=== PATIENT | male | born 1960 | race African-American/Black ===

== ENCOUNTER 2016-12-20 09:37 | Inpatient (IN) | payer MEDICARE, OTHER ==
[~2016-12-20] VITALS: Ht 170.2 cm; Wt 81.2 kg
[2016-12-20] VITALS (8 sets, daily range): BP systolic 129; BP diastolic 70; PULSE 121; RESP 18; TEMP 99.9; O2SAT 97–100
--- NOTE | 2016-12-20 11:03 | PD ---
HPI Chief Complaint: GI Complaint Time Seen by Provider: 10:00 Travel History International Travel<30 days: No Contact w/Intl Traveler<30days: No Traveled to known affect area: No History of Present Illness HPI 56-year-old male presents by ambulance from a custodial with note of vomiting and concern for bowel obstruction. Patient is a ventilator patient with a tracheostomy and a PEG tube and has difficulty communicating secondary to this but does note pain all over. He is a quadriplegic and cannot point at the area that is bothering him. [facility] Past Medical History Medical History: Unable to Obtain Past Surgical History Surgical History: Unable to Obtain Social History Tobacco Use: No (uto) Allergies-Medications (Allergen,Severity, Reaction): Coded Allergies: levofloxacin (Verified Allergy, Unknown, 12/20/16) PER [facility] AT [facility] Reported Meds & Prescriptions Reported Meds & Active Scripts Active Reported Trazodone (Trazodone HCl) 150 Mg Tablet 150 Mg PO HS Sodium Chloride Flush (Sodium Chloride) 0.9 % Inj 10 Ml IV FLUSH MONTHLY For infusaport maintenance-access infusaport to rt upper chest area w/tan needle and flush w/10ml NSS on day shift every 30 days Silvadene Topical (Silver Sulfadiazine) 1 % Cream 1 Applic TOPICAL DAILY Apply to suprapubic site every day shift after nss wash then cover w/dry drsg-apply calciumm alginate as needed Senna-Tabs (Sennosides) 8.6 Mg Tab 17.2 Mg G-TUBE BID Remeron (Mirtazapine) 15 Mg Tab 15 Mg G-TUBE HS Miralax (Polyethylene Glycol 3350) 17 Gram Powd.pack 17 Gm G-TUBE DAILY Oxycodone (Oxycodone HCl) 5 Mg Tab 5 Mg PEG Q6HR PRN Zofran (Ondansetron HCl) 4 Mg Tab 4 Mg G-TUBE Q6HR PRN Multi-Vitamin/Minerals (Multiple Vitamins W/ Minerals) 1 Tab Tab 1 Tab G-TUBE DAILY Midodrine 5 Mg Tab 5 Mg G-TUBE TID Metoprolol Tartrate 25 Mg Tab 12.5 Mg G-TUBE BID Ativan (Lorazepam) 1 Mg Tab 1 Mg G-TUBE Q6HR PRN Heparin Sod 5,000 Unit/ 0.5 ml (Heparin Sodium,Porcine/Pf) 5,000 Unit/0.5 Ml Vial 5,000 Units SQ Q8HR Pepcid (Famotidine) 20 Mg Tab 20 Mg G-TUBE Q12HR Duoneb (Ipratropium-Albuterol Neb) 0.5-2.5 Mg/3 Ml Neb 3 Ml NEB QID Duoneb (Ipratropium-Albuterol Neb) 0.5-2.5 Mg/3 Ml Neb 3 Ml NEB Q3HR PRN [D5%-Nss Soln] 50 Ml IV EVERY SHIFT PRN 50ML/HR Cymbalta DR (Duloxetine HCl) 60 Mg Capdr 60 Mg G-TUBE DAILY Buspirone (Buspirone HCl) 5 Mg Tab 5 Mg G-TUBE TID Baclofen 10 Mg Tab 10 Mg G-TUBE TID Ascorbic Acid 500 Mg Tab 500 Mg G-TUBE DAILY Tylenol (Acetaminophen) 325 Mg Tab 650 Mg G-TUBE Q6H PRN Acetaminophen Supp (Acetaminophen) 650 Mg Supp 650 Mg RECTAL Q6H PRN Review of Systems ROS Limitations: Other: (vent, quad) Physical Exam Exam Limitations: Clinical Condition Narrative GENERAL: Ventilator patient SKIN: Warm and dry. HEAD: Normocephalic EYES: No injection or drainage. ENT: No nasal drainage noted. NECK: Supple, trachea midline. CARDIOVASCULAR: Tachycardic rate and regular rhythm RESPIRATORY: no increased effort. No accessory muscle use. GASTROINTESTINAL: Abdomen is distended, diffusely tender NEUROLOGICAL: Quadriplegic with contractures noted Data Data Last Documented VS Vital Signs Date Time Temp Pulse Resp B/P (MAP) Pulse Ox O2 Delivery O2 Flow Rate FiO2 12/20/16 17:00 100 40 12/20/16 10:47 Ventilator 12/20/16 09:50 99.9 121 18 129/70 (89) Orders Orders Complete Blood Count With Diff (12/20/16 10:05) Comprehensive Metabolic Panel (12/20/16 10:05) Prothrombin Time / Inr (Pt) (12/20/16 10:05) Act Partial Throm Time (Ptt) (12/20/16 10:05) Lactic Acid Sepsis Protocol (12/20/16 10:05) Magnesium (Mg) (12/20/16 10:05) Phosphorus (Po4) (12/20/16 10:05) Lipase (12/20/16 10:05) Ckmb (Isoenzyme) Profile (12/20/16 10:05) Troponin I (12/20/16 10:05) Urinalysis - C+S If Indicated (12/20/16 10:05) Influenzae A/B Antigen (12/20/16 10:05) Blood Culture (12/20/16 10:05) Chest, Single Ap (12/20/16 10:05) Ecg Monitoring (12/20/16 10:05) Iv Access Insert/Monitor (12/20/16 10:05) Oximetry (12/20/16 10:05) Oxygen Administration (12/20/16 10:05) Ct Abd/Pel W Iv Contrast(Rout) (12/20/16 10:05) Vascular Access Team Consult/P PRN (12/20/16 11:06) Vascular Poc Ultrasound (12/20/16 ) Urine Culture (12/20/16 11:50) Cefepime Inj (Maxipime Inj) (12/20/16 14:15) Azithromycin Inj (Zithromax Inj) (12/20/16 14:17) CKMB (12/20/16 14:40) CKMB% (12/20/16 14:40) Sodium Chlor 0.9% 1000 Ml Inj (Ns 1000 M (12/20/16 16:30) Iohexol 350 Inj (Omnipaque 350 Inj) (12/20/16 16:57) Admit Order (Ed Use Only) (12/20/16 17:53) Labs Laboratory Tests Test 12/20/16 11:50 12/20/16 14:40 White Blood Count 27.8 TH/MM3 Red Blood Count 4.99 MIL/MM3 Hemoglobin 11.8 GM/DL Hematocrit 36.1 % Mean Corpuscular Volume 72.2 FL Mean Corpuscular Hemoglobin 23.6 PG Mean Corpuscular Hemoglobin Concent 32.7 % Red Cell Distribution Width 19.2 % Platelet Count 528 TH/MM3 Mean Platelet Volume 7.8 FL Neutrophils (%) (Auto) 87.6 % Lymphocytes (%) (Auto) 7.1 % Monocytes (%) (Auto) 4.8 % Eosinophils (%) (Auto) 0.2 % Basophils (%) (Auto) 0.3 % Neutrophils # (Auto) 24.3 TH/MM3 Lymphocytes # (Auto) 2.0 TH/MM3 Monocytes # (Auto) 1.3 TH/MM3 Eosinophils # (Auto) 0.0 TH/MM3 Basophils # (Auto) 0.1 TH/MM3 CBC Comment AUTO DIFF Differential Total Cells Counted 100 Neutrophils % (Manual) 84 % Band Neutrophils % 2 % Lymphocytes % 8 % Monocytes % 2 % Eosinophils % 1 % Basophils % 1 % Neutrophils # (Manual) 24.5 TH/MM3 Metamyelocytes 1 % Myelocytes 1 % Differential Comment FINAL DIFF MANUAL Toxic Vacuolation PRESENT Platelet Estimate HIGH Platelet Morphology Comment NORMAL Prothrombin Time 10.7 SEC Prothromb Time International Ratio 1.0 RATIO Activated Partial Thromboplast Time 28.3 SEC Urine Color YELLOW Urine Turbidity CLOUDY Urine pH 6.0 Urine Specific [place] 1.031 Urine Protein GREATER THAN 600 mg/dL Urine Glucose (UA) NEG mg/dL Urine Ketones TRACE mg/dL Urine Occult Blood MOD Urine Nitrite NEG Urine Bilirubin NEG Urine Urobilinogen 2.0 MG/DL Urine Leukocyte Esterase LARGE Urine RBC 41 /hpf Urine WBC /hpf Urine WBC Clumps MANY Urine Bacteria MANY /hpf Urine Hyaline Casts 18 /lpf Urine Granular Casts 9 /lpf Urine Mucus MANY /lpf Microscopic Urinalysis Comment CATH-CULTURE IND Lactic Acid Level 1.1 mmol/L Blood Urea Nitrogen 22 MG/DL Creatinine 0.75 MG/DL Random Glucose 164 MG/DL Total Protein 10.6 GM/DL Albumin 3.5 GM/DL Calcium Level 10.4 MG/DL Phosphorus Level 6.0 MG/DL Magnesium Level 2.4 MG/DL Alkaline Phosphatase 219 U/L Aspartate Amino Transf (AST/SGOT) 31 U/L Alanine Aminotransferase (ALT/SGPT) 71 U/L Total Bilirubin 0.6 MG/DL Sodium Level 125 MEQ/L Potassium Level 4.3 MEQ/L Chloride Level 91 MEQ/L Carbon Dioxide Level 20.9 MEQ/L Anion Gap 13 MEQ/L Estimat Glomerular Filtration Rate 132 ML/MIN Total Creatine Kinase 298 U/L Creatine Kinase MB 1.5 NG/ML Troponin I LESS THAN 0.02 NG/ML Lipase 80 U/L [facility] Medical Decision Making Medical Screen Exam Complete: Yes Emergency Medical Condition: Yes Medical Record Reviewed: Yes (no records here) Interpretation(s) CBC & BMP Diagram 12/20/16 11:50 12/20/16 14:40 Total Protein 10.6 H, Albumin 3.5, Calcium Level 10.4 H, Phosphorus Level 6.0 H , Magnesium Level 2.4, Alkaline Phosphatase 219 H, Aspartate Amino Transf (AST/ SGOT) 31, Alanine Aminotransferase (ALT/SGPT) 71, Total Bilirubin 0.6 ua with uti Last 24 hours Impressions Chest X-Ray 12/20/16 1005 Signed Impressions: Service Date/Time: Tuesday, December 20, 2016 10:34 - CONCLUSION: Bibasilar parenchymal changes. Inflammatory process in the right base cannot be excluded. Gurpreet Iniguez MD FACR Abdomen/Pelvis CT 12/20/16 1005 Signed Impressions: Service Date/Time: Tuesday, December 20, 2016 16:56 - CONCLUSION: 1. There are bibasilar areas of atelectasis. 2. There is gaseous distention of the colon. There is oral contrast which has passed through the colon nearly down to the ostomy. 3. Incidental note is made of an IVC filter. 4. Note is made of multiple loops of moderately dilated, fluid-filled small bowel. Brett Iniguez MD Differential Diagnosis Bowel obstruction, gastroenteritis, renal failure, UTI Narrative Course Will place PEG tube to gravity given significant distention and check labs, CT and reevaluate Nursing staff states 1500 mL output from PEG tube while awaiting testing Patient given broad-spectrum antibiotic coverage and will be admitted to the ICU for further care. Sepsis Criteria SIRS Criteria (2 or more): Heart rate over 90, WBC > 31151, < 4000 or > 10% bands Sepsis Criteria (SIRS+source): Infect source susp/known Criteria Outcome: Meets sepsis criteria Physician Communication Physician Communication dr bianchi agrees to admit Diagnosis Primary Impression: Sepsis Qualified Codes: A41.9 - Sepsis, unspecified organism Additional Impressions: UTI (urinary tract infection) Qualified Codes: N39.0 - Urinary tract infection, site not specified Hyponatremia Admitting Information Admitting Physician Requests: it Daily Lazaro MD Dec 20, 2016 11:03
--- NOTE | 2016-12-20 11:45 | RADRPT ---
EXAM DATE/TIME: 12/20/2016 10:34 [facility] COMPARISON: No previous studies available for comparison. INDICATIONS : Patient has a fever and vomiting. MEDICAL HISTORY : None. SURGICAL HISTORY : None. ENCOUNTER: Initial ACUITY: 1 day PAIN SCORE: Non-responsive. LOCATION: Bilateral Chest FINDINGS: Trach tube in good position, Infusaport in good position. Minimal bibasilar parenchymal changes evid ent. Heart and pulmonary vascularity are normal. CONCLUSION: Bibasilar parenchymal changes. Inflammatory process in the right base cannot be excluded. Gurpreet Iniguez MD FACR on December 20, 2016 at 11:23 Board Certified Radiologist. This report was verified electronically.
[2016-12-20] MEDS ORDERED: CYMB60CA G-TUBE (12:14)
[2016-12-20] MEDS ORDERED: SILV1CRE20 TOPICAL (12:14)
[2016-12-20] MEDS ORDERED: SODI0.9I29 IV FLUSH (12:14)
[2016-12-20] MEDS ORDERED: TRAZ1TAB45 PO (12:14)
[2016-12-20] MEDS ORDERED: [UNRECOGNIZED DRUG - CODE] SQ (12:14)
[2016-12-20] MEDS ORDERED: REME15TA G-TUBE (12:14)
[2016-12-20] MEDS ORDERED: METO25TA3 G-TUBE (12:14)
[2016-12-20] MEDS ORDERED: ASCO500T G-TUBE (12:14)
[2016-12-20] MEDS ORDERED: POLY17PO3 G-TUBE (12:14)
[2016-12-20] MEDS ORDERED: MULTTAB62 G-TUBE (12:14)
[2016-12-20] MEDS ORDERED: TYLE325T G-TUBE (12:14)
[2016-12-20] MEDS ORDERED: FAMO1TAB37 G-TUBE (12:14)
[2016-12-20] MEDS ORDERED: DEXTROSE IV (12:14)
[2016-12-20] MEDS ORDERED: IPRASOL NEB ×2 (12:14)
[2016-12-20] MEDS ORDERED: ZOFR4TAB G-TUBE (12:14)
[2016-12-20] MEDS ORDERED: LORA-474 G-TUBE (12:14)
[2016-12-20] MEDS ORDERED: MIDO5TAB G-TUBE (12:14)
[2016-12-20] MEDS ORDERED: OXYC-392 PEG (12:14)
[2016-12-20] MEDS ORDERED: SODIUM CHLORIDE IV (12:14)
[2016-12-20] MEDS ORDERED: BACL10TA G-TUBE (12:14)
[2016-12-20] MEDS ORDERED: SENN8.6T36 G-TUBE (12:14)
[2016-12-20] MEDS ORDERED: BUSP5TAB G-TUBE (12:14)
[2016-12-20] MEDS ORDERED: ACET650S4 RECTAL (12:14)
[2016-12-20 12:33] LABS: BACTERIA, URINE MANY /hpf; BLOOD, URINE MOD (NEG); GLUCOSE,URINE NEG (NEG); GRANULAR CAST, URINE 9 /lpf; HYALINE CAST, URINE 18 /lpf (RARE); KETONE, URINE TRACE mg/dL (NEG); MUCUS URINE MANY /lpf (OCC); NITRITE,URINE NEG (NEG)
[2016-12-20 12:35] LABS: COMMENT (UR) CATH-CULTURE IND; CULTURE IF INDICATED CATH CULTURE IND; URINE COLOR YELLOW (YELLW/STRAW)
[2016-12-20 12:37] LABS: AUTOMATED NEUTROPHIL # 24.3 TH/MM3 (1.8-7.7); BASOPHIL # 0.1 TH/MM3 (0-0.2); BASOPHIL % 0.3 % (0.0-2.0); EOSINOPHIL % 0.2 % (0.0-4.0); HEMATOCRIT 36.1 % (39.0-51.0); LYMPH % 7.1 % (9.0-44.0); MEAN CELL VOLUME 72.2 FL (80.0-100.0); MEAN CORPUSCULAR HEMOGLOBIN 23.6 PG (27.0-34.0); MEAN CORPUSCULAR HGB CONC 32.7 % (32.0-36.0); MONO % 4.8 % (0.0-8.0); NEUT % 87.6 % (16.0-70.0); PLATELET COUNT 528 TH/MM3 (150-450); RED BLOOD COUNT 4.99 MIL/MM3 (4.50-5.90); RED CELL DISTRIBUTION WIDTH 19.2 % (11.6-17.2); WHITE BLOOD COUNT 27.8 TH/MM3 (4.0-11.0)
[2016-12-20 12:38] LABS: HEMO FLAGS AUTO DIFF
[2016-12-20 12:41] LABS: APTT (PATIENT) 28.3 SEC (24.3-30.1); PROTHROMBIN TIME - PATIENT 10.7 SEC (9.8-11.6)
[2016-12-20 13:15] LABS: BANDS 2 % (0-6); BASOPHILS 1 % (0-2); EOSINOPHILS 1 % (0-4); METAMYELOCYTES 1 % (0-1); MYELOCYTES 1 % (0-0); NEUTROPHIL # MANUAL DIFF 24.5 TH/MM3 (1.8-7.7); PLATELET ESTIMATE SMEAR HIGH (NORMAL); PLATELET MORPHOLOGY NORMAL (NORMAL); POLYS (SEG NEUTROPHILS) 84 % (16-70); SCAN/DIFF FINAL DIFF MANUAL; WBC DIFF SAMPLE 100
[2016-12-20 13:16] LABS: TOXIC VACUOLATION PRESENT (NONE SEEN)
[2016-12-20] MEDS ORDERED: CEFEPIME INJ 2,000 MG in SODIUM CHLORIDE 0.9% INJ 100 ML IV STA (14:15)
[2016-12-20] MEDS ORDERED: AZITHROMYCIN INJ 500 MG in SODIUM CHLOR 0.9% 250 ML INJ 250 ML IV STA (14:17)
[2016-12-20 15:22] LABS: ALT (GPT) 71 U/L (12-78); ANION GAP 13 MEQ/L (5-15); AST (GOT) 31 U/L (15-37); BICARBONATE 20.9 MEQ/L (21.0-32.0); BLOOD UREA NITROGEN 22 MG/DL (7-18); CHLORIDE 91 MEQ/L (98-107); GLOMERULAR FILTRATION RATE 132 ML/MIN (>89); MAGNESIUM 2.4 MG/DL (1.5-2.5); POTASSIUM 4.3 MEQ/L (3.5-5.1); SODIUM (NA) 125 MEQ/L (136-145)
[2016-12-20 15:25] LABS: ALKALINE PHOSPHATASE 219 U/L (45-117)
[2016-12-20 15:32] LABS: CREATINE KINASE 298 U/L (39-308); TOTAL BILIRUBIN ADULT 0.6 MG/DL (0.2-1.0)
[2016-12-20 15:46] LABS: CKMB 1.5 NG/ML (0.5-3.6)
[2016-12-20] MEDS ORDERED: SODIUM CHLOR 0.9% 1000 ML INJ 1,000 ML IV ONE ×3 (16:30→21:20)
[2016-12-20] MEDS ORDERED: IOHEXOL 350 MG/ML 10 ML VIAL (for RAD DIAG) IV PUSH ONE (16:57)
--- NOTE | 2016-12-20 17:10 | RADRPT ---
EXAM DATE/TIME: 12/20/2016 16:56 [facility] COMPARISON: No previous studies available for comparison. INDICATIONS : Abdomen pain. IV CONTRAST: 100 cc Omnipaque 350 (iohexol) IV ORAL CONTRAST: No oral contrast ingested. RADIATION DOSE: 9.96 CTDIvol (mGy) MEDICAL HISTORY : None SURGICAL HISTORY : peg tube ENCOUNTER: Initial ACUITY: 1 day PAIN SCALE: 5/10 LOCATION: Bilateral abdomen pain TECHNIQUE: Volumetric scanning of the abdomen and pelvis was performed. Using automated exposure control and ad justment of the mA and/or kV according to patient size, radiation dose was kept as low as reasonably achievable to obtain optimal diagnostic quality images. DICOM format image data is available electro nically for review and comparison. FINDINGS: There are areas of consolidation in both lung bases. There is no significant pleural effusion. The appearance of the liver, spleen, pancreas, adrenal glands and left kidney is within normal limits . The examination demonstrates a 3.4 cm simple cyst in the left kidney. The visualized loops of small and large bowel demonstrate mild gaseous distention of the colon and mu ltiple mildly dilated, fluid-filled loops of small bowel.. There is an ostomy in place in the left up per quadrant. There is oral contrast that has passed through the small bowel and is present within th e colon. There is no free intraperitoneal air. No free fluid is identified. Note is made of an IVC filter. There is no free fluid within the pelvis. No iliac or inguinal adenopathy is seen. The examination de monstrates a suprapubic catheter in satisfactory position. There degenerative changes throughout the lumbar spine. CONCLUSION: 1. There are bibasilar areas of atelectasis. 2. There is gaseous distention of the colon. There is oral contrast which has passed through the colo n nearly down to the ostomy. 3. Incidental note is made of an IVC filter. 4. Note is made of multiple loops of moderately dilated, fluid-filled small bowel. Brett Iniguez MD on December 20, 2016 at 17:03 Board Certified Radiologist. This report was verified electronically.
[2016-12-20] MEDS ORDERED: ONDANSETRON ODT 4 MG TAB PRN (21:15)
[2016-12-20] MEDS ORDERED: ACETAMINOPHEN 650 MG/20.3 ML UDC G-TUBE PRN (21:15)
[2016-12-20] MEDS ORDERED: SODIUM CHLOR 0.9% 1000 ML INJ 100 ML IV ONE (21:20)
[2016-12-20] MEDS ORDERED: SENNOSIDES 8.6 MG TAB PO PRN (21:30)
[2016-12-20] MEDS ORDERED: MAGNESIUM HYDROXIDE SUSP 30 ML CUP PO PRN (21:30)
[2016-12-20] MEDS ORDERED: Vancomycin Consult Pharmacy 1 EA OTHER SCH (21:30)
[2016-12-20] MEDS ORDERED: BISACODYL 10 MG SUPP RECTAL PRN (21:30)
[2016-12-20] MEDS ORDERED: RESP: ALBUTEROL 2.5 MG/IPRATROPIUM 0.5 MG NEB (PRN) INH (21:30)
[2016-12-20] MEDS ORDERED: LACTULOSE SYRUP 20 GM/30 ML CUP PO PRN (21:30)
[2016-12-20] MEDS ORDERED: MISCELLANEOUS NURSING INFORMATION XX SCH ×2 (21:30)
[2016-12-20] MEDS ORDERED: SODIUM CHLORIDE 0.9% FLUSH 10 ML FLUSH IV FLUSH PRN ×2 (21:30)
[2016-12-20] MEDS ORDERED: CHLORHEXIDINE GLUCONATE 2 % 1 PACK (2 CLOTHS) TOP PRN ×2 (21:30)
[2016-12-20] MEDS: RESP: ALBUTEROL 2.5 MG/IPRATROPIUM 0.5 MG NEB (SCH) INH (21:44)
--- NOTE | 2016-12-20 21:47 | HHI.HP ---
HPI Service Critical Care Medicine Primary Care Physician Ronald Bueno MD Admission Diagnosis sepsis Diagnosis: Travel History International Travel<30 Days: No Contact w/Intl Traveler <30 Da: No Traveled to Known Affected Are: No History of Present Illness 56-year-old male presents by ambulance from a snf with note of vomiting and concern for bowel obstruction. Patient is a ventilator dependent patient with a tracheostomy and a PEG tube and has difficulty communicating secondary to this but does note pain all over. He is a quadriplegic and cannot point at the area that is bothering him. Review of Systems ROS Unobtainable patient with ventilatory dependent respiratory failure Past Family Social History Allergies: Coded Allergies: levofloxacin (Verified Allergy, Unknown, 12/20/16) PER [facility] Past Medical History Ventilatory dependent respiratory failure Otherwise unobtainable Past Surgical History IVC filter Further unobtainable Reported Medications Reported Meds & Active Scripts Active Reported Trazodone (Trazodone HCl) 150 Mg Tablet 150 Mg PO HS Sodium Chloride Flush (Sodium Chloride) 0.9 % Inj 10 Ml IV FLUSH MONTHLY For infusaport maintenance-access infusaport to rt upper chest area w/tan needle and flush w/10ml NSS on day shift every 30 days Silvadene Topical (Silver Sulfadiazine) 1 % Cream 1 Applic TOPICAL DAILY Apply to suprapubic site every day shift after nss wash then cover w/dry drsg-apply calciumm alginate as needed Senna-Tabs (Sennosides) 8.6 Mg Tab 17.2 Mg G-TUBE BID Remeron (Mirtazapine) 15 Mg Tab 15 Mg G-TUBE HS Miralax (Polyethylene Glycol 3350) 17 Gram Powd.pack 17 Gm G-TUBE DAILY Oxycodone (Oxycodone HCl) 5 Mg Tab 5 Mg PEG Q6HR PRN Zofran (Ondansetron HCl) 4 Mg Tab 4 Mg G-TUBE Q6HR PRN Multi-Vitamin/Minerals (Multiple Vitamins W/ Minerals) 1 Tab Tab 1 Tab G-TUBE DAILY Midodrine 5 Mg Tab 5 Mg G-TUBE TID Metoprolol Tartrate 25 Mg Tab 12.5 Mg G-TUBE BID Ativan (Lorazepam) 1 Mg Tab 1 Mg G-TUBE Q6HR PRN Heparin Sod 5,000 Unit/ 0.5 ml (Heparin Sodium,Porcine/Pf) 5,000 Unit/0.5 Ml Vial 5,000 Units SQ Q8HR Pepcid (Famotidine) 20 Mg Tab 20 Mg G-TUBE Q12HR Duoneb (Ipratropium-Albuterol Neb) 0.5-2.5 Mg/3 Ml Neb 3 Ml NEB QID Duoneb (Ipratropium-Albuterol Neb) 0.5-2.5 Mg/3 Ml Neb 3 Ml NEB Q3HR PRN [D5%-Nss Soln] 50 Ml IV EVERY SHIFT PRN 50ML/HR Cymbalta DR (Duloxetine HCl) 60 Mg Capdr 60 Mg G-TUBE DAILY Buspirone (Buspirone HCl) 5 Mg Tab 5 Mg G-TUBE TID Baclofen 10 Mg Tab 10 Mg G-TUBE TID Ascorbic Acid 500 Mg Tab 500 Mg G-TUBE DAILY Tylenol (Acetaminophen) 325 Mg Tab 650 Mg G-TUBE Q6H PRN Acetaminophen Supp (Acetaminophen) 650 Mg Supp 650 Mg RECTAL Q6H PRN Active Ordered Medications Current Medications Medications (Trade) Dose Ordered Sig/Francisco J Route PRN Reason Start Time Stop Time Status Last Admin Dose Admin Acetaminophen (Tylenol 650 Mg/ 20 ml Liq) 650 mg Q6H PRN G-TUBE PAIN 1-10 AND/OR FEVER >101F 12/20/16 21:15 Ascorbic Acid (Vitamin C) 500 mg DAILY G-TUBE 12/21/16 09:00 Baclofen (Lioresal) 10 mg TID G-TUBE 12/21/16 09:00 Buspirone HCl (Buspar) 5 mg TID G-TUBE 12/21/16 09:00 Duloxetine HCl (Cymbalta Dr) 60 mg DAILY .XX 12/21/16 09:00 Famotidine (Pepcid) 20 mg Q12HR G-TUBE 12/21/16 09:00 Lorazepam (Ativan) 1 mg Q6HR PRN G-TUBE ANXIETY 12/20/16 21:15 Midodrine (Proamatine) 5 mg TID G-TUBE 12/21/16 09:00 Mirtazapine (Remeron) 15 mg HS G-TUBE 12/21/16 21:00 Oxycodone HCl (Roxicodone) 5 mg Q6HR PRN PEG PAIN 12/20/16 21:15 Polyethylene Glycol (Miralax) 17 gm DAILY G-TUBE 12/21/16 09:00 Sennosides (Senokot) 17.2 mg BID G-TUBE 12/21/16 09:00 Silver Sulfadiazine (Silvadene 1% Cream (50 Gm)) 1 applic DAILY TOPICAL 12/21/16 09:00 Heparin Sodium (Porcine) (Heparin Inj) 5,000 units Q8HR SQ 12/20/16 22:00 Multivitamins/ Minerals Therapeutic (Theragran M Tab) 1 tab DAILY G-TUBE 12/21/16 09:00 Ondansetron HCl (Zofran Odt) 4 mg Q6HR PRN .XX NAUSEA OR VOMITING 12/20/16 21:15 Trazodone HCl (Desyrel) 150 mg HS PO 12/21/16 21:00 Senna/Docusate Sodium (Lynsey-Colace) 1 tab BID PO 12/21/16 09:00 Magnesium Hydroxide (Milk Of Magnesia Liq) 30 ml Q12H PRN PO MILD - MODERATE CONSTIPATION 12/20/16 21:30 Sennosides (Senokot) 17.2 mg Q12H PRN PO MODERATE - SEVERE CONSTIPATION 12/20/16 21:30 Bisacodyl (Dulcolax Supp) 10 mg DAILY PRN RECTAL SEVERE CONSITIPATION 12/20/16 21:30 Lactulose (Lactulose Liq) 30 ml DAILY PRN PO SEVERE CONSITIPATION 12/20/16 21:30 Sodium Chloride (NS Flush) 2 ml UNSCH PRN IV FLUSH FLUSH AFTER USING IV ACCESS 12/20/16 21:30 Sodium Chloride (NS Flush) 2 ml BID IV FLUSH 12/21/16 09:00 Albuterol/ Ipratropium (Duoneb Neb) 1 ampule Q6HR NEB INH 12/20/16 22:00 12/20/16 21:44 Albuterol/ Ipratropium (Duoneb Neb) 1 ampule Q2HR NEB PRN INH WHEEZING 12/20/16 21:30 Pharmacy Profile Note 0 ml @ 0 mls/hr UNSCH OTHER 12/20/16 21:30 Piperacillin Sod/ Tazobactam Sod 100 ml @ 200 mls/hr Q6H IV 12/20/16 23:00 Cefepime HCl 2000 mg/Sodium Chloride 100 ml @ 200 mls/hr Q8H IV 12/20/16 22:00 Miscellaneous Information 1 [id number] XX 12/20/16 21:30 Chlorhexidine Gluconate (Chlorhexidine 2% Cloth) 3 pack Taper DAILY@04 TOP 12/21/16 04:00 12/17/17 03:59 Chlorhexidine Gluconate (Chlorhexidine 2% Cloth) 3 pack UNSCH PRN TOP HYGIENIC CARE 12/20/16 21:30 Sodium Chloride 1,000 ml @ 125 mls/hr Q8H IV 12/20/16 21:30 Vancomycin HCl 1400 mg/Sodium Chloride 514 ml @ 250 mls/hr DAILY@0000 IV 12/21/16 00:00 12/21/16 04:00 Family History Unobtainable Social History Unobtainable Physical Exam Vital Signs Vital Signs Date Time Temp Pulse Resp B/P (MAP) Pulse Ox O2 Delivery O2 Flow Rate FiO2 12/20/16 19:24 100 40 12/20/16 17:00 100 40 12/20/16 17:00 100 40 12/20/16 13:05 100 40 12/20/16 10:47 100 Ventilator 12/20/16 10:47 100 Ventilator 12/20/16 09:50 100 60 12/20/16 09:50 99.9 121 18 129/70 (89) 100 Physical Exam GENERAL: Elderly appearing gentleman on ventilator via tracheostomy with contractures in all 4 extremities. SKIN: Warm and dry. HEAD: Normocephalic. EYES: No scleral icterus. No injection or drainage. NECK: Supple, trachea midline. No JVD or lymphadenopathy. Tracheostomy in midline CARDIOVASCULAR: Regular rate and rhythm without murmurs, gallops, or rubs. RESPIRATORY: Breath sounds equal bilaterally. No accessory muscle use. GASTROINTESTINAL: Abdomen soft, tender in all 4 quadrants, mildly distended. MUSCULOSKELETAL: No cyanosis, or edema. Contractures in all 4 extremities BACK: Nontender without obvious deformity. NEURO EXAM: Quadriplegic man Mental Status: The patient is arousable nonverbal due to tracheostomy Laboratory Laboratory Tests Test 12/20/16 11:50 12/20/16 14:40 White Blood Count 27.8 Red Blood Count 4.99 Hemoglobin 11.8 Hematocrit 36.1 Mean Corpuscular Volume 72.2 Mean Corpuscular Hemoglobin 23.6 Mean Corpuscular Hemoglobin Concent 32.7 Red Cell Distribution Width 19.2 Platelet Count 528 Mean Platelet Volume 7.8 Neutrophils (%) (Auto) 87.6 Lymphocytes (%) (Auto) 7.1 Monocytes (%) (Auto) 4.8 Eosinophils (%) (Auto) 0.2 Basophils (%) (Auto) 0.3 Neutrophils # (Auto) 24.3 Lymphocytes # (Auto) 2.0 Monocytes # (Auto) 1.3 Eosinophils # (Auto) 0.0 Basophils # (Auto) 0.1 CBC Comment AUTO DIFF Differential Total Cells Counted 100 Neutrophils % (Manual) 84 Band Neutrophils % 2 Lymphocytes % 8 Monocytes % 2 Eosinophils % 1 Basophils % 1 Neutrophils # (Manual) 24.5 Metamyelocytes 1 Myelocytes 1 Differential Comment FINAL DIFF MANUAL Toxic Vacuolation PRESENT Platelet Estimate HIGH Platelet Morphology Comment NORMAL Prothrombin Time 10.7 Prothromb Time International Ratio 1.0 Activated Partial Thromboplast Time 28.3 Urine Color YELLOW Urine Turbidity CLOUDY Urine pH 6.0 Urine Specific [place] 1.031 Urine Protein GREATER THAN 600 Urine Glucose (UA) NEG Urine Ketones TRACE Urine Occult Blood MOD Urine Nitrite NEG Urine Bilirubin NEG Urine Urobilinogen 2.0 Urine Leukocyte Esterase LARGE Urine RBC 41 Urine WBC Urine WBC Clumps MANY Urine Bacteria MANY Urine Hyaline Casts 18 Urine Granular Casts 9 Urine Mucus MANY Microscopic Urinalysis Comment CATH-CULTURE IND Lactic Acid Level 1.1 Blood Urea Nitrogen 22 Creatinine 0.75 Random Glucose 164 Total Protein 10.6 Albumin 3.5 Calcium Level 10.4 Phosphorus Level 6.0 Magnesium Level 2.4 Alkaline Phosphatase 219 Aspartate Amino Transf (AST/SGOT) 31 Alanine Aminotransferase (ALT/SGPT) 71 Total Bilirubin 0.6 Sodium Level 125 Potassium Level 4.3 Chloride Level 91 Carbon Dioxide Level 20.9 Anion Gap 13 Estimat Glomerular Filtration Rate 132 Total Creatine Kinase 298 Creatine Kinase MB 1.5 Troponin I LESS THAN 0.02 Lipase 80 Date/Time Source Procedure Growth Status 12/20/16 11:55 Blood Peripheral Aerobic Blood Culture Pending Received 12/20/16 11:55 Blood Peripheral Anaerobic Blood Culture Pending Received 12/20/16 11:50 Urine Catheterized Urine Urine Culture Pending Worksheet Result Diagram: 12/20/16 1150 12/20/16 1440 Imaging Last 24 hours Impressions Chest X-Ray 12/20/16 1005 Signed Impressions: Service Date/Time: Tuesday, December 20, 2016 10:34 - CONCLUSION: Bibasilar parenchymal changes. Inflammatory process in the right base cannot be excluded. Gurpreet Iniguez MD FACR Abdomen/Pelvis CT 12/20/16 1005 Signed Impressions: Service Date/Time: Tuesday, December 20, 2016 16:56 - CONCLUSION: 1. There are bibasilar areas of atelectasis. 2. There is gaseous distention of the colon. There is oral contrast which has passed through the colon nearly down to the ostomy. 3. Incidental note is made of an IVC filter. 4. Note is made of multiple loops of moderately dilated, fluid-filled small bowel. Brett Iniguez MD Caprini VTE Risk Assessment Caprini VTE Risk Assessment: Mod/High Risk (score >= 2) Caprini Risk Assessment Model Point Value = 1 Point Value = 2 Point Value = 3 Point Value = 5 Age 41-60 Minor surgery BMI > 25 kg/m2 Swollen legs Varicose veins or History of unexplained or recurrent spontaneous Oral contraceptives or hormone replacement Sepsis (< 1 month) Serious lung disease, including pneumonia (< 1 month) Abnormal pulmonary function Acute myocardial infarction Congestive heart failure (< 1 month) History of inflammatory bowel disease Medical patient at bed rest Age 61-74 Arthroscopic surgery Major open surgery (> 45 min) Laparoscopic surgery (> 45 min) Malignancy Confined to bed (> 72 hours) Immobilizing plaster cast Central venous access Age >= 75 History of VTE Family history of VTE Factor V Leiden Prothrombin [id number] Lupus anticoagulant Anticardiolipin antibodies Elevated serum homocysteine Heparin-induced thrombocytopenia Other congenital or acquired thrombophilia Stroke (< 1 month) Elective arthroplasty Hip, pelvis, or leg fracture Acute spinal cord injury (< 1 month) Prophylaxis Regimen Total Risk Factor Score Risk Level Prophylaxis Regimen 0-1 Low Early ambulation 2 Moderate Order ONE of the following: *Sequential Compression Device (SCD) *Heparin 5000 units SQ BID 3-4 Higher Order ONE of the following medications: *Heparin 5000 units SQ TID *Enoxaparin/Lovenox 40 mg SQ daily (WT < 150 kg, CrCl > 30 mL/min) *Enoxaparin/Lovenox 30 mg SQ daily (WT < 150 kg, CrCl > 10-29 mL/min) *Enoxaparin/Lovenox 30 mg SQ BID (WT < 150 kg, CrCl > 30 mL/min) AND/OR *Sequential Compression Device (SCD) 5 or more Highest Order ONE of the following medications: *Heparin 5000 units SQ TID (Preferred with Epidurals) *Enoxaparin/Lovenox 40 mg SQ daily (WT < 150 kg, CrCl > 30 mL/min) *Enoxaparin/Lovenox 30 mg SQ daily (WT < 150 kg, CrCl > 10-29 mL/min) *Enoxaparin/Lovenox 30 mg SQ BID (WT < 150 kg, CrCl > 30 mL/min) AND *Sequential Compression Device (SCD) Assessment and Plan Assessment and Plan 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 Time to perform other separately billable procedures was not included in the critical care time. Baldomero Sheldon MD Dec 20, 2016 21:47
[2016-12-20] MEDS ORDERED: CEFEPIME INJ 2,000 MG in SODIUM CHLORIDE 0.9% INJ 100 ML IV SCH (22:00)
[2016-12-21] VITALS (20 sets, daily range): BP systolic 97–186; BP diastolic 61–86; PULSE 57–133; RESP 18–27; TEMP 97.5–100; O2SAT 92–100
[2016-12-21] MEDS ORDERED: SODIUM PHOSPHATE INJ 30 MMOL in SODIUM CHLOR 0.9% 250 ML INJ 240 ML IV PRN ×2
[2016-12-21] MEDS ORDERED: VANCOMYCIN INJ 1,400 MG in SODIUM CHLORID 0.9% 500 ML INJ 500 ML IV SCH ×2
[2016-12-21] MEDS ORDERED: POTASSIUM PHOSPHATE INJ 30 MMOL in SODIUM CHLOR 0.9% 250 ML INJ 250 ML IV PRN ×2
[2016-12-21] MEDS ORDERED: POTASSIUM PHOSPHATE MONOBASIC 500 MG TAB PO PRN
[2016-12-21] MEDS ORDERED: POTASSIUM CHLOR 40 MEQ PREMIX 100 ML IV PRN ×2
[2016-12-21] MEDS ORDERED: POTASSIUM PHOSPHATE MONOBASIC 500 MG TAB PO/TUBE PRN
[2016-12-21] MEDS ORDERED: MAGNESIUM OXIDE 400 MG TAB PO PRN
[2016-12-21] MEDS ORDERED: MAGNESIUM SULFATE INJ 2 GM in SODIUM CHLORIDE 0.9% INJ 96 ML IV PRN ×2
[2016-12-21] MEDS ORDERED: MAGNESIUM SULFATE INJ 4 GM in SODIUM CHLORIDE 0.9% INJ 92 ML IV PRN ×2
[2016-12-21] MEDS: HEPARIN SODIUM - SQ 10,000 UNITS/ML VIAL SQ SCH ×4 (00:56→20:30)
[2016-12-21] MEDS: SODIUM CHLOR 0.9% 1000 ML INJ 1,000 ML IV SCH ×3 (03:02→20:32)
[2016-12-21] MEDS: PIPERACIL-TAZO 4.5 GM PREMIX 100 ML IV SCH ×5 (03:04→23:37)
[2016-12-21] MEDS: RESP: ALBUTEROL 2.5 MG/IPRATROPIUM 0.5 MG NEB (SCH) INH ×4 (03:29→20:24)
[2016-12-21] MEDS ORDERED: CHLORHEXIDINE GLUCONATE 2 % 1 PACK (2 CLOTHS) TOP SCH (04:00)
[2016-12-21] MEDS: CHLORHEXIDINE GLUCONATE 2 % 1 PACK (2 CLOTHS) TOP SCH (04:00)
[2016-12-21 05:22] LABS: BLOOD GAS BASE EXCESS -3.7 mmol/L (-2-2); BLOOD GAS CARBOXYHEMOGLOBIN 1.1 % (0-4); BLOOD GAS HCO3 22 mmol/L (22-26); BLOOD GAS METHEMOGLOBIN 0.9 % (0-2); BLOOD GAS O2 HGB SATURATION 96 % (90-100); BLOOD GAS OXYGEN CONTENT 13.7 Vol % (12.0-20.0); BLOOD GAS PCO2 45 mmHg (38-42); BLOOD GAS PO2 116 mmHg (61-120); BLOOD GAS TOTAL HGB 10.1 G/DL (12.0-16.0); TEMP CORR TO 98.6
[2016-12-21 05:23] LABS: CRITICAL VALUE NO; DRAW SITE RT RADIAL; FIO2 40 %; NUMBER OF ARTERIAL PUNCTURES 1; OXYGEN DEVICE VENTILATOR; STAT NO; ULNAR PULSE PRESENT; VENT SETTINGS PRVC18/500/1.0/+5
--- NOTE | 2016-12-21 06:10 | RADRPT ---
EXAM DATE/TIME: 12/21/2016 05:20 [place] COMPARISON: CHEST SINGLE AP, December 20, 2016, 10:34. INDICATIONS : Respiratory failure, Sepsis MEDICAL HISTORY : None. SURGICAL HISTORY : PEG tube ENCOUNTER: Subsequent ACUITY: 2 days PAIN SCORE: Non-responsive. LOCATION: Bilateral chest FINDINGS: A single view of the chest demonstrates tracheostomy in good position. Right [id number] in superio r vena cava. Basilar airspace disease similar to December 20. Mild scoliosis. CONCLUSION: 1. Cardiomegaly with basilar airspace disease similar to December 20. Support apparatus unchanged Miguel Mendez MD on December 21, 2016 at 6:07 Board Certified Radiologist. This report was verified electronically.
[2016-12-21 06:11] LABS: BASOPHIL # 0.1 TH/MM3 (0-0.2); BASOPHIL % 0.3 % (0.0-2.0); EOSINOPHIL # 0.1 TH/MM3 (0-0.4); EOSINOPHIL % 0.7 % (0.0-4.0); HEMATOCRIT 31.5 % (39.0-51.0); LYMPH % 9.1 % (9.0-44.0); LYMPHOCYTE # 1.4 TH/MM3 (1.0-4.8); MEAN CELL VOLUME 75.3 FL (80.0-100.0); MEAN CORPUSCULAR HEMOGLOBIN 23.9 PG (27.0-34.0); MEAN CORPUSCULAR HGB CONC 31.7 % (32.0-36.0); MONO % 8.4 % (0.0-8.0); NEUT % 81.5 % (16.0-70.0); PLATELET COUNT 379 TH/MM3 (150-450); RED BLOOD COUNT 4.19 MIL/MM3 (4.50-5.90); RED CELL DISTRIBUTION WIDTH 18.9 % (11.6-17.2); WHITE BLOOD COUNT 15.9 TH/MM3 (4.0-11.0)
[2016-12-21 06:27] LABS: HEMO FLAGS AUTO DIFF
[2016-12-21 06:50] LABS: ALKALINE PHOSPHATASE 155 U/L (45-117); ALT (GPT) 57 U/L (12-78); ANION GAP 10 MEQ/L (5-15); AST (GOT) 25 U/L (15-37); BICARBONATE 22.5 MEQ/L (21.0-32.0); BLOOD UREA NITROGEN 22 MG/DL (7-18); CHLORIDE 101 MEQ/L (98-107); GLOMERULAR FILTRATION RATE 226 ML/MIN (>89); MAGNESIUM 2.2 MG/DL (1.5-2.5); POTASSIUM 3.7 MEQ/L (3.5-5.1); SODIUM (NA) 133 MEQ/L (136-145); TOTAL BILIRUBIN ADULT 0.5 MG/DL (0.2-1.0)
[2016-12-21 08:09] LABS: BANDS 5 % (0-6); METAMYELOCYTES 1 % (0-1); MYELOCYTES 2 % (0-0); NEUTROPHIL # MANUAL DIFF 12.1 TH/MM3 (1.8-7.7); POLYS (SEG NEUTROPHILS) 68 % (16-70); WBC DIFF SAMPLE 100
[2016-12-21 08:10] LABS: PLATELET ESTIMATE SMEAR NORMAL (NORMAL); PLATELET MORPHOLOGY NORMAL (NORMAL); SCAN/DIFF FINAL DIFF MANUAL
[2016-12-21] MEDS: DULoxetine HCl DR 60 MG CAP SCH (08:54)
[2016-12-21] MEDS: ASCORBIC ACID 500 MG TAB G-TUBE SCH (08:55)
[2016-12-21] MEDS: BACLOFEN 10 MG TAB G-TUBE SCH ×3 (08:55→17:45)
[2016-12-21] MEDS: DOCUSATE SODIUM 50 MG/SENNA 8.6 MG TAB PO SCH ×2 (08:55→20:31)
[2016-12-21] MEDS: FAMOTIDINE 20 MG TAB G-TUBE SCH ×2 (08:55→20:32)
[2016-12-21] MEDS: MIDODRINE 5 MG TAB G-TUBE SCH ×3 (08:55→17:46)
[2016-12-21] MEDS: MULTIVITAMINS/MINERALS THERAPEUTIC TAB G-TUBE SCH (08:55)
[2016-12-21] MEDS: SENNOSIDES 8.6 MG TAB G-TUBE SCH ×2 (08:55→20:31)
[2016-12-21] MEDS: POLYETHYLENE GLYCOL 17 GM PKG G-TUBE SCH (08:56)
[2016-12-21] MEDS: SODIUM CHLORIDE 0.9% FLUSH 10 ML FLUSH IV FLUSH SCH ×2 (09:00→20:32)
[2016-12-21] MEDS ORDERED: SODIUM CHLORIDE 0.9% FLUSH 10 ML FLUSH IV FLUSH SCH (09:00)
[2016-12-21] MEDS: SILVER SULFADIAZINE 1% CR 50 GM JAR TOPICAL SCH (09:00)
[2016-12-21] MEDS: busPIRone HCL 5 MG TAB G-TUBE SCH ×3 (09:10→17:46)
--- NOTE | 2016-12-21 09:19 | PD.CONS ---
HPI History of Present Illness This is a 56 year old male who presented to ED by ambulance from a alf with c/o vomiting and possible bowel obstruction. Patient is a quadriplegic. He is ventilator dependent with tracheostomy. He does have PEG tube. HPI difficult to obtain due to medical issues and difficulty communicating. GI was consulted for evaluation of ileus. Per RN patient just passed a large BM this morning. No abdominal pain noted. ([facility]) PFSH Past Medical History Ventilatory dependent respiratory failure Unable to further assess Past Surgical History IVC filter Unable to further assess ([facility]) Coded Allergies: levofloxacin (Verified Allergy, Unknown, 12/20/16) PER [facility] Medications Current Medications Medications (Trade) Dose Ordered Sig/Francisco J Route PRN Reason Start Time Stop Time Status Last Admin Dose Admin Acetaminophen (Tylenol 650 Mg/ 20 ml Liq) 650 mg Q6H PRN G-TUBE PAIN 1-10 AND/OR FEVER >101F 12/20/16 21:15 Ascorbic Acid (Vitamin C) 500 mg DAILY G-TUBE 12/21/16 09:00 12/21/16 08:55 Baclofen (Lioresal) 10 mg TID G-TUBE 12/21/16 09:00 12/21/16 08:55 Buspirone HCl (Buspar) 5 mg TID G-TUBE 12/21/16 09:00 Duloxetine HCl (Cymbalta Dr) 60 mg DAILY .XX 12/21/16 09:00 12/21/16 08:54 Famotidine (Pepcid) 20 mg Q12HR G-TUBE 12/21/16 09:00 12/21/16 08:55 Lorazepam (Ativan) 1 mg Q6HR PRN G-TUBE ANXIETY 12/20/16 21:15 Midodrine (Proamatine) 5 mg TID G-TUBE 12/21/16 09:00 12/21/16 08:55 Mirtazapine (Remeron) 15 mg HS G-TUBE 12/21/16 21:00 Oxycodone HCl (Roxicodone) 5 mg Q6HR PRN PEG PAIN 12/20/16 21:15 Polyethylene Glycol (Miralax) 17 gm DAILY G-TUBE 12/21/16 09:00 12/21/16 08:56 Sennosides (Senokot) 17.2 mg BID G-TUBE 12/21/16 09:00 12/21/16 08:55 Silver Sulfadiazine (Silvadene 1% Cream (50 Gm)) 1 applic DAILY TOPICAL 12/21/16 09:00 Heparin Sodium (Porcine) (Heparin Inj) 5,000 units Q8HR SQ 12/20/16 22:00 12/21/16 06:23 Multivitamins/ Minerals Therapeutic (Theragran M Tab) 1 tab DAILY G-TUBE 12/21/16 09:00 12/21/16 08:55 Ondansetron HCl (Zofran Odt) 4 mg Q6HR PRN .XX NAUSEA OR VOMITING 12/20/16 21:15 Trazodone HCl (Desyrel) 150 mg HS PO 12/21/16 21:00 Senna/Docusate Sodium (Lynsey-Colace) 1 tab BID PO 12/21/16 09:00 12/21/16 08:55 Magnesium Hydroxide (Milk Of Magnesia Liq) 30 ml Q12H PRN PO MILD - MODERATE CONSTIPATION 12/20/16 21:30 Sennosides (Senokot) 17.2 mg Q12H PRN PO MODERATE - SEVERE CONSTIPATION 12/20/16 21:30 Bisacodyl (Dulcolax Supp) 10 mg DAILY PRN RECTAL SEVERE CONSITIPATION 12/20/16 21:30 Lactulose (Lactulose Liq) 30 ml DAILY PRN PO SEVERE CONSITIPATION 12/20/16 21:30 Sodium Chloride (NS Flush) 2 ml UNSCH PRN IV FLUSH FLUSH AFTER USING IV ACCESS 12/20/16 21:30 Sodium Chloride (NS Flush) 2 ml BID IV FLUSH 12/21/16 09:00 Albuterol/ Ipratropium (Duoneb Neb) 1 ampule Q6HR NEB INH 12/20/16 22:00 12/21/16 08:45 Albuterol/ Ipratropium (Duoneb Neb) 1 ampule Q2HR NEB PRN INH WHEEZING 12/20/16 21:30 Pharmacy Profile Note 0 ml @ 0 mls/hr UNSCH OTHER 12/20/16 21:30 Piperacillin Sod/ Tazobactam Sod 100 ml @ 200 mls/hr Q6H IV 12/20/16 23:00 12/21/16 06:23 Miscellaneous Information 1 Q361D XX 12/20/16 21:30 12/20/16 21:30 Chlorhexidine Gluconate (Chlorhexidine 2% Cloth) 3 pack Taper DAILY@04 TOP 12/21/16 04:00 12/17/17 03:59 12/21/16 04:00 Chlorhexidine Gluconate (Chlorhexidine 2% Cloth) 3 pack UNSCH PRN TOP HYGIENIC CARE 12/20/16 21:30 Sodium Chloride 1,000 ml @ 125 mls/hr Q8H IV 12/20/16 21:30 12/21/16 03:02 Potassium Chloride 100 ml @ 50 mls/hr Q2H PRN IV For Potassium 2.8 - 3.2 mEq/L 12/21/16 00:00 Potassium Chloride 100 ml @ 50 mls/hr Q2H PRN IV For Potassium 2.8 - 3.2 mEq/L 12/21/16 00:00 Potassium Bicarb/ Potassium Chloride (K-Lyte Cl Eff) 50 meq UNSCH PRN PO For Potassium 3.3 - 3.5 mEq/L 12/21/16 00:00 Potassium Chloride 100 ml @ 25 mls/hr UNSCH PRN IV For Potassium 3.3 - 3.5 mEq/L 12/21/16 00:00 Potassium Chloride 100 ml @ 50 mls/hr Q2H PRN IV For Potassium 3.3 - 3.5 mEq/L 12/21/16 00:00 Magnesium Sulfate 4 gm/Sodium Chloride 100 ml @ 50 mls/hr UNSCH PRN IV For Magnesium 0.9 - 1.1 mg/dL 12/21/16 00:00 Magnesium Oxide (Mag-Ox) 800 mg UNSCH PRN PO For Magnesium 1.2 - 1.6 mg/dL 12/21/16 00:00 Magnesium Sulfate 2 gm/Sodium Chloride 100 ml @ 50 mls/hr UNSCH PRN IV For Magnesium 1.2 - 1.6 mg/dL 12/21/16 00:00 Potassium Phosphate (K-Phos) 2,000 mg Q4H PRN PO For Phosphorus < 2.5 mg/dL 12/21/16 00:00 Sodium Phosphate 30 mmol/Sodium Chloride 250 ml @ 42 mls/hr UNSCH PRN IV For Phosphorus < 2.5 mg/dL 12/21/16 00:00 Potassium Phosphate (K-Phos) 2,000 mg UNSCH PRN PO/TUBE SEE LABEL COMMENTS 12/21/16 00:00 Potassium Phosphate 30 mmol/ Sodium Chloride 260 ml @ 42 mls/hr UNSCH PRN IV SEE LABEL COMMENTS 12/21/16 00:00 Family History Unable to obtain Social History Lives in alf Unable to further assess ([facility]) Review of Systems ROS Unable to assess ([facility]) GI Exam Vitals I&O Vital Signs Date Time Temp Pulse Resp B/P (MAP) Pulse Ox O2 Delivery O2 Flow Rate FiO2 12/21/16 08:47 96 40 12/21/16 06:00 75 12/21/16 04:38 97 40 12/21/16 04:00 97 12/21/16 04:00 97 18 101/70 (80) 96 12/21/16 04:00 40 12/21/16 02:00 103 12/21/16 01:16 115 18 134/75 (94) 100 Trach Collar 12/21/16 01:14 110 18 127/72 (90) 100 Trach Collar 12/21/16 00:04 100.0 130 27 119/75 (90) 92 12/21/16 00:00 133 12/21/16 00:00 40 12/20/16 23:44 100 100 12/20/16 23:40 97 40 12/20/16 21:45 100 40 12/20/16 19:24 100 40 12/20/16 17:00 100 40 12/20/16 17:00 100 40 12/20/16 13:05 100 40 12/20/16 10:47 100 Ventilator 12/20/16 10:47 100 Ventilator 12/20/16 09:50 100 60 12/20/16 09:50 99.9 121 18 129/70 (89) 100 I/O 12/20/16 12/20/16 12/20/16 12/21/16 12/21/16 12/21/16 07:00 15:00 23:00 07:00 15:00 23:00 Intake Total 3314 ml Output Total 1500 ml 800 ml Balance -1500 ml -800 ml 3314 ml Intake IV Total 3314 ml Output Urine Total 800 ml Gastric Drainage Total 1500 ml # Bowel Movements 1 Imaging Last Impressions Chest X-Ray 12/20/16 1005 Signed Impressions: Service Date/Time: Tuesday, December 20, 2016 10:34 - CONCLUSION: Bibasilar parenchymal changes. Inflammatory process in the right base cannot be excluded. Gurpreet Iniguez MD FACR Abdomen/Pelvis CT 12/20/16 1005 Signed Impressions: Service Date/Time: Tuesday, December 20, 2016 16:56 - CONCLUSION: 1. There are bibasilar areas of atelectasis. 2. There is gaseous distention of the colon. There is oral contrast which has passed through the colon nearly down to the ostomy. 3. Incidental note is made of an IVC filter. 4. Note is made of multiple loops of moderately dilated, fluid-filled small bowel. Brett Iniguez MD Laboratory Test 12/20/16 11:50 12/20/16 14:40 12/21/16 00:00 12/21/16 01:55 White Blood Count 27.8 TH/MM3 Red Blood Count 4.99 MIL/MM3 Hemoglobin 11.8 GM/DL Hematocrit 36.1 % Mean Corpuscular Volume 72.2 FL Mean Corpuscular Hemoglobin 23.6 PG Mean Corpuscular Hemoglobin Concent 32.7 % Red Cell Distribution Width 19.2 % Platelet Count 528 TH/MM3 Mean Platelet Volume 7.8 FL Neutrophils (%) (Auto) 87.6 % Lymphocytes (%) (Auto) 7.1 % Monocytes (%) (Auto) 4.8 % Eosinophils (%) (Auto) 0.2 % Basophils (%) (Auto) 0.3 % Neutrophils # (Auto) 24.3 TH/MM3 Lymphocytes # (Auto) 2.0 TH/MM3 Monocytes # (Auto) 1.3 TH/MM3 Eosinophils # (Auto) 0.0 TH/MM3 Basophils # (Auto) 0.1 TH/MM3 CBC Comment AUTO DIFF Differential Total Cells Counted 100 Neutrophils % (Manual) 84 % Band Neutrophils % 2 % Lymphocytes % 8 % Monocytes % 2 % Eosinophils % 1 % Basophils % 1 % Neutrophils # (Manual) 24.5 TH/MM3 Metamyelocytes 1 % Myelocytes 1 % Differential Comment FINAL DIFF MANUAL Toxic Vacuolation PRESENT Platelet Estimate HIGH Platelet Morphology Comment NORMAL Prothrombin Time 10.7 SEC Prothromb Time International Ratio 1.0 RATIO Activated Partial Thromboplast Time 28.3 SEC Urine Color YELLOW Urine Turbidity CLOUDY Urine pH 6.0 Urine Specific [place] 1.031 Urine Protein GREATER THAN 600 mg/dL Urine Glucose (UA) NEG mg/dL Urine Ketones TRACE mg/dL Urine Occult Blood MOD Urine Nitrite NEG Urine Bilirubin NEG Urine Urobilinogen 2.0 MG/DL Urine Leukocyte Esterase LARGE Urine RBC 41 /hpf Urine WBC /hpf Urine WBC Clumps MANY Urine Bacteria MANY /hpf Urine Hyaline Casts 18 /lpf Urine Granular Casts 9 /lpf Urine Mucus MANY /lpf Microscopic Urinalysis Comment CATH-CULTURE IND Lactic Acid Level 1.1 mmol/L 1.1 mmol/L Blood Urea Nitrogen 22 MG/DL Creatinine 0.75 MG/DL Random Glucose 164 MG/DL Total Protein 10.6 GM/DL Albumin 3.5 GM/DL Calcium Level 10.4 MG/DL Phosphorus Level 6.0 MG/DL 4.9 MG/DL Magnesium Level 2.4 MG/DL Alkaline Phosphatase 219 U/L Aspartate Amino Transf (AST/SGOT) 31 U/L Alanine Aminotransferase (ALT/SGPT) 71 U/L Total Bilirubin 0.6 MG/DL Sodium Level 125 MEQ/L Potassium Level 4.3 MEQ/L Chloride Level 91 MEQ/L Carbon Dioxide Level 20.9 MEQ/L Anion Gap 13 MEQ/L Estimat Glomerular Filtration Rate 132 ML/MIN Total Creatine Kinase 298 U/L Creatine Kinase MB 1.5 NG/ML Troponin I LESS THAN 0.02 NG/ML Lipase 80 U/L Nasal Screen MRSA (PCR) MRSA NOT DETECTED Test 12/21/16 05:05 12/21/16 05:29 Blood Gas Puncture Site RT RADIAL Blood Gas Patient Temperature 98.6 Blood Gas HCO3 22 mmol/L Blood Gas Base Excess -3.7 mmol/L Blood Gas Oxygen Saturation 96 % Arterial Blood pH 7.30 Arterial Blood Partial Pressure CO2 45 mmHg Arterial Blood Partial Pressure O2 116 mmHg Arterial Blood Oxygen Content 13.7 Vol % Arterial Blood Carboxyhemoglobin 1.1 % Arterial Blood Methemoglobin 0.9 % Blood Gas Hemoglobin 10.1 G/DL Oxygen Delivery Device VENTILATOR Blood Gas Ventilator Setting PRVC18/500/1.0/+5 Blood Gas Inspired Oxygen 40 % White Blood Count 15.9 TH/MM3 Red Blood Count 4.19 MIL/MM3 Hemoglobin 10.0 GM/DL Hematocrit 31.5 % Mean Corpuscular Volume 75.3 FL Mean Corpuscular Hemoglobin 23.9 PG Mean Corpuscular Hemoglobin Concent 31.7 % Red Cell Distribution Width 18.9 % Platelet Count 379 TH/MM3 Mean Platelet Volume 7.3 FL Neutrophils (%) (Auto) 81.5 % Lymphocytes (%) (Auto) 9.1 % Monocytes (%) (Auto) 8.4 % Eosinophils (%) (Auto) 0.7 % Basophils (%) (Auto) 0.3 % Neutrophils # (Auto) 13.0 TH/MM3 Lymphocytes # (Auto) 1.4 TH/MM3 Monocytes # (Auto) 1.3 TH/MM3 Eosinophils # (Auto) 0.1 TH/MM3 Basophils # (Auto) 0.1 TH/MM3 CBC Comment AUTO DIFF Differential Total Cells Counted 100 Neutrophils % (Manual) 68 % Band Neutrophils % 5 % Lymphocytes % 11 % Monocytes % 13 % Neutrophils # (Manual) 12.1 TH/MM3 Metamyelocytes 1 % Myelocytes 2 % Differential Comment FINAL DIFF MANUAL Platelet Estimate NORMAL Platelet Morphology Comment NORMAL Blood Urea Nitrogen 22 MG/DL Creatinine 0.47 MG/DL Random Glucose 136 MG/DL Total Protein 8.4 GM/DL Albumin 2.7 GM/DL Calcium Level 8.9 MG/DL Phosphorus Level 4.3 MG/DL Magnesium Level 2.2 MG/DL Alkaline Phosphatase 155 U/L Aspartate Amino Transf (AST/SGOT) 25 U/L Alanine Aminotransferase (ALT/SGPT) 57 U/L Total Bilirubin 0.5 MG/DL Sodium Level 133 MEQ/L Potassium Level 3.7 MEQ/L Chloride Level 101 MEQ/L Carbon Dioxide Level 22.5 MEQ/L Anion Gap 10 MEQ/L Estimat Glomerular Filtration Rate 226 ML/MIN Date/Time Source Procedure Growth Status 12/20/16 11:55 Blood Peripheral Aerobic Blood Culture Pending Received 12/20/16 11:55 Blood Peripheral Anaerobic Blood Culture Pending Received 12/20/16 11:50 Urine Catheterized Urine Legionella Antigen - Final PRESUMPTIVE NEGATIVE FOR LEGIONELLA P... Complete 12/20/16 11:50 Urine Catheterized Urine Streptococcus pneumoniae Antigen (M - Final PRESUMPTIVE NEGATIVE FOR STREPTOCOCCU... Complete Physical Examination HEENT: Normocephalic; atraumatic; no jaundice. Tracheostomy NECK: Neck is supple. CHEST: CTA CARDIAC: RRR with no murmur gallop or rubs. ABDOMEN: Soft, obese, mild distention, mild guarding to palpation; bowel sounds are present. EXTREMITIES: Contractures of all 4 extremities SKIN: Normal; no rash; no jaundice. HOSTAGE NEGOTIATOR: Awake and alert. Quadriplegic. Vented on trach. ([facility]) Assessment and Plan Plan ASSESSMENT: - Ileus, appears to be improving. RN reports large BM this morning. Abdomen mildly distended with mild guarding noted on palpation. Abdomen/Pelvis CT (12/20/16)--1. There are bibasilar areas of atelectasis. 2. There is gaseous distention of the colon. There is oral contrast which has passed through the colon nearly down to the ostomy. 3. Incidental note is made of an IVC filter. 4. Note is made of multiple loops of moderately dilated, fluid-filled small bowel. PLAN: - NPO - KUB - Monitor stool output - Continue MiraLAX - Continue Senna - Supportive care - Further recommendations to follow based on results of above Patient seen and examined by Dr. Hawthorne and myself and this note is written on his behalf. ([facility]) Plan Patient was seen and examined, agree with above-noted, will give him MiraLAX and will check KUB (Rosaura Hawthorne MD) [facility] Dec 21, 2016 09:19 Rosaura Hawthorne MD Dec 22, 2016 10:42
--- NOTE | 2016-12-21 09:28 | HHI.CCPN ---
Subjective Remarks/Hospital Course 56-year-old male presents by ambulance from a longterm with note of vomiting and concern for bowel obstruction. Patient is a ventilator dependent patient with a tracheostomy and a PEG tube and has difficulty communicating secondary to this but does note pain all over. He is a quadriplegic and cannot point at the area that is bothering him. 12/21 Patient is on ventilator via trach awake and alert. afebrile. WBC is trending down. Objective Vital Signs Date Time Temp Pulse Resp B/P (MAP) Pulse Ox O2 Delivery O2 Flow Rate FiO2 12/21/16 08:47 96 40 12/21/16 06:00 75 12/21/16 04:00 18 101/70 (80) 12/21/16 01:16 Trach Collar 12/21/16 00:04 100.0 Intake and Output 12/21/16 12/21/16 12/22/16 08:00 16:00 00:00 Intake Total 3314 ml Output Total 800 ml Balance 2514 ml Result Diagram: 12/21/16 0529 12/21/16 0529 Other Results Laboratory Tests Test 12/20/16 11:50 12/20/16 14:40 12/21/16 00:00 12/21/16 01:55 White Blood Count 27.8 TH/MM3 Red Blood Count 4.99 MIL/MM3 Hemoglobin 11.8 GM/DL Hematocrit 36.1 % Mean Corpuscular Volume 72.2 FL Mean Corpuscular Hemoglobin 23.6 PG Mean Corpuscular Hemoglobin Concent 32.7 % Red Cell Distribution Width 19.2 % Platelet Count 528 TH/MM3 Mean Platelet Volume 7.8 FL Neutrophils (%) (Auto) 87.6 % Lymphocytes (%) (Auto) 7.1 % Monocytes (%) (Auto) 4.8 % Eosinophils (%) (Auto) 0.2 % Basophils (%) (Auto) 0.3 % Neutrophils # (Auto) 24.3 TH/MM3 Lymphocytes # (Auto) 2.0 TH/MM3 Monocytes # (Auto) 1.3 TH/MM3 Eosinophils # (Auto) 0.0 TH/MM3 Basophils # (Auto) 0.1 TH/MM3 CBC Comment AUTO DIFF Differential Total Cells Counted 100 Neutrophils % (Manual) 84 % Band Neutrophils % 2 % Lymphocytes % 8 % Monocytes % 2 % Eosinophils % 1 % Basophils % 1 % Neutrophils # (Manual) 24.5 TH/MM3 Metamyelocytes 1 % Myelocytes 1 % Differential Comment FINAL DIFF MANUAL Toxic Vacuolation PRESENT Platelet Estimate HIGH Platelet Morphology Comment NORMAL Prothrombin Time 10.7 SEC Prothromb Time International Ratio 1.0 RATIO Activated Partial Thromboplast Time 28.3 SEC Urine Color YELLOW Urine Turbidity CLOUDY Urine pH 6.0 Urine Specific [place] 1.031 Urine Protein GREATER THAN 600 mg/dL Urine Glucose (UA) NEG mg/dL Urine Ketones TRACE mg/dL Urine Occult Blood MOD Urine Nitrite NEG Urine Bilirubin NEG Urine Urobilinogen 2.0 MG/DL Urine Leukocyte Esterase LARGE Urine RBC 41 /hpf Urine WBC /hpf Urine WBC Clumps MANY Urine Bacteria MANY /hpf Urine Hyaline Casts 18 /lpf Urine Granular Casts 9 /lpf Urine Mucus MANY /lpf Microscopic Urinalysis Comment CATH-CULTURE IND Lactic Acid Level 1.1 mmol/L 1.1 mmol/L Blood Urea Nitrogen 22 MG/DL Creatinine 0.75 MG/DL Random Glucose 164 MG/DL Total Protein 10.6 GM/DL Albumin 3.5 GM/DL Calcium Level 10.4 MG/DL Phosphorus Level 6.0 MG/DL 4.9 MG/DL Magnesium Level 2.4 MG/DL Alkaline Phosphatase 219 U/L Aspartate Amino Transf (AST/SGOT) 31 U/L Alanine Aminotransferase (ALT/SGPT) 71 U/L Total Bilirubin 0.6 MG/DL Sodium Level 125 MEQ/L Potassium Level 4.3 MEQ/L Chloride Level 91 MEQ/L Carbon Dioxide Level 20.9 MEQ/L Anion Gap 13 MEQ/L Estimat Glomerular Filtration Rate 132 ML/MIN Total Creatine Kinase 298 U/L Creatine Kinase MB 1.5 NG/ML Troponin I LESS THAN 0.02 NG/ML Lipase 80 U/L Nasal Screen MRSA (PCR) MRSA NOT DETECTED Test 12/21/16 05:05 12/21/16 05:29 Blood Gas Puncture Site RT RADIAL Blood Gas Patient Temperature 98.6 Blood Gas HCO3 22 mmol/L Blood Gas Base Excess -3.7 mmol/L Blood Gas Oxygen Saturation 96 % Arterial Blood pH 7.30 Arterial Blood Partial Pressure CO2 45 mmHg Arterial Blood Partial Pressure O2 116 mmHg Arterial Blood Oxygen Content 13.7 Vol % Arterial Blood Carboxyhemoglobin 1.1 % Arterial Blood Methemoglobin 0.9 % Blood Gas Hemoglobin 10.1 G/DL Oxygen Delivery Device VENTILATOR Blood Gas Ventilator Setting PRVC18/500/1.0/+5 Blood Gas Inspired Oxygen 40 % White Blood Count 15.9 TH/MM3 Red Blood Count 4.19 MIL/MM3 Hemoglobin 10.0 GM/DL Hematocrit 31.5 % Mean Corpuscular Volume 75.3 FL Mean Corpuscular Hemoglobin 23.9 PG Mean Corpuscular Hemoglobin Concent 31.7 % Red Cell Distribution Width 18.9 % Platelet Count 379 TH/MM3 Mean Platelet Volume 7.3 FL Neutrophils (%) (Auto) 81.5 % Lymphocytes (%) (Auto) 9.1 % Monocytes (%) (Auto) 8.4 % Eosinophils (%) (Auto) 0.7 % Basophils (%) (Auto) 0.3 % Neutrophils # (Auto) 13.0 TH/MM3 Lymphocytes # (Auto) 1.4 TH/MM3 Monocytes # (Auto) 1.3 TH/MM3 Eosinophils # (Auto) 0.1 TH/MM3 Basophils # (Auto) 0.1 TH/MM3 CBC Comment AUTO DIFF Differential Total Cells Counted 100 Neutrophils % (Manual) 68 % Band Neutrophils % 5 % Lymphocytes % 11 % Monocytes % 13 % Neutrophils # (Manual) 12.1 TH/MM3 Metamyelocytes 1 % Myelocytes 2 % Differential Comment FINAL DIFF MANUAL Platelet Estimate NORMAL Platelet Morphology Comment NORMAL Blood Urea Nitrogen 22 MG/DL Creatinine 0.47 MG/DL Random Glucose 136 MG/DL Total Protein 8.4 GM/DL Albumin 2.7 GM/DL Calcium Level 8.9 MG/DL Phosphorus Level 4.3 MG/DL Magnesium Level 2.2 MG/DL Alkaline Phosphatase 155 U/L Aspartate Amino Transf (AST/SGOT) 25 U/L Alanine Aminotransferase (ALT/SGPT) 57 U/L Total Bilirubin 0.5 MG/DL Sodium Level 133 MEQ/L Potassium Level 3.7 MEQ/L Chloride Level 101 MEQ/L Carbon Dioxide Level 22.5 MEQ/L Anion Gap 10 MEQ/L Estimat Glomerular Filtration Rate 226 ML/MIN Imaging Last Impressions Chest X-Ray 12/20/16 1005 Signed Impressions: Service Date/Time: Tuesday, December 20, 2016 10:34 - CONCLUSION: Bibasilar parenchymal changes. Inflammatory process in the right base cannot be excluded. Gurpreet Iniguez MD FACR Abdomen/Pelvis CT 12/20/16 1005 Signed Impressions: Service Date/Time: Tuesday, December 20, 2016 16:56 - CONCLUSION: 1. There are bibasilar areas of atelectasis. 2. There is gaseous distention of the colon. There is oral contrast which has passed through the colon nearly down to the ostomy. 3. Incidental note is made of an IVC filter. 4. Note is made of multiple loops of moderately dilated, fluid-filled small bowel. Brett Iniguez MD Objective Remarks GENERAL: Elderly appearing gentleman on ventilator via tracheostomy with contractures in all 4 extremities. SKIN: Warm and dry. HEAD: Normocephalic. EYES: No scleral icterus. No injection or drainage. NECK: Supple, trachea midline. No JVD or lymphadenopathy. Tracheostomy in midline CARDIOVASCULAR: Regular rate and rhythm without murmurs, gallops, or rubs. RESPIRATORY: Breath sounds equal bilaterally. No accessory muscle use. GASTROINTESTINAL: Abdomen soft, tender in all 4 quadrants, mildly distended. MUSCULOSKELETAL: No cyanosis, or edema. Contractures in all 4 extremities BACK: Nontender without obvious deformity. NEURO EXAM: Quadriplegic man Mental Status: The patient is arousable nonverbal due to tracheostomy A/P Assessment and Plan 1)Chronic Respiratory failure - Chronic due to high C-spine injury 2)Leukocytosis 3)UTI 4)Ileus 5)Hyponatremia 6)anemia 7)Quadriplegia 8)Hx Depression Plan Neuro: Awake and alert Continue Baclofen, Oxycodone, Remeron, Trazodone, Buspar and Cymbalta Pulm: Continue with vent support keep sat >92% Bronchodilators, ICU vent bundle. Pulm toilet, trach care CV: On Midodrine 5mg TID-Monitor HR and BP keep MAP>65mmHg Lactic acid: 1.1 : Monitor renal function, I/O's, electrolytes replacement per protocol. Decrease IVF NS@75ml/hr GI: Keep NPO. Check KUB r/o ileus NG tube to LIMWS GI consulted Continue with bowel regimen: MiraLAX, Senna CT abdomen: Gaseous distention of the colon. There is oral contrast which has passed through the colon nearly down to the ostomy. 3. Incidental note is made of an IVC filter. Multiple loops of moderately dilated, fluid- filled small bowel. ID: Given Vanco, cefepime, Azithromycin in ED. Continue with abx ( Zosyn, Vanco)monitor for signs of infections ( Fever, WBC) WBC is trending down Follow up on cxs ( Blood, urine): NGTD Strep pneumonia and Legionella urinary ag negative. Wound consult for decub ulcers and Ostomy management. Heme: Monitor CBC Endo: SSI if needed for glycemic control PT and OT eval and treat as tolerated Prophylaxis - Teds SCDs - IVC filter - Subcutaneous heparin - Pepcid Level 3 Thierry Thurston MD Dec 21, 2016 09:28
[2016-12-21] MEDS ORDERED: GLUCAGON 1 MG/ML VIAL OTHER PRN (09:30)
[2016-12-21] MEDS ORDERED: DEXTROSE 50% IN WATER 50 ML VIAL(D50) IV PUSH PRN (09:30)
[2016-12-21] MEDS: INSULIN NovoLIN REGULAR SUPPLEMENTAL SCALE SQ SCH ×3 (10:30→21:02)
--- NOTE | 2016-12-21 10:41 | RADRPT ---
EXAM DATE/TIME: 12/21/2016 09:45 [facility] COMPARISON: CT ABDOMEN & PELVIS W CONTRAST, December 20, 2016, 16:56. INDICATIONS : Abdominal distension MEDICAL HISTORY : None. SURGICAL HISTORY : None. ENCOUNTER: Subsequent ACUITY: 2 days PAIN SCORE: Non-responsive. LOCATION: Bilateral abdomen FINDINGS: Supine view of the abdomen was performed. The there is a PEG tube overlying the air dilated stomach. There are multiple loops of air distended small bowel and air and stool identified within the large c olon. The lung bases are clear. The osseous structures are unremarkable.. CONCLUSION: Ileus versus incomplete small bowel obstruction. This appearance is unchanged from the prior exam. Danyell Peters MD on December 21, 2016 at 10:37 Board Certified Radiologist. This report was verified electronically.
[2016-12-21] MEDS: VANCOMYCIN 1,000 MG/NS 250 ML IV SCH ×4 (12:44→20:30)
[2016-12-21] MEDS: LORazepam 1 MG TAB G-TUBE PRN (20:31)
[2016-12-21] MEDS: traZODone HCL 100 MG TAB PO SCH (20:31)
[2016-12-21] MEDS: MIRTAZAPINE 15 MG TAB G-TUBE SCH (20:31)
[2016-12-22] VITALS (18 sets, daily range): BP systolic 69–93; BP diastolic 41–64; PULSE 57–119; RESP 18–24; TEMP 97.4–99.4; O2SAT 94–100
[2016-12-22] MEDS: VANCOMYCIN 1,000 MG/NS 250 ML IV SCH ×2 (03:07)
[2016-12-22] MEDS: INSULIN NovoLIN REGULAR SUPPLEMENTAL SCALE SQ SCH ×4 (03:07→20:28)
[2016-12-22] MEDS: CHLORHEXIDINE GLUCONATE 2 % 1 PACK (2 CLOTHS) TOP SCH (03:09)
--- NOTE | 2016-12-22 03:10 | RADRPT ---
EXAM DATE/TIME: 12/22/2016 02:02 [facility] COMPARISON: ABDOMEN KUB ONLY, December 21, 2016, 9:45. CT ABDOMEN & PELVIS W CONTRAST, December 20, 2016, 16:5 6. INDICATIONS : Distention. MEDICAL HISTORY : Quadriplegic Vent dependent SURGICAL HISTORY : Colostomy. Peg tube Tracheostomy ENCOUNTER: Subsequent ACUITY: 3 days PAIN SCORE: Non-responsive. LOCATION: Bilateral entire abdomen FINDINGS: Compare December 21. There is persistent gaseous distention of small bowel similar to prior exam. Ga strostomy present. No free air. CONCLUSION: 1. Gaseous distention of several small bowel loops up to 5.6 cm most characteristic of small bowel ob struction. Findings similar to prior study. Miguel Mendez MD on December 22, 2016 at 3:03 Board Certified Radiologist. This report was verified electronically.
[2016-12-22] MEDS: LORazepam 1 MG TAB G-TUBE PRN ×2 (03:12→20:28)
[2016-12-22] MEDS: RESP: ALBUTEROL 2.5 MG/IPRATROPIUM 0.5 MG NEB (SCH) INH ×4 (04:13→20:20)
[2016-12-22] MEDS: HEPARIN SODIUM - SQ 10,000 UNITS/ML VIAL SQ SCH ×3 (06:06→20:27)
[2016-12-22] MEDS: PIPERACIL-TAZO 4.5 GM PREMIX 100 ML IV SCH ×4 (06:06→23:32)
[2016-12-22 06:07] LABS: AUTOMATED NEUTROPHIL # 20.1 TH/MM3 (1.8-7.7); BASOPHIL # 0.2 TH/MM3 (0-0.2); BASOPHIL % 0.8 % (0.0-2.0); EOSINOPHIL # 0.1 TH/MM3 (0-0.4); EOSINOPHIL % 0.3 % (0.0-4.0); HEMATOCRIT 27.1 % (39.0-51.0); HEMO FLAGS DIFF FINAL; LYMPH % 7.2 % (9.0-44.0); LYMPHOCYTE # 1.7 TH/MM3 (1.0-4.8); MEAN CELL VOLUME 74.5 FL (80.0-100.0); MEAN CORPUSCULAR HEMOGLOBIN 23.6 PG (27.0-34.0); MEAN CORPUSCULAR HGB CONC 31.7 % (32.0-36.0); MONO % 6.5 % (0.0-8.0); NEUT % 85.2 % (16.0-70.0); PLATELET COUNT 345 TH/MM3 (150-450); RED BLOOD COUNT 3.64 MIL/MM3 (4.50-5.90); WHITE BLOOD COUNT 23.6 TH/MM3 (4.0-11.0)
[2016-12-22 06:25] LABS: BICARBONATE 20.9 MEQ/L (21.0-32.0); MAGNESIUM 2.2 MG/DL (1.5-2.5); POTASSIUM 3.3 MEQ/L (3.5-5.1)
[2016-12-22] MEDS: POTASSIUM CHLOR 20 MEQ PREMIX 100 ML IV PRN ×2 (06:56→10:20)
[2016-12-22] MEDS: DOCUSATE SODIUM 50 MG/SENNA 8.6 MG TAB PO SCH ×2 (08:09→20:29)
[2016-12-22] MEDS: ASCORBIC ACID 500 MG TAB G-TUBE SCH (08:09)
[2016-12-22] MEDS: POLYETHYLENE GLYCOL 17 GM PKG G-TUBE SCH (08:09)
[2016-12-22] MEDS: SENNOSIDES 8.6 MG TAB G-TUBE SCH ×2 (08:09→20:28)
[2016-12-22] MEDS: MULTIVITAMINS/MINERALS THERAPEUTIC TAB G-TUBE SCH (08:09)
[2016-12-22] MEDS: FAMOTIDINE 20 MG TAB G-TUBE SCH ×2 (08:10→20:28)
[2016-12-22] MEDS: BACLOFEN 10 MG TAB G-TUBE SCH ×3 (08:10→17:25)
[2016-12-22] MEDS: DULoxetine HCl DR 60 MG CAP SCH (08:10)
[2016-12-22] MEDS: MIDODRINE 5 MG TAB G-TUBE SCH ×3 (08:10→17:25)
[2016-12-22] MEDS: busPIRone HCL 5 MG TAB G-TUBE SCH ×3 (08:10→17:25)
[2016-12-22] MEDS: SILVER SULFADIAZINE 1% CR 50 GM JAR TOPICAL SCH (08:11)
[2016-12-22] MEDS: SODIUM CHLORIDE 0.9% FLUSH 10 ML FLUSH IV FLUSH SCH ×2 (08:11→20:28)
--- NOTE | 2016-12-22 09:52 | HHI.CCPN ---
Subjective Remarks/Hospital Course 56-year-old male presents by ambulance from a half-way with note of vomiting and concern for bowel obstruction. Patient is a ventilator dependent patient with a tracheostomy and a PEG tube and has difficulty communicating secondary to this but does note pain all over. He is a quadriplegic and cannot point at the area that is bothering him. 12/21 Patient is on ventilator via trach awake and alert. afebrile. WBC is trending down. 12/22 No events overnight. Awake and alert. On Ventilator via trach. Objective Vital Signs Date Time Temp Pulse Resp B/P (MAP) Pulse Ox O2 Delivery O2 Flow Rate FiO2 12/22/16 09:03 100 35 12/22/16 08:00 65 12/22/16 08:00 97.9 18 84/51 12/21/16 01:16 Trach Collar Intake and Output 12/22/16 12/22/16 12/23/16 08:00 16:00 00:00 Intake Total 350 ml Output Total 575 ml Balance -225 ml Result Diagram: 12/22/16 0458 12/22/16 0458 Other Results Laboratory Tests Test 12/22/16 04:58 White Blood Count 23.6 TH/MM3 Red Blood Count 3.64 MIL/MM3 Hemoglobin 8.6 GM/DL Hematocrit 27.1 % Mean Corpuscular Volume 74.5 FL Mean Corpuscular Hemoglobin 23.6 PG Mean Corpuscular Hemoglobin Concent 31.7 % Red Cell Distribution Width 19.0 % Platelet Count 345 TH/MM3 Mean Platelet Volume 8.0 FL Neutrophils (%) (Auto) 85.2 % Lymphocytes (%) (Auto) 7.2 % Monocytes (%) (Auto) 6.5 % Eosinophils (%) (Auto) 0.3 % Basophils (%) (Auto) 0.8 % Neutrophils # (Auto) 20.1 TH/MM3 Lymphocytes # (Auto) 1.7 TH/MM3 Monocytes # (Auto) 1.5 TH/MM3 Eosinophils # (Auto) 0.1 TH/MM3 Basophils # (Auto) 0.2 TH/MM3 CBC Comment DIFF FINAL Differential Comment Blood Urea Nitrogen 18 MG/DL Creatinine 0.52 MG/DL Random Glucose 141 MG/DL Calcium Level 8.8 MG/DL Phosphorus Level 3.7 MG/DL Magnesium Level 2.2 MG/DL Sodium Level 136 MEQ/L Potassium Level 3.3 MEQ/L Chloride Level 104 MEQ/L Carbon Dioxide Level 20.9 MEQ/L Anion Gap 11 MEQ/L Estimat Glomerular Filtration Rate 201 ML/MIN Imaging Last Impressions Chest X-Ray 12/21/16 0600 Signed Impressions: Service Date/Time: Wednesday, December 21, 2016 05:20 - CONCLUSION: 1. Cardiomegaly with basilar airspace disease similar to December 20. Support apparatus unchanged Miguel Mendez MD Abdomen X-Ray 12/21/16 0000 Signed Impressions: Service Date/Time: Wednesday, December 21, 2016 09:45 - CONCLUSION: Ileus versus incomplete small bowel obstruction. This appearance is unchanged from the prior exam. Danyell Peters MD Abdomen/Pelvis CT 12/20/16 1005 Signed Impressions: Service Date/Time: Tuesday, December 20, 2016 16:56 - CONCLUSION: 1. There are bibasilar areas of atelectasis. 2. There is gaseous distention of the colon. There is oral contrast which has passed through the colon nearly down to the ostomy. 3. Incidental note is made of an IVC filter. 4. Note is made of multiple loops of moderately dilated, fluid-filled small bowel. Brett Iniguez MD Objective Remarks GENERAL: Elderly appearing gentleman on ventilator via tracheostomy with contractures in all 4 extremities. SKIN: Warm and dry. HEAD: Normocephalic. EYES: No scleral icterus. No injection or drainage. NECK: Supple, trachea midline. No JVD or lymphadenopathy. Tracheostomy in midline CARDIOVASCULAR: Regular rate and rhythm without murmurs, gallops, or rubs. RESPIRATORY: Breath sounds equal bilaterally. No accessory muscle use. GASTROINTESTINAL: Abdomen soft, tender in all 4 quadrants, mildly distended. MUSCULOSKELETAL: No cyanosis, or edema. Contractures in all 4 extremities BACK: Nontender without obvious deformity. NEURO EXAM: Quadriplegic man Mental Status: Awake. A/P Assessment and Plan 1)Chronic Respiratory failure - Chronic due to high C-spine injury 2)Leukocytosis 3)UTI 4)Ileus 5)Hyponatremia 6)anemia 7)Quadriplegia 8)Hx Depression Plan Neuro: Awake and alert Continue Baclofen, Oxycodone, Remeron, Trazodone, Buspar and Cymbalta Pulm: Continue with vent support keep sat >92% Bronchodilators, ICU vent bundle. Pulm toilet, trach care CV: On Midodrine 5mg TID-Monitor HR and BP keep MAP>65mmHg Lactic acid: 1.1 : Monitor renal function, I/O's, electrolytes replacement per protocol. d/c IVF Will need K replacement today GI: Keep NPO. KUB this morning: Gaseous distention of several SB loops ? SBO NG tube to LIMWS, GI is following Continue with bowel regimen: MiraLAX, Senna CT abdomen: Gaseous distention of the colon. There is oral contrast which has passed through the colon nearly down to the ostomy. 3. Incidental note is made of an IVC filter. Multiple loops of moderately dilated, fluid-filled small bowel. ID: Given Vanco, cefepime, Azithromycin in ED. Continue with abx ( Zosyn, Vanco)monitor for signs of infections ( Fever, WBC) 12/20 Urine cx: GNR, BC : NGTD Strep pneumonia and Legionella urinary ag negative. Wound consult for decub ulcers and Ostomy management. Heme: Monitor CBC Endo: SSI if needed for glycemic control PT and OT eval and treat as tolerated Prophylaxis - Teds SCDs - IVC filter - Subcutaneous heparin - Pepcid Level 3 Thierry Thurston MD Dec 22, 2016 09:52
[2016-12-22] MEDS ORDERED: PHARMACY ORDERED LAB ONE (11:45)
--- NOTE | 2016-12-22 16:57 | HHI.GIFU ---
Subjective Remarks Resting in bed. No n/v. + BM x 2 today. (Claudia Good Kaylageoff MERCEDES) Objective Vitals I&O Vital Signs Date Time Temp Pulse Resp B/P (MAP) Pulse Ox O2 Delivery O2 Flow Rate FiO2 12/22/16 14:00 57 12/22/16 13:57 100 35 12/22/16 12:00 35 12/22/16 12:00 73 12/22/16 12:00 97.8 73 19 93/61 (72) 98 12/22/16 11:39 99 35 12/22/16 10:00 75 12/22/16 09:03 100 35 12/22/16 08:00 35 12/22/16 08:00 65 12/22/16 08:00 97.9 65 18 84/51 100 12/22/16 06:00 75 12/22/16 04:13 100 35 12/22/16 04:00 97 12/22/16 04:00 99.4 97 18 92/51 (65) 100 12/22/16 04:00 40 12/22/16 02:00 114 12/22/16 01:23 98 40 12/22/16 00:00 40 12/22/16 00:00 99.4 118 24 89/50 (63) 94 12/22/16 00:00 119 12/21/16 22:17 94 40 12/21/16 22:00 100 12/21/16 20:00 99.2 76 24 186/86 (119) 95 12/21/16 20:00 40 12/21/16 20:00 76 12/21/16 18:00 57 I/O 12/21/16 12/21/16 12/21/16 12/22/16 12/22/16 12/22/16 07:00 15:00 23:00 07:00 15:00 23:00 Intake Total 1000 ml 3514 ml 200 ml 700 ml 925 ml Output Total 800 ml 1100 ml 575 ml Balance 200 ml 3514 ml -900 ml 125 ml 925 ml Intake IV Total 1000 ml 3514 ml 100 ml 700 ml 925 ml Other 100 ml Output Urine Total 800 ml 1000 ml 575 ml Stool Total 100 ml # Bowel Movements 1 Laboratory Laboratory Tests Test 12/22/16 04:58 12/22/16 11:55 White Blood Count 23.6 Red Blood Count 3.64 Hemoglobin 8.6 Hematocrit 27.1 Mean Corpuscular Volume 74.5 Mean Corpuscular Hemoglobin 23.6 Mean Corpuscular Hemoglobin Concent 31.7 Red Cell Distribution Width 19.0 Platelet Count 345 Mean Platelet Volume 8.0 Neutrophils (%) (Auto) 85.2 Lymphocytes (%) (Auto) 7.2 Monocytes (%) (Auto) 6.5 Eosinophils (%) (Auto) 0.3 Basophils (%) (Auto) 0.8 Neutrophils # (Auto) 20.1 Lymphocytes # (Auto) 1.7 Monocytes # (Auto) 1.5 Eosinophils # (Auto) 0.1 Basophils # (Auto) 0.2 CBC Comment DIFF FINAL Differential Comment Blood Urea Nitrogen 18 Creatinine 0.52 Random Glucose 141 Calcium Level 8.8 Phosphorus Level 3.7 Magnesium Level 2.2 Sodium Level 136 Potassium Level 3.3 Chloride Level 104 Carbon Dioxide Level 20.9 Anion Gap 11 Estimat Glomerular Filtration Rate 201 Vancomycin Level Trough 30.0 Date/Time Source Procedure Growth Status 12/20/16 11:55 Blood Peripheral Aerobic Blood Culture - Preliminary NO GROWTH IN 2 DAYS Resulted 12/20/16 11:55 Blood Peripheral Anaerobic Blood Culture - Preliminary NO GROWTH IN 2 DAYS Resulted 12/20/16 11:50 Urine Catheterized Urine Legionella Antigen - Final PRESUMPTIVE NEGATIVE FOR LEGIONELLA P... Complete 12/20/16 11:50 Urine Catheterized Urine Streptococcus pneumoniae Antigen (M - Final PRESUMPTIVE NEGATIVE FOR STREPTOCOCCU... Complete Imaging Last Impressions Chest X-Ray 12/21/16 0600 Signed Impressions: Service Date/Time: Wednesday, December 21, 2016 05:20 - CONCLUSION: 1. Cardiomegaly with basilar airspace disease similar to December 20. Support apparatus unchanged Miguel Mendez MD Abdomen X-Ray 12/21/16 0000 Signed Impressions: Service Date/Time: Wednesday, December 21, 2016 09:45 - CONCLUSION: Ileus versus incomplete small bowel obstruction. This appearance is unchanged from the prior exam. Danyell Peters MD Abdomen/Pelvis CT 12/20/16 1005 Signed Impressions: Service Date/Time: Tuesday, December 20, 2016 16:56 - CONCLUSION: 1. There are bibasilar areas of atelectasis. 2. There is gaseous distention of the colon. There is oral contrast which has passed through the colon nearly down to the ostomy. 3. Incidental note is made of an IVC filter. 4. Note is made of multiple loops of moderately dilated, fluid-filled small bowel. Brett Iniguez MD Physical Exam HEENT: Normocephalic; atraumatic CHEST: Tracheostomy. Course breath sounds CARDIAC: RRR ABDOMEN: Tympanic distended, colostomy right side with solid stool, hypoactive bowel sounds EXTREMITIES: Contracted upper ext. edema. POWDER MONKEY: Sedated (Claudia Good) Assessment and Plan Plan ASSESSMENT: - Ileus, appears to be improving. Abdomen/Pelvis CT (12/20/16)-----> 1. There are bibasilar areas of atelectasis. 2. There is gaseous distention of the colon. There is oral contrast which has passed through the colon nearly down to the ostomy. 3. Incidental note is made of an IVC filter. 4. Note is made of multiple loops of moderately dilated, fluid-filled small bowel. KUB (12/22/16)--> gaseous distention of several small bowel loops up to 5.6 cm most characteristic of small bowel obstruction. Findings similar to prior study. Abdomen tympanic, distended, hypoactive bowel sounds. Miralax, Senokot. Add Reglan. - Chronic respiratory failure. tracheostomy - Quadriplegia, UTI, Electrolyte abnormalities. per attending. PLAN: - Clear ensure via PEG - Add Reglan - Cont. Miralax - Cont. Senokot - KUB in am - Supportive care - Further recommendations to follow based on results of above - Patient seen and examined by Dr. Hawthorne and myself and this note is written on his behalf. (Claudia Good) Plan Patient was seen and examined, agree with above note, had couple of bowel movements, we will check KUB tomorrow (Rosaura Hawthorne MD) Claudia Good Dec 22, 2016 16:57 Rosaura Hawthorne MD Dec 22, 2016 18:14
[2016-12-22] MEDS: METOCLOPRAMIDE HCL 10 MG/2 ML VIAL IV PUSH SCH (20:26)
[2016-12-22] MEDS: traZODone HCL 100 MG TAB PO SCH (20:27)
[2016-12-22] MEDS: MIRTAZAPINE 15 MG TAB G-TUBE SCH (20:28)
[2016-12-23] VITALS (27 sets, daily range): BP systolic 68–115; BP diastolic 44–65; PULSE 59–113; RESP 18–32; TEMP 97.7–98.8; O2SAT 96–100
[2016-12-23] MEDS: INSULIN NovoLIN REGULAR SUPPLEMENTAL SCALE SQ SCH ×4 (03:30→21:30)
[2016-12-23] MEDS: RESP: ALBUTEROL 2.5 MG/IPRATROPIUM 0.5 MG NEB (SCH) INH ×4 (03:40→20:10)
[2016-12-23] MEDS: CHLORHEXIDINE GLUCONATE 2 % 1 PACK (2 CLOTHS) TOP SCH (03:51)
[2016-12-23] MEDS: PIPERACIL-TAZO 4.5 GM PREMIX 100 ML IV SCH ×4 (03:51→21:53)
[2016-12-23] MEDS: HEPARIN SODIUM - SQ 10,000 UNITS/ML VIAL SQ SCH ×3 (05:12→21:51)
[2016-12-23] MEDS: METOCLOPRAMIDE HCL 10 MG/2 ML VIAL IV PUSH SCH ×3 (05:12→21:51)
--- NOTE | 2016-12-23 06:10 | RADRPT ---
EXAM DATE/TIME: 12/23/2016 04:38 [facility] COMPARISON: No previous studies available for comparison. INDICATIONS : Abdominal pain. MEDICAL HISTORY : Quadriplegic vent dependent SURGICAL HISTORY : Colostomy. Peg tube Tracheostomy ENCOUNTER: Subsequent ACUITY: 4 - 6 days PAIN SCORE: Non-responsive. LOCATION: Bilateral AAbdomen FINDINGS: Loops of small bowel in the midabdomen remain moderately distended and not significantly changed. No colonic or gastric distention. No evidence of free air. CONCLUSION: No significant change. Persistent small bowel distention in the midabdomen. Thompson Leung MD on December 23, 2016 at 6:08 Board Certified Radiologist. This report was verified electronically.
[2016-12-23 06:48] LABS: AUTOMATED NEUTROPHIL # 10.6 TH/MM3 (1.8-7.7); BASOPHIL # 0.1 TH/MM3 (0-0.2); BASOPHIL % 0.5 % (0.0-2.0); EOSINOPHIL # 0.1 TH/MM3 (0-0.4); EOSINOPHIL % 0.7 % (0.0-4.0); HEMATOCRIT 23.7 % (39.0-51.0); HEMO FLAGS DIFF FINAL; LYMPH % 8.3 % (9.0-44.0); LYMPHOCYTE # 1.1 TH/MM3 (1.0-4.8); MEAN CELL VOLUME 74.7 FL (80.0-100.0); MEAN CORPUSCULAR HEMOGLOBIN 23.8 PG (27.0-34.0); MEAN CORPUSCULAR HGB CONC 31.8 % (32.0-36.0); MONO % 6.7 % (0.0-8.0); NEUT % 83.8 % (16.0-70.0); PLATELET COUNT 267 TH/MM3 (150-450); RED BLOOD COUNT 3.17 MIL/MM3 (4.50-5.90); RED CELL DISTRIBUTION WIDTH 19.1 % (11.6-17.2); WHITE BLOOD COUNT 12.7 TH/MM3 (4.0-11.0)
[2016-12-23 07:17] LABS: BICARBONATE 20.1 MEQ/L (21.0-32.0); POTASSIUM 3.2 MEQ/L (3.5-5.1)
[2016-12-23] MEDS: DULoxetine HCl DR 60 MG CAP SCH ×2 (09:00→09:40)
--- NOTE | 2016-12-23 09:20 | HHI.FPPN ---
Objective Vitals Vital Signs Date Time Temp Pulse Resp B/P (MAP) Pulse Ox O2 Delivery O2 Flow Rate FiO2 12/23/16 08:00 99 35 12/23/16 06:00 73 12/23/16 04:12 96 35 12/23/16 04:00 35 12/23/16 04:00 86 12/23/16 04:00 97.7 86 18 97/52 (67) 97 12/23/16 02:48 70 12/23/16 02:41 72 12/23/16 02:38 72 12/23/16 02:31 75 12/23/16 02:01 76 12/23/16 02:00 73 12/23/16 01:36 76 12/23/16 01:30 59 12/23/16 01:00 63 12/23/16 00:31 65 12/23/16 00:30 65 18 68/48 (55) 100 12/23/16 00:30 65 12/23/16 00:13 100 35 12/23/16 00:00 35 12/23/16 00:00 67 12/23/16 00:00 98.3 61 18 75/44 (54) 100 12/22/16 22:00 67 12/22/16 20:14 100 35 12/22/16 20:00 58 12/22/16 20:00 35 12/22/16 20:00 97.4 58 18 69/41 (50) 100 12/22/16 18:00 58 12/22/16 16:00 60 12/22/16 16:00 98.0 60 18 91/64 (73) 99 12/22/16 16:00 35 12/22/16 14:00 57 12/22/16 13:57 100 35 12/22/16 12:00 35 12/22/16 12:00 73 12/22/16 12:00 97.8 73 19 93/61 (72) 98 12/22/16 11:39 99 35 12/22/16 10:00 75 I/O 12/22/16 12/22/16 12/22/16 12/23/16 12/23/16 12/23/16 07:00 15:00 23:00 07:00 15:00 23:00 Intake Total 700 ml 1025 ml 575 ml 590 ml Output Total 575 ml 550 ml 875 ml Balance 125 ml 1025 ml 25 ml -285 ml Intake Oral 240 ml IV Total 700 ml 1025 ml 200 ml 200 ml Other 375 ml 150 ml Output Urine Total 575 ml 350 ml 300 ml Stool Total 200 ml 575 ml Result Diagram: 12/23/16 0638 12/23/16 0638 A/P Assessment and Plan WILL SEE PT WHEN VERIFICATION ENGINEER SIGNS OFF Ronald Bueno MD Dec 23, 2016 09:20
[2016-12-23] MEDS: SILVER SULFADIAZINE 1% CR 50 GM JAR TOPICAL SCH (09:38)
[2016-12-23] MEDS: ASCORBIC ACID 500 MG TAB G-TUBE SCH (09:39)
[2016-12-23] MEDS: SODIUM CHLORIDE 0.9% FLUSH 10 ML FLUSH IV FLUSH SCH ×2 (09:39→21:50)
[2016-12-23] MEDS: MIDODRINE 5 MG TAB G-TUBE SCH ×3 (09:39→18:00)
[2016-12-23] MEDS: MULTIVITAMINS/MINERALS THERAPEUTIC TAB G-TUBE SCH (09:39)
[2016-12-23] MEDS: FAMOTIDINE 20 MG TAB G-TUBE SCH ×2 (09:39→21:52)
[2016-12-23] MEDS: BACLOFEN 10 MG TAB G-TUBE SCH ×3 (09:40→18:00)
[2016-12-23] MEDS: busPIRone HCL 5 MG TAB G-TUBE SCH ×3 (09:40→18:00)
--- NOTE | 2016-12-23 09:46 | HHI.CCPN ---
Subjective Remarks/Hospital Course 56-year-old male presents by ambulance from a [facility] with note of vomiting and concern for bowel obstruction. Patient is a ventilator dependent patient with a tracheostomy and a PEG tube and has difficulty communicating secondary to this but does note pain all over. He is a quadriplegic and cannot point at the area that is bothering him. 12/21 Patient is on ventilator via trach awake and alert. afebrile. WBC is trending down. 12/22 No events overnight. Awake and alert. On Ventilator via trach. 12/23 Patient remains on ventilator via trach. Afebrile. On no sedation. Awake. Objective Vital Signs Date Time Temp Pulse Resp B/P (MAP) Pulse Ox O2 Delivery O2 Flow Rate FiO2 12/23/16 08:00 99 35 12/23/16 06:00 73 12/23/16 04:00 97.7 18 97/52 (67) 12/21/16 01:16 Trach Collar Intake and Output 12/23/16 12/23/16 12/24/16 08:00 16:00 00:00 Intake Total 590 ml Output Total 875 ml Balance -285 ml Result Diagram: 12/23/16 0638 12/23/16 0638 Other Results Laboratory Tests Test 12/22/16 11:55 12/22/16 21:58 12/23/16 06:38 Vancomycin Level Trough 30.0 MCG/ML Potassium Level 3.1 MEQ/L 3.2 MEQ/L White Blood Count 12.7 TH/MM3 Red Blood Count 3.17 MIL/MM3 Hemoglobin 7.5 GM/DL Hematocrit 23.7 % Mean Corpuscular Volume 74.7 FL Mean Corpuscular Hemoglobin 23.8 PG Mean Corpuscular Hemoglobin Concent 31.8 % Red Cell Distribution Width 19.1 % Platelet Count 267 TH/MM3 Mean Platelet Volume 7.1 FL Neutrophils (%) (Auto) 83.8 % Lymphocytes (%) (Auto) 8.3 % Monocytes (%) (Auto) 6.7 % Eosinophils (%) (Auto) 0.7 % Basophils (%) (Auto) 0.5 % Neutrophils # (Auto) 10.6 TH/MM3 Lymphocytes # (Auto) 1.1 TH/MM3 Monocytes # (Auto) 0.8 TH/MM3 Eosinophils # (Auto) 0.1 TH/MM3 Basophils # (Auto) 0.1 TH/MM3 CBC Comment DIFF FINAL Differential Comment Blood Urea Nitrogen 20 MG/DL Creatinine 0.81 MG/DL Random Glucose 129 MG/DL Calcium Level 8.3 MG/DL Sodium Level 139 MEQ/L Chloride Level 107 MEQ/L Carbon Dioxide Level 20.1 MEQ/L Anion Gap 12 MEQ/L Estimat Glomerular Filtration Rate 120 ML/MIN Random Vancomycin Level 23.2 COMMENT Imaging Last Impressions Abdomen X-Ray 12/22/16 0000 Signed Impressions: Service Date/Time: Thursday, December 22, 2016 02:02 - CONCLUSION: 1. Gaseous distention of several small bowel loops up to 5.6 cm most characteristic of small bowel obstruction. Findings similar to prior study. Miguel Mendez MD Chest X-Ray 12/21/16 0600 Signed Impressions: Service Date/Time: Wednesday, December 21, 2016 05:20 - CONCLUSION: 1. Cardiomegaly with basilar airspace disease similar to December 20. Support apparatus unchanged Miguel Mendez MD Abdomen/Pelvis CT 12/20/16 1005 Signed Impressions: Service Date/Time: Tuesday, December 20, 2016 16:56 - CONCLUSION: 1. There are bibasilar areas of atelectasis. 2. There is gaseous distention of the colon. There is oral contrast which has passed through the colon nearly down to the ostomy. 3. Incidental note is made of an IVC filter. 4. Note is made of multiple loops of moderately dilated, fluid-filled small bowel. Brett Iniguez MD Objective Remarks GENERAL: Elderly appearing gentleman on ventilator via tracheostomy with contractures in all 4 extremities. SKIN: Warm and dry. HEAD: Normocephalic. EYES: No scleral icterus. No injection or drainage. NECK: Supple, trachea midline. No JVD or lymphadenopathy. Tracheostomy in midline CARDIOVASCULAR: Regular rate and rhythm without murmurs, gallops, or rubs. RESPIRATORY: Breath sounds equal bilaterally. No accessory muscle use. GASTROINTESTINAL: Abdomen soft, tender in all 4 quadrants, mildly distended. MUSCULOSKELETAL: No cyanosis, or edema. Contractures in all 4 extremities BACK: Nontender without obvious deformity. NEURO EXAM: Quadriplegic man Mental Status: Awake. A/P Assessment and Plan 1)Chronic Respiratory failure - Chronic due to high C-spine injury 2)Leukocytosis 3)UTI 4)Ileus 5)Hyponatremia 6)anemia 7)Quadriplegia 8)Hx Depression Plan Neuro: Awake and alert Continue Baclofen, Oxycodone, Remeron, Trazodone, Buspar and Cymbalta Pulm: Continue with vent support keep sat >92% Bronchodilators, ICU vent bundle. Pulm toilet, trach care CV: On Midodrine 5mg TID-Monitor HR and BP keep MAP>65mmHg Lactic acid: 1.1 : Monitor renal function, I/O's, electrolytes replacement per protocol. Will need K replacement today GI: On Clear liquid per GI KUB this morning- persistent SB distention in mid abdomen KUB 12/22 Gaseous distention of several SB loops ? SBO NG tube to LIMWS, GI is following Continue with bowel regimen: MiraLAX, Senna, Reglan CT abdomen: Gaseous distention of the colon. There is oral contrast which has passed through the colon nearly down to the ostomy. 3. Incidental note is made of an IVC filter. Multiple loops of moderately dilated, fluid-filled small bowel. ID: Given Vanco, cefepime, Azithromycin in ED. Continue abx ( Zosyn,Vanco)monitor for signs of infections ( Fever, WBC) WBC is trending down. 12/20 Urine cx: Proteus, BC : NGTD Strep pneumonia and Legionella urinary ag negative. Wound care for decub ulcers and Ostomy management. Heme: Monitor CBC Endo: SSI if needed for glycemic control PT and OT eval and treat as tolerated Prophylaxis - Teds SCDs - IVC filter - Subcutaneous heparin - Pepcid Level 3 Thierry Thurston MD Dec 23, 2016 09:46
[2016-12-23] MEDS: POLYETHYLENE GLYCOL 17 GM PKG G-TUBE SCH (09:54)
[2016-12-23] MEDS: DOCUSATE SODIUM 50 MG/SENNA 8.6 MG TAB PO SCH ×2 (09:55→21:00)
[2016-12-23] MEDS: SENNOSIDES 8.6 MG TAB G-TUBE SCH ×2 (09:55→21:00)
--- NOTE | 2016-12-23 15:13 | HHI.GIFU ---
Subjective Remarks Resting in bed. No distress. Abdomen much softer today. (+) BM in colostomy Objective Vitals I&O Vital Signs Date Time Temp Pulse Resp B/P (MAP) Pulse Ox O2 Delivery O2 Flow Rate FiO2 12/23/16 10:02 97 35 12/23/16 08:00 99 35 12/23/16 06:00 73 12/23/16 04:12 96 35 12/23/16 04:00 35 12/23/16 04:00 86 12/23/16 04:00 97.7 86 18 97/52 (67) 97 12/23/16 02:48 70 12/23/16 02:41 72 12/23/16 02:38 72 12/23/16 02:31 75 12/23/16 02:01 76 12/23/16 02:00 73 12/23/16 01:36 76 12/23/16 01:30 59 12/23/16 01:00 63 12/23/16 00:31 65 12/23/16 00:30 65 18 68/48 (55) 100 12/23/16 00:30 65 12/23/16 00:13 100 35 12/23/16 00:00 35 12/23/16 00:00 67 12/23/16 00:00 98.3 61 18 75/44 (54) 100 12/22/16 22:00 67 12/22/16 20:14 100 35 12/22/16 20:00 58 12/22/16 20:00 35 12/22/16 20:00 97.4 58 18 69/41 (50) 100 12/22/16 18:00 58 12/22/16 16:00 60 12/22/16 16:00 98.0 60 18 91/64 (73) 99 12/22/16 16:00 35 I/O 12/22/16 12/22/16 12/22/16 12/23/16 12/23/16 12/23/16 06:59 14:59 22:59 06:59 14:59 22:59 Intake Total 600 ml 1125 ml 575 ml 590 ml Output Total 575 ml 550 ml 875 ml Balance 25 ml 1125 ml 25 ml -285 ml Intake Oral 240 ml IV Total 600 ml 1125 ml 200 ml 200 ml Other 375 ml 150 ml Output Urine Total 575 ml 350 ml 300 ml Stool Total 200 ml 575 ml Laboratory Laboratory Tests Test 12/22/16 21:58 12/23/16 06:38 Potassium Level 3.1 3.2 White Blood Count 12.7 Red Blood Count 3.17 Hemoglobin 7.5 Hematocrit 23.7 Mean Corpuscular Volume 74.7 Mean Corpuscular Hemoglobin 23.8 Mean Corpuscular Hemoglobin Concent 31.8 Red Cell Distribution Width 19.1 Platelet Count 267 Mean Platelet Volume 7.1 Neutrophils (%) (Auto) 83.8 Lymphocytes (%) (Auto) 8.3 Monocytes (%) (Auto) 6.7 Eosinophils (%) (Auto) 0.7 Basophils (%) (Auto) 0.5 Neutrophils # (Auto) 10.6 Lymphocytes # (Auto) 1.1 Monocytes # (Auto) 0.8 Eosinophils # (Auto) 0.1 Basophils # (Auto) 0.1 CBC Comment DIFF FINAL Differential Comment Blood Urea Nitrogen 20 Creatinine 0.81 Random Glucose 129 Calcium Level 8.3 Sodium Level 139 Chloride Level 107 Carbon Dioxide Level 20.1 Anion Gap 12 Estimat Glomerular Filtration Rate 120 Random Vancomycin Level 23.2 Date/Time Source Procedure Growth Status 12/20/16 11:55 Blood Peripheral Aerobic Blood Culture - Preliminary NO GROWTH IN 3 DAYS Resulted 12/20/16 11:55 Blood Peripheral Anaerobic Blood Culture - Preliminary NO GROWTH IN 3 DAYS Resulted 12/20/16 11:50 Urine Catheterized Urine Legionella Antigen - Final PRESUMPTIVE NEGATIVE FOR LEGIONELLA P... Complete 12/20/16 11:50 Urine Catheterized Urine Streptococcus pneumoniae Antigen (M - Final PRESUMPTIVE NEGATIVE FOR STREPTOCOCCU... Complete Imaging Last Impressions Abdomen X-Ray 12/23/16 06 Signed Impressions: Service Date/Time: Friday, December 23, 2016 04:38 - CONCLUSION: No significant change. Persistent small bowel distention in the midabdomen. Thompson Leung MD Chest X-Ray 12/21/16 0600 Signed Impressions: Service Date/Time: Wednesday, December 21, 2016 05:20 - CONCLUSION: 1. Cardiomegaly with basilar airspace disease similar to December 20. Support apparatus unchanged Miguel Mendez MD Abdomen/Pelvis CT 12/20/16 1005 Signed Impressions: Service Date/Time: Tuesday, December 20, 2016 16:56 - CONCLUSION: 1. There are bibasilar areas of atelectasis. 2. There is gaseous distention of the colon. There is oral contrast which has passed through the colon nearly down to the ostomy. 3. Incidental note is made of an IVC filter. 4. Note is made of multiple loops of moderately dilated, fluid-filled small bowel. Brett Iniguez MD Physical Exam HEENT: Normocephalic; atraumatic CHEST: Tracheostomy. Course breath sounds CARDIAC: RRR ABDOMEN: Soft, distended, colostomy right side with solid stool, hypoactive bowel sounds EXTREMITIES: Contracted upper ext. edema. DIRECTOR OF PARKS AND RECREATION: Sedated Assessment and Plan Plan ASSESSMENT: - Ileus, appears to be improving. Abdomen/Pelvis CT (12/20/16)-----> 1. There are bibasilar areas of atelectasis. 2. There is gaseous distention of the colon. There is oral contrast which has passed through the colon nearly down to the ostomy. 3. Incidental note is made of an IVC filter. 4. Note is made of multiple loops of moderately dilated, fluid-filled small bowel. KUB (12/23/16)--> No significant change. Persistent small bowel distention in the mid abdomen. Clinically, much improved, abdomen distended, but soft. (+) Liquid stool in colostomy. Has been getting clear ensure via G tube. Miralax, Senokot. Reglan. - Chronic respiratory failure. tracheostomy - Quadriplegia, UTI, Electrolyte abnormalities. per attending. PLAN: - Jevity 1.5 at 30cc/hr - Electrician Ship to make TF recommendations - Cont. Reglan - Cont. Miralax - Cont. Senokot - Supportive care - Further recommendations to follow based on results of above - Patient seen and examined by Dr. Feldman and myself and this note is written on her behalf. Claudia Good Dec 23, 2016 15:13
[2016-12-23] MEDS: POTASSIUM CHLOR 20 MEQ PREMIX 100 ML IV PRN ×3 (16:35→22:15)
--- NOTE | 2016-12-23 18:33 | PD.WCN.NOT ---
Wound Consult Description: Consult placed for pressure ulcer to sacrum, left elbow per Dr Sheldon/RANDELL on 12/21/16 @3846 Communicated with: SANCHEZ Fairbanks Notified call center to page Dr Thurston Recommendation: Cleanse Left elbow and place foam adhesive dressing every 3-5 days and PRN for saturation or dislodgement. Cleanse Left ischium Stage IV pressure injury daily and apply moist to dry gauze dressing. Apply Calazime skin protectant BID and PRN to sacrum. Continue to reposition patient every 2 hours and PRN. *Please do not position patient onto his Left Ischium (STAGE IV PRESSURE INJURY ) while sitting in a high position* Please use only 1 ultrasorb with Emmy beds (or 2 staggered) Additional Information: Patient seen on [facility] for wound assessment. Patient was positioned on his left side and noted on a Emmy bed. Gauze dressing removed from left elbow to reveal a partial thickness skin loss area measuring 0.6cm x 0.7cm x 0.1cm of 100 % pink dry tissue noted to wound bed. Periwound is noted with pink/white scar tissue. Patient was positioned to his right side, with 2 + assistance, to reveal [address] over left ischium and sacrum with patient lying on 2 underpads and an ultrasorb with a colostomy and a suprapubic catheter in place. Foam adhesive was removed from left ischium (removed dressing was noted with moderate yellow/beige thick exudate) to reveal a moist wound with ~60% red non granulating tissue, ~20 pink tissue, and ~20% exposed bone that was cleansed with NS and gauze. Wound measures 5cm x 3cm x 1cm with no active drainage and no odor. Wound margins are open from 9-3 o'clock and epibole from 3-9 o'clock. Periwound is unremarkable. Moist to dry dressing placed in wound bed. Sacrum is noted with partial thickness skin loss areas with 100% red moist non granulating tissue throughout wound beds, and rolled jagged wound margins indicating a denuded/moisture/friction relation. Recommend to resolve moisture related areas with Calazime and apply moist to dry dressings to left ischium. Patient may benefit from wound VAC to left ischium once sacral areas have resolved. Ostomy Type: Colostomy Additional information Stoma noted to left abdomen was pink and round. Pouch was filled with air and effluent. Pouch was emptied of soft brown liquid. Veronica Sen [facility] Dec 23, 2016 18:33
[2016-12-23] MEDS: MIRTAZAPINE 15 MG TAB G-TUBE SCH (21:52)
[2016-12-23] MEDS: traZODone HCL 100 MG TAB PO SCH (21:52)
[2016-12-23] MEDS: LORazepam 1 MG TAB G-TUBE PRN (21:52)
[2016-12-24] VITALS (20 sets, daily range): BP systolic 107–142; BP diastolic 64–82; PULSE 72–92; RESP 20–30; TEMP 97.9–99.5; O2SAT 92–100
[2016-12-24] MEDS: POTASSIUM CHLOR 20 MEQ PREMIX 100 ML IV PRN (01:43)
[2016-12-24] MEDS: CHLORHEXIDINE GLUCONATE 2 % 1 PACK (2 CLOTHS) TOP SCH (03:13)
[2016-12-24] MEDS: INSULIN NovoLIN REGULAR SUPPLEMENTAL SCALE SQ SCH ×4 (03:13→20:50)
[2016-12-24] MEDS: RESP: ALBUTEROL 2.5 MG/IPRATROPIUM 0.5 MG NEB (SCH) INH ×4 (03:53→20:49)
[2016-12-24] MEDS: METOCLOPRAMIDE HCL 10 MG/2 ML VIAL IV PUSH SCH ×3 (06:06→20:49)
[2016-12-24] MEDS: HEPARIN SODIUM - SQ 10,000 UNITS/ML VIAL SQ SCH ×3 (06:06→20:50)
[2016-12-24 06:07] LABS: AUTOMATED NEUTROPHIL # 15.6 TH/MM3 (1.8-7.7); BASOPHIL # 0.1 TH/MM3 (0-0.2); BASOPHIL % 0.6 % (0.0-2.0); EOSINOPHIL # 0.1 TH/MM3 (0-0.4); EOSINOPHIL % 0.4 % (0.0-4.0); HEMATOCRIT 24.4 % (39.0-51.0); LYMPH % 5.9 % (9.0-44.0); MEAN CELL VOLUME 75.1 FL (80.0-100.0); MEAN CORPUSCULAR HEMOGLOBIN 24.1 PG (27.0-34.0); MEAN CORPUSCULAR HGB CONC 32.1 % (32.0-36.0); MONO % 4.8 % (0.0-8.0); NEUT % 88.3 % (16.0-70.0); PLATELET COUNT 283 TH/MM3 (150-450); RED BLOOD COUNT 3.25 MIL/MM3 (4.50-5.90); RED CELL DISTRIBUTION WIDTH 19.6 % (11.6-17.2); WHITE BLOOD COUNT 17.6 TH/MM3 (4.0-11.0)
[2016-12-24] MEDS: PIPERACIL-TAZO 4.5 GM PREMIX 100 ML IV SCH ×4 (06:08→23:00)
[2016-12-24 06:39] LABS: BICARBONATE 18.8 MEQ/L (21.0-32.0); MAGNESIUM 1.9 MG/DL (1.5-2.5)
[2016-12-24 06:40] LABS: HEMO FLAGS AUTO DIFF
[2016-12-24 08:15] LABS: SCAN/DIFF AUTO DIFF CONFIRMED
[2016-12-24] MEDS: DULoxetine HCl DR 60 MG CAP SCH (08:23)
[2016-12-24] MEDS: MIDODRINE 5 MG TAB G-TUBE SCH ×3 (08:48→17:44)
[2016-12-24] MEDS: SENNOSIDES 8.6 MG TAB G-TUBE SCH ×2 (08:48→20:48)
[2016-12-24] MEDS: POLYETHYLENE GLYCOL 17 GM PKG G-TUBE SCH (08:48)
[2016-12-24] MEDS: ASCORBIC ACID 500 MG TAB G-TUBE SCH (08:48)
[2016-12-24] MEDS: BACLOFEN 10 MG TAB G-TUBE SCH ×3 (08:48→17:44)
[2016-12-24] MEDS: SODIUM CHLORIDE 0.9% FLUSH 10 ML FLUSH IV FLUSH SCH ×2 (08:49→20:50)
[2016-12-24] MEDS: busPIRone HCL 5 MG TAB G-TUBE SCH ×3 (08:49→17:44)
[2016-12-24] MEDS: MULTIVITAMINS/MINERALS THERAPEUTIC TAB G-TUBE SCH (08:49)
[2016-12-24] MEDS: SILVER SULFADIAZINE 1% CR 50 GM JAR TOPICAL SCH (08:49)
[2016-12-24] MEDS: FAMOTIDINE 20 MG TAB G-TUBE SCH ×2 (08:49→20:48)
[2016-12-24] MEDS: DOCUSATE SODIUM 50 MG/SENNA 8.6 MG TAB PO SCH ×2 (08:49→20:48)
[2016-12-24] MEDS ORDERED: VANCOMYCIN INJ 1,500 MG in SODIUM CHLORID 0.9% 500 ML INJ 500 ML IV ONE (12:00)
--- NOTE | 2016-12-24 12:34 | HHI.CCPN ---
Subjective Remarks/Hospital Course 56-year-old male presents by ambulance from a longterm with note of vomiting and concern for bowel obstruction. Patient is a ventilator dependent patient with a tracheostomy and a PEG tube and has difficulty communicating secondary to this but does note pain all over. He is a quadriplegic and cannot point at the area that is bothering him. 12/21 Patient is on ventilator via trach awake and alert. afebrile. WBC is trending down. 12/22 No events overnight. Awake and alert. On Ventilator via trach. 12/23 Patient remains on ventilator via trach. Afebrile. On no sedation. Awake. 12/24 No events overnight. On Ventilator via trach. Afebrile. Objective Vital Signs Date Time Temp Pulse Resp B/P (MAP) Pulse Ox O2 Delivery O2 Flow Rate FiO2 12/24/16 09:49 100 35 12/24/16 06:00 72 12/24/16 04:00 97.9 21 113/65 (81) 12/21/16 01:16 Trach Collar Intake and Output 12/24/16 12/24/16 12/25/16 08:00 16:00 00:00 Intake Total 580 ml Output Total 550 ml Balance 30 ml Result Diagram: 12/24/16 0518 12/24/16 0518 Other Results Laboratory Tests Test 12/24/16 05:18 White Blood Count 17.6 TH/MM3 Red Blood Count 3.25 MIL/MM3 Hemoglobin 7.8 GM/DL Hematocrit 24.4 % Mean Corpuscular Volume 75.1 FL Mean Corpuscular Hemoglobin 24.1 PG Mean Corpuscular Hemoglobin Concent 32.1 % Red Cell Distribution Width 19.6 % Platelet Count 283 TH/MM3 Mean Platelet Volume 7.7 FL Neutrophils (%) (Auto) 88.3 % Lymphocytes (%) (Auto) 5.9 % Monocytes (%) (Auto) 4.8 % Eosinophils (%) (Auto) 0.4 % Basophils (%) (Auto) 0.6 % Neutrophils # (Auto) 15.6 TH/MM3 Lymphocytes # (Auto) 1.0 TH/MM3 Monocytes # (Auto) 0.8 TH/MM3 Eosinophils # (Auto) 0.1 TH/MM3 Basophils # (Auto) 0.1 TH/MM3 CBC Comment AUTO DIFF Differential Comment AUTO DIFF CONFIRMED Blood Urea Nitrogen 17 MG/DL Creatinine 0.68 MG/DL Random Glucose 119 MG/DL Calcium Level 8.6 MG/DL Phosphorus Level 3.0 MG/DL Magnesium Level 1.9 MG/DL Sodium Level 137 MEQ/L Potassium Level 4.0 MEQ/L Chloride Level 108 MEQ/L Carbon Dioxide Level 18.8 MEQ/L Anion Gap 10 MEQ/L Estimat Glomerular Filtration Rate 147 ML/MIN Random Vancomycin Level 12.4 COMMENT Imaging Last Impressions Abdomen X-Ray 12/23/16 0600 Signed Impressions: Service Date/Time: Friday, December 23, 2016 04:38 - CONCLUSION: No significant change. Persistent small bowel distention in the midabdomen. Thompson Leung MD Chest X-Ray 12/21/16 0600 Signed Impressions: Service Date/Time: Wednesday, December 21, 2016 05:20 - CONCLUSION: 1. Cardiomegaly with basilar airspace disease similar to December 20. Support apparatus unchanged Miguel Mendez MD Abdomen/Pelvis CT 12/20/16 1005 Signed Impressions: Service Date/Time: Tuesday, December 20, 2016 16:56 - CONCLUSION: 1. There are bibasilar areas of atelectasis. 2. There is gaseous distention of the colon. There is oral contrast which has passed through the colon nearly down to the ostomy. 3. Incidental note is made of an IVC filter. 4. Note is made of multiple loops of moderately dilated, fluid-filled small bowel. Brett Iniguez MD Objective Remarks GENERAL: Elderly appearing gentleman on ventilator via tracheostomy with contractures in all 4 extremities. SKIN: Warm and dry. HEAD: Normocephalic. EYES: No scleral icterus. No injection or drainage. NECK: Supple, trachea midline. No JVD or lymphadenopathy. Tracheostomy in midline CARDIOVASCULAR: Regular rate and rhythm without murmurs, gallops, or rubs. RESPIRATORY: Breath sounds equal bilaterally. No accessory muscle use. GASTROINTESTINAL: Abdomen soft, tender in all 4 quadrants, mildly distended. MUSCULOSKELETAL: No cyanosis, or edema. Contractures in all 4 extremities BACK: Nontender without obvious deformity. NEURO EXAM: Quadriplegic man Mental Status: Awake. A/P Assessment and Plan 1)Chronic Respiratory failure - Chronic due to high C-spine injury 2)Leukocytosis 3)UTI 4)Ileus 5)Hyponatremia 6)anemia 7)Quadriplegia 8)Hx Depression Plan Neuro: Awake and alert Continue Baclofen, Oxycodone, Remeron, Trazodone, Buspar and Cymbalta Pulm: Continue with vent support keep sat >92% Bronchodilators, ICU vent bundle. Pulm toilet, trach care CV: On Midodrine 5mg TID-Monitor HR and BP keep MAP>65mmHg Lactic acid: 1.1 : Monitor renal function, I/O's, electrolytes replacement per protocol. GI: On Jevity 1.5@30ml/hr. GI is following KUB 10/2 persistent SB distention in mid abdomen KUB 10/1 Gaseous distention of several SB loops ? SBO NG tube to LIMWS, GI is following Continue with bowel regimen: MiraLAX, Senna, Reglan CT abdomen: Gaseous distention of the colon. There is oral contrast which has passed through the colon nearly down to the ostomy. 3. Incidental note is made of an IVC filter. Multiple loops of moderately dilated, fluid-filled small bowel. ID: Given Vanco, cefepime, Azithromycin in ED. Continue abx ( Zosyn) d/c Vanco monitor for signs of infections ( Fever, WBC) 12/20 Urine cx: Proteus, BC : NGTD Strep pneumonia and Legionella urinary ag negative. Wound care for decub ulcers and Ostomy management. Heme: Monitor CBC Endo: SSI if needed for glycemic control PT and OT eval and treat as tolerated Prophylaxis - Teds SCDs - IVC filter - Subcutaneous heparin - Pepcid Level 3 Thierry Thurston MD Dec 24, 2016 12:34
[2016-12-24] MEDS: LORazepam 1 MG TAB G-TUBE PRN (17:44)
[2016-12-24] MEDS: MIRTAZAPINE 15 MG TAB G-TUBE SCH (20:48)
[2016-12-24] MEDS: traZODone HCL 100 MG TAB PO SCH (20:48)
[2016-12-25] VITALS (22 sets, daily range): BP systolic 104–150; BP diastolic 54–84; PULSE 57–84; RESP 18–50; TEMP 98–99; O2SAT 94–100
[2016-12-25] MEDS: INSULIN NovoLIN REGULAR SUPPLEMENTAL SCALE SQ SCH ×4 (03:30→21:30)
[2016-12-25] MEDS: CHLORHEXIDINE GLUCONATE 2 % 1 PACK (2 CLOTHS) TOP SCH (04:00)
[2016-12-25] MEDS: HEPARIN SODIUM - SQ 10,000 UNITS/ML VIAL SQ SCH ×3 (04:25→21:37)
[2016-12-25] MEDS: METOCLOPRAMIDE HCL 10 MG/2 ML VIAL IV PUSH SCH ×3 (04:25→21:34)
[2016-12-25] MEDS: PIPERACIL-TAZO 4.5 GM PREMIX 100 ML IV SCH ×4 (04:26→21:35)
[2016-12-25 06:56] LABS: AUTOMATED NEUTROPHIL # 9.8 TH/MM3 (1.8-7.7); BASOPHIL % 0.3 % (0.0-2.0); EOSINOPHIL # 0.2 TH/MM3 (0-0.4); EOSINOPHIL % 1.3 % (0.0-4.0); HEMATOCRIT 26.9 % (39.0-51.0); HEMO FLAGS DIFF FINAL; LYMPH % 11.5 % (9.0-44.0); LYMPHOCYTE # 1.4 TH/MM3 (1.0-4.8); MEAN CELL VOLUME 74.5 FL (80.0-100.0); MEAN CORPUSCULAR HEMOGLOBIN 23.5 PG (27.0-34.0); MEAN CORPUSCULAR HGB CONC 31.5 % (32.0-36.0); MONO % 6.5 % (0.0-8.0); NEUT % 80.4 % (16.0-70.0); PLATELET COUNT 314 TH/MM3 (150-450); RED BLOOD COUNT 3.62 MIL/MM3 (4.50-5.90); RED CELL DISTRIBUTION WIDTH 19.2 % (11.6-17.2); WHITE BLOOD COUNT 12.1 TH/MM3 (4.0-11.0)
[2016-12-25 07:07] LABS: POTASSIUM 3.6 MEQ/L (3.5-5.1)
[2016-12-25] MEDS: BACLOFEN 10 MG TAB G-TUBE SCH ×3 (09:12→17:37)
[2016-12-25] MEDS: busPIRone HCL 5 MG TAB G-TUBE SCH ×3 (09:12→17:37)
[2016-12-25] MEDS: DULoxetine HCl DR 60 MG CAP SCH (09:12)
[2016-12-25] MEDS: FAMOTIDINE 20 MG TAB G-TUBE SCH ×2 (09:13→21:33)
[2016-12-25] MEDS: DOCUSATE SODIUM 50 MG/SENNA 8.6 MG TAB PO SCH ×2 (09:13→21:33)
[2016-12-25] MEDS: POLYETHYLENE GLYCOL 17 GM PKG G-TUBE SCH (09:13)
[2016-12-25] MEDS: MIDODRINE 5 MG TAB G-TUBE SCH ×3 (09:13→17:37)
[2016-12-25] MEDS: ASCORBIC ACID 500 MG TAB G-TUBE SCH (09:14)
[2016-12-25] MEDS: SILVER SULFADIAZINE 1% CR 50 GM JAR TOPICAL SCH (09:14)
[2016-12-25] MEDS: SODIUM CHLORIDE 0.9% FLUSH 10 ML FLUSH IV FLUSH SCH ×2 (09:14→21:38)
[2016-12-25] MEDS: SENNOSIDES 8.6 MG TAB G-TUBE SCH ×2 (09:14→21:34)
[2016-12-25] MEDS: MULTIVITAMINS/MINERALS THERAPEUTIC TAB G-TUBE SCH (09:14)
--- NOTE | 2016-12-25 10:00 | HHI.CCPN ---
Subjective Remarks/Hospital Course 56-year-old male presents by ambulance from a snf with note of vomiting and concern for bowel obstruction. Patient is a ventilator dependent patient with a tracheostomy and a PEG tube and has difficulty communicating secondary to this but does note pain all over. He is a quadriplegic and cannot point at the area that is bothering him. 12/21 Patient is on ventilator via trach awake and alert. afebrile. WBC is trending down. 12/22 No events overnight. Awake and alert. On Ventilator via trach. 12/23 Patient remains on ventilator via trach. Afebrile. On no sedation. Awake. 12/24 No events overnight. On Ventilator via trach. Afebrile. 12/25 No events overnight. Afebrile. WBC is trending down. Objective Vital Signs Date Time Temp Pulse Resp B/P (MAP) Pulse Ox O2 Delivery O2 Flow Rate FiO2 12/25/16 08:23 100 35 12/25/16 06:00 75 12/25/16 04:00 98.9 20 150/80 (103) Intake and Output 12/25/16 12/25/16 12/26/16 08:00 16:00 00:00 Intake Total 451 ml 100 ml Output Total 950 ml Balance -499 ml 100 ml Result Diagram: 12/25/1662912/25/16629 Other Results Laboratory Tests Test 12/25/16 06:30 White Blood Count 12.1 TH/MM3 Red Blood Count 3.62 MIL/MM3 Hemoglobin 8.5 GM/DL Hematocrit 26.9 % Mean Corpuscular Volume 74.5 FL Mean Corpuscular Hemoglobin 23.5 PG Mean Corpuscular Hemoglobin Concent 31.5 % Red Cell Distribution Width 19.2 % Platelet Count 314 TH/MM3 Mean Platelet Volume 7.2 FL Neutrophils (%) (Auto) 80.4 % Lymphocytes (%) (Auto) 11.5 % Monocytes (%) (Auto) 6.5 % Eosinophils (%) (Auto) 1.3 % Basophils (%) (Auto) 0.3 % Neutrophils # (Auto) 9.8 TH/MM3 Lymphocytes # (Auto) 1.4 TH/MM3 Monocytes # (Auto) 0.8 TH/MM3 Eosinophils # (Auto) 0.2 TH/MM3 Basophils # (Auto) 0.0 TH/MM3 CBC Comment DIFF FINAL Differential Comment Blood Urea Nitrogen 10 MG/DL Creatinine 0.65 MG/DL Random Glucose 118 MG/DL Calcium Level 9.3 MG/DL Sodium Level 138 MEQ/L Potassium Level 3.6 MEQ/L Chloride Level 106 MEQ/L Carbon Dioxide Level 23.0 MEQ/L Anion Gap 9 MEQ/L Estimat Glomerular Filtration Rate 155 ML/MIN Random Vancomycin Level 16.7 COMMENT Imaging Last Impressions Abdomen X-Ray 12/23/16 0600 Signed Impressions: Service Date/Time: Friday, December 23, 2016 04:38 - CONCLUSION: No significant change. Persistent small bowel distention in the midabdomen. Thompson Leung MD Chest X-Ray 12/21/16 0600 Signed Impressions: Service Date/Time: Wednesday, December 21, 2016 05:20 - CONCLUSION: 1. Cardiomegaly with basilar airspace disease similar to December 20. Support apparatus unchanged Miguel Mendez MD Abdomen/Pelvis CT 12/20/16 1005 Signed Impressions: Service Date/Time: Tuesday, December 20, 2016 16:56 - CONCLUSION: 1. There are bibasilar areas of atelectasis. 2. There is gaseous distention of the colon. There is oral contrast which has passed through the colon nearly down to the ostomy. 3. Incidental note is made of an IVC filter. 4. Note is made of multiple loops of moderately dilated, fluid-filled small bowel. Brett Iniguez MD Objective Remarks GENERAL: Elderly appearing gentleman on ventilator via tracheostomy with contractures in all 4 extremities. SKIN: Warm and dry. HEAD: Normocephalic. EYES: No scleral icterus. No injection or drainage. NECK: Supple, trachea midline. No JVD or lymphadenopathy. Tracheostomy in midline CARDIOVASCULAR: Regular rate and rhythm without murmurs, gallops, or rubs. RESPIRATORY: Breath sounds equal bilaterally. No accessory muscle use. GASTROINTESTINAL: Abdomen soft, tender in all 4 quadrants, mildly distended. MUSCULOSKELETAL: No cyanosis, or edema. Contractures in all 4 extremities BACK: Nontender without obvious deformity. NEURO EXAM: Quadriplegic man Mental Status: Awake. A/P Assessment and Plan 1)Chronic Respiratory failure - Chronic due to high C-spine injury 2)Leukocytosis 3)UTI 4)Ileus 5)Hyponatremia 6)anemia 7)Quadriplegia 8)Hx Depression Plan Neuro: Awake and alert Continue Baclofen, Oxycodone, Remeron, Trazodone, Buspar and Cymbalta Pulm: Continue with vent support keep sat >92% Bronchodilators, ICU vent bundle. Check CXR Pulm toilet, trach care. SBT as larissa. CV: On Midodrine 5mg TID-Monitor HR and BP keep MAP>65mmHg Lactic acid: 1.1 : Monitor renal function, I/O's, electrolytes replacement per protocol. GI: On Jevity 1.5@30ml/hr. GI is following. Check KUB KUB 10/2 persistent SB distention in mid abdomen KUB 10/1 Gaseous distention of several SB loops ? SBO NG tube to LIMWS, GI is following Continue with bowel regimen: MiraLAX, Senna, Reglan CT abdomen: Gaseous distention of the colon. There is oral contrast which has passed through the colon nearly down to the ostomy. 3. Incidental note is made of an IVC filter. Multiple loops of moderately dilated, fluid-filled small bowel. ID: Given Vanco, cefepime, Azithromycin in ED. Continue abx ( Zosyn) monitor for signs of infections ( Fever, WBC) WBC is trending down 12/20 Urine cx: Proteus, BC : NGTD Strep pneumonia and Legionella urinary ag negative. Wound care is following for decub ulcers and Ostomy management. Heme: Monitor CBC Endo: SSI if needed for glycemic control PT and OT eval and treat as tolerated Prophylaxis - Teds SCDs - IVC filter - Subcutaneous heparin - Pepcid Level 3 Thierry Thurston MD Dec 25, 2016 10:00
[2016-12-25] MEDS ORDERED: VANCOMYCIN INJ 1,250 MG in SODIUM CHLOR 0.9% 250 ML INJ 250 ML IV SCH (12:00)
--- NOTE | 2016-12-25 12:01 | RADRPT ---
EXAM DATE/TIME: 12/25/2016 10:29 [facility] COMPARISON: CHEST SINGLE AP, December 21, 2016, 5:20. INDICATIONS : Respiratory distress. MEDICAL HISTORY : None. SURGICAL HISTORY : Peg tube. ENCOUNTER: Subsequent ACUITY: 1 week PAIN SCORE: Non-responsive. LOCATION: Bilateral chest FINDINGS: A single view of the chest demonstrates bibasilar densities. Small left pleural effusion. Tracheostom y tube and right sided [id number] catheter is unchanged.. Osseous structures are intact. CONCLUSION: Stable chest with bibasilar densities and small left pleural effusion. Adi Ferrer MD on December 25, 2016 at 11:59 Board Certified Radiologist. This report was verified electronically.
--- NOTE | 2016-12-25 12:02 | RADRPT ---
EXAM DATE/TIME: 12/25/2016 10:38 [facility] COMPARISON: ABDOMEN KUB ONLY, December 23, 2016, 4:38. INDICATIONS : Abdominal distention. Evaluate for ileus. MEDICAL HISTORY : None. SURGICAL HISTORY : Peg tube. ENCOUNTER: Subsequent ACUITY: 1 week PAIN SCORE: Non-responsive. LOCATION: Bilateral Abdomen FINDINGS: Supine view of the abdomen was performed. Dilated small bowel loops left midabdomen. Percutaneous ga strostomy tube again noted. No abnormal masses, calcifications, or organomegaly is seen. The osseous structures are unremarkable. CONCLUSION: Dilated small bowel loops again seen in the left midabdomen, which can be seen with ileus versus part ial obstruction. Adi Ferrer MD on December 25, 2016 at 12:00 Board Certified Radiologist. This report was verified electronically.
--- NOTE | 2016-12-25 19:02 | HHI.GIFU ---
GI Follow-up Note Consult Follow-up Subjective: Patient laying in bed , sleepy.Stooling, abdomen still distended Objective: PHYSICAL EXAMINATION: Vitals signs stable No fever Vital Signs Date Time Temp Pulse Resp B/P (MAP) Pulse Ox O2 Delivery O2 Flow Rate FiO2 12/25/16 18:00 70 12/25/16 16:17 100 35 12/25/16 16:00 35 12/25/16 16:00 99.0 61 18 116/55 (75) 100 12/25/16 16:00 61 12/25/16 15:00 62 18 122/59 (80) 100 12/25/16 14:00 59 12/25/16 14:00 59 30 111/57 (75) 100 12/25/16 13:00 65 40 113/55 (74) 97 12/25/16 12:30 100 35 12/25/16 12:00 35 12/25/16 12:00 98.0 57 35 104/54 (71) 100 12/25/16 12:00 57 12/25/16 11:00 84 31 107/66 (80) 100 Laboratory Tests HEENT: Pupils round and reactive to light; normocephalic; atraumatic; no jaundice. Thoracostomy NECK: Neck is supple, no JVD, no lymphadenopathy. CHEST: Chest is clear to auscultation and percussion. CARDIAC: Regular rate and rhythm with no murmur gallop or rubs. ABDOMEN: Soft, distended, nontender; no hepatosplenomegaly; bowel sounds are present in all four quadrants, colostomy bag in place-semisolid stool, peg in place EXTREMITIES: contractures -quadriplegia SKIN: Normal; no rash; no jaundice. 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 Available Data (labs, X- Rays, Procedues) : Laboratory Tests Test 12/24/16 05:18 12/25/16 06:30 White Blood Count 17.6 TH/MM3 12.1 TH/MM3 Red Blood Count 3.25 MIL/MM3 3.62 MIL/MM3 Hemoglobin 7.8 GM/DL 8.5 GM/DL Hematocrit 24.4 % 26.9 % Mean Corpuscular Volume 75.1 FL 74.5 FL Mean Corpuscular Hemoglobin 24.1 PG 23.5 PG Mean Corpuscular Hemoglobin Concent 32.1 % 31.5 % Red Cell Distribution Width 19.6 % 19.2 % Platelet Count 283 TH/MM3 314 TH/MM3 Mean Platelet Volume 7.7 FL 7.2 FL Neutrophils (%) (Auto) 88.3 % 80.4 % Lymphocytes (%) (Auto) 5.9 % 11.5 % Monocytes (%) (Auto) 4.8 % 6.5 % Eosinophils (%) (Auto) 0.4 % 1.3 % Basophils (%) (Auto) 0.6 % 0.3 % Neutrophils # (Auto) 15.6 TH/MM3 9.8 TH/MM3 Lymphocytes # (Auto) 1.0 TH/MM3 1.4 TH/MM3 Monocytes # (Auto) 0.8 TH/MM3 0.8 TH/MM3 Eosinophils # (Auto) 0.1 TH/MM3 0.2 TH/MM3 Basophils # (Auto) 0.1 TH/MM3 0.0 TH/MM3 CBC Comment AUTO DIFF DIFF FINAL Differential Comment AUTO DIFF CONFIRMED Blood Urea Nitrogen 17 MG/DL 10 MG/DL Creatinine 0.68 MG/DL 0.65 MG/DL Random Glucose 119 MG/DL 118 MG/DL Calcium Level 8.6 MG/DL 9.3 MG/DL Phosphorus Level 3.0 MG/DL Magnesium Level 1.9 MG/DL Sodium Level 137 MEQ/L 138 MEQ/L Potassium Level 4.0 MEQ/L 3.6 MEQ/L Chloride Level 108 MEQ/L 106 MEQ/L Carbon Dioxide Level 18.8 MEQ/L 23.0 MEQ/L Anion Gap 10 MEQ/L 9 MEQ/L Estimat Glomerular Filtration Rate 147 ML/MIN 155 ML/MIN Random Vancomycin Level 12.4 COMMENT 16.7 COMMENT ASSESSMENT/PLAN: ileus-abdominal x ray -possible some degree of obstruction Recommendations continue current regimen sbft with Gastrografin if not better consider surgical consult, repeat ct It was a pleasure seeing Mina Duran. Thank you for this consult. Entered by: Caron Montilla MD Dec 25, 2016 19:02
[2016-12-25] MEDS: MIRTAZAPINE 15 MG TAB G-TUBE SCH (21:33)
[2016-12-25] MEDS: traZODone HCL 100 MG TAB PO SCH (21:33)
[2016-12-26] VITALS (23 sets, daily range): BP systolic 110–168; BP diastolic 61–82; PULSE 51–104; RESP 18–43; TEMP 98.1–98.9; O2SAT 89–100
[2016-12-26] MEDS: INSULIN NovoLIN REGULAR SUPPLEMENTAL SCALE SQ SCH ×4 (03:30→19:56)
[2016-12-26] MEDS: CHLORHEXIDINE GLUCONATE 2 % 1 PACK (2 CLOTHS) TOP SCH (04:00)
[2016-12-26] MEDS: METOCLOPRAMIDE HCL 10 MG/2 ML VIAL IV PUSH SCH ×3 (04:56→22:05)
[2016-12-26] MEDS: PIPERACIL-TAZO 4.5 GM PREMIX 100 ML IV SCH ×4 (04:56→22:05)
[2016-12-26] MEDS: HEPARIN SODIUM - SQ 10,000 UNITS/ML VIAL SQ SCH ×3 (04:59→22:05)
[2016-12-26] MEDS: busPIRone HCL 5 MG TAB G-TUBE SCH ×3 (09:43→17:41)
[2016-12-26] MEDS: DULoxetine HCl DR 60 MG CAP SCH (09:43)
[2016-12-26] MEDS: SENNOSIDES 8.6 MG TAB G-TUBE SCH ×2 (09:44→19:55)
[2016-12-26] MEDS: SILVER SULFADIAZINE 1% CR 50 GM JAR TOPICAL SCH (09:44)
[2016-12-26] MEDS: MIDODRINE 5 MG TAB G-TUBE SCH ×3 (09:44→17:41)
[2016-12-26] MEDS: POLYETHYLENE GLYCOL 17 GM PKG G-TUBE SCH (09:44)
[2016-12-26] MEDS: DOCUSATE SODIUM 50 MG/SENNA 8.6 MG TAB PO SCH ×2 (09:44→19:55)
[2016-12-26] MEDS: FAMOTIDINE 20 MG TAB G-TUBE SCH ×2 (09:44→19:54)
[2016-12-26] MEDS: MULTIVITAMINS/MINERALS THERAPEUTIC TAB G-TUBE SCH (09:44)
[2016-12-26] MEDS: ASCORBIC ACID 500 MG TAB G-TUBE SCH (09:44)
[2016-12-26] MEDS: BACLOFEN 10 MG TAB G-TUBE SCH ×3 (09:44→17:41)
[2016-12-26] MEDS: SODIUM CHLORIDE 0.9% FLUSH 10 ML FLUSH IV FLUSH SCH ×2 (09:51→19:55)
--- NOTE | 2016-12-26 10:16 | HHI.GIFU ---
Subjective Remarks Resting in bed, watching TV. Admits some abd pain, nausea. Per RN less distended today and softer. +stool in ostomy bag (Augustina Tenorio) Objective Vitals I&O Vital Signs Date Time Temp Pulse Resp B/P (MAP) Pulse Ox O2 Delivery O2 Flow Rate FiO2 12/26/16 08:01 100 40 12/26/16 06:00 66 12/26/16 04:05 100 35 12/26/16 04:00 35 12/26/16 04:00 87 12/26/16 04:00 98.8 87 40 121/81 (94) 98 12/26/16 02:00 65 12/26/16 00:10 100 35 12/26/16 00:00 76 12/26/16 00:00 35 12/26/16 00:00 98.9 76 18 118/61 (80) 100 12/25/16 22:00 84 12/25/16 20:00 100 35 12/25/16 20:00 35 12/25/16 20:00 76 12/25/16 20:00 99.0 76 18 134/68 (90) 100 12/25/16 18:00 70 12/25/16 16:17 100 35 12/25/16 16:00 35 12/25/16 16:00 99.0 61 18 116/55 (75) 100 12/25/16 16:00 61 12/25/16 15:00 62 18 122/59 (80) 100 12/25/16 14:00 59 12/25/16 14:00 59 30 111/57 (75) 100 12/25/16 13:00 65 40 113/55 (74) 97 12/25/16 12:30 100 35 12/25/16 12:00 35 12/25/16 12:00 98.0 57 35 104/54 (71) 100 12/25/16 12:00 57 12/25/16 11:00 84 31 107/66 (80) 100 I/O 12/25/16 12/25/16 12/25/16 12/26/16 12/26/16 12/26/16 07:00 15:00 23:00 07:00 15:00 23:00 Intake Total 451 ml 200 ml 789.5 ml 822 ml Output Total 950 ml 1050 ml 950 ml Balance -499 ml 200 ml -260.5 ml -128 ml IV Total 100 ml 200 ml 262.5 ml 300 ml Tube Feeding 151 ml 327 ml 322 ml Tube Irrigant 200 ml Other 200 ml 200 ml Output Urine Total 650 ml 875 ml 900 ml Stool Total 300 ml 175 ml 50 ml Laboratory Date/Time Source Procedure Growth Status 12/20/16 11:55 Blood Peripheral Aerobic Blood Culture - Final NO GROWTH IN 5 DAYS Complete 12/20/16 11:55 Blood Peripheral Anaerobic Blood Culture - Final NO GROWTH IN 5 DAYS Complete 12/20/16 11:50 Urine Catheterized Urine Legionella Antigen - Final PRESUMPTIVE NEGATIVE FOR LEGIONELLA P... Complete 12/20/16 11:50 Urine Catheterized Urine Streptococcus pneumoniae Antigen (M - Final PRESUMPTIVE NEGATIVE FOR STREPTOCOCCU... Complete Imaging Last Impressions Chest X-Ray 12/25/16 0000 Signed Impressions: Service Date/Time: Sunday, December 25, 2016 10:29 - CONCLUSION: Stable chest with bibasilar densities and small left pleural effusion. Adi Ferrer MD Abdomen X-Ray 12/25/16 0000 Signed Impressions: Service Date/Time: Sunday, December 25, 2016 10:38 - CONCLUSION: Dilated small bowel loops again seen in the left midabdomen, which can be seen with ileus versus partial obstruction. Adi Ferrer MD Abdomen/Pelvis CT 12/20/16 1005 Signed Impressions: Service Date/Time: Tuesday, December 20, 2016 16:56 - CONCLUSION: 1. There are bibasilar areas of atelectasis. 2. There is gaseous distention of the colon. There is oral contrast which has passed through the colon nearly down to the ostomy. 3. Incidental note is made of an IVC filter. 4. Note is made of multiple loops of moderately dilated, fluid-filled small bowel. Brett Iniguez MD Physical Exam HEENT: Normocephalic; atraumatic CHEST: Tracheostomy. Course breath sounds, wheezes CARDIAC: RRR ABDOMEN: Soft, distended, colostomy right side with solid stool, hypoactive bowel sounds some liuqid stool in bag EXTREMITIES: Contracted upper ext. edema. BARLEY STEEPER: awake, responds appropriately (Augustina Tenorio DECORATING INSPECTOR) Assessment and Plan Plan ASSESSMENT: - Ileus, appears to be improving. Abdomen/Pelvis CT (12/20/16)-----> 1. There are bibasilar areas of atelectasis. 2. There is gaseous distention of the colon. There is oral contrast which has passed through the colon nearly down to the ostomy. 3. Incidental note is made of an IVC filter. 4. Note is made of multiple loops of moderately dilated, fluid-filled small bowel. KUB (12/23/16)--> No significant change. Persistent small bowel distention in the mid abdomen. KUB 12/25/16 ileus vs partial SBO. SBFT pending today. per nutrition TF Jevity 1.5 with goal rate 50ml/hr - Chronic respiratory failure. tracheostomy - Quadriplegia, UTI, Electrolyte abnormalities. per attending. PLAN: - await SBFT - if no improvement consider GS consult - when TF restarts Jevity 1.5 goal 50ml/hr - Cont. Reglan - Cont. Miralax - Cont. Senokot - Supportive care - Further recommendations to follow based on results of above - Patient seen and examined by Dr. Feldman and myself and this note is written on her behalf. (Augustina Tenorio) Augustina Tenorio Dec 26, 2016 10:16 Caron Feldman MD Dec 26, 2016 22:45
--- NOTE | 2016-12-26 10:26 | HHI.CCPN ---
Subjective Remarks/Hospital Course 56-year-old male presents by ambulance from a senior living with note of vomiting and concern for bowel obstruction. Patient is a ventilator dependent patient with a tracheostomy and a PEG tube and has difficulty communicating secondary to this but does note pain all over. He is a quadriplegic and cannot point at the area that is bothering him. 12/21 Patient is on ventilator via trach awake and alert. afebrile. WBC is trending down. 12/22 No events overnight. Awake and alert. On Ventilator via trach. 12/23 Patient remains on ventilator via trach. Afebrile. On no sedation. Awake. 12/24 No events overnight. On Ventilator via trach. Afebrile. 12/25 No events overnight. Afebrile. WBC is trending down. 12/26 no events overnight. Awake, on no sedation. For small bowel series with Gastrografin today. Objective Vital Signs Date Time Temp Pulse Resp B/P (MAP) Pulse Ox O2 Delivery O2 Flow Rate FiO2 12/26/16 08:01 100 40 12/26/16 06:00 66 12/26/16 04:00 98.8 40 121/81 (94) Intake and Output 12/26/16 12/26/16 12/27/16 08:00 16:00 00:00 Intake Total 822 ml Output Total 950 ml Balance -128 ml Result Diagram: 12/25/16 0630 12/25/16 0630 Imaging Last Impressions Chest X-Ray 12/25/16 0000 Signed Impressions: Service Date/Time: Sunday, December 25, 2016 10:29 - CONCLUSION: Stable chest with bibasilar densities and small left pleural effusion. Adi Ferrer MD Abdomen X-Ray 12/25/16 0000 Signed Impressions: Service Date/Time: Sunday, December 25, 2016 10:38 - CONCLUSION: Dilated small bowel loops again seen in the left midabdomen, which can be seen with ileus versus partial obstruction. Adi Ferrer MD Abdomen/Pelvis CT 12/20/16 1005 Signed Impressions: Service Date/Time: Tuesday, December 20, 2016 16:56 - CONCLUSION: 1. There are bibasilar areas of atelectasis. 2. There is gaseous distention of the colon. There is oral contrast which has passed through the colon nearly down to the ostomy. 3. Incidental note is made of an IVC filter. 4. Note is made of multiple loops of moderately dilated, fluid-filled small bowel. Brett Iniguez MD Objective Remarks GENERAL: Elderly appearing gentleman on ventilator via tracheostomy with contractures in all 4 extremities. SKIN: Warm and dry. HEAD: Normocephalic. EYES: No scleral icterus. No injection or drainage. NECK: Supple, trachea midline. No JVD or lymphadenopathy. Tracheostomy in midline CARDIOVASCULAR: Regular rate and rhythm without murmurs, gallops, or rubs. RESPIRATORY: Breath sounds equal bilaterally. No accessory muscle use. GASTROINTESTINAL: Abdomen soft, tender in all 4 quadrants, mildly distended. MUSCULOSKELETAL: No cyanosis, or edema. Contractures in all 4 extremities BACK: Nontender without obvious deformity. NEURO EXAM: Quadriplegic man Mental Status: Awake. A/P Assessment and Plan 1)Chronic Respiratory failure - Chronic due to high C-spine injury 2)Leukocytosis 3)UTI 4)Ileus 5)Hyponatremia 6)anemia 7)Quadriplegia 8)Hx Depression Plan Neuro: Awake and alert Continue Baclofen, Oxycodone, Remeron, Trazodone, Buspar and Cymbalta Pulm: Continue with vent support keep sat >92% Bronchodilators, ICU vent bundle. Pulm toilet, trach care. SBT as larissa. CV: On Midodrine 5mg TID-Monitor HR and BP keep MAP>65mmHg Lactic acid: 1.1 : Monitor renal function, I/O's, electrolytes replacement per protocol. GI: On Jevity 1.5@30ml/hr. GI is following. For small bowel series with Gastrografin today per GI. KUB 10/4: Dilated small bowel loops in midabdomen KUB 10/2 persistent SB distention in mid abdomen KUB 10/1 Gaseous distention of several SB loops ? SBO NG tube to LIMWS, GI is following Continue with bowel regimen: MiraLAX, Senna, Reglan CT abdomen: Gaseous distention of the colon. There is oral contrast which has passed through the colon nearly down to the ostomy. 3. Incidental note is made of an IVC filter. Multiple loops of moderately dilated, fluid-filled small bowel. ID: Given Vanco, cefepime, Azithromycin in ED. Continue abx ( Zosyn) monitor for signs of infections ( Fever, WBC) WBC is trending down 12/20 Urine cx: Proteus, BC : NGTD Strep pneumonia and Legionella urinary ag negative. Wound care is following for decub ulcers and Ostomy management. Heme: Monitor CBC Endo: SSI if needed for glycemic control PT and OT eval and treat as tolerated Prophylaxis - Teds SCDs - IVC filter - Subcutaneous heparin - Pepcid Level 3 Thierry Thurston MD Dec 26, 2016 10:25
--- NOTE | 2016-12-26 13:24 | RADRPT ---
EXAM DATE/TIME: 12/26/2016 09:09 [facility] COMPARISON: No previous studies available for comparison. INDICATIONS : Distention. Abdominal pain. FLUORO TIME: 0 minutes IMAGE COUNT: 5 CONTRAST: Gastroqueta IMAGING TIME(S): 1 hr MEDICAL HISTORY : Anemia, Quadriplegic. SURGICAL HISTORY : Colostomy. Peg tube. Trachostomy. Infusaport. ENCOUNTER: Subsequent ACUITY: 3 days PAIN SCORE: 3/10 LOCATION: Abdomen. FINDINGS: A preliminary conference services director film demonstrated a gastrostomy tube in place with gas in the stomach. There is m ild gaseous distention portions of the colon with multiple loops of nondilated air containing small b owel. The stomach is grossly unremarkable. Gastrografin was administered through the gastrostomy tube and imaging was performed out to one hour. The patient then refused any additional imaging and terminated the procedure prematurely. The stomac h is grossly unremarkable in appearance. There is dilute contrast in the proximal mid small bowel wit h poor detail. The study is nondiagnostic. CONCLUSION: Nondiagnostic exam secondary to patient termination. Walter Moura MD on December 26, 2016 at 13:20 Board Certified Radiologist. This report was verified electronically.
[2016-12-26 13:57] LABS: AUTOMATED NEUTROPHIL # 10.1 TH/MM3 (1.8-7.7); BASOPHIL % 0.3 % (0.0-2.0); EOSINOPHIL # 0.3 TH/MM3 (0-0.4); EOSINOPHIL % 2.5 % (0.0-4.0); HEMATOCRIT 27.8 % (39.0-51.0); HEMO FLAGS DIFF FINAL; LYMPHOCYTE # 1.5 TH/MM3 (1.0-4.8); MEAN CELL VOLUME 75.1 FL (80.0-100.0); MEAN CORPUSCULAR HGB CONC 31.9 % (32.0-36.0); MONO % 5.5 % (0.0-8.0); NEUT % 79.7 % (16.0-70.0); PLATELET COUNT 321 TH/MM3 (150-450); RED CELL DISTRIBUTION WIDTH 19.2 % (11.6-17.2); WHITE BLOOD COUNT 12.7 TH/MM3 (4.0-11.0)
[2016-12-26 14:27] LABS: BICARBONATE 26.5 MEQ/L (21.0-32.0); POTASSIUM 3.5 MEQ/L (3.5-5.1)
[2016-12-26] MEDS: MIRTAZAPINE 15 MG TAB G-TUBE SCH (19:55)
[2016-12-26] MEDS: traZODone HCL 100 MG TAB PO SCH (19:55)
[2016-12-27] VITALS (21 sets, daily range): BP systolic 139–183; BP diastolic 73–88; PULSE 50–106; RESP 18–35; TEMP 98.1–98.8; O2SAT 97–100
[2016-12-27] MEDS: INSULIN NovoLIN REGULAR SUPPLEMENTAL SCALE SQ SCH ×4 (03:30→21:14)
[2016-12-27] MEDS: CHLORHEXIDINE GLUCONATE 2 % 1 PACK (2 CLOTHS) TOP SCH (04:00)
[2016-12-27] MEDS: PIPERACIL-TAZO 4.5 GM PREMIX 100 ML IV SCH ×4 (05:07→22:03)
[2016-12-27] MEDS: HEPARIN SODIUM - SQ 10,000 UNITS/ML VIAL SQ SCH ×3 (05:08→21:08)
[2016-12-27] MEDS: METOCLOPRAMIDE HCL 10 MG/2 ML VIAL IV PUSH SCH ×3 (05:08→21:09)
[2016-12-27 05:42] LABS: AUTOMATED NEUTROPHIL # 7.4 TH/MM3 (1.8-7.7); BASOPHIL % 0.4 % (0.0-2.0); EOSINOPHIL # 0.3 TH/MM3 (0-0.4); EOSINOPHIL % 3.2 % (0.0-4.0); HEMATOCRIT 27.5 % (39.0-51.0); HEMO FLAGS DIFF FINAL; LYMPH % 14.7 % (9.0-44.0); LYMPHOCYTE # 1.4 TH/MM3 (1.0-4.8); MEAN CELL VOLUME 74.5 FL (80.0-100.0); MEAN CORPUSCULAR HEMOGLOBIN 24.1 PG (27.0-34.0); MEAN CORPUSCULAR HGB CONC 32.4 % (32.0-36.0); MONO % 6.5 % (0.0-8.0); NEUT % 75.2 % (16.0-70.0); PLATELET COUNT 289 TH/MM3 (150-450); RED BLOOD COUNT 3.69 MIL/MM3 (4.50-5.90); RED CELL DISTRIBUTION WIDTH 19.3 % (11.6-17.2); WHITE BLOOD COUNT 9.8 TH/MM3 (4.0-11.0)
[2016-12-27 05:51] LABS: BICARBONATE 25.4 MEQ/L (21.0-32.0); POTASSIUM 3.2 MEQ/L (3.5-5.1)
[2016-12-27] MEDS: POTASSIUM CHLOR 20 MEQ PREMIX 100 ML IV PRN (06:06)
[2016-12-27] MEDS: POTASSIUM CHLORIDE 25 MEQ EFFERVESCENT TAB PO PRN (06:07)
[2016-12-27] MEDS: SENNOSIDES 8.6 MG TAB G-TUBE SCH ×2 (09:40→20:25)
[2016-12-27] MEDS: DULoxetine HCl DR 60 MG CAP SCH (09:40)
[2016-12-27] MEDS: ASCORBIC ACID 500 MG TAB G-TUBE SCH (09:40)
[2016-12-27] MEDS: DOCUSATE SODIUM 50 MG/SENNA 8.6 MG TAB PO SCH ×2 (09:41→20:25)
[2016-12-27] MEDS: FAMOTIDINE 20 MG TAB G-TUBE SCH ×2 (09:41→20:24)
[2016-12-27] MEDS: MULTIVITAMINS/MINERALS THERAPEUTIC TAB G-TUBE SCH (09:41)
[2016-12-27] MEDS: BACLOFEN 10 MG TAB G-TUBE SCH ×3 (09:41→17:05)
[2016-12-27] MEDS: busPIRone HCL 5 MG TAB G-TUBE SCH ×3 (09:41→17:06)
[2016-12-27] MEDS: POLYETHYLENE GLYCOL 17 GM PKG G-TUBE SCH (09:41)
[2016-12-27] MEDS: MIDODRINE 5 MG TAB G-TUBE SCH ×3 (09:41→17:05)
[2016-12-27] MEDS: SILVER SULFADIAZINE 1% CR 50 GM JAR TOPICAL SCH (09:42)
[2016-12-27] MEDS: SODIUM CHLORIDE 0.9% FLUSH 10 ML FLUSH IV FLUSH SCH ×2 (09:54→20:25)
[2016-12-27] MEDS ORDERED: PHARMACY ORDERED LAB ONE (11:45)
--- NOTE | 2016-12-27 16:06 | HHI.CCPN ---
Subjective Remarks/Hospital Course 56-year-old male presents by ambulance from a [facility] with note of vomiting and concern for bowel obstruction. Patient is a ventilator dependent patient with a tracheostomy and a PEG tube and has difficulty communicating secondary to this but does note pain all over. He is a quadriplegic and cannot point at the area that is bothering him. 12/21 Patient is on ventilator via trach awake and alert. afebrile. WBC is trending down. 12/22 No events overnight. Awake and alert. On Ventilator via trach. 12/23 Patient remains on ventilator via trach. Afebrile. On no sedation. Awake. 12/24 No events overnight. On Ventilator via trach. Afebrile. 12/25 No events overnight. Afebrile. WBC is trending down. 12/26 no events overnight. Awake, on no sedation. For small bowel series with Gastrografin today. Subjective 12/27: Afebrile. Patient refused Gastrografin enema yesterday. Abdomen remains distended and firm. Patient refusing a dental x-rays for additional lab draws. Nods head that his goals are to be kept comfortable. Objective Vital Signs Date Time Temp Pulse Resp B/P (MAP) Pulse Ox O2 Delivery O2 Flow Rate FiO2 12/27/16 14:46 100 40 12/27/16 14:00 56 12/27/16 12:00 98.7 18 162/80 (107) 12/27/16 07:40 Ventilator Intake and Output 12/27/16 12/27/16 12/28/16 08:00 16:00 00:00 Intake Total 562 ml Output Total 650 ml Balance -88 ml Result Diagram: 12/27/16 0458 12/27/16 0458 Other Results Microbiology Date/Time Source Procedure Growth Status 12/20/16 11:55 Blood Peripheral Aerobic Blood Culture - Final NO GROWTH IN 5 DAYS Complete 12/20/16 11:55 Blood Peripheral Anaerobic Blood Culture - Final NO GROWTH IN 5 DAYS Complete 12/26/16 08:10 Sputum Endotracheal Gram Stain - Final Resulted 12/26/16 08:10 Sputum Culture - Preliminary Gram Negative Javed Resulted 12/20/16 11:50 Urine Catheterized Urine Legionella Antigen - Final PRESUMPTIVE NEGATIVE FOR LEGIONELLA P... Complete 12/20/16 11:50 Urine Catheterized Urine Streptococcus pneumoniae Antigen (M - Final PRESUMPTIVE NEGATIVE FOR STREPTOCOCCU... Complete Imaging Last Impressions Small Bowel X-Ray 12/26/16 0000 Signed Impressions: Service Date/Time: December 09:09 - CONCLUSION: Nondiagnostic exam secondary to patient termination. Walter Moura MD Chest X-Ray 12/25/16 0000 Signed Impressions: Service Date/Time: Sunday, December 25, 2016 10:29 - CONCLUSION: Stable chest with bibasilar densities and small left pleural effusion. Adi Ferrer MD Abdomen X-Ray 12/25/16 0000 Signed Impressions: Service Date/Time: Sunday, December 25, 2016 10:38 - CONCLUSION: Dilated small bowel loops again seen in the left midabdomen, which can be seen with ileus versus partial obstruction. Adi Ferrer MD Abdomen/Pelvis CT 12/20/16 1005 Signed Impressions: Service Date/Time: Tuesday, December 20, 2016 16:56 - CONCLUSION: 1. There are bibasilar areas of atelectasis. 2. There is gaseous distention of the colon. There is oral contrast which has passed through the colon nearly down to the ostomy. 3. Incidental note is made of an IVC filter. 4. Note is made of multiple loops of moderately dilated, fluid-filled small bowel. Brett Iniguez MD Objective Remarks GENERAL: Elderly appearing gentleman on ventilator via tracheostomy with contractures in all 4 extremities. SKIN: Warm and dry. HEAD: Normocephalic. EYES: No scleral icterus. No injection or drainage. NECK: Supple, trachea midline. No JVD or lymphadenopathy. Tracheostomy in midline CARDIOVASCULAR: Regular rate and rhythm without murmurs, gallops, or rubs. RESPIRATORY: Breath sounds equal bilaterally. No accessory muscle use. GASTROINTESTINAL: Abdomen tender to palpation in all 4 quadrants, voluntary guarding. No rigidity. Distended and firm MUSCULOSKELETAL: No cyanosis, or edema. Contractures in all 4 extremities NEURO EXAM: Quadriplegic with contractures all 4 extremity's. Nods head to commands. Attempts to speak with voice A/P Assessment and Plan Neuro: Quadriplegia Depression Chronic narcotic use Awake and alert Continue Baclofen, Oxycodone, Remeron, Trazodone, Buspar and Cymbalta Pulm: Chronic respiratory failure secondary to C-spine injury -tracheostomy Continue with vent support keep sat >92% Bronchodilators, ICU vent bundle. Pulm toilet, trach care. SBT as larissa. CV: Hypotension On Midodrine 5mg TID-Monitor HR and BP keep MAP>65mmHg Lactic acid: 1.1 Renal//FEN: Hypernatremia Hypokalemia Monitor renal function, I/O's, electrolytes replacement per protocol. GI: Small bowel distention History of colostomy GI is following. For small bowel series with Gastrografin 12/26 but refused and imaging stopped early KUB 12/25: Dilated small bowel loops in midabdomen KUB 12/23 persistent SB distention in mid abdomen KUB 12/22 Gaseous distention of several SB loops ? SBO NG tube to LIWS, GI is following Continue with bowel regimen: MiraLAX, Senna, Reglan CT abdomen: Gaseous distention of the colon. There is oral contrast which has passed through the colon nearly down to the ostomy. 3. Incidental note is made of an IVC filter. Multiple loops of moderately dilated, fluid-filled small bowel. ID: UTI Given Vanco, cefepime, Azithromycin in ED. Continue abx ( Zosyn) monitor for signs of infections ( Fever, WBC) WBC is trending down 12/20 Urine cx: Proteus, BC : NGTD Strep pneumonia and Legionella urinary ag negative. Wound care is following for decub ulcers and Ostomy management. Heme: Normocytic anemia Monitor CBC Endo: SSI if needed for glycemic control PT and OT eval and treat as tolerated Prophylaxis - Teds SCDs - IVC filter - Subcutaneous heparin - Pepcid Level2 Patient is requesting comfort cares only. Palliative care be consulted Fredy Guzman MD Dec 27, 2016 16:06
--- NOTE | 2016-12-27 16:47 | HHI.GIFU ---
Subjective Remarks Resting in bed. Refused SBFT. D/W patient rationale for this test, still refusing. Occasional nausea, no vomiting. Passing stool via colostomy- stool output down from the other day. (Claudia Good) Objective Vitals I&O Vital Signs Date Time Temp Pulse Resp B/P (MAP) Pulse Ox O2 Delivery O2 Flow Rate FiO2 12/27/16 16:00 56 12/27/16 16:00 98.1 56 19 183/88 (119) 100 12/27/16 16:00 35 12/27/16 14:46 100 40 12/27/16 14:00 56 12/27/16 13:00 72 12/27/16 12:00 98.7 53 18 162/80 (107) 99 12/27/16 12:00 35 12/27/16 12:00 53 12/27/16 10:54 12 12/27/16 10:37 100 35 12/27/16 10:00 106 12/27/16 08:00 35 12/27/16 08:00 76 12/27/16 08:00 98.8 76 23 143/73 (96) 100 12/27/16 07:59 100 35 12/27/16 07:40 100 Ventilator 35 12/27/16 06:00 52 12/27/16 04:00 98.3 56 30 158/74 (102) 100 12/27/16 04:00 35 12/27/16 04:00 56 12/27/16 03:36 100 35 12/27/16 02:00 51 12/27/16 00:23 100 35 12/27/16 00:00 50 12/27/16 00:00 98.2 50 35 151/74 (99) 100 12/27/16 00:00 35 12/26/16 22:24 100 35 12/26/16 22:00 97 12/26/16 20:07 100 40 12/26/16 20:00 52 12/26/16 20:00 98.3 52 33 168/81 (110) 100 12/26/16 20:00 35 12/26/16 18:00 64 12/26/16 18:00 64 43 147/77 (100) 98 12/26/16 17:00 51 37 153/76 (101) 100 I/O 12/26/16 12/26/16 12/26/16 12/27/16 12/27/16 12/27/16 07:00 15:00 23:00 07:00 15:00 23:00 Intake Total 822 ml 100 ml 626 ml 562 ml Output Total 950 ml 2650 ml 650 ml Balance -128 ml 100 ml -2024 ml -88 ml IV Total 300 ml 100 ml 200 ml 100 ml Tube Feeding 322 ml 226 ml 342 ml Other 200 ml 200 ml 120 ml Output Urine Total 900 ml 600 ml 450 ml Stool Total 50 ml 2050 ml 200 ml Laboratory Laboratory Tests Test 12/27/16 04:58 White Blood Count 9.8 Red Blood Count 3.69 Hemoglobin 8.9 Hematocrit 27.5 Mean Corpuscular Volume 74.5 Mean Corpuscular Hemoglobin 24.1 Mean Corpuscular Hemoglobin Concent 32.4 Red Cell Distribution Width 19.3 Platelet Count 289 Mean Platelet Volume 7.3 Neutrophils (%) (Auto) 75.2 Lymphocytes (%) (Auto) 14.7 Monocytes (%) (Auto) 6.5 Eosinophils (%) (Auto) 3.2 Basophils (%) (Auto) 0.4 Neutrophils # (Auto) 7.4 Lymphocytes # (Auto) 1.4 Monocytes # (Auto) 0.6 Eosinophils # (Auto) 0.3 Basophils # (Auto) 0.0 CBC Comment DIFF FINAL Differential Comment Blood Urea Nitrogen 11 Creatinine 0.44 Random Glucose 101 Calcium Level 9.4 Sodium Level 147 Potassium Level 3.2 Chloride Level 113 Carbon Dioxide Level 25.4 Anion Gap 9 Estimat Glomerular Filtration Rate 243 Date/Time Source Procedure Growth Status 12/20/16 11:55 Blood Peripheral Aerobic Blood Culture - Final NO GROWTH IN 5 DAYS Complete 12/20/16 11:55 Blood Peripheral Anaerobic Blood Culture - Final NO GROWTH IN 5 DAYS Complete 12/26/16 08:10 Sputum Endotracheal Gram Stain - Final Resulted 12/26/16 08:10 Sputum Culture - Preliminary Gram Negative Javed Resulted 12/20/16 11:50 Urine Catheterized Urine Legionella Antigen - Final PRESUMPTIVE NEGATIVE FOR LEGIONELLA P... Complete 12/20/16 11:50 Urine Catheterized Urine Streptococcus pneumoniae Antigen (M - Final PRESUMPTIVE NEGATIVE FOR STREPTOCOCCU... Complete Imaging Last Impressions Small Bowel X-Ray 12/26/16 0000 Signed Impressions: Service Date/Time: December 09:09 - CONCLUSION: Nondiagnostic exam secondary to patient termination. Walter Moura MD Chest X-Ray 12/25/16 0000 Signed Impressions: Service Date/Time: Sunday, December 25, 2016 10:29 - CONCLUSION: Stable chest with bibasilar densities and small left pleural effusion. Adi Ferrer MD Abdomen X-Ray 12/25/16 0000 Signed Impressions: Service Date/Time: Sunday, December 25, 2016 10:38 - CONCLUSION: Dilated small bowel loops again seen in the left midabdomen, which can be seen with ileus versus partial obstruction. Adi Ferrer MD Abdomen/Pelvis CT 12/20/16 1005 Signed Impressions: Service Date/Time: Tuesday, December 20, 2016 16:56 - CONCLUSION: 1. There are bibasilar areas of atelectasis. 2. There is gaseous distention of the colon. There is oral contrast which has passed through the colon nearly down to the ostomy. 3. Incidental note is made of an IVC filter. 4. Note is made of multiple loops of moderately dilated, fluid-filled small bowel. Brett Iniguez MD Physical Exam HEENT: Normocephalic; atraumatic CHEST: Tracheostomy. Course breath sounds CARDIAC: RRR ABDOMEN: Soft, distended, colostomy left side with liquid stool, hypoactive bowel sounds EXTREMITIES: Contracted upper ext. edema. UTILIZATION REVIEW RN: awake, responds appropriately (Claudia Good Kayla INFRASTRUCTURE DEVELOPER) Assessment and Plan Plan ASSESSMENT: - Ileus, appears to be improving. Abdomen/Pelvis CT (12/20/16)-----> 1. There are bibasilar areas of atelectasis. 2. There is gaseous distention of the colon. There is oral contrast which has passed through the colon nearly down to the ostomy. 3. Incidental note is made of an IVC filter. 4. Note is made of multiple loops of moderately dilated, fluid-filled small bowel. KUB (12/25/16)--> Dilated small bowel loops again seen in the left midabdomen , which can be seen with ileus versus partial obstruction. Pt refusing SBFT. Tolerating TF at 30cc/hr. Clinically, abdomen is softer and not as distended. Reglan, Senokot, Miralax. Likely has some degree of a chronic ileus, but seems to be improved. Will continue bowel regimen and advance TF as tolerated to GR. Policy Change Clerk recommends Jevity 1.5 with goal rate 50ml/hr - Chronic respiratory failure. tracheostomy - Quadriplegia, UTI, Electrolyte abnormalities. per attending. PLAN: - Increase TF slowly to Jevity 1.5 GR 50cc/hr as tolerated - Cont. Reglan - Cont. Miralax - Cont. Senokot - Refused SBFT - Supportive care - Further recommendations to follow based on results of above - Patient seen and examined by Dr. Feldman and myself and this note is written on her behalf. (Claudia Good) Claudia Good Dec 27, 2016 16:47 Caron Feldman MD Dec 27, 2016 19:36
[2016-12-27] MEDS ORDERED: LABETALOL HCL 100 MG/20 ML VIAL IV PUSH PRN (18:15)
[2016-12-27] MEDS ORDERED: NITROGLYCERIN 2% OINT 1 GM PACKET TOPICAL PRN (18:15)
[2016-12-27] MEDS: hydrALAZINE HCL 20 MG/ML VIAL IV PUSH PRN (18:35)
--- NOTE | 2016-12-27 18:59 | PD.CONS ---
Consult Service Palliative Care . Consult Requested By Dr. Stalin Guzman . Primary Care Physician Ronald Bueno MD . Reason for Consultation a. To assist with evaluation and management of symptoms including: pain, nausea, vomiting b. To assist medical decision maker(s) with: better understanding of current medical conditions; weighing benefits/burdens of medical treatment options; making medical treatment decisions. . HPI History of Present Illness Mr. Duran is a 56 y/o vent dependent , PEG dependent quadriplegic [place] Citizen- [place] who was sent from [facility] to [facility] ED on because of refractory vomiting and concern for a possible bowel obstruction. The patient was sent over with little history and the patient does not appear to have been at our hospital before. The patient is awake, and alert, will mouth words but between the tracheostomy and his accent he is very difficult to understand. There is no available family. I don't know how/when he came to be quadriplegic. I don't know if he has required many hospitalizations. I can't find out about surgeries, social history, or get a ROS other than the limited information on his correction chart. The Face Sheet accompanying the patient from [facility] says he was admitted there on 10/16/16. When I tried to ask the patient about this he seemed to be saying he had been there much longer than that. Dr. Bueno is his PCP at [facility]. The EMS note indicates the patient had a sign on his door indicating the patient had respiratory MRSA. They noted a recent temp of 100.5 axillary. They noted he was vomiting and that he frequently spit up bilious appearing material. In the ED he was able to communicate that he had pain all over. Pain levels have been #6 today per nursing staff and they have said they were constant and aching. Initial vital signs in the emergency department were as follows: Temperature 99.9; pulse 121; respiratory rate 18; blood pressure 129/70; pulse oximetry 100 % on the ventilator at 60% FiO2 Initial physical examination by the emergency roving department end finder noted the following: Patient was tachycardic with irregular rhythm. Abdomen was distended and diffusely tender. Patient is quadriplegic, vent dependent, with contractures. The remainder of the exam was unremarkable. Initial diagnostic testing showed the following: * CBC showed WBC 27.8; hemoglobin 11.8; platelet count 528. 2% band neutrophils. MCV was 72.2 * Coagulation profile showed PT 10.7; INR 1.0; PTT 28.3 * Urinalysis showed moderate occult blood; trace ketones; greater than 600 protein; large leukocyte esterase; clumps of WBCs; many bacteria. * Chemistry panel showed sodium 125; potassium 4.3; chloride 91; CO2 20.9; anion gap 13; GFR 132; BUN 22; creatinine 0.75; glucose 164 * Liver function tests showed total bili 0.6; AST 31; ALT 71; alkaline phosphatase 219; total protein 10.6; albumin 3.5 * Cardiac serology showed total CK 298; CK-MB 1.5; troponin less than 0.02 * Lipase was 80 * Chest x-ray showed bibasilar parenchymal changes. Possible inflammatory process in the right base. * CT of the abdomen/pelvis showed bibasilar areas of atelectasis; gaseous distention of the colon with oral contrast passed through the colon nearly down to the ostomy; IVC filter is in place; multiple loops of moderately dilated fluid-filled small bowel Patient was started on broad-spectrum empiric antibiotic coverage in the emergency department. PEG tube was placed to gravity drainage with 1500 cc of output in the emergency department. Critical care was consulted and the patient was admitted to the medical intensive care unit. Gastroenterology was consulted. The patient had a large bowel movement the following morning and it was felt the patient's ileus appeared to be improving. The patient was kept NPO. Marium lax was provided. Patient's cultures came back growing Providencia stuartii in the urine on . Blood cultures to be negative. Sputum culture of 12/26/16 is growing a gram-negative javed. Though there was some improvement in the patient's distension and he was stooling some, there were concerns about ongoing obstruction. Small bowel follow through was recommended. the patient refused further xrays and some medications. He apparently told the walking dragline operator he was just interested in "comfort" at this time. Palliative care was consulted to assist with symptom management and to further clarify goals of medical treatment. . Function/Cognitive Trajectory Unable to get this history. . Review of Systems ROS Limitations: Clinical Condition (Patient is unable to speak due to tracheostomy. He tries to mouth words but ROS very difficult to obtain. No family or medical records available . ) Past Family Social History Coded Allergies: levofloxacin (Verified Allergy, Unknown, 12/20/16) PER [facility] AT [facility] Past Medical History Ventilatory dependent respiratory failure Quadriplegia . Past Surgical History IVC filter Unable to further assess Reported Medications Medications reported in the nursing facility included: Trazodone (Trazodone HCl) 150 Mg Tablet 150 Mg PO HS Sodium Chloride Flush (Sodium Chloride) 0.9 % Inj 10 Ml IV FLUSH MONTHLY For infusaport maintenance-access infusaport to rt upper chest area w/tan needle and flush w/10ml NSS on day shift every 30 days Silvadene Topical (Silver Sulfadiazine) 1 % Cream 1 Applic TOPICAL DAILY Apply to suprapubic site every day shift after nss wash then cover w/dry drsg-apply calciumm alginate as needed Senna-Tabs (Sennosides) 8.6 Mg Tab 17.2 Mg G-TUBE BID Remeron (Mirtazapine) 15 Mg Tab 15 Mg G-TUBE HS Miralax (Polyethylene Glycol 3350) 17 Gram Powd.pack 17 Gm G-TUBE DAILY Oxycodone (Oxycodone HCl) 5 Mg Tab 5 Mg PEG Q6HR PRN Zofran (Ondansetron HCl) 4 Mg Tab 4 Mg G-TUBE Q6HR PRN Multi-Vitamin/Minerals (Multiple Vitamins W/ Minerals) 1 Tab Tab 1 Tab G-TUBE DAILY Midodrine 5 Mg Tab 5 Mg G-TUBE TID Metoprolol Tartrate 25 Mg Tab 12.5 Mg G-TUBE BID Ativan (Lorazepam) 1 Mg Tab 1 Mg G-TUBE Q6HR PRN Heparin Sod 5,000 Unit/ 0.5 ml (Heparin Sodium,Porcine/Pf) 5,000 Unit/0.5 Ml Vial 5,000 Units SQ Q8HR Pepcid (Famotidine) 20 Mg Tab 20 Mg G-TUBE Q12HR Duoneb (Ipratropium-Albuterol Neb) 0.5-2.5 Mg/3 Ml Neb 3 Ml NEB QID Duoneb (Ipratropium-Albuterol Neb) 0.5-2.5 Mg/3 Ml Neb 3 Ml NEB Q3HR PRN [D5%-Nss Soln] 50 Ml IV EVERY SHIFT PRN 50ML/HR Cymbalta DR (Duloxetine HCl) 60 Mg Capdr 60 Mg G-TUBE DAILY Buspirone (Buspirone HCl) 5 Mg Tab 5 Mg G-TUBE TID Baclofen 10 Mg Tab 10 Mg G-TUBE TID Ascorbic Acid 500 Mg Tab 500 Mg G-TUBE DAILY Tylenol (Acetaminophen) 325 Mg Tab 650 Mg G-TUBE Q6H PRN Acetaminophen Supp (Acetaminophen) 650 Mg Supp 650 Mg RECTAL Q6H PRN . Current Medications Medications (Trade) Dose Ordered Sig/Francisco J Route Start Time Stop Time Status Last Admin (Tylenol 650 Mg/ 20 ml Liq) 650 mg Q6H PRN G-TUBE 12/20/16 21:15 (Vitamin C) 500 mg DAILY G-TUBE 12/21/16 09:00 12/27/16 09:40 (Lioresal) 10 mg TID G-TUBE 12/21/16 09:00 12/27/16 17:05 (Buspar) 5 mg TID G-TUBE 12/21/16 09:00 12/27/16 17:06 (Orly Ramirez) 60 mg DAILY .XX 12/21/16 09:00 12/27/16 09:40 (Pepcid) 20 mg Q12HR G-TUBE 12/21/16 09:00 12/27/16 09:41 (Ativan) 1 mg Q6HR PRN G-TUBE 12/20/16 21:15 12/24/16 17:44 (Proamatine) 5 mg TID G-TUBE 12/21/16 09:00 12/27/16 17:05 (Remeron) 15 mg HS G-TUBE 12/21/16 21:00 12/26/16 19:55 (Roxicodone) 5 mg Q6HR PRN PEG 12/20/16 21:15 12/27/16 09:54 (Miralax) 17 gm DAILY G-TUBE 12/21/16 09:00 12/27/16 09:41 (Senokot) 17.2 mg BID G-TUBE 12/21/16 09:00 12/27/16 09:40 (Silvadene 1% Cream (50 Gm)) 1 applic DAILY TOPICAL 12/21/16 09:00 12/27/16 09:42 (Heparin Inj) 5,000 units Q8HR SQ 12/20/16 22:00 12/27/16 13:02 (Theragran M Tab) 1 tab DAILY G-TUBE 12/21/16 09:00 12/27/16 09:41 (Zofran Odt) 4 mg Q6HR PRN .XX 12/20/16 21:15 (Desyrel) 150 mg HS PO 12/21/16 21:00 12/26/16 19:55 (Lynsey-Colace) 1 tab BID PO 12/21/16 09:00 12/27/16 09:41 (Milk Of Magnesia Liq) 30 ml Q12H PRN PO 12/20/16 21:30 (Senokot) 17.2 mg Q12H PRN PO 12/20/16 21:30 (Dulcolax Supp) 10 mg DAILY PRN RECTAL 12/20/16 21:30 (Lactulose Liq) 30 ml DAILY PRN PO 12/20/16 21:30 (NS Flush) 2 ml UNSCH PRN IV FLUSH 12/20/16 21:30 (NS Flush) 2 ml BID IV FLUSH 12/21/16 09:00 12/27/16 09:54 (Duoneb Neb) 1 ampule Q2HR NEB PRN INH 12/20/16 21:30 Piperacillin Sod/ Tazobactam Sod 100 ml @ 200 mls/hr Q6H IV 12/20/16 23:00 12/27/16 17:05 Miscellaneous Information 1 Q361D XX 12/20/16 21:30 12/20/16 21:30 (Chlorhexidine 2% Cloth) Taper DAILY@04 TOP 12/21/16 04:00 12/17/17 03:59 12/26/16 04:00 (Chlorhexidine 2% Cloth) 3 pack UNSCH PRN TOP 12/20/16 21:30 Potassium Chloride 100 ml @ 50 mls/hr Q2H PRN IV 12/21/16 00:00 Potassium Chloride 100 ml @ 50 mls/hr Q2H PRN IV 12/21/16 00:00 12/27/16 06:06 (K-Lyte Cl Eff) 50 meq UNSCH PRN PO 12/21/16 00:00 12/27/16 06:07 Potassium Chloride 100 ml @ 25 mls/hr UNSCH PRN IV 12/21/16 00:00 Potassium Chloride 100 ml @ 50 mls/hr Q2H PRN IV 12/21/16 00:00 12/22/16 10:20 Magnesium Sulfate 4 gm/Sodium Chloride 100 ml @ 50 mls/hr UNSCH PRN IV 12/21/16 00:00 (Mag-Ox) 800 mg UNSCH PRN PO 12/21/16 00:00 Magnesium Sulfate 2 gm/Sodium Chloride 100 ml @ 50 mls/hr UNSCH PRN IV 12/21/16 00:00 (K-Phos) 2,000 mg Q4H PRN PO 12/21/16 00:00 Sodium Phosphate 30 mmol/Sodium Chloride 250 ml @ 42 mls/hr UNSCH PRN IV 12/21/16 00:00 (K-Phos) 2,000 mg UNSCH PRN PO/TUBE 12/21/16 00:00 Potassium Phosphate 30 mmol/ Sodium Chloride 260 ml @ 42 mls/hr UNSCH PRN IV 12/21/16 00:00 (D50w (Vial) Inj) 50 ml UNSCH PRN IV PUSH 12/21/16 09:30 (Glucagon Inj) 1 mg UNSCH PRN OTHER 12/21/16 09:30 (NovoLIN R SUPPLEMENTAL SCALE) 1 Q6H SQ 12/21/16 09:30 (Reglan Inj) 10 mg Q8HR IV PUSH 12/22/16 22:00 12/27/16 13:02 (Tears Naturale Opth Soln) 1 drop Q8HR EACH EYE 12/27/16 22:00 (Melatonin) 5 mg HS PRN PO 12/27/16 21:00 (Apresoline Inj) 10 mg Q1HR PRN IV PUSH 12/27/16 18:15 (Nitroglycerin 2% Oint) 2 inch Q6HR PRN TOPICAL 12/27/16 18:15 (Trandate Inj) 5 mg Q1HR PRN IV PUSH 12/27/16 18:15 . Family History Unable to obtain . Substance Use Unable to obtain. . Psychosocial History Patient has a mother who lives in [place]. He tells me he has 4 children. He tells me the children live in the [place]. I think he says that he never gets visits from anyone -- not his mother, not his children. . Spiritual/Cultural Factors alf face sheet indicates he is Muslim. . Living Will: Never completed Health Care Surrogate: Never completed Durable Power of Senior Communications Engineer: Never completed Date completed: No advance directive to my knowledge. . Health Care Surrogate(s): Patient verbally tells me he wants his mother to be his health care surrogate. He is unable to sign paperwork. . Documented care wishes: No writtent documentation of health care preferences/wishes/ . Today's verbally stated goals: Patient is able to communicate he wants aggressive care including resuscitation attempts. . Family/friends goals: Unable to communicate with family. . Ethical and Legal Issues Patient is capacitated to make his own health care decisions, but communication is very challenging. .He wants his mother to serve as his health care surrogate. . Physical Exam Vital Signs Date Time Temp Pulse Resp B/P (MAP) Pulse Ox O2 Delivery O2 Flow Rate FiO2 12/27/16 16:00 56 12/27/16 16:00 98.1 56 19 183/88 (119) 100 12/27/16 16:00 35 12/27/16 14:46 100 40 12/27/16 14:00 56 12/27/16 13:00 72 12/27/16 12:00 98.7 53 18 162/80 (107) 99 12/27/16 12:00 35 12/27/16 12:00 53 12/27/16 10:54 12 12/27/16 10:37 100 35 12/27/16 10:00 106 12/27/16 08:00 35 12/27/16 08:00 76 12/27/16 08:00 98.8 76 23 143/73 (96) 100 12/27/16 07:59 100 35 12/27/16 07:40 100 Ventilator 35 12/27/16 06:00 52 12/27/16 04:00 98.3 56 30 158/74 (102) 100 12/27/16 04:00 35 12/27/16 04:00 56 12/27/16 03:36 100 35 12/27/16 02:00 51 12/27/16 00:23 100 35 12/27/16 00:00 50 12/27/16 00:00 98.2 50 35 151/74 (99) 100 12/27/16 00:00 35 12/26/16 22:24 100 35 12/26/16 22:00 97 12/26/16 20:07 100 40 12/26/16 20:00 52 12/26/16 20:00 98.3 52 33 168/81 (110) 100 12/26/16 20:00 35 . 12/27/16 12/28/16 19:00 07:00 Intake Total 509 ml Output Total 125 ml Balance 384 ml Tube Feeding 309 ml Other 200 ml Output Urine Total 100 ml Stool Total 25 ml # Voids 2 . Exam CONSTITUTIONAL/GENERAL: This is an adequately nourished quadrigplegic vent-to - trach in the MICU. He tries to mouth words but communication is VERY challenging. He is able to smile and is in no apparent distress. TUBES/LINES/DRAINS: Tracheostomy; suprapubic catheter; peripheral IV; PEG; colostomy SKIN: No jaundice, rashes, or lesions anteriorly. . No wounds seen anteriorly. Skin temperature appropriate. Not diaphoretic. HEAD: Atraumatic. Normocephalic. EYES: Pupils equal and round and reactive. Extraocular motions intact. No scleral icterus. Left conjunctiva injected. Fundi not examined. ENT: Hearing grossly normal. Nose without bleeding or purulent drainage. Throat without visible erythema, exudates, masses, or lesions. Tracheostomy. NECK: Trachea midline with tracheostomy in place. . No palpable thyroid enlargement or nodularity but neck difficult to palpate due to trach and obesity. . CARDIOVASCULAR: Regular rate and rhythm without murmurs, gallops, or rubs. No JVD. Peripheral pulses symmetric. RESPIRATORY/CHEST: Symmetric, unlabored respirations. Clear to auscultation. Breath sounds equal bilaterally. No wheezes, rales, or rhonchi. GASTROINTESTINAL: Abdomen soft, mildly distended, mild diffuse tenderness. No hepato-splenomegaly, or palpable masses. No guarding. Bowel sounds present. GENITOURINARY: Without palpable bladder distension. Suprapubic catheter in place. MUSCULOSKELETAL: Contractures in all 4 extremities which are also atrophied. . Extremities without clubbing, cyanosis, or edema. No mottling. LYMPHATICS: No palpable cervical or supraclavicular adenopathy. NEUROLOGICAL: Awake and alert. Quadriplegia. Follows commands. Cognitively sharp though communication VERY difficult PSYCHIATRIC: No obvious anxiety/depression. No apparent hallucinations or other psychotic thought process. . Diagnostic Tests Laboratory Laboratory Tests Test 12/25/16 06:30 12/26/16 13:40 12/27/16 04:58 12/27/16 16:46 White Blood Count 12.1 TH/MM3 (4.0-11.0) 12.7 TH/MM3 (4.0-11.0) 9.8 TH/MM3 (4.0-11.0) Red Blood Count 3.62 MIL/MM3 (4.50-5.90) 3.70 MIL/MM3 (4.50-5.90) 3.69 MIL/MM3 (4.50-5.90) Hemoglobin 8.5 GM/DL (13.0-17.0) 8.9 GM/DL (13.0-17.0) 8.9 GM/DL (13.0-17.0) Hematocrit 26.9 % (39.0-51.0) 27.8 % (39.0-51.0) 27.5 % (39.0-51.0) Mean Corpuscular Volume 74.5 FL (80.0-100.0) 75.1 FL (80.0-100.0) 74.5 FL (80.0-100.0) Mean Corpuscular Hemoglobin 23.5 PG (27.0-34.0) 24.0 PG (27.0-34.0) 24.1 PG (27.0-34.0) Mean Corpuscular Hemoglobin Concent 31.5 % (32.0-36.0) 31.9 % (32.0-36.0) 32.4 % (32.0-36.0) Red Cell Distribution Width 19.2 % (11.6-17.2) 19.2 % (11.6-17.2) 19.3 % (11.6-17.2) Platelet Count 314 TH/MM3 (150-450) 321 TH/MM3 (150-450) 289 TH/MM3 (150-450) Mean Platelet Volume 7.2 FL (7.0-11.0) 7.1 FL (7.0-11.0) 7.3 FL (7.0-11.0) Neutrophils (%) (Auto) 80.4 % (16.0-70.0) 79.7 % (16.0-70.0) 75.2 % (16.0-70.0) Lymphocytes (%) (Auto) 11.5 % (9.0-44.0) 12.0 % (9.0-44.0) 14.7 % (9.0-44.0) Monocytes (%) (Auto) 6.5 % (0.0-8.0) 5.5 % (0.0-8.0) 6.5 % (0.0-8.0) Eosinophils (%) (Auto) 1.3 % (0.0-4.0) 2.5 % (0.0-4.0) 3.2 % (0.0-4.0) Basophils (%) (Auto) 0.3 % (0.0-2.0) 0.3 % (0.0-2.0) 0.4 % (0.0-2.0) Neutrophils # (Auto) 9.8 TH/MM3 (1.8-7.7) 10.1 TH/MM3 (1.8-7.7) 7.4 TH/MM3 (1.8-7.7) Lymphocytes # (Auto) 1.4 TH/MM3 (1.0-4.8) 1.5 TH/MM3 (1.0-4.8) 1.4 TH/MM3 (1.0-4.8) Monocytes # (Auto) 0.8 TH/MM3 (0-0.9) 0.7 TH/MM3 (0-0.9) 0.6 TH/MM3 (0-0.9) Eosinophils # (Auto) 0.2 TH/MM3 (0-0.4) 0.3 TH/MM3 (0-0.4) 0.3 TH/MM3 (0-0.4) Basophils # (Auto) 0.0 TH/MM3 (0-0.2) 0.0 TH/MM3 (0-0.2) 0.0 TH/MM3 (0-0.2) CBC Comment DIFF FINAL DIFF FINAL DIFF FINAL Differential Comment Blood Urea Nitrogen 10 MG/DL (7-18) 10 MG/DL (7-18) 11 MG/DL (7-18) Creatinine 0.65 MG/DL (0.60-1.30) 0.49 MG/DL (0.60-1.30) 0.44 MG/DL (0.60-1.30) Random Glucose 118 MG/DL (74-106) 107 MG/DL (74-106) 101 MG/DL (74-106) Calcium Level 9.3 MG/DL (8.5-10.1) 9.3 MG/DL (8.5-10.1) 9.4 MG/DL (8.5-10.1) Sodium Level 138 MEQ/L (136-145) 145 MEQ/L (136-145) 147 MEQ/L (136-145) Potassium Level 3.6 MEQ/L (3.5-5.1) 3.5 MEQ/L (3.5-5.1) 3.2 MEQ/L (3.5-5.1) 3.8 MEQ/L (3.5-5.1) Chloride Level 106 MEQ/L (98-107) 111 MEQ/L (98-107) 113 MEQ/L (98-107) Carbon Dioxide Level 23.0 MEQ/L (21.0-32.0) 26.5 MEQ/L (21.0-32.0) 25.4 MEQ/L (21.0-32.0) Anion Gap 9 MEQ/L (5-15) 8 MEQ/L (5-15) 9 MEQ/L (5-15) Estimat Glomerular Filtration Rate 155 ML/MIN (>89) 215 ML/MIN (>89) 243 ML/MIN (>89) Random Vancomycin Level 16.7 COMMENT Phosphorus Level 3.9 MG/DL (2.5-4.9) Magnesium Level 2.0 MG/DL (1.5-2.5) . Result Diagram: 12/27/16 0458 12/27/16 1646 Microbiology Microbiology Date/Time Source Procedure Growth Status 12/26/16 08:10 Sputum Endotracheal Gram Stain - Final Resulted 12/26/16 08:10 Sputum Culture - Preliminary Gram Negative Javed Resulted . Imaging Last Impressions Small Bowel X-Ray 12/26/16 0000 Signed Impressions: Service Date/Time: December 09:09 - CONCLUSION: Nondiagnostic exam secondary to patient termination. Walter Moura MD Chest X-Ray 12/25/16 0000 Signed Impressions: Service Date/Time: Sunday, December 25, 2016 10:29 - CONCLUSION: Stable chest with bibasilar densities and small left pleural effusion. Adi Ferrer MD Abdomen X-Ray 12/25/16 0000 Signed Impressions: Service Date/Time: Sunday, December 25, 2016 10:38 - CONCLUSION: Dilated small bowel loops again seen in the left midabdomen, which can be seen with ileus versus partial obstruction. Adi Ferrer MD Abdomen/Pelvis CT 12/20/16 1005 Signed Impressions: Service Date/Time: Tuesday, December 20, 2016 16:56 - CONCLUSION: 1. There are bibasilar areas of atelectasis. 2. There is gaseous distention of the colon. There is oral contrast which has passed through the colon nearly down to the ostomy. 3. Incidental note is made of an IVC filter. 4. Note is made of multiple loops of moderately dilated, fluid-filled small bowel. Brett Iniguez MD . Patient/Family Conference Present at Family Conference: Patient. . Family Conference Time (mins): 25 (Struggled to communicate) Family Conference Location: Bedside Issues Discussed: Struggled to communicate for approximately 25 minutes regarding goals of medical treatment, resuscitation status, health care surrogate, and get additional medical history. . Assessment and Plan Disease Oriented Problem List: (1) Quadriplegia (2) Pneumonia Comment: Gram negative growing in sputum of 12/26/16 . (3) Small bowel obstruction, partial (4) UTI (urinary tract infection) (5) Sepsis (6) Hyponatremia Symptom Scale: (1) Pain 0-10 Scale: Unable to quantify Comment: Patient has been complaining of pain "all over." Unclear what he is able to actually feel below the neck. . (2) Nausea & vomiting 0-10 Scale: Unable to quantify Comment: Improving. . Pertinent Non-Medical Issues Psychosocial: Mother in [place]. Reportedly has 4 children. No one visits. Spiritual: Self-identifies as Muslim per face sheet from [employer]. Legal: Wants his mother to serve as health care surrogate. Ethical issues impacting care: None known,. . Important Contacts Lindsey Mendes (Mother -- patient has verbally said he wants his mother to serve as health care surrogate -- she speaks only Creole) [phone] . Prognosis Patient with quadriplegia. If he permits aggressive care we should be able to get him through this partial small bowel obstruction. Patient will be at ongoing risk for UTI's, pneumonia, skin breakdown -- common complications of spinal cord injury patients. . Code Status: Full Code Plan == code status: FULL CODE. Patient was able to confirm that he wanted ongoing aggressive care including chest compressions; shock; pressors. == Decision making: Patient is capacitated to make his own health care decisions. However, communication is very difficult as he tries to mouth words over the trach. He would like his mother to serve as health care surrogate. However, she speaks only Creole. == Goals of medical treatment: After many attempts I was able to understand that patient had refused only xrays because the positioning there was so incredibly uncomfortable for him. He is not refusing medical care and is not wanting to transition to "comfort measures only." If he can be given medication to mitigate discomfort during radiology procedures he is agreeable. Goals are very aggressive including resuscitation as noted above. == Symptoms * Pain: Patient was complaining of pain "all over" when he first arrived. Unclear what pain he can perceive where. This may be some autonomic instability from his infection that he is sensing. There are orders for oxycodone for pain. He also has baclofen for spasms. May want to consider iv fentanyl prior and a benzo prior to radiology procedures. * N/V -- this is likely due to his partial bowel obstruction. ANticipate this will improve as the ileus resolves. Patient currently on metoclopramide, odansetron, and senna. No further recommendations at this time. * Dyspnea. Currently comfortable on the vent. Has gram neg bacteria in sputum. On antibiotics. No further recommendations at this time. == Will try and get old records == Patient wants to hear his mother's voice on phone. Have provided nurse with mother's phone number to arrange for this. == will need Creole transaction manager to speak with mother. == Palliative care will try and get heatlh care surrogate documentation witnessed and scanned into EMR on 12/30 if patient is still here. Time Spent Total Floor Time (mins): 80 (total time included chart review, patient exam, discussion of case with attending, lengthy attempt to communicate with patient as noted above, collaboration with primary nurse, attempt to speak with patient' s mother. ) Face to Face Time (mins): 45 >50% Counseling/Coord of Care: Yes Thank you for the opportunity to participate in the care of Mr. Duran. . Attestation To help prompt me to consider important information that might be impacting today's encounter and assessment, information from prior notes written by myself or my colleagues may have been "brought forward" into today's note. My signature on this note, however, is an attestation that I personally performed the exam, history, and/or decision-making noted today, and, unless otherwise indicated, the interactions with patient, family, and staff as well as the review of records all occurred today. I also attest that the listed assessment and stated plan reflect my best clinical judgment today based on the combination of historical information, prior notes, and today's exam/ interactions. When time spent is documented, it refers only to time spent today by the signer, or if indicated, combined time spent today by collaborating physician/nurse practitioner. . Kirk Morrow MD Dec 27, 2016 18:59
[2016-12-27] MEDS: MIRTAZAPINE 15 MG TAB G-TUBE SCH (20:24)
[2016-12-27] MEDS: traZODone HCL 100 MG TAB PO SCH (20:25)
[2016-12-27] MEDS ORDERED: MELATONIN 5 MG TAB PO PRN (21:00)
[2016-12-27] MEDS: ARTIFICIAL TEARS OPTH SOLN 15 ML BTL EACH EYE SCH (21:09)
[2016-12-28] VITALS (17 sets, daily range): BP systolic 138–161; BP diastolic 75–85; PULSE 58–72; RESP 18–36; TEMP 98.2–99.2; O2SAT 99–100
[2016-12-28] MEDS: INSULIN NovoLIN REGULAR SUPPLEMENTAL SCALE SQ SCH ×4 (03:30→21:11)
[2016-12-28] MEDS: CHLORHEXIDINE GLUCONATE 2 % 1 PACK (2 CLOTHS) TOP SCH (04:00)
[2016-12-28 04:47] LABS: AUTOMATED NEUTROPHIL # 8.1 TH/MM3 (1.8-7.7); BASOPHIL % 0.3 % (0.0-2.0); EOSINOPHIL # 0.4 TH/MM3 (0-0.4); EOSINOPHIL % 3.6 % (0.0-4.0); HEMATOCRIT 27.1 % (39.0-51.0); HEMO FLAGS DIFF FINAL; LYMPHOCYTE # 1.5 TH/MM3 (1.0-4.8); MEAN CELL VOLUME 75.9 FL (80.0-100.0); MEAN CORPUSCULAR HEMOGLOBIN 24.2 PG (27.0-34.0); MEAN CORPUSCULAR HGB CONC 31.9 % (32.0-36.0); MONO % 6.7 % (0.0-8.0); NEUT % 75.4 % (16.0-70.0); PLATELET COUNT 291 TH/MM3 (150-450); RED BLOOD COUNT 3.57 MIL/MM3 (4.50-5.90); RED CELL DISTRIBUTION WIDTH 19.7 % (11.6-17.2); WHITE BLOOD COUNT 10.7 TH/MM3 (4.0-11.0)
[2016-12-28 04:57] LABS: ALT (GPT) 104 U/L (12-78); ANION GAP 9 MEQ/L (5-15); AST (GOT) 29 U/L (15-37); BICARBONATE 25.3 MEQ/L (21.0-32.0); BLOOD UREA NITROGEN 11 MG/DL (7-18); CHLORIDE 113 MEQ/L (98-107); GLOMERULAR FILTRATION RATE 243 ML/MIN (>89); MAGNESIUM 1.8 MG/DL (1.5-2.5); POTASSIUM 3.4 MEQ/L (3.5-5.1); SODIUM (NA) 147 MEQ/L (136-145)
[2016-12-28 05:20] LABS: ALKALINE PHOSPHATASE 130 U/L (45-117); TOTAL BILIRUBIN ADULT 0.2 MG/DL (0.2-1.0)
[2016-12-28] MEDS: METOCLOPRAMIDE HCL 10 MG/2 ML VIAL IV PUSH SCH ×3 (05:43→21:11)
[2016-12-28] MEDS: ARTIFICIAL TEARS OPTH SOLN 15 ML BTL EACH EYE SCH ×3 (05:43→21:11)
[2016-12-28] MEDS: PIPERACIL-TAZO 4.5 GM PREMIX 100 ML IV SCH ×4 (05:43→21:10)
[2016-12-28] MEDS: HEPARIN SODIUM - SQ 10,000 UNITS/ML VIAL SQ SCH ×3 (05:44→21:12)
[2016-12-28] MEDS: POTASSIUM CHLORIDE 25 MEQ EFFERVESCENT TAB PO PRN (05:44)
[2016-12-28] MEDS: BACLOFEN 10 MG TAB G-TUBE SCH ×3 (08:56→17:07)
[2016-12-28] MEDS: DOCUSATE SODIUM 50 MG/SENNA 8.6 MG TAB PO SCH (08:57)
[2016-12-28] MEDS: DULoxetine HCl DR 60 MG CAP SCH (08:57)
[2016-12-28] MEDS: busPIRone HCL 5 MG TAB G-TUBE SCH ×3 (08:57→17:07)
[2016-12-28] MEDS: ASCORBIC ACID 500 MG TAB G-TUBE SCH (08:57)
[2016-12-28] MEDS: SENNOSIDES 8.6 MG TAB G-TUBE SCH ×2 (08:58→21:10)
[2016-12-28] MEDS: MULTIVITAMINS/MINERALS THERAPEUTIC TAB G-TUBE SCH (08:58)
[2016-12-28] MEDS: MIDODRINE 5 MG TAB G-TUBE SCH ×3 (08:59→17:07)
[2016-12-28] MEDS: POLYETHYLENE GLYCOL 17 GM PKG G-TUBE SCH ×2 (08:59→21:09)
[2016-12-28] MEDS ORDERED: RESP: ALBUTEROL 2.5 MG/3 ML NEB (PRN) NEB (09:00)
[2016-12-28] MEDS: FAMOTIDINE 20 MG TAB G-TUBE SCH ×2 (09:00→21:10)
[2016-12-28] MEDS: SODIUM CHLORIDE 0.9% FLUSH 10 ML FLUSH IV FLUSH SCH ×2 (09:00→21:10)
[2016-12-28] MEDS ORDERED: POTASSIUM CHLORIDE 20 MEQ PWD PACKET G-TUBE ONE (09:00)
[2016-12-28] MEDS: SILVER SULFADIAZINE 1% CR 50 GM JAR TOPICAL SCH (09:00)
--- NOTE | 2016-12-28 09:06 | HHI.CCPN ---
Subjective Remarks/Hospital Course 56-year-old male presents by ambulance from a half-way with note of vomiting and concern for bowel obstruction. Patient is a ventilator dependent patient with a tracheostomy and a PEG tube and has difficulty communicating secondary to this but does note pain all over. He is a quadriplegic and cannot point at the area that is bothering him. 12/21 Patient is on ventilator via trach awake and alert. afebrile. WBC is trending down. 12/22 No events overnight. Awake and alert. On Ventilator via trach. 12/23 Patient remains on ventilator via trach. Afebrile. On no sedation. Awake. 12/24 No events overnight. On Ventilator via trach. Afebrile. 12/25 No events overnight. Afebrile. WBC is trending down. 12/26 no events overnight. Awake, on no sedation. For small bowel series with Gastrografin today. 12/27: Afebrile. Patient refused Gastrografin enema yesterday. Abdomen remains distended and firm. Patient refusing a additional x-rays and additional lab draws. Nods head that his goals are to be kept comfortable. Subjective 12/28: Appreciate palliative care. Goals remain aggressive. Abdomen distended however less according to GI. Patient requesting additional pain medication however this will make his underlying ileus worse. Laboratories were performed today. Wants to eat. Objective Vital Signs Date Time Temp Pulse Resp B/P (MAP) Pulse Ox O2 Delivery O2 Flow Rate FiO2 12/28/16 07:35 100 35 12/28/16 06:00 66 12/28/16 04:00 98.2 18 152/85 (107) 12/27/16 07:40 Ventilator Intake and Output 12/28/16 12/28/16 12/28/16 07:59 15:59 23:59 Intake Total 667 ml Output Total 360 ml Balance 307 ml Result Diagram: 12/28/16 0419 12/28/16 0419 Other Results Microbiology Date/Time Source Procedure Growth Status 12/20/16 11:55 Blood Peripheral Aerobic Blood Culture - Final NO GROWTH IN 5 DAYS Complete 12/20/16 11:55 Blood Peripheral Anaerobic Blood Culture - Final NO GROWTH IN 5 DAYS Complete 12/26/16 08:10 Sputum Endotracheal Gram Stain - Final Resulted 12/26/16 08:10 Sputum Culture - Preliminary Gram Negative Javed Resulted 12/20/16 11:50 Urine Catheterized Urine Legionella Antigen - Final PRESUMPTIVE NEGATIVE FOR LEGIONELLA P... Complete 12/20/16 11:50 Urine Catheterized Urine Streptococcus pneumoniae Antigen (M - Final PRESUMPTIVE NEGATIVE FOR STREPTOCOCCU... Complete Imaging Last Impressions Small Bowel X-Ray 12/26/16 0000 Signed Impressions: Service Date/Time: December 09:09 - CONCLUSION: Nondiagnostic exam secondary to patient termination. Walter Moura MD Chest X-Ray 12/25/16 0000 Signed Impressions: Service Date/Time: Sunday, December 25, 2016 10:29 - CONCLUSION: Stable chest with bibasilar densities and small left pleural effusion. Adi Ferrer MD Abdomen X-Ray 12/25/16 0000 Signed Impressions: Service Date/Time: Sunday, December 25, 2016 10:38 - CONCLUSION: Dilated small bowel loops again seen in the left midabdomen, which can be seen with ileus versus partial obstruction. Adi Ferrer MD Abdomen/Pelvis CT 12/20/16 1005 Signed Impressions: Service Date/Time: Tuesday, December 20, 2016 16:56 - CONCLUSION: 1. There are bibasilar areas of atelectasis. 2. There is gaseous distention of the colon. There is oral contrast which has passed through the colon nearly down to the ostomy. 3. Incidental note is made of an IVC filter. 4. Note is made of multiple loops of moderately dilated, fluid-filled small bowel. Brett Iniguez MD Objective Remarks GENERAL: Elderly appearing gentleman on ventilator via tracheostomy with contractures in all 4 extremities. SKIN: Warm and dry. HEAD: Normocephalic. EYES: No scleral icterus. No injection or drainage. NECK: Supple, trachea midline. No JVD or lymphadenopathy. Tracheostomy in midline CARDIOVASCULAR: Regular rate and rhythm without murmurs, gallops, or rubs. RESPIRATORY: Breath sounds equal bilaterally. No accessory muscle use. GASTROINTESTINAL: Abdomen tender to palpation in all 4 quadrants, voluntary guarding. No rigidity. Distended and firm MUSCULOSKELETAL: No cyanosis, or edema. Contractures in all 4 extremities NEURO EXAM: Quadriplegic with contractures all 4 extremity's. Nods head to commands. 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 Dyspnea ICU vent bundle. Pulm toilet, trach care. SBT as larissa. CV: Hypertension/orthostatic hypotension On Midodrine 5mg TID-Monitor HR and BP keep MAP>65mmHg Lactic acid: 1.1 As needed hydralazine/labetalol and Nitropaste for hypertension Renal//FEN: Hypernatremia Hypokalemia Monitor renal function, I/O's, electrolytes replacement per protocol. Add free water 200 cc every 6 hours GI: Small bowel distention History of colostomy GI is following. Restarted tube feedings goal 50 cc daily Jevity 1.5 For small bowel series with Gastrografin 12/26 but refused and imaging stopped early KUB 10/4: Dilated small bowel loops in midabdomen KUB 10/2 persistent SB distention in mid abdomen KUB 10/1 Gaseous distention of several SB loops ? SBO Continue with bowel regimen: Docusate sodium 100 twice a day, Senokot 8.600 g twice a day, tolerating glycol 17 g twice a day CT abdomen: Gaseous distention of the colon. There is oral contrast which has passed through the colon nearly down to the ostomy. Incidental note is made of an IVC filter. Multiple loops of moderately dilated, fluid-filled small bowel. ID: UTI -provencia stuartii Given Vanco, cefepime, Azithromycin in ED. Continue abx ( Zosyn) monitor for signs of infections ( Fever, WBC) WBC is trending down 12/20 Urine cx: Providencia, BC : NGTD 12/26 - sputum - gram-negative javed Strep pneumonia and Legionella urinary ag negative. Wound care is following for decub ulcers and Ostomy management. Heme: Normocytic anemia Monitor CBC Endo: SSI for glycemic control with novulin r every 6 hours low regimen PT and OT eval and treat as tolerated Prophylaxis - Teds SCDs - IVC filter - Subcutaneous heparin -Famotidine Level2 Fredy Guzman MD Dec 28, 2016 09:06
[2016-12-28] MEDS ORDERED: MINERAL OIL EMULSION 55% PO ONE (09:15)
[2016-12-28] MEDS: RESP: ALBUTEROL 2.5 MG/IPRATROPIUM 0.5 MG NEB (SCH) NEB ×3 (09:30→20:00)
--- NOTE | 2016-12-28 10:04 | HHI.GIFU ---
Subjective Remarks Pt resting in bed in NAD, watching TV. Says his abd feels better. Some nausea , tolerating TF + flatus, + stool Objective Vitals I&O Vital Signs Date Time Temp Pulse Resp B/P (MAP) Pulse Ox O2 Delivery O2 Flow Rate FiO2 12/28/16 09:51 35 12/28/16 07:35 100 35 12/28/16 06:00 66 12/28/16 04:23 99 40 12/28/16 04:00 65 12/28/16 04:00 98.2 65 18 152/85 (107) 100 12/28/16 04:00 35 12/28/16 02:00 64 12/28/16 00:00 35 12/28/16 00:00 62 12/28/16 00:00 98.3 62 18 138/75 (96) 100 12/27/16 23:53 98 40 12/27/16 22:00 68 12/27/16 20:00 35 12/27/16 20:00 98.2 75 23 139/75 (96) 97 12/27/16 20:00 75 12/27/16 19:43 97 40 12/27/16 18:00 53 12/27/16 16:00 56 12/27/16 16:00 98.1 56 19 183/88 (119) 100 12/27/16 16:00 35 12/27/16 14:46 100 40 12/27/16 14:00 56 12/27/16 13:00 72 12/27/16 12:00 98.7 53 18 162/80 (107) 99 12/27/16 12:00 35 12/27/16 12:00 53 12/27/16 10:54 12 12/27/16 10:37 100 35 12/27/16 10:00 106 I/O 12/27/16 12/27/16 12/27/16 12/28/16 12/28/16 12/28/16 06:59 14:59 22:59 06:59 14:59 22:59 Intake Total 562 ml 909 ml 667 ml Output Total 650 ml 125 ml 360 ml Balance -88 ml 784 ml 307 ml IV Total 100 ml 400 ml 100 ml Tube Feeding 342 ml 309 ml 467 ml Other 120 ml 200 ml 100 ml Output Urine Total 450 ml 100 ml 350 ml Stool Total 200 ml 25 ml 10 ml # Voids 2 2 Laboratory Laboratory Tests Test 12/27/16 16:46 12/28/16 04:19 Potassium Level 3.8 3.4 White Blood Count 10.7 Red Blood Count 3.57 Hemoglobin 8.6 Hematocrit 27.1 Mean Corpuscular Volume 75.9 Mean Corpuscular Hemoglobin 24.2 Mean Corpuscular Hemoglobin Concent 31.9 Red Cell Distribution Width 19.7 Platelet Count 291 Mean Platelet Volume 7.2 Neutrophils (%) (Auto) 75.4 Lymphocytes (%) (Auto) 14.0 Monocytes (%) (Auto) 6.7 Eosinophils (%) (Auto) 3.6 Basophils (%) (Auto) 0.3 Neutrophils # (Auto) 8.1 Lymphocytes # (Auto) 1.5 Monocytes # (Auto) 0.7 Eosinophils # (Auto) 0.4 Basophils # (Auto) 0.0 CBC Comment DIFF FINAL Differential Comment Blood Urea Nitrogen 11 Creatinine 0.44 Random Glucose 135 Total Protein 8.1 Albumin 2.5 Calcium Level 9.1 Phosphorus Level 2.8 Magnesium Level 1.8 Alkaline Phosphatase 130 Aspartate Amino Transf (AST/SGOT) 29 Alanine Aminotransferase (ALT/SGPT) 104 Total Bilirubin 0.2 Sodium Level 147 Chloride Level 113 Carbon Dioxide Level 25.3 Anion Gap 9 Estimat Glomerular Filtration Rate 243 Ammonia 29 Lipase 89 Date/Time Source Procedure Growth Status 12/20/16 11:55 Blood Peripheral Aerobic Blood Culture - Final NO GROWTH IN 5 DAYS Complete 12/20/16 11:55 Blood Peripheral Anaerobic Blood Culture - Final NO GROWTH IN 5 DAYS Complete 12/26/16 08:10 Sputum Endotracheal Gram Stain - Final Resulted 12/26/16 08:10 Sputum Culture - Preliminary Gram Negative Javed Resulted 12/20/16 11:50 Urine Catheterized Urine Legionella Antigen - Final PRESUMPTIVE NEGATIVE FOR LEGIONELLA P... Complete 12/20/16 11:50 Urine Catheterized Urine Streptococcus pneumoniae Antigen (M - Final PRESUMPTIVE NEGATIVE FOR STREPTOCOCCU... Complete Imaging Last Impressions Small Bowel X-Ray 12/26/16 0000 Signed Impressions: Service Date/Time: , December 26, 2016 09:09 - CONCLUSION: Nondiagnostic exam secondary to patient termination. Walter Moura MD Chest X-Ray 12/25/16 0000 Signed Impressions: Service Date/Time: Sunday, December 25, 2016 10:29 - CONCLUSION: Stable chest with bibasilar densities and small left pleural effusion. Adi Ferrer MD Abdomen X-Ray 12/25/16 0000 Signed Impressions: Service Date/Time: Sunday, December 25, 2016 10:38 - CONCLUSION: Dilated small bowel loops again seen in the left midabdomen, which can be seen with ileus versus partial obstruction. Adi Ferrer MD Abdomen/Pelvis CT 12/20/16 1005 Signed Impressions: Service Date/Time: Tuesday, December 20, 2016 16:56 - CONCLUSION: 1. There are bibasilar areas of atelectasis. 2. There is gaseous distention of the colon. There is oral contrast which has passed through the colon nearly down to the ostomy. 3. Incidental note is made of an IVC filter. 4. Note is made of multiple loops of moderately dilated, fluid-filled small bowel. Brett Iniguez MD Physical Exam HEENT: Normocephalic; atraumatic CHEST: Tracheostomy. Course breath sounds CARDIAC: RRR ABDOMEN: Soft, mildly distended, colostomy left side with liquid stool, BS + EXTREMITIES: Contracted upper ext. edema. 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 Abdomen/Pelvis CT (12/20/16)-----> 1. There are bibasilar areas of atelectasis. 2. There is gaseous distention of the colon. There is oral contrast which has passed through the colon nearly down to the ostomy. 3. Incidental note is made of an IVC filter. 4. Note is made of multiple loops of moderately dilated, fluid-filled small bowel. KUB (12/25/16)--> Dilated small bowel loops again seen in the left midabdomen , which can be seen with ileus versus partial obstruction. Orthotic Assistant recommends Jevity 1.5 with goal rate 50ml/hr. refused SBFT. Keely TF @50ml/hr, less distended, less discomfort per pt. - Chronic respiratory failure. tracheostomy - Quadriplegia, UTI, Electrolyte abnormalities. per attending. PLAN: - cont TF - cont bowel regimen - cont reglan - Supportive care - Patient seen and examined by Dr. Feldman and myself and this note is written on her behalf. Augustina Tenorio Dec 28, 2016 10:04
[2016-12-28] MEDS: MAGNESIUM SULFATE 1 GM PREMIX 100 ML IV SCH ×2 (10:10→11:42)
--- NOTE | 2016-12-28 13:57 | PD.ID.CON ---
History of Present Illness Service ID Consult Requested By Reason for Consult Evaluation and Mment of ESBL Kleb Pneumo and PSAE pneumonia. Primary Care Physician Ronald Bueno MD Diagnoses: History of Present Illness Mr. Duran is a 56 y/o Male of [place] origin per medical records. He is unfortunately vent dependent , PEG dependent quadriplegic. He was sent from [facility] to [facility] ED on 12/20/16 because of refractory vomiting and concern for a possible bowel obstruction. Not much is known about how he got to this point or any historical details as patient does not appear to have been at our hospital before. The patient is awake, and alert, will mouth words but he is very difficult to understand. Per records the EMS note indicates the patient had a sign on his door indicating the patient had respiratory MRSA. They noted a recent temp of 100.5 axillary. They noted he was vomiting and that he frequently spit up bilious appearing material. In the ED he was able to communicate that he had pain all over. Initial vital signs in the emergency department were as follows: Temperature 99.9; pulse 121; respiratory rate 18; blood pressure 129/70; pulse oximetry 100% on the ventilator at 60% FiO2. His CBC was 27.8, Plts 528. Na 125 , Cr 0.75. Chest x-ray showed bibasilar parenchymal changes. Possible inflammatory process in the right base. CT of the abdomen/pelvis showed bibasilar areas of atelectasis; gaseous distention of the colon with oral contrast passed through the colon nearly down to the ostomy; IVC filter is in place; multiple loops of moderately dilated fluid-filled small bowel Patient was started on broad-spectrum empiric antibiotic coverage in the emergency department. Critical care was consulted and the patient was admitted to the medical intensive care unit. Gastroenterology was consulted. The patient had a large bowel movement the following morning and it was felt the patient's ileus appeared to be improving. The patient was kept NPO. Marium lax was provided. Patient's cultures came back growing Providencia stuartii in the urine on 12/20/16. Blood cultures to be negative. Sputum culture of 12/26/16 with ESBL Kleb Pneumo and PSAE. Though there was some improvement in the patient 's distension and he was stooling some, there were concerns about ongoing obstruction. Palliative care is on board to assist with goals of care. At the time of my evaluation, pt is in the IMC not on any pressors. Remains on vent, trach, PEG, Colostomy in place. ID was consulted for evaluation and Mment of ESBL Kleb pneumo and PSAE Pneumonia, Providencia UTI. Review of Systems ROS Limitations: Intubated Past Family Social History Allergies: Coded Allergies: levofloxacin (Verified Allergy, Unknown, 12/20/16) PER SPIRITISM AT ON LICENSE OF [facility] Past Medical History Ventilatory dependent respiratory failure. Quadriplegic. Ileus Past Surgical History IVC filter Colostomy Port placement Trach Reported Medications I attest I obtained, reviewed or updated the home meds and current meds (name, dose, freq, route of administration of meds). Reported Meds & Active Scripts Active Reported Trazodone (Trazodone HCl) 150 Mg Tablet 150 Mg PO HS Sodium Chloride Flush (Sodium Chloride) 0.9 % Inj 10 Ml IV FLUSH MONTHLY For infusaport maintenance-access infusaport to rt upper chest area w/tan needle and flush w/10ml NSS on day shift every 30 days Silvadene Topical (Silver Sulfadiazine) 1 % Cream 1 Applic TOPICAL DAILY Apply to suprapubic site every day shift after nss wash then cover w/dry drsg-apply calciumm alginate as needed Senna-Tabs (Sennosides) 8.6 Mg Tab 17.2 Mg G-TUBE BID Remeron (Mirtazapine) 15 Mg Tab 15 Mg G-TUBE HS Miralax (Polyethylene Glycol 3350) 17 Gram Powd.pack 17 Gm G-TUBE DAILY Oxycodone (Oxycodone HCl) 5 Mg Tab 5 Mg PEG Q6HR PRN Zofran (Ondansetron HCl) 4 Mg Tab 4 Mg G-TUBE Q6HR PRN Multi-Vitamin/Minerals (Multiple Vitamins W/ Minerals) 1 Tab Tab 1 Tab G-TUBE DAILY Midodrine 5 Mg Tab 5 Mg G-TUBE TID Metoprolol Tartrate 25 Mg Tab 12.5 Mg G-TUBE BID Ativan (Lorazepam) 1 Mg Tab 1 Mg G-TUBE Q6HR PRN Heparin Sod 5,000 Unit/ 0.5 ml (Heparin Sodium,Porcine/Pf) 5,000 Unit/0.5 Ml Vial 5,000 Units SQ Q8HR Pepcid (Famotidine) 20 Mg Tab 20 Mg G-TUBE Q12HR Duoneb (Ipratropium-Albuterol Neb) 0.5-2.5 Mg/3 Ml Neb 3 Ml NEB QID Duoneb (Ipratropium-Albuterol Neb) 0.5-2.5 Mg/3 Ml Neb 3 Ml NEB Q3HR PRN [D5%-Nss Soln] 50 Ml IV EVERY SHIFT PRN 50ML/HR Orly RAMIREZ (Duloxetine HCl) 60 Mg Capdr 60 Mg G-TUBE DAILY Buspirone (Buspirone HCl) 5 Mg Tab 5 Mg G-TUBE TID Baclofen 10 Mg Tab 10 Mg G-TUBE TID Ascorbic Acid 500 Mg Tab 500 Mg G-TUBE DAILY Tylenol (Acetaminophen) 325 Mg Tab 650 Mg G-TUBE Q6H PRN Acetaminophen Supp (Acetaminophen) 650 Mg Supp 650 Mg RECTAL Q6H PRN Active Ordered Medications Current Medications Medications (Trade) Dose Ordered Sig/Francisco J Route Start Time Stop Time Status Last Admin (Tylenol 650 Mg/ 20 ml Liq) 650 mg Q6H PRN G-TUBE 12/20/16 21:15 (Vitamin C) 500 mg DAILY G-TUBE 12/21/16 09:00 12/28/16 08:57 (Lioresal) 10 mg TID G-TUBE 12/21/16 09:00 12/28/16 17:07 (Buspar) 5 mg TID G-TUBE 12/21/16 09:00 12/28/16 17:07 (Nieshaalalfa Ramirez) 60 mg DAILY .XX 12/21/16 09:00 12/27/16 09:40 (Pepcid) 20 mg Q12HR G-TUBE 12/21/16 09:00 12/28/16 09:00 (Ativan) 1 mg Q6HR PRN G-TUBE 12/20/16 21:15 12/24/16 17:44 (Proamatine) 5 mg TID G-TUBE 12/21/16 09:00 12/28/16 17:07 (Remeron) 15 mg HS G-TUBE 12/21/16 21:00 12/27/16 20:24 (Roxicodone) 5 mg Q6HR PRN PEG 12/20/16 21:15 10/6/17 09:54 (Senokot) 17.2 mg BID G-TUBE 12/21/16 09:00 12/28/16 08:58 (Silvadene 1% Cream (50 Gm)) 1 applic DAILY TOPICAL 12/21/16 09:00 12/28/16 09:00 (Heparin Inj) 5,000 units Q8HR SQ 12/20/16 22:00 12/28/16 13:43 (Theragran M Tab) 1 tab DAILY G-TUBE 12/21/16 09:00 12/28/16 08:58 (Zofran Odt) 4 mg Q6HR PRN .XX 12/20/16 21:15 (Desyrel) 150 mg HS PO 12/21/16 21:00 12/27/16 20:25 (Milk Of Magnesia Liq) 30 ml Q12H PRN PO 12/20/16 21:30 (Senokot) 17.2 mg Q12H PRN PO 12/20/16 21:30 (Dulcolax Supp) 10 mg DAILY PRN RECTAL 12/20/16 21:30 (Lactulose Liq) 30 ml DAILY PRN PO 12/20/16 21:30 (NS Flush) 2 ml UNSCH PRN IV FLUSH 12/20/16 21:30 (NS Flush) 2 ml BID IV FLUSH 12/21/16 09:00 12/28/16 09:00 Miscellaneous Information 1 Q361D XX 12/20/16 21:30 12/20/16 21:30 (Chlorhexidine 2% Cloth) Taper DAILY@04 TOP 12/21/16 04:00 12/17/17 03:59 12/26/16 04:00 (Chlorhexidine 2% Cloth) 3 pack UNSCH PRN TOP 12/20/16 21:30 Potassium Chloride 100 ml @ 50 mls/hr Q2H PRN IV 12/21/16 00:00 Potassium Chloride 100 ml @ 50 mls/hr Q2H PRN IV 12/21/16 00:00 12/27/16 06:06 (K-Lyte Cl Eff) 50 meq UNSCH PRN PO 12/21/16 00:00 12/28/16 05:44 Potassium Chloride 100 ml @ 25 mls/hr UNSCH PRN IV 12/21/16 00:00 Potassium Chloride 100 ml @ 50 mls/hr Q2H PRN IV 12/21/16 00:00 12/22/16 10:20 Magnesium Sulfate 4 gm/Sodium Chloride 100 ml @ 50 mls/hr UNSCH PRN IV 12/21/16 00:00 (Mag-Ox) 800 mg UNSCH PRN PO 12/21/16 00:00 Magnesium Sulfate 2 gm/Sodium Chloride 100 ml @ 50 mls/hr UNSCH PRN IV 12/21/16 00:00 (K-Phos) 2,000 mg Q4H PRN PO 12/21/16 00:00 Sodium Phosphate 30 mmol/Sodium Chloride 250 ml @ 42 mls/hr UNSCH PRN IV 12/21/16 00:00 (K-Phos) 2,000 mg UNSCH PRN PO/TUBE 12/21/16 00:00 Potassium Phosphate 30 mmol/ Sodium Chloride 260 ml @ 42 mls/hr UNSCH PRN IV 12/21/16 00:00 (D50w (Vial) Inj) 50 ml UNSCH PRN IV PUSH 12/21/16 09:30 (Glucagon Inj) 1 mg UNSCH PRN OTHER 12/21/16 09:30 (NovoLIN R SUPPLEMENTAL SCALE) 1 Q6H SQ 12/21/16 09:30 (Reglan Inj) 10 mg Q8HR IV PUSH 12/22/16 22:00 12/28/16 13:42 (Tears Naturale Opth Soln) 1 drop Q8HR EACH EYE 12/27/16 22:00 12/28/16 13:42 (Melatonin) 5 mg HS PRN PO 12/27/16 21:00 (Apresoline Inj) 10 mg Q1HR PRN IV PUSH 12/27/16 18:15 12/27/16 18:35 (Nitroglycerin 2% Oint) 2 inch Q6HR PRN TOPICAL 12/27/16 18:15 (Trandate Inj) 5 mg Q1HR PRN IV PUSH 12/27/16 18:15 (Duoneb Neb) 1 ampule Q6HR NEB NEB 12/28/16 10:00 12/28/16 20:00 (Albuterol Neb) 2.5 mg Q2HR NEB PRN NEB 12/28/16 09:00 (Miralax) 17 gm BID G-TUBE 10/7/17 21:00 (Colace Liq) 100 mg Q12HR PO 12/28/16 21:00 (Levaquin) 750 mg DAILY PO 12/28/16 20:30 UNV Family History could not be obtained. Social History could not be obtained. Resident of assisted. Physical Exam Vital Signs Vital Signs Date Time Temp Pulse Resp B/P (MAP) Pulse Ox O2 Delivery O2 Flow Rate FiO2 12/28/16 12:00 68 12/28/16 12:00 99.1 68 36 148/79 (102) 100 12/28/16 12:00 35 12/28/16 10:42 100 35 12/28/16 10:00 65 12/28/16 09:51 35 12/28/16 08:00 35 12/28/16 08:00 61 12/28/16 08:00 98.3 61 18 153/76 (101) 100 12/28/16 07:35 100 35 12/28/16 06:00 66 12/28/16 04:23 99 40 12/28/16 04:00 65 12/28/16 04:00 98.2 65 18 152/85 (107) 100 12/28/16 04:00 35 12/28/16 02:00 64 12/28/16 00:00 35 12/28/16 00:00 62 12/28/16 00:00 98.3 62 18 138/75 (96) 100 12/27/16 23:53 98 40 12/27/16 22:00 68 12/27/16 20:00 35 12/27/16 20:00 98.2 75 23 139/75 (96) 97 12/27/16 20:00 75 12/27/16 19:43 97 40 12/27/16 18:00 53 12/27/16 16:00 56 12/27/16 16:00 98.1 56 19 183/88 (119) 100 12/27/16 16:00 35 12/27/16 14:46 100 40 12/27/16 14:00 56 Physical Exam GENERAL: This is a well-nourished, well-developed patient, in no apparent distress. SKIN: No rashes, ecchymoses or lesions. Cool and dry. HEAD: Atraumatic. Normocephalic. No temporal or scalp tenderness. EYES: Pupils equal round and reactive. Extraocular motions intact. No scleral icterus. No injection or drainage. ENT: Nose without bleeding, purulent drainage or septal hematoma. Throat without erythema, tonsillar hypertrophy or exudate. Uvula midline. Airway patent. NECK: Trach site with no e.o infection. CARDIOVASCULAR: Regular rate and rhythm without murmurs, gallops, or rubs. RESPIRATORY: Clear to auscultation. Breath sounds equal bilaterally. No wheezes , rales, or rhonchi. GASTROINTESTINAL: Abdomen soft, non-tender, nondistended. Colostomy site with no e.o infection. Suprapubic cath site with no e.o infection. MUSCULOSKELETAL: Extremities without clubbing, cyanosis, or edema. No joint tenderness, effusion, or edema noted. No calf tenderness. Negative Homans sign bilaterally. NEUROLOGICAL: Awake and alert. Tries to verbalize over vent and trach. Psych cooperative IV line sites with no e.o infection. Laboratory Laboratory Tests Test 12/27/16 16:46 12/28/16 04:19 Potassium Level 3.8 3.4 White Blood Count 10.7 Red Blood Count 3.57 Hemoglobin 8.6 Hematocrit 27.1 Mean Corpuscular Volume 75.9 Mean Corpuscular Hemoglobin 24.2 Mean Corpuscular Hemoglobin Concent 31.9 Red Cell Distribution Width 19.7 Platelet Count 291 Mean Platelet Volume 7.2 Neutrophils (%) (Auto) 75.4 Lymphocytes (%) (Auto) 14.0 Monocytes (%) (Auto) 6.7 Eosinophils (%) (Auto) 3.6 Basophils (%) (Auto) 0.3 Neutrophils # (Auto) 8.1 Lymphocytes # (Auto) 1.5 Monocytes # (Auto) 0.7 Eosinophils # (Auto) 0.4 Basophils # (Auto) 0.0 CBC Comment DIFF FINAL Differential Comment Blood Urea Nitrogen 11 Creatinine 0.44 Random Glucose 135 Total Protein 8.1 Albumin 2.5 Calcium Level 9.1 Phosphorus Level 2.8 Magnesium Level 1.8 Alkaline Phosphatase 130 Aspartate Amino Transf (AST/SGOT) 29 Alanine Aminotransferase (ALT/SGPT) 104 Total Bilirubin 0.2 Sodium Level 147 Chloride Level 113 Carbon Dioxide Level 25.3 Anion Gap 9 Estimat Glomerular Filtration Rate 243 Ammonia 29 Lipase 89 Date/Time Source Procedure Growth Status 12/20/16 11:55 Blood Peripheral Aerobic Blood Culture - Final NO GROWTH IN 5 DAYS Complete 12/20/16 11:55 Blood Peripheral Anaerobic Blood Culture - Final NO GROWTH IN 5 DAYS Complete 12/26/16 08:10 Sputum Endotracheal Gram Stain - Final Complete 12/26/16 08:10 Sputum Culture - Final Klebsiella Pneumoniae Esbl Pos Pseudomonas Aeruginosa Complete 12/20/16 11:50 Urine Catheterized Urine Legionella Antigen - Final PRESUMPTIVE NEGATIVE FOR LEGIONELLA P... Complete 12/20/16 11:50 Urine Catheterized Urine Streptococcus pneumoniae Antigen (M - Final PRESUMPTIVE NEGATIVE FOR STREPTOCOCCU... Complete Result Diagram: 12/28/16 04112/28/16418 Imaging Last Impressions Small Bowel X-Ray 12/26/16 0000 Signed Impressions: Service Date/Time: December 09:09 - CONCLUSION: Nondiagnostic exam secondary to patient termination. Walter Moura MD Chest X-Ray 12/25/16 0000 Signed Impressions: Service Date/Time: Sunday, December 25, 2016 10:29 - CONCLUSION: Stable chest with bibasilar densities and small left pleural effusion. Adi Ferrer MD Abdomen X-Ray 12/25/16 0000 Signed Impressions: Service Date/Time: Sunday, December 25, 2016 10:38 - CONCLUSION: Dilated small bowel loops again seen in the left midabdomen, which can be seen with ileus versus partial obstruction. Adi Ferrer MD Abdomen/Pelvis CT 12/20/16 1005 Signed Impressions: Service Date/Time: Tuesday, December 20, 2016 16:56 - CONCLUSION: 1. There are bibasilar areas of atelectasis. 2. There is gaseous distention of the colon. There is oral contrast which has passed through the colon nearly down to the ostomy. 3. Incidental note is made of an IVC filter. 4. Note is made of multiple loops of moderately dilated, fluid-filled small bowel. Brett Iniguez MD Assessment and Plan Assessment and Plan Sepsis present on admission. Aspiration Pneumonia.ESBL and PSAE Port cath site in place. Colostomy in place. Suprapubic cath in place: Providencia Stuarti UTI. Recs: Continue Zosyn IV as clinically responded. Start Tobramycin nebs. Follow cultures Follow clinically. d/w Lulu Lua MD Dec 28, 2016 13:57
[2016-12-28] MEDS ORDERED: LEVOFLOXACIN 750 MG TAB PO SCH (20:30)
[2016-12-28] MEDS: RESP: TOBRAMYCIN SULFATE 80 MG/2 ML NEB NEB SCH (21:00)
[2016-12-28] MEDS: MIRTAZAPINE 15 MG TAB G-TUBE SCH (21:10)
[2016-12-28] MEDS: DOCUSATE SODIUM 100 MG/10 ML UDC PO SCH (21:10)
[2016-12-28] MEDS: traZODone HCL 100 MG TAB PO SCH (21:11)
[2016-12-29] VITALS (18 sets, daily range): BP systolic 129–160; BP diastolic 68–81; PULSE 61–92; RESP 14–37; TEMP 98.7–99.6; O2SAT 98–100
[2016-12-29] MEDS: PIPERACIL-TAZO 4.5 GM PREMIX 100 ML IV SCH ×4 (03:00→21:30)
[2016-12-29] MEDS: INSULIN NovoLIN REGULAR SUPPLEMENTAL SCALE SQ SCH ×4 (03:30→21:30)
[2016-12-29] MEDS: RESP: ALBUTEROL 2.5 MG/IPRATROPIUM 0.5 MG NEB (SCH) NEB ×4 (03:47→19:57)
[2016-12-29] MEDS: CHLORHEXIDINE GLUCONATE 2 % 1 PACK (2 CLOTHS) TOP SCH (04:00)
[2016-12-29 05:17] LABS: AUTOMATED NEUTROPHIL # 7.9 TH/MM3 (1.8-7.7); BASOPHIL % 0.4 % (0.0-2.0); EOSINOPHIL # 0.4 TH/MM3 (0-0.4); EOSINOPHIL % 4.2 % (0.0-4.0); HEMO FLAGS DIFF FINAL; LYMPH % 15.2 % (9.0-44.0); LYMPHOCYTE # 1.6 TH/MM3 (1.0-4.8); MEAN CELL VOLUME 75.7 FL (80.0-100.0); MEAN CORPUSCULAR HGB CONC 31.7 % (32.0-36.0); MONO % 6.7 % (0.0-8.0); NEUT % 73.5 % (16.0-70.0); PLATELET COUNT 287 TH/MM3 (150-450); RED CELL DISTRIBUTION WIDTH 19.8 % (11.6-17.2); WHITE BLOOD COUNT 10.7 TH/MM3 (4.0-11.0)
[2016-12-29 05:34] LABS: ANION GAP 4 MEQ/L (5-15); BICARBONATE 30.8 MEQ/L (21.0-32.0); BLOOD UREA NITROGEN 12 MG/DL (7-18); CHLORIDE 109 MEQ/L (98-107); GLOMERULAR FILTRATION RATE 297 ML/MIN (>89); MAGNESIUM 2.1 MG/DL (1.5-2.5); POTASSIUM 3.5 MEQ/L (3.5-5.1); SODIUM (NA) 144 MEQ/L (136-145)
[2016-12-29 05:36] LABS: ALT (GPT) 86 U/L (12-78); AST (GOT) 21 U/L (15-37)
[2016-12-29 05:40] LABS: ALKALINE PHOSPHATASE 123 U/L (45-117); TOTAL BILIRUBIN ADULT LESS THAN 0.1 MG/DL (0.2-1.0)
[2016-12-29] MEDS: ARTIFICIAL TEARS OPTH SOLN 15 ML BTL EACH EYE SCH ×3 (05:42→22:56)
[2016-12-29] MEDS: METOCLOPRAMIDE HCL 10 MG/2 ML VIAL IV PUSH SCH ×3 (05:43→22:57)
[2016-12-29] MEDS: HEPARIN SODIUM - SQ 10,000 UNITS/ML VIAL SQ SCH ×3 (05:43→22:58)
[2016-12-29 05:48] LABS: CREATINE KINASE 78 U/L (39-308)
[2016-12-29] MEDS: POLYETHYLENE GLYCOL 17 GM PKG G-TUBE SCH ×2 (08:09→21:30)
[2016-12-29] MEDS: busPIRone HCL 5 MG TAB G-TUBE SCH ×3 (08:09→17:12)
[2016-12-29] MEDS: POTASSIUM CHLORIDE 25 MEQ EFFERVESCENT TAB PO PRN (08:09)
[2016-12-29] MEDS: BACLOFEN 10 MG TAB G-TUBE SCH ×3 (08:10→17:12)
[2016-12-29] MEDS: DOCUSATE SODIUM 100 MG/10 ML UDC PO SCH ×2 (08:10→21:30)
[2016-12-29] MEDS: MULTIVITAMINS/MINERALS THERAPEUTIC TAB G-TUBE SCH (08:10)
[2016-12-29] MEDS: MIDODRINE 5 MG TAB G-TUBE SCH ×3 (08:10→17:13)
[2016-12-29] MEDS: ASCORBIC ACID 500 MG TAB G-TUBE SCH (08:10)
[2016-12-29] MEDS: FAMOTIDINE 20 MG TAB G-TUBE SCH ×2 (08:10→21:30)
[2016-12-29] MEDS: SENNOSIDES 8.6 MG TAB G-TUBE SCH ×2 (08:10→21:29)
[2016-12-29] MEDS: DULoxetine HCl DR 60 MG CAP SCH (08:11)
[2016-12-29] MEDS: SODIUM CHLORIDE 0.9% FLUSH 10 ML FLUSH IV FLUSH SCH ×2 (08:11→21:30)
[2016-12-29] MEDS: SILVER SULFADIAZINE 1% CR 50 GM JAR TOPICAL SCH (08:12)
[2016-12-29] MEDS: RESP: TOBRAMYCIN SULFATE 80 MG/2 ML NEB NEB SCH ×2 (08:24→19:56)
[2016-12-29] MEDS ORDERED: POTASSIUM CHLORIDE 20 MEQ PWD PACKET PO ONE (16:30)
--- NOTE | 2016-12-29 16:31 | HHI.CCPN ---
Subjective Remarks/Hospital Course 56-year-old male presents by ambulance from a detention with note of vomiting and concern for bowel obstruction. Patient is a ventilator dependent patient with a tracheostomy and a PEG tube and has difficulty communicating secondary to this but does note pain all over. He is a quadriplegic and cannot point at the area that is bothering him. 12/21 Patient is on ventilator via trach awake and alert. afebrile. WBC is trending down. 12/22 No events overnight. Awake and alert. On Ventilator via trach. 12/23 Patient remains on ventilator via trach. Afebrile. On no sedation. Awake. 12/24 No events overnight. On Ventilator via trach. Afebrile. 12/25 No events overnight. Afebrile. WBC is trending down. 12/26 no events overnight. Awake, on no sedation. For small bowel series with Gastrografin today. 12/27: Afebrile. Patient refused Gastrografin enema yesterday. Abdomen remains distended and firm. Patient refusing a additional x-rays and additional lab draws. Nods head that his goals are to be kept comfortable. 12/28: Appreciate palliative care. Goals remain aggressive. Abdomen distended however less according to GI. Patient requesting additional pain medication however this will make his underlying ileus worse. Laboratories were performed today. Wants to eat. Subjective 12/29: Tmax 99.3. Requesting oral intake. I gave him a few ice chips. Abdomen distended but tolerating tube feeds at goal. Positive BM. Objective Vital Signs Date Time Temp Pulse Resp B/P (MAP) Pulse Ox O2 Delivery O2 Flow Rate FiO2 12/29/16 15:14 99 35 12/29/16 14:00 64 12/29/16 12:00 99.0 14 157/75 (102) 12/27/16 07:40 Ventilator Intake and Output 12/29/16 12/29/16 12/30/16 08:00 16:00 00:00 Intake Total 901 ml Output Total 550 ml Balance 351 ml Result Diagram: 12/29/16 0437 12/29/16 0437 Other Results Microbiology Date/Time Source Procedure Growth Status 12/20/16 11:55 Blood Peripheral Aerobic Blood Culture - Final NO GROWTH IN 5 DAYS Complete 12/20/16 11:55 Blood Peripheral Anaerobic Blood Culture - Final NO GROWTH IN 5 DAYS Complete 12/26/16 08:10 Sputum Endotracheal Gram Stain - Final Complete 12/26/16 08:10 Sputum Culture - Final Klebsiella Pneumoniae Esbl Pos Pseudomonas Aeruginosa Complete 12/20/16 11:50 Urine Catheterized Urine Legionella Antigen - Final PRESUMPTIVE NEGATIVE FOR LEGIONELLA P... Complete 12/20/16 11:50 Urine Catheterized Urine Streptococcus pneumoniae Antigen (M - Final PRESUMPTIVE NEGATIVE FOR STREPTOCOCCU... Complete Imaging Last Impressions Small Bowel X-Ray 12/26/16 0000 Signed Impressions: Service Date/Time: December 09:09 - CONCLUSION: Nondiagnostic exam secondary to patient termination. Walter Moura MD Chest X-Ray 12/25/16 0000 Signed Impressions: Service Date/Time: Sunday, December 25, 2016 10:29 - CONCLUSION: Stable chest with bibasilar densities and small left pleural effusion. Adi Ferrer MD Abdomen X-Ray 12/25/16 0000 Signed Impressions: Service Date/Time: Sunday, December 25, 2016 10:38 - CONCLUSION: Dilated small bowel loops again seen in the left midabdomen, which can be seen with ileus versus partial obstruction. Adi Ferrer MD Abdomen/Pelvis CT 12/20/16 1005 Signed Impressions: Service Date/Time: Tuesday, December 20, 2016 16:56 - CONCLUSION: 1. There are bibasilar areas of atelectasis. 2. There is gaseous distention of the colon. There is oral contrast which has passed through the colon nearly down to the ostomy. 3. Incidental note is made of an IVC filter. 4. Note is made of multiple loops of moderately dilated, fluid-filled small bowel. Brett Iniguez MD Objective Remarks GENERAL: Elderly appearing gentleman on ventilator via tracheostomy with contractures in all 4 extremities. SKIN: Warm and dry. HEAD: Normocephalic. EYES: No scleral icterus. No injection or drainage. NECK: Supple, trachea midline. No JVD or lymphadenopathy. Tracheostomy in midline CARDIOVASCULAR: Regular rate and rhythm without murmurs, gallops, or rubs. RESPIRATORY: Breath sounds equal bilaterally. No accessory muscle use. GASTROINTESTINAL: Abdomen tender to palpation in all 4 quadrants, voluntary guarding. No rigidity. Distended and somewhat firm MUSCULOSKELETAL: No neck and peripheral edema. Contractures in all 4 extremities NEURO EXAM: Quadriplegic with contractures all 4 extremity's. Nods head to commands. 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 Dyspnea ICU vent bundle. Pulm toilet, trach care. SBT as larissa. CV: Hypertension/orthostatic hypotension On Midodrine 2.5mg TID-Monitor HR and BP keep MAP>65mmHg Lactic acid: 1.1 As needed hydralazine/labetalol and Nitropaste for hypertension Renal//FEN: Hypokalemia Monitor renal function, I/O's, electrolytes replacement per protocol. Continue free water 200 cc every 6 hours 20 mEq KCl 1 now GI: Small bowel distention History of colostomy GI is following. Continue tube feedings goal 50 cc daily Jevity 1.5 For small bowel series with Gastrografin 12/26 but refused and imaging stopped early KUB 10/4: Dilated small bowel loops in midabdomen KUB 10/2 persistent SB distention in mid abdomen KUB 10/1 Gaseous distention of several SB loops ? SBO Continue with bowel regimen: Docusate sodium 100 twice a day, Senokot 8.600 g twice a day, tolerating glycol 17 g twice a day CT abdomen: Gaseous distention of the colon. There is oral contrast which has passed through the colon nearly down to the ostomy. Incidental note is made of an IVC filter. Multiple loops of moderately dilated, fluid-filled small bowel. ID: UTI -provencia stuartii ESBL positive Klebsiella/Pseudomonas pneumonia Given Vanco, cefepime, Azithromycin in ED. Continue abx (piperacillin/tazobactam, levofloxacin and tobramycin aerosols ) monitor for signs of infections ( Fever, WBC) WBC is trending down 12/20 Urine cx: Providencia, BC : NGTD 12/26 - sputum -ESBL positive Klebsiella, Pseudomonas Strep pneumonia and Legionella urinary ag negative. Wound care is following for decub ulcers and Ostomy management. Heme: Normocytic anemia Monitor CBC Endo: SSI for glycemic control with novulin r every 6 hours low regimen PT and OT eval and treat as tolerated Prophylaxis - Teds SCDs - IVC filter - Subcutaneous heparin -Famotidine Level2 Fredy Guzman MD Dec 29, 2016 16:31
[2016-12-29] MEDS ORDERED: PILL SPLITTER OTHER PRN (16:45)
[2016-12-29] MEDS: traZODone HCL 100 MG TAB PO SCH (21:29)
[2016-12-29] MEDS: MIRTAZAPINE 15 MG TAB G-TUBE SCH (21:30)
[2016-12-30] VITALS (24 sets, daily range): BP systolic 101–189; BP diastolic 57–91; PULSE 55–112; RESP 11–43; TEMP 98–99.1; O2SAT 94–100
[2016-12-30] MEDS: PIPERACIL-TAZO 4.5 GM PREMIX 100 ML IV SCH ×2 (03:00→08:33)
[2016-12-30] MEDS: INSULIN NovoLIN REGULAR SUPPLEMENTAL SCALE SQ SCH ×4 (03:30→19:45)
[2016-12-30] MEDS: RESP: ALBUTEROL 2.5 MG/IPRATROPIUM 0.5 MG NEB (SCH) NEB ×4 (03:43→21:27)
[2016-12-30] MEDS: CHLORHEXIDINE GLUCONATE 2 % 1 PACK (2 CLOTHS) TOP SCH ×2 (04:00→19:26)
--- NOTE | 2016-12-30 05:57 | RADRPT ---
EXAM DATE/TIME: 12/30/2016 04:13 [facility] COMPARISON: CHEST SINGLE AP, December 25, 2016, 10:29. INDICATIONS : Shortness of breath, possible pulmonary disease. MEDICAL HISTORY : Quadriplegic vent dependent SURGICAL HISTORY : Colostomy. Peg tube Tracheostomy. ENCOUNTER: Subsequent ACUITY: 1 week PAIN SCORE: Non-responsive. LOCATION: Bilateral chest FINDINGS: Tracheostomy and chest port are stable in position. Hazy bibasilar pleural-parenchymal opacities are grossly unchanged. Visualized cardiac contours are stable. CONCLUSION: No significant interval change Thompson Khan MD on December 30, 2016 at 5:55 Board Certified Radiologist. This report was verified electronically.
--- NOTE | 2016-12-30 05:57 | RADRPT ---
EXAM DATE/TIME: 12/30/2016 04:18 [facility] COMPARISON: ABDOMEN KUB ONLY, December 25, 2016, 10:38. INDICATIONS : Abdominal distention. MEDICAL HISTORY : Quadriplegic vent dependent SURGICAL HISTORY : Colostomy. Peg tube Tracheostomy ENCOUNTER: Subsequent ACUITY: 1 week PAIN SCORE: Non-responsive. LOCATION: Bilateral Abdomen FINDINGS: Gastrostomy is seen. There is air present in multiple nondilated large and small bowel loops. No susp icious calcific densities are evident. Bony elements are stable. CONCLUSION: Improved bowel gas pattern Thompson Khan MD on December 30, 2016 at 5:55 Board Certified Radiologist. This report was verified electronically.
[2016-12-30] MEDS: ARTIFICIAL TEARS OPTH SOLN 15 ML BTL EACH EYE SCH ×3 (06:00→19:42)
[2016-12-30] MEDS: HEPARIN SODIUM - SQ 10,000 UNITS/ML VIAL SQ SCH ×3 (06:54→19:43)
[2016-12-30] MEDS: METOCLOPRAMIDE HCL 10 MG/2 ML VIAL IV PUSH SCH ×3 (06:54→19:42)
[2016-12-30] MEDS: DOCUSATE SODIUM 100 MG/10 ML UDC PO SCH ×2 (08:32→19:43)
[2016-12-30] MEDS: MULTIVITAMINS/MINERALS THERAPEUTIC TAB G-TUBE SCH (08:32)
[2016-12-30] MEDS: ASCORBIC ACID 500 MG TAB G-TUBE SCH (08:32)
[2016-12-30] MEDS: busPIRone HCL 5 MG TAB G-TUBE SCH ×3 (08:32→16:54)
[2016-12-30] MEDS: BACLOFEN 10 MG TAB G-TUBE SCH ×3 (08:32→16:54)
[2016-12-30] MEDS: SENNOSIDES 8.6 MG TAB G-TUBE SCH ×2 (08:32→19:43)
[2016-12-30] MEDS: FAMOTIDINE 20 MG TAB G-TUBE SCH ×2 (08:32→19:45)
[2016-12-30] MEDS: DULoxetine HCl DR 60 MG CAP SCH (08:33)
[2016-12-30] MEDS: SODIUM CHLORIDE 0.9% FLUSH 10 ML FLUSH IV FLUSH SCH ×2 (08:33→19:45)
[2016-12-30] MEDS: POLYETHYLENE GLYCOL 17 GM PKG G-TUBE SCH ×2 (08:34→19:43)
[2016-12-30] MEDS ORDERED: MISCELLANEOUS PHARMACY INFORMATION XX PRN (08:45)
[2016-12-30] MEDS ORDERED: ASP: Documented ESBL, MDR A baumannii or P. aeruginosa PRN (08:45)
--- NOTE | 2016-12-30 08:48 | HHI.IDPN ---
Subjective Subjective Remarks Mr. Duran is a 56 y/o Male of [place] origin per medical records. He is unfortunately vent dependent , PEG dependent quadriplegic. He was sent from [facility] to [facility] ED on 12/20/16 because of refractory vomiting and concern for a possible bowel obstruction. Not much is known about how he got to this point or any historical details as patient does not appear to have been at our hospital before. The patient is awake, and alert, will mouth words but he is very difficult to understand. Per records the EMS note indicates the patient had a sign on his door indicating the patient had respiratory MRSA. They noted a recent temp of 100.5 axillary. They noted he was vomiting and that he frequently spit up bilious appearing material. In the ED he was able to communicate that he had pain all over. Initial vital signs in the emergency department were as follows: Temperature 99.9; pulse 121; respiratory rate 18; blood pressure 129/70; pulse oximetry 100% on the ventilator at 60% FiO2. His CBC was 27.8, Plts 528. Na 125 , Cr 0.75. Chest x-ray showed bibasilar parenchymal changes. Possible inflammatory process in the right base. CT of the abdomen/pelvis showed bibasilar areas of atelectasis; gaseous distention of the colon with oral contrast passed through the colon nearly down to the ostomy; IVC filter is in place; multiple loops of moderately dilated fluid-filled small bowel Patient was started on broad-spectrum empiric antibiotic coverage in the emergency department. Critical care was consulted and the patient was admitted to the medical intensive care unit. Gastroenterology was consulted. The patient had a large bowel movement the following morning and it was felt the patient's ileus appeared to be improving. The patient was kept NPO. Marium lax was provided. Patient's cultures came back growing Providencia stuartii in the urine on 12/20/16. Blood cultures to be negative. Sputum culture of 12/26/16 with ESBL Kleb Pneumo and PSAE. Though there was some improvement in the patient 's distension and he was stooling some, there were concerns about ongoing obstruction. Palliative care is on board to assist with goals of care. At the time of my evaluation, pt is in the IMC not on any pressors. Remains on vent, trach, PEG, Colostomy in place. ID was consulted for evaluation and Mment of ESBL Kleb pneumo and PSAE Pneumonia, Providencia UTI. Overnight events reviewed. No fevers No rash No diarrhea Secretions, hill thick with frequent suctioning. UO ok. Has sacral decub down to the bone with undermining of margins noted. Left olecranaon decub down to bone with no e/o infection. Antibiotics Zosyn IV Tobra nebs Lines Line sites with no e.o infection Past Medical History Trach PEG Colostomy suprpubic cath Paraplegic Allergies: Coded Allergies: levofloxacin (Verified Allergy, Unknown, 12/20/16) PER [facility] Objective . Vital Signs Date Time Temp Pulse Resp B/P (MAP) Pulse Ox O2 Delivery O2 Flow Rate FiO2 12/30/16 06:00 69 12/30/16 04:00 35 12/30/16 04:00 98.9 77 18 128/70 (89) 98 12/30/16 04:00 77 12/30/16 03:43 99 35 12/30/16 02:00 72 12/30/16 00:00 35 12/30/16 00:00 81 12/30/16 00:00 99.1 81 18 107/62 (77) 99 12/29/16 23:28 98 35 12/29/16 22:00 92 12/29/16 20:00 98.7 68 18 160/81 (107) 100 12/29/16 20:00 68 12/29/16 20:00 35 12/29/16 19:57 100 35 12/29/16 18:00 69 12/29/16 16:00 35 12/29/16 16:00 73 12/29/16 16:00 99.6 73 16 151/77 (101) 99 12/29/16 15:14 99 35 12/29/16 14:00 64 12/29/16 12:00 61 12/29/16 12:00 99.0 61 14 157/75 (102) 100 12/29/16 12:00 35 12/29/16 11:39 100 35 12/29/16 10:00 64 12/29/16 09:20 100 35 12/29/16 09:04 35 . Laboratory Tests Test 12/29/16 04:37 White Blood Count 10.7 TH/MM3 Red Blood Count 3.70 MIL/MM3 Hemoglobin 8.9 GM/DL Hematocrit 28.0 % Mean Corpuscular Volume 75.7 FL Mean Corpuscular Hemoglobin 24.0 PG Mean Corpuscular Hemoglobin Concent 31.7 % Red Cell Distribution Width 19.8 % Platelet Count 287 TH/MM3 Mean Platelet Volume 7.2 FL Neutrophils (%) (Auto) 73.5 % Lymphocytes (%) (Auto) 15.2 % Monocytes (%) (Auto) 6.7 % Eosinophils (%) (Auto) 4.2 % Basophils (%) (Auto) 0.4 % Neutrophils # (Auto) 7.9 TH/MM3 Lymphocytes # (Auto) 1.6 TH/MM3 Monocytes # (Auto) 0.7 TH/MM3 Eosinophils # (Auto) 0.4 TH/MM3 Basophils # (Auto) 0.0 TH/MM3 CBC Comment DIFF FINAL Differential Comment Laboratory Tests Test 12/29/16 04:37 Blood Urea Nitrogen 12 MG/DL Creatinine 0.37 MG/DL Random Glucose 121 MG/DL Total Protein 8.3 GM/DL Albumin 2.6 GM/DL Calcium Level 9.3 MG/DL Phosphorus Level 3.4 MG/DL Magnesium Level 2.1 MG/DL Alkaline Phosphatase 123 U/L Aspartate Amino Transf (AST/SGOT) 21 U/L Alanine Aminotransferase (ALT/SGPT) 86 U/L Total Bilirubin LESS THAN 0.1 MG/DL Sodium Level 144 MEQ/L Potassium Level 3.5 MEQ/L Chloride Level 109 MEQ/L Carbon Dioxide Level 30.8 MEQ/L Anion Gap 4 MEQ/L Estimat Glomerular Filtration Rate 297 ML/MIN Total Creatine Kinase 78 U/L Imaging Last Impressions Chest X-Ray 12/30/16 0600 Signed Impressions: Service Date/Time: Friday, December 30, 2016 04:13 - CONCLUSION: No significant interval change Thompson Khan MD Abdomen X-Ray 12/30/16 0600 Signed Impressions: Service Date/Time: Friday, December 30, 2016 04:18 - CONCLUSION: Improved bowel gas pattern Thompson Khan MD Small Bowel X-Ray 12/26/16 0000 Signed Impressions: Service Date/Time: December 09:09 - CONCLUSION: Nondiagnostic exam secondary to patient termination. Walter Moura MD Abdomen/Pelvis CT 12/20/16 1005 Signed Impressions: Service Date/Time: Tuesday, December 20, 2016 16:56 - CONCLUSION: 1. There are bibasilar areas of atelectasis. 2. There is gaseous distention of the colon. There is oral contrast which has passed through the colon nearly down to the ostomy. 3. Incidental note is made of an IVC filter. 4. Note is made of multiple loops of moderately dilated, fluid-filled small bowel. Brett Iniguez MD Physical Exam GENERAL: This is a well-nourished, well-developed patient, in no apparent distress. SKIN: No rashes, ecchymoses or lesions. Cool and dry. HEAD: Atraumatic. Normocephalic. No temporal or scalp tenderness. EYES: Pupils equal round and reactive. Extraocular motions intact. No scleral icterus. No injection or drainage. ENT: Nose without bleeding, purulent drainage or septal hematoma. Throat without erythema, tonsillar hypertrophy or exudate. Uvula midline. Airway patent. NECK: Trach site with no e.o infection. CARDIOVASCULAR: Regular rate and rhythm without murmurs, gallops, or rubs. RESPIRATORY: Clear to auscultation. Breath sounds equal bilaterally. No wheezes , rales, or rhonchi. GASTROINTESTINAL: Abdomen soft, non-tender, nondistended. Colostomy site with no e.o infection. Suprapubic cath site with no e.o infection. MUSCULOSKELETAL: Extremities without clubbing, cyanosis, or edema. No joint tenderness, effusion, or edema noted. No calf tenderness. Negative Homans sign bilaterally. NEUROLOGICAL: Awake and alert. Tries to verbalize over vent and trach. Psych cooperative IV line sites with no e.o infection. Assessment & Plan Remarks Sepsis present on admission. Aspiration Pneumonia.ESBL and PSAE Port cath site in place. Colostomy in place. Suprapubic cath in place: Providencia Stuarti UTI. Recs: DC Zosyn IV Continue Tobramycin nebs. Due to persistent thick secretions and persistent infiltrate right side will start Meropenem (ESBL, PSAE in sputum and infiltrate) Follow cultures Follow clinically. Wound care consult: sacral decub and left olecranon area decub. d/w Lulu Schuler MD Dec 30, 2016 08:48
[2016-12-30] MEDS: SILVER SULFADIAZINE 1% CR 50 GM JAR TOPICAL SCH (09:00)
[2016-12-30] MEDS: MIDODRINE 5 MG TAB G-TUBE SCH ×3 (09:00→17:52)
[2016-12-30] MEDS: RESP: TOBRAMYCIN SULFATE 80 MG/2 ML NEB NEB SCH ×2 (10:23→21:28)
[2016-12-30] MEDS: MEROPENEM INJ 500 MG in SODIUM CHLORIDE 0.9% INJ 100 ML IV SCH ×2 (11:39→16:56)
[2016-12-30 13:32] LABS: HEMATOCRIT 29.1 % (39.0-51.0); MEAN CELL VOLUME 76.2 FL (80.0-100.0); MEAN CORPUSCULAR HEMOGLOBIN 24.1 PG (27.0-34.0); MEAN CORPUSCULAR HGB CONC 31.6 % (32.0-36.0); PLATELET COUNT 257 TH/MM3 (150-450); RED BLOOD COUNT 3.81 MIL/MM3 (4.50-5.90); REVIEW FLAG FINAL; WHITE BLOOD COUNT 9.6 TH/MM3 (4.0-11.0)
[2016-12-30] MEDS: hydrALAZINE HCL 20 MG/ML VIAL IV PUSH PRN (13:53)
[2016-12-30 14:01] LABS: POTASSIUM 3.5 MEQ/L (3.5-5.1)
--- NOTE | 2016-12-30 15:17 | HHI.GIFU ---
Subjective Remarks Resting in bed. Awake, no distress. No n/v. Tolerating TF. + BM large amount of air in colostomy. Abdomen less distended (Claudia Good) Objective Vitals I&O Vital Signs Date Time Temp Pulse Resp B/P (MAP) Pulse Ox O2 Delivery O2 Flow Rate FiO2 12/30/16 15:11 99 35 12/30/16 14:00 69 12/30/16 12:00 58 12/30/16 12:00 35 12/30/16 11:33 100 35 12/30/16 10:00 63 12/30/16 08:46 98 35 12/30/16 08:00 35 12/30/16 08:00 88 12/30/16 06:00 69 12/30/16 04:00 35 12/30/16 04:00 98.9 77 18 128/70 (89) 98 12/30/16 04:00 77 12/30/16 03:43 99 35 12/30/16 02:00 72 12/30/16 00:00 35 12/30/16 00:00 81 12/30/16 00:00 99.1 81 18 107/62 (77) 99 12/29/16 23:28 98 35 12/29/16 22:00 92 12/29/16 20:00 98.7 68 18 160/81 (107) 100 12/29/16 20:00 68 12/29/16 20:00 35 12/29/16 19:57 100 35 12/29/16 18:00 69 12/29/16 16:00 35 12/29/16 16:00 73 12/29/16 16:00 99.6 73 16 151/77 (101) 99 I/O 12/29/16 12/29/16 12/29/16 12/30/16 12/30/16 12/30/16 07:00 15:00 23:00 07:00 15:00 23:00 Intake Total 901 ml 928 ml 675 ml 0 ml Output Total 550 ml 975 ml 725 ml Balance 351 ml -47 ml -50 ml 0 ml IV Total 100 ml 100 ml 0 ml Tube Feeding 541 ml 528 ml 675 ml Tube Irrigant 300 ml Other 260 ml Output Urine Total 350 ml 700 ml 575 ml Stool Total 200 ml 275 ml 150 ml Laboratory Laboratory Tests Test 12/30/16 12:50 White Blood Count 9.6 Red Blood Count 3.81 Hemoglobin 9.2 Hematocrit 29.1 Mean Corpuscular Volume 76.2 Mean Corpuscular Hemoglobin 24.1 Mean Corpuscular Hemoglobin Concent 31.6 Red Cell Distribution Width 20.0 Platelet Count 257 Mean Platelet Volume 7.7 Blood Urea Nitrogen 11 Creatinine 0.43 Random Glucose 121 Calcium Level 9.1 Phosphorus Level 3.2 Magnesium Level 2.0 Sodium Level 144 Potassium Level 3.5 Chloride Level 107 Carbon Dioxide Level 30.0 Anion Gap 7 Estimat Glomerular Filtration Rate 250 Date/Time Source Procedure Growth Status 12/20/16 11:55 Blood Peripheral Aerobic Blood Culture - Final NO GROWTH IN 5 DAYS Complete 12/20/16 11:55 Blood Peripheral Anaerobic Blood Culture - Final NO GROWTH IN 5 DAYS Complete 12/26/16 08:10 Sputum Endotracheal Gram Stain - Final Complete 12/26/16 08:10 Sputum Culture - Final Klebsiella Pneumoniae Esbl Pos Pseudomonas Aeruginosa Complete 12/20/16 11:50 Urine Catheterized Urine Legionella Antigen - Final PRESUMPTIVE NEGATIVE FOR LEGIONELLA P... Complete 12/20/16 11:50 Urine Catheterized Urine Streptococcus pneumoniae Antigen (M - Final PRESUMPTIVE NEGATIVE FOR STREPTOCOCCU... Complete Imaging Last Impressions Chest X-Ray 12/30/16 0600 Signed Impressions: Service Date/Time: Friday, December 30, 2016 04:13 - CONCLUSION: No significant interval change Thompson Khan MD Abdomen X-Ray 12/30/16 0600 Signed Impressions: Service Date/Time: Friday, December 30, 2016 04:18 - CONCLUSION: Improved bowel gas pattern Thompson Khan MD Small Bowel X-Ray 12/26/16 0000 Signed Impressions: Service Date/Time: December 09:09 - CONCLUSION: Nondiagnostic exam secondary to patient termination. Walter Moura MD Abdomen/Pelvis CT 12/20/16 1005 Signed Impressions: Service Date/Time: Tuesday, December 20, 2016 16:56 - CONCLUSION: 1. There are bibasilar areas of atelectasis. 2. There is gaseous distention of the colon. There is oral contrast which has passed through the colon nearly down to the ostomy. 3. Incidental note is made of an IVC filter. 4. Note is made of multiple loops of moderately dilated, fluid-filled small bowel. Brett Iniguez MD Physical Exam HEENT: Normocephalic; atraumatic CHEST: Tracheostomy. Course breath sounds CARDIAC: RRR ABDOMEN: Soft, mildly distended, colostomy left side with large amount of gas, small amount of stool EXTREMITIES: Contracted upper ext. edema. ENVIRONMENTAL RESEARCH PROJECT MANAGER: awake, responds appropriately (Claudia Good) Assessment and Plan Plan ASSESSMENT: - Ileus, IMPROVING. Abdomen/Pelvis CT (12/20/16)-----> 1. There are bibasilar areas of atelectasis. 2. There is gaseous distention of the colon. There is oral contrast which has passed through the colon nearly down to the ostomy. 3. Incidental note is made of an IVC filter. 4. Note is made of multiple loops of moderately dilated, fluid-filled small bowel. KUB (12/30/16)--> Improved bowel gas pattern. Co Founder And Chairman recommends Jevity 1.5 with goal rate 50ml/hr. Refused SBFT. Clinically much improved and is tolerating TF at GR. - Chronic respiratory failure. tracheostomy - Quadriplegia, UTI, Electrolyte abnormalities. per attending. PLAN: - Cont TF - Cont bowel regimen - Cont reglan - GI will sign off, please reconsult as needed - Patient seen and examined by Dr. Estrada and myself and this note is written on his behalf. (Claudia Good) Physician Comments Seen andexamined with US MARKETING DIRECTOR, doing better, illeus resolving. Advance TF as tolerated. Gi will sign off, reconsult as needed. Thank you (Rivera Estrada MD) Claudia Good Dec 30, 2016 15:17 Rivera Estrada MD Dec 30, 2016 16:00
--- NOTE | 2016-12-30 16:01 | HHI.CCPN ---
Subjective Remarks/Hospital Course 56-year-old male presents by ambulance from a half-way with note of vomiting and concern for bowel obstruction. Patient is a ventilator dependent patient with a tracheostomy and a PEG tube and has difficulty communicating secondary to this but does note pain all over. He is a quadriplegic and cannot point at the area that is bothering him. 12/21 Patient is on ventilator via trach awake and alert. afebrile. WBC is trending down. 12/22 No events overnight. Awake and alert. On Ventilator via trach. 12/23 Patient remains on ventilator via trach. Afebrile. On no sedation. Awake. 12/24 No events overnight. On Ventilator via trach. Afebrile. 12/25 No events overnight. Afebrile. WBC is trending down. 12/26 no events overnight. Awake, on no sedation. For small bowel series with Gastrografin today. 12/27: Afebrile. Patient refused Gastrografin enema yesterday. Abdomen remains distended and firm. Patient refusing a additional x-rays and additional lab draws. Nods head that his goals are to be kept comfortable. 12/28: Appreciate palliative care. Goals remain aggressive. Abdomen distended however less according to GI. Patient requesting additional pain medication however this will make his underlying ileus worse. Laboratories were performed today. Wants to eat. Subjective 12/29: Tmax 99.3. Requesting oral intake. I gave him a few ice chips. Abdomen distended but tolerating tube feeds at goal. Positive BM. 12/30: Remains on Vent on CPAP. ID has started Meropenem (ESBL, PSAE in sputum). Ileus is improving on KUB and clinically. Objective Vital Signs Date Time Temp Pulse Resp B/P (MAP) Pulse Ox O2 Delivery O2 Flow Rate FiO2 12/30/16 15:11 99 35 12/30/16 15:00 112 39 101/57 (72) 12/30/16 12:00 98.8 12/27/16 07:40 Ventilator Intake and Output 12/30/16 12/30/16 12/31/16 08:00 16:00 00:00 Intake Total 675 ml 0 ml Output Total 725 ml Balance -50 ml 0 ml Result Diagram: 12/30/16 1250 12/30/16 1250 Imaging Last Impressions Small Bowel X-Ray 12/26/16 0000 Signed Impressions: Service Date/Time: December 09:09 - CONCLUSION: Nondiagnostic exam secondary to patient termination. Walter Moura MD Chest X-Ray 12/25/16 0000 Signed Impressions: Service Date/Time: Sunday, December 25, 2016 10:29 - CONCLUSION: Stable chest with bibasilar densities and small left pleural effusion. Adi Ferrer MD Abdomen X-Ray 12/25/16 0000 Signed Impressions: Service Date/Time: Sunday, December 25, 2016 10:38 - CONCLUSION: Dilated small bowel loops again seen in the left midabdomen, which can be seen with ileus versus partial obstruction. Adi Ferrer MD Abdomen/Pelvis CT 12/20/16 1005 Signed Impressions: Service Date/Time: Tuesday, December 20, 2016 16:56 - CONCLUSION: 1. There are bibasilar areas of atelectasis. 2. There is gaseous distention of the colon. There is oral contrast which has passed through the colon nearly down to the ostomy. 3. Incidental note is made of an IVC filter. 4. Note is made of multiple loops of moderately dilated, fluid-filled small bowel. Brett Iniguez MD Objective Remarks GENERAL: Elderly appearing gentleman on ventilator via tracheostomy with contractures in all 4 extremities. SKIN: Warm and dry. HEAD: Normocephalic. EYES: No scleral icterus. No injection or drainage. NECK: Supple, trachea midline. No JVD or lymphadenopathy. Tracheostomy in midline CARDIOVASCULAR: Regular rate and rhythm without murmurs, gallops, or rubs. RESPIRATORY: Breath sounds equal bilaterally. No accessory muscle use. GASTROINTESTINAL: Abdomen tender to palpation in all 4 quadrants, voluntary guarding. No rigidity. Distended and soft MUSCULOSKELETAL: No neck and peripheral edema. Contractures in all 4 extremities NEURO EXAM: Quadriplegic with contractures all 4 extremity's. Nods head to commands. Attempts to speak with voice A/P Assessment and Plan Neuro: Quadriplegia Depression Chronic narcotic use Awake and alert, attempts to communicate Continue Baclofen 10 mg 3 times a day, Oxycodone 5 mg every 6 hours as needed, mirtazapine 15 mg at night, Trazodone 150 mg at night, is prone 5 mill grams 3 times a day and duloxetine 60 mg daily Pulm: Chronic respiratory failure secondary to C-spine injury -tracheostomy Continue with vent support keep sat >92% Albuterol/ipratropium aerosols every 6 hours with albuterol aerosols every 2 hours. Dyspnea ICU vent bundle. Pulm toilet, trach care. SBT as larissa. CV: Hypertension/orthostatic hypotension On Midodrine 2.5mg TID-Monitor HR and BP keep MAP>65mmHg As needed hydralazine/labetalol and Nitropaste for hypertension Renal//FEN: Hypokalemia Monitor renal function, I/O's, electrolytes replacement per protocol. Continue free water 200 cc every 6 hours 20 mEq KCl 1 now GI: Small bowel distention/Ileus History of colostomy GI is following. Ileus clinically and radiographically improving Continue tube feedings goal 50 cc daily Jevity 1.5 For small bowel series with Gastrografin 12/26 but refused and imaging stopped early KUB /: Dilated small bowel loops in midabdomen KUB 10/2 persistent SB distention in mid abdomen KUB 10/ Gaseous distention of several SB loops ? SBO Continue with bowel regimen: Docusate sodium 100 twice a day, Senokot 8.600 g twice a day, tolerating glycol 17 g twice a day CT abdomen: Gaseous distention of the colon. There is oral contrast which has passed through the colon nearly down to the ostomy. Incidental note is made of an IVC filter. Multiple loops of moderately dilated, fluid-filled small bowel. ID: UTI -provencia stuartii ESBL positive Klebsiella/Pseudomonas pneumonia Given Vanco, cefepime, Azithromycin in ED. ID DCd piperacillin/tazobactam and started meropenem, continue levofloxacin and tobramycin aerosols monitor for signs of infections ( Fever, WBC) WBC is trending down 12/20 Urine cx: Providencia, BC : NGTD 12/26 - sputum -ESBL positive Klebsiella, Pseudomonas Strep pneumonia and Legionella urinary ag negative. Wound care is following for decub ulcers and Ostomy management. Heme: Normocytic anemia Monitor CBC Endo: SSI for glycemic control with novulin r every 6 hours low regimen PT and OT eval and treat as tolerated Prophylaxis - Teds SCDs - IVC filter - Subcutaneous heparin -Famotidine Level2 Kacy Mackay MD Dec 30, 2016 16:01
[2016-12-30] MEDS: traZODone HCL 100 MG TAB PO SCH (19:44)
[2016-12-30] MEDS: MIRTAZAPINE 15 MG TAB G-TUBE SCH (19:54)
[2016-12-31] VITALS (15 sets, daily range): BP systolic 108–159; BP diastolic 63–83; PULSE 58–117; RESP 14–38; TEMP 98.2–98.9; O2SAT 91–100
[2016-12-31] MEDS: MEROPENEM INJ 500 MG in SODIUM CHLORIDE 0.9% INJ 100 ML IV SCH ×2 (01:10→10:00)
[2016-12-31] MEDS: INSULIN NovoLIN REGULAR SUPPLEMENTAL SCALE SQ SCH ×2 (02:32→09:30)
[2016-12-31] MEDS: RESP: ALBUTEROL 2.5 MG/IPRATROPIUM 0.5 MG NEB (SCH) NEB ×2 (03:30→07:36)
[2016-12-31] MEDS: METOCLOPRAMIDE HCL 10 MG/2 ML VIAL IV PUSH SCH ×2 (05:04→12:33)
[2016-12-31] MEDS: ARTIFICIAL TEARS OPTH SOLN 15 ML BTL EACH EYE SCH (05:04)
[2016-12-31] MEDS: HEPARIN SODIUM - SQ 10,000 UNITS/ML VIAL SQ SCH ×2 (05:04→12:33)
[2016-12-31] MEDS: RESP: TOBRAMYCIN SULFATE 80 MG/2 ML NEB NEB SCH (07:36)
[2016-12-31] MEDS: FAMOTIDINE 20 MG TAB G-TUBE SCH (09:00)
[2016-12-31] MEDS: ASCORBIC ACID 500 MG TAB G-TUBE SCH (09:00)
[2016-12-31] MEDS: DOCUSATE SODIUM 100 MG/10 ML UDC PO SCH (09:00)
[2016-12-31] MEDS: busPIRone HCL 5 MG TAB G-TUBE SCH ×2 (09:00→12:33)
[2016-12-31] MEDS: MULTIVITAMINS/MINERALS THERAPEUTIC TAB G-TUBE SCH (09:00)
[2016-12-31] MEDS: POLYETHYLENE GLYCOL 17 GM PKG G-TUBE SCH (09:00)
[2016-12-31] MEDS: SODIUM CHLORIDE 0.9% FLUSH 10 ML FLUSH IV FLUSH SCH (09:00)
[2016-12-31] MEDS: MIDODRINE 5 MG TAB G-TUBE SCH ×2 (09:00→12:33)
[2016-12-31] MEDS: DULoxetine HCl DR 60 MG CAP SCH (09:00)
[2016-12-31] MEDS: BACLOFEN 10 MG TAB G-TUBE SCH ×2 (09:00→12:33)
[2016-12-31] MEDS: SENNOSIDES 8.6 MG TAB G-TUBE SCH (09:00)
[2016-12-31] MEDS: SILVER SULFADIAZINE 1% CR 50 GM JAR TOPICAL SCH (09:00)
[2016-12-31] MEDS ORDERED: INVA1INJ IV (10:46)
[2016-12-31] MEDS ORDERED: EPIN1INJ21 SQ (10:46)
[2016-12-31] MEDS ORDERED: SOLU250I IV PUSH (10:46)
[2016-12-31] MEDS ORDERED: EPIN1INJ21 IV PUSH (10:46)
[2016-12-31] MEDS ORDERED: LEVA500T20 PO (10:49)
--- NOTE | 2016-12-31 10:50 | HHI.FF ---
Infusion Therapy Location of Infusion Therapy: [facility] Infusion Therapy Order Patient Information Appointment Date: Dec 31, 2016 Patient Weight 81.2 kg Diagnosis: Coded Allergies: levofloxacin (Verified Allergy, Unknown, 12/20/16) [facility] Administer Medication Ertapenem 1 gram IV q 24 hours Start Treatment: Dec 31, 2016 Stop Treatment: Jan 04, 2017 Additional Information Additional Medications Levaquin 500 mg po daily for 5 days. Additional Instructions [x] Peripheral flush and dressing changes per protocol [x] Implanted port and central hot top liner helper: * Implanted port: 10 ml Normal Saline followed by 5 ml Heparin 100 units/ml Heparin flush after each use and monthly to maintain. [] May leave port accessed during therapy. [] May leave peripheral site accessed for duration of therapy. [x] If patient has SOB or respiratory distress, check oxygen saturation. If less than 90% or clinical signs of respiratory distress, administer oxygen at 2 L/min. via nasal cannula and notify physician. [x] Anaphylaxis/Reaction orders: * Stop infusion. * Keep IV line open with saline flush. * Notify physician. * Monitor vital signs every 15 minutes until symptoms resolve. * Check Oxygen saturation; Oxygen at 2 L/min. via nasal cannula if less than 90% or clinical signs of respiratory distress. * Administer diphenhydramine (Benadryl) 25 mg IV STAT, (unless patient has received as pre-med). May repeat once, if necessary. * Solu-Cortef 250 mg IVP over 30-60 seconds, use 100 mg vials for each dissolution. * Epinephrine (1mg/1 ml) 0.3 mg subcutaneously or IVP now with any signs of respiratory distress. * Check with physician for new additional pre-med orders if patient is re- challenged or re-treated. [x] May remove PICC line when treatment complete, after confirming with Physician. [x] If the patient is admitted to the hospital, the ED, or transferred via [facility] , complete transfer form including medication reconciliation order sheet. Lulu Nava MD Dec 31, 2016 10:50
--- NOTE | 2016-12-31 10:51 | HHI.PR ---
Addendum to Inpatient Note Addendum Reason: Additional Documentation Additional Information Post hospital infusion orders in chart. RN called me CCM plans on discharging to SNF today. Will sign off please call back if any change in clinical condition or questions. Lulu Nava MD Dec 31, 2016 10:51
--- NOTE | 2016-12-31 11:13 | HHI.CCPN ---
Subjective Remarks/Hospital Course 56-year-old male [facility] with note of vomiting and concern for bowel obstruction. Patient is a ventilator dependent patient with a tracheostomy and a PEG tube and has difficulty communicating secondary to this but does note pain all over. He is a quadriplegic and cannot point at the area that is bothering him. 12/21 Patient is on ventilator via trach awake and alert. afebrile. WBC is trending down. 12/22 No events overnight. Awake and alert. On Ventilator via trach. 12/23 Patient remains on ventilator via trach. Afebrile. On no sedation. Awake. 12/24 No events overnight. On Ventilator via trach. Afebrile. 12/25 No events overnight. Afebrile. WBC is trending down. 12/26 no events overnight. Awake, on no sedation. For small bowel series with Gastrografin today. 12/27: Afebrile. Patient refused Gastrografin enema yesterday. Abdomen remains distended and firm. Patient refusing a additional x-rays and additional lab draws. Nods head that his goals are to be kept comfortable. 12/28: Appreciate palliative care. Goals remain aggressive. Abdomen distended however less according to GI. Patient requesting additional pain medication however this will make his underlying ileus worse. Laboratories were performed today. Wants to eat. Subjective 12/29: Tmax 99.3. Requesting oral intake. I gave him a few ice chips. Abdomen distended but tolerating tube feeds at goal. Positive BM. 12/30: Remains on Vent on CPAP. ID has started Meropenem (ESBL, PSAE in sputum). Ileus is improving on KUB and clinically. 12/31: On CPAP, able to communicate. Clinically and radiologically improved ileus. Positive BM. Cleared for DC to NH by ID and GI, ok from [facility] stand point Objective Vital Signs Date Time Temp Pulse Resp B/P (MAP) Pulse Ox O2 Delivery O2 Flow Rate FiO2 12/31/16 11:03 97 35 12/31/16 06:00 82 12/31/16 04:00 98.3 18 139/75 (96) 12/27/16 07:40 Ventilator Intake and Output 12/31/16 12/31/16 12/31/16 07:59 15:59 23:59 Intake Total 655 ml Output Total 650 ml Balance 5 ml Result Diagram: 12/30/16 1250 12/30/16 1250 Imaging Last Impressions Small Bowel X-Ray 12/26/16 0000 Signed Impressions: Service Date/Time: December 09:09 - CONCLUSION: Nondiagnostic exam secondary to patient termination. Walter Moura MD Chest X-Ray 12/25/16 0000 Signed Impressions: Service Date/Time: Sunday, December 25, 2016 10:29 - CONCLUSION: Stable chest with bibasilar densities and small left pleural effusion. Adi Ferrer MD Abdomen X-Ray 12/25/16 0000 Signed Impressions: Service Date/Time: Sunday, December 25, 2016 10:38 - CONCLUSION: Dilated small bowel loops again seen in the left midabdomen, which can be seen with ileus versus partial obstruction. Adi Ferrer MD Abdomen/Pelvis CT 12/20/16 1005 Signed Impressions: Service Date/Time: Tuesday, December 20, 2016 16:56 - CONCLUSION: 1. There are bibasilar areas of atelectasis. 2. There is gaseous distention of the colon. There is oral contrast which has passed through the colon nearly down to the ostomy. 3. Incidental note is made of an IVC filter. 4. Note is made of multiple loops of moderately dilated, fluid-filled small bowel. Brett Iniguez MD Objective Remarks GENERAL: remains on on ventilator via tracheostomy with contractures in all 4 extremities. SKIN: Warm and dry. HEAD: Normocephalic. EYES: No scleral icterus. No injection or drainage. NECK: Supple, trachea midline. No JVD or lymphadenopathy. Tracheostomy in midline CARDIOVASCULAR: Regular rate and rhythm without murmurs, gallops, or rubs. RESPIRATORY: Breath sounds equal bilaterally. No accessory muscle use. GASTROINTESTINAL: Abdomen tender to palpation in all 4 quadrants, voluntary guarding. No rigidity. Distended and soft MUSCULOSKELETAL: No neck and peripheral edema. Contractures in all 4 extremities NEURO EXAM: Quadriplegic with contractures all 4 extremity's. Nods head to commands. Attempts to speak with voice A/P Assessment and Plan Neuro: Quadriplegia Depression Chronic narcotic use Awake and alert, attempts to communicate Continue Baclofen 10 mg 3 times a day, Oxycodone 5 mg every 6 hours as needed, mirtazapine 15 mg at night, Trazodone 150 mg at night, is prone 5 mill grams 3 times a day and duloxetine 60 mg daily Pulm: Chronic respiratory failure secondary to C-spine injury -tracheostomy Continue with vent support keep sat >92% Albuterol/ipratropium aerosols every 6 hours with albuterol aerosols every 2 hours. Dyspnea ICU vent bundle. Pulm toilet, trach care. SBT as larissa. CV: Hypertension/orthostatic hypotension On Midodrine 2.5mg TID-Monitor HR and BP keep MAP>65mmHg As needed hydralazine/labetalol and Nitropaste for hypertension Renal//FEN: Hypokalemia Monitor renal function, I/O's, electrolytes replacement per protocol. Continue free water 200 cc every 6 hours 20 mEq KCl 1 now GI: Small bowel distention/Ileus History of colostomy GI is following. Ileus clinically and radiographically improved Continue tube feedings goal 50 cc daily Jevity 1.5 For small bowel series with Gastrografin 12/26 but refused and imaging stopped early KUB 10/4: Dilated small bowel loops in midabdomen KUB 10/2 persistent SB distention in mid abdomen KUB 10/1 Gaseous distention of several SB loops ? SBO Continue with bowel regimen: Docusate sodium 100 twice a day, Senokot 8.600 g twice a day, tolerating glycol 17 g twice a day CT abdomen: Gaseous distention of the colon. There is oral contrast which has passed through the colon nearly down to the ostomy. Incidental note is made of an IVC filter. Multiple loops of moderately dilated, fluid-filled small bowel. ID: UTI -provencia stuartii ESBL positive Klebsiella/Pseudomonas pneumonia Given Vanco, cefepime, Azithromycin in ED. ID DCd piperacillin/tazobactam and started meropenem, continue levofloxacin and tobramycin aerosols 12/20 Urine cx: Providencia, BC : NGTD 12/26 - sputum -ESBL positive Klebsiella, Pseudomonas Strep pneumonia and Legionella urinary ag negative. Wound care is following for decub ulcers and Ostomy management. Heme: Normocytic anemia Monitor CBC Endo: SSI for glycemic control with novulin r every 6 hours low regimen PT and OT eval and treat as tolerated Prophylaxis - Teds SCDs - IVC filter - Subcutaneous heparin -Famotidine Level2 DC to NH today. Kacy Mackay MD Dec 31, 2016 11:12
--- NOTE | 2016-12-31 11:22 | HHI.DS ---
Discharge Summary Admission Date Dec 20, 2016 at 17:55 Admitting Diagnosis sepsis (1) Sepsis ICD Code: A41.9 - Sepsis, unspecified organism Diagnosis: Principal Status: Acute (2) Pneumonia ICD Code: J18.9 - Pneumonia, unspecified organism Diagnosis: Principal (3) UTI (urinary tract infection) ICD Code: N39.0 - Urinary tract infection, site not specified Diagnosis: Principal Status: Acute (4) Small bowel obstruction, partial ICD Code: K56.600 - Partial intestinal obstruction, unspecified as to cause Diagnosis: Principal (5) Nausea & vomiting ICD Code: R11.2 - Nausea with vomiting, unspecified Diagnosis: Principal (6) Quadriplegia ICD Code: G82.50 - Quadriplegia, unspecified Diagnosis: Secondary (7) Hyponatremia ICD Code: E87.1 - Hypo-osmolality and hyponatremia Status: Acute Brief History 56-year-old male presents by ambulance from a half-way with note of vomiting and concern for bowel obstruction. Patient is a ventilator dependent patient with a tracheostomy and a PEG tube and has difficulty communicating secondary to this but does note pain all over. He is a quadriplegic and cannot point at the area that is bothering him. CBC/BMP: 12/30/16 1250 12/30/16 1250 Significant Findings Laboratory Tests Test 12/29/16 04:37 12/30/16 12:50 Red Blood Count 3.70 MIL/MM3 (4.50-5.90) 3.81 MIL/MM3 (4.50-5.90) Hemoglobin 8.9 GM/DL (13.0-17.0) 9.2 GM/DL (13.0-17.0) Hematocrit 28.0 % (39.0-51.0) 29.1 % (39.0-51.0) Mean Corpuscular Volume 75.7 FL (80.0-100.0) 76.2 FL (80.0-100.0) Mean Corpuscular Hemoglobin 24.0 PG (27.0-34.0) 24.1 PG (27.0-34.0) Mean Corpuscular Hemoglobin Concent 31.7 % (32.0-36.0) 31.6 % (32.0-36.0) Red Cell Distribution Width 19.8 % (11.6-17.2) 20.0 % (11.6-17.2) Neutrophils (%) (Auto) 73.5 % (16.0-70.0) Eosinophils (%) (Auto) 4.2 % (0.0-4.0) Neutrophils # (Auto) 7.9 TH/MM3 (1.8-7.7) Creatinine 0.37 MG/DL (0.60-1.30) 0.43 MG/DL (0.60-1.30) Random Glucose 121 MG/DL (74-106) 121 MG/DL (74-106) Total Protein 8.3 GM/DL (6.4-8.2) Albumin 2.6 GM/DL (3.4-5.0) Alkaline Phosphatase 123 U/L (45-117) Alanine Aminotransferase (ALT/SGPT) 86 U/L (12-78) Total Bilirubin LESS THAN 0.1 MG/DL Chloride Level 109 MEQ/L (98-107) Anion Gap 4 MEQ/L (5-15) Imaging KUB 10/4: Dilated small bowel loops in midabdomen KUB 10/2 persistent SB distention in mid abdomen KUB 10/1 Gaseous distention of several SB loops ? SBO CT abdomen: Gaseous distention of the colon. There is oral contrast which has passed through the colon nearly down to the ostomy. Incidental note is made of an IVC filter. Multiple loops of moderately dilated, fluid-filled small bowel. PE at Discharge GENERAL: Elderly appearing gentleman on ventilator via tracheostomy with contractures in all 4 extremities. SKIN: Warm and dry. HEAD: Normocephalic. EYES: No scleral icterus. No injection or drainage. NECK: Supple, trachea midline. No JVD or lymphadenopathy. Tracheostomy in midline CARDIOVASCULAR: Regular rate and rhythm without murmurs, gallops, or rubs. RESPIRATORY: Breath sounds equal bilaterally. No accessory muscle use. GASTROINTESTINAL: Abdomen tender to palpation in all 4 quadrants, voluntary guarding. No rigidity. Distended and soft MUSCULOSKELETAL: No neck and peripheral edema. Contractures in all 4 extremities NEURO EXAM: Quadriplegic with contractures all 4 extremity's. Nods head to commands. Attempts to speak with voice Transfer Summary See hospital course Hospital Course 56-year-old male presents by ambulance from a half-way with note of vomiting and concern for bowel obstruction. Patient is a ventilator dependent patient with a tracheostomy and a PEG tube and has difficulty communicating secondary to this but does note pain all over. He is a quadriplegic and cannot point at the area that is bothering him. 12/21 Patient is on ventilator via trach awake and alert. afebrile. WBC is trending down. 12/22 No events overnight. Awake and alert. On Ventilator via trach. 12/23 Patient remains on ventilator via trach. Afebrile. On no sedation. Awake. 12/24 No events overnight. On Ventilator via trach. Afebrile. 12/25 No events overnight. Afebrile. WBC is trending down. 12/26 no events overnight. Awake, on no sedation. For small bowel series with Gastrografin today. 12/27: Afebrile. Patient refused Gastrografin enema yesterday. Abdomen remains distended and firm. Patient refusing a additional x-rays and additional lab draws. Nods head that his goals are to be kept comfortable. 12/28: Appreciate palliative care. Goals remain aggressive. Abdomen distended however less according to GI. Patient requesting additional pain medication however this will make his underlying ileus worse. Laboratories were performed today. Wants to eat. 12/29: Tmax 99.3. Requesting oral intake. I gave him a few ice chips. Abdomen distended but tolerating tube feeds at goal. Positive BM. 12/30: Remains on Vent on CPAP. ID has started Meropenem (ESBL, PSAE in sputum). Ileus is improving on KUB and clinically. 12/31: On CPAP, able to communicate. Clinically and radiologically improved ileus. Positive BM. Cleared for DC to [place] by ID and yoana TOMLINSON from [facility] stand point In summary patients ileus was treated in consult with Gi and has clinically improved. Sepsis due to aspiration pneumonia and UTI improved. Continued ABX at [place] ordered by Dr. Nava. Will transfer back to [place] today Pt Condition on Discharge: Stable Discharge Disposition: Discharge to SNF Discharge Instructions DIET: Follow Instructions for: On Tube Feeding Activities you can perform: Regular-No Restrictions, See Additionl Instruction (Per Previous [place] activity/PT) New Medications: Epinephrine Inj (Epinephrine Inj) 1 Mg/Ml (1 Ml) Inj 0.3 MG IV PUSH ONCE PRN for ALLERGIC REACTION, #1 VIAL Epinephrine Inj (Epinephrine Inj) 1 Mg/Ml (1 Ml) Inj 0.3 MG SQ ONCE PRN for ALLERGIC REACTION, #1 VIAL Give with any signs of respiratory distress. Ertapenem Inj (Invanz Inj) 1 Gm Addvial 1 GM IV Q24H for Infection for 5 Days, INJECTION 0 Refills ADMINISTER IN 100ML NS Hydrocortisone Inj (Solu-Cortef Inj) 250 Mg/2 Ml Inj 250 MG IV PUSH ONCE PRN for ALLERGIC REACTION, #1 VIAL 0 Refills Give over 30-60 seconds. Levofloxacin (Levaquin) 500 Mg Tablet 500 MG PO DAILY for Infection for 5 Days, #5 TAB 0 Refills Continued Medications: Acetaminophen (Tylenol) 325 Mg Tab 650 MG G-TUBE Q6H PRN for PAIN 1-10 AND/OR FEVER >101F, TAB 0 Refills Ascorbic Acid (Ascorbic Acid) 500 Mg Tab 500 MG G-TUBE DAILY for Nutritional Supplement, TAB Baclofen (Baclofen) 10 Mg Tab 10 MG G-TUBE TID for Muscle Spasm, TAB 0 Refills Buspirone (Buspirone) 5 Mg Tab 5 MG G-TUBE TID for Anxiety, TAB [address] (Cymbalta DR) 60 Mg Capdr 60 MG G-TUBE DAILY, #30 CAP 0 Refills Famotidine (Pepcid) 20 Mg Tab 20 MG G-TUBE Q12HR for ULCERS, #60 TAB 0 Refills Heparin Sodium,Porcine/Pf (Heparin Sod 5,000 Unit/ 0.5 ml) 5,000 Unit/0.5 Ml Vial 5000 UNITS SQ Q8HR for Anticoagulation Therapy Ipratropium-Albuterol Neb (Duoneb) 0.5-2.5 Mg/3 Ml Neb 3 ML NEB Q3HR PRN for WHEEZING, #30 NEBULE 0 Refills Ipratropium-Albuterol Neb (Duoneb) 0.5-2.5 Mg/3 Ml Neb 3 ML NEB QID for Wheezing, #30 NEBULE 0 Refills Lorazepam (Ativan) 1 Mg Tab 1 MG G-TUBE Q6HR PRN for ANXIETY, TAB 0 Refills Midodrine (Midodrine) 5 Mg Tab 5 MG G-TUBE TID for HTN, #90 TAB 0 Refills Mirtazapine (Remeron) 15 Mg Tab 15 MG G-TUBE HS for Depression Control, #30 TAB 0 Refills Multiple Vitamins W/ Minerals (Multi-Vitamin/Minerals) 1 Tab Tab 1 TAB G-TUBE DAILY for Nutritional Supplement Ondansetron (Zofran) 4 Mg Tab 4 MG G-TUBE Q6HR PRN for NAUSEA OR VOMITING, TAB 0 Refills Oxycodone (Oxycodone) 5 Mg Tab 5 MG PEG Q6HR PRN for PAIN, TAB 0 Refills Polyethylene Glycol 3350 (Miralax) 17 Gram Powd.pack 17 GM G-TUBE DAILY for Constipation Sennosides (Senna-Tabs) 8.6 Mg Tab 17.2 MG G-TUBE BID for Constipation, #30 TAB 0 Refills Silver Sulfadiazine Topical (Silvadene Topical) 1 % Cream 1 APPLIC TOPICAL DAILY for Wound Management, #50 GM 0 Refills Apply to suprapubic site every day shift after nss wash then cover w/dry drsg-apply calciumm alginate as needed Trazodone (Trazodone) 150 Mg Tablet 150 MG PO HS for Insomnia, #30 TAB 0 Refills Discontinued Medications: Acetaminophen Supp (Acetaminophen Supp) 650 Mg Supp 650 MG RECTAL Q6H PRN for PAIN 1-10 AND/OR FEVER >101F, SUPP 0 Refills Metoprolol Tartrate (Metoprolol Tartrate) 25 Mg Tab 12.5 MG G-TUBE BID for HTN, #60 TAB 0 Refills Sodium Chloride Flush (Sodium Chloride Flush) 0.9 % Inj 10 ML IV FLUSH MONTHLY for IV Line Flush, #1 VIAL 0 Refills For infusaport maintenance-access infusaport to rt upper chest area w/tan needle and flush w/10ml NSS on day shift every 30 days [D5%-Nss Soln] () 50 ML IV EVERY SHIFT PRN for Dehydration from N/V 50ML/HR Kacy Mackay MD Dec 31, 2016 11:22
--- NOTE | 2016-12-31 14:05 | HHI.HCPN ---
Reason for visit a. To assist with evaluation and management of symptoms including: pain, b. To assist medical decision maker(s) with: better understanding of current medical conditions; weighing benefits/burdens of medical treatment options; making medical treatment decisions. . Subjective/Interval History Pt is alert and oriented and anxious to leave the hospital. Goals of care remains the same. No other complaints today. RN in the room witnessed designation of healthcare surrogate, in which he used his mouth to sign documentation. This was witnessed. Family/friend interactions No family in the room. Advance Directives Living Will: Never completed Health Care Surrogate: Never completed Durable Power of Heavy Lift Rigger: Never completed Advance Directive Specifics Date completed: No advance directive to my knowledge. . Health Care Surrogate(s): Patient verbally tells me he wants his mother to be his health care surrogate. He is unable to sign paperwork. . Documented care wishes: No writtent documentation of health care preferences/wishes/ . Objective Vital Signs Date Time Temp Pulse Resp B/P (MAP) Pulse Ox O2 Delivery O2 Flow Rate FiO2 12/31/16 12:00 98.9 76 20 120/71 (87) 95 12/31/16 12:00 35 12/31/16 12:00 76 12/31/16 11:03 97 35 12/31/16 11:00 84 14 112/63 (79) 96 12/31/16 10:00 117 21 124/64 (84) 97 12/31/16 10:00 117 12/31/16 09:00 64 12/31/16 09:00 64 37 159/83 (108) 100 12/31/16 08:00 68 12/31/16 08:00 35 12/31/16 08:00 98.7 68 38 155/79 (104) 91 12/31/16 07:45 99 35 12/31/16 07:45 35 12/31/16 07:40 100 35 12/31/16 07:00 58 36 146/77 (100) 99 12/31/16 06:00 82 12/31/16 04:00 63 12/31/16 04:00 35 12/31/16 04:00 98.3 63 18 139/75 (96) 97 12/31/16 03:31 96 35 12/31/16 02:00 80 12/31/16 00:00 35 12/31/16 00:00 79 12/31/16 00:00 98.2 79 28 108/66 (80) 93 12/30/16 23:56 94 35 12/30/16 22:00 90 12/30/16 21:28 95 35 12/30/16 20:00 73 12/30/16 20:00 35 12/30/16 20:00 98.1 73 22 151/83 (105) 97 12/30/16 18:00 95 12/30/16 16:00 99 12/30/16 16:00 35 12/30/16 16:00 98.7 99 36 120/67 (84) 99 12/30/16 15:11 99 35 12/30/16 15:00 112 39 101/57 (72) 99 12/30/16 14:00 81 40 164/85 (111) 100 12/30/16 14:00 69 Intake & Output 12/31/16 12/31/16 07:00 19:00 Intake Total 655 ml Output Total 650 ml Balance 5 ml Tube Feeding 655 ml Output Urine Total 550 ml Stool Total 100 ml Physical Exam CONSTITUTIONAL/GENERAL: This is an adequately nourished quadrigplegic vent-to - trach in the MICU. He tries to mouth words but communication is VERY challenging. He is able to smile and is in no apparent distress. TUBES/LINES/DRAINS: Tracheostomy; suprapubic catheter; peripheral IV; PEG; colostomy SKIN: No jaundice, rashes, or lesions anteriorly. . No wounds seen anteriorly. Skin temperature appropriate. Not diaphoretic. HEAD: Atraumatic. Normocephalic. EYES: Pupils equal and round and reactive. Extraocular motions intact. No scleral icterus. Left conjunctiva injected. Fundi not examined. ENT: Hearing grossly normal. Nose without bleeding or purulent drainage. Throat without visible erythema, exudates, masses, or lesions. Tracheostomy. NECK: Trachea midline with tracheostomy in place. . No palpable thyroid enlargement or nodularity but neck difficult to palpate due to trach and obesity. . CARDIOVASCULAR: Regular rate and rhythm without murmurs, gallops, or rubs. No JVD. Peripheral pulses symmetric. RESPIRATORY/CHEST: Symmetric, unlabored respirations. Clear to auscultation. Breath sounds equal bilaterally. No wheezes, rales, or rhonchi. GASTROINTESTINAL: Abdomen soft, mildly distended, mild diffuse tenderness. No hepato-splenomegaly, or palpable masses. No guarding. Bowel sounds present. GENITOURINARY: Without palpable bladder distension. Suprapubic catheter in place. MUSCULOSKELETAL: Contractures in all 4 extremities which are also atrophied. . Extremities without clubbing, cyanosis, or edema. No mottling. LYMPHATICS: No palpable cervical or supraclavicular adenopathy. NEUROLOGICAL: Awake and alert. Quadriplegia. Follows commands. Cognitively sharp though communication VERY difficult PSYCHIATRIC: No obvious anxiety/depression. No apparent hallucinations or other psychotic thought process. . Diagnostic Tests Laboratory Laboratory Tests Test 12/29/16 04:37 12/30/16 12:50 White Blood Count 10.7 TH/MM3 (4.0-11.0) 9.6 TH/MM3 (4.0-11.0) Red Blood Count 3.70 MIL/MM3 (4.50-5.90) 3.81 MIL/MM3 (4.50-5.90) Hemoglobin 8.9 GM/DL (13.0-17.0) 9.2 GM/DL (13.0-17.0) Hematocrit 28.0 % (39.0-51.0) 29.1 % (39.0-51.0) Mean Corpuscular Volume 75.7 FL (80.0-100.0) 76.2 FL (80.0-100.0) Mean Corpuscular Hemoglobin 24.0 PG (27.0-34.0) 24.1 PG (27.0-34.0) Mean Corpuscular Hemoglobin Concent 31.7 % (32.0-36.0) 31.6 % (32.0-36.0) Red Cell Distribution Width 19.8 % (11.6-17.2) 20.0 % (11.6-17.2) Platelet Count 287 TH/MM3 (150-450) 257 TH/MM3 (150-450) Mean Platelet Volume 7.2 FL (7.0-11.0) 7.7 FL (7.0-11.0) Neutrophils (%) (Auto) 73.5 % (16.0-70.0) Lymphocytes (%) (Auto) 15.2 % (9.0-44.0) Monocytes (%) (Auto) 6.7 % (0.0-8.0) Eosinophils (%) (Auto) 4.2 % (0.0-4.0) Basophils (%) (Auto) 0.4 % (0.0-2.0) Neutrophils # (Auto) 7.9 TH/MM3 (1.8-7.7) Lymphocytes # (Auto) 1.6 TH/MM3 (1.0-4.8) Monocytes # (Auto) 0.7 TH/MM3 (0-0.9) Eosinophils # (Auto) 0.4 TH/MM3 (0-0.4) Basophils # (Auto) 0.0 TH/MM3 (0-0.2) CBC Comment DIFF FINAL Differential Comment Blood Urea Nitrogen 12 MG/DL (7-18) 11 MG/DL (7-18) Creatinine 0.37 MG/DL (0.60-1.30) 0.43 MG/DL (0.60-1.30) Random Glucose 121 MG/DL (74-106) 121 MG/DL (74-106) Total Protein 8.3 GM/DL (6.4-8.2) Albumin 2.6 GM/DL (3.4-5.0) Calcium Level 9.3 MG/DL (8.5-10.1) 9.1 MG/DL (8.5-10.1) Phosphorus Level 3.4 MG/DL (2.5-4.9) 3.2 MG/DL (2.5-4.9) Magnesium Level 2.1 MG/DL (1.5-2.5) 2.0 MG/DL (1.5-2.5) Alkaline Phosphatase 123 U/L (45-117) Aspartate Amino Transf (AST/SGOT) 21 U/L (15-37) Alanine Aminotransferase (ALT/SGPT) 86 U/L (12-78) Total Bilirubin LESS THAN 0.1 MG/DL Sodium Level 144 MEQ/L (136-145) 144 MEQ/L (136-145) Potassium Level 3.5 MEQ/L (3.5-5.1) 3.5 MEQ/L (3.5-5.1) Chloride Level 109 MEQ/L (98-107) 107 MEQ/L (98-107) Carbon Dioxide Level 30.8 MEQ/L (21.0-32.0) 30.0 MEQ/L (21.0-32.0) Anion Gap 4 MEQ/L (5-15) 7 MEQ/L (5-15) Estimat Glomerular Filtration Rate 297 ML/MIN (>89) 250 ML/MIN (>89) Total Creatine Kinase 78 U/L (39-308) Result Diagram: 12/30/16 1250 12/30/16 1250 Imaging Last Impressions Chest X-Ray 12/30/16 0600 Signed Impressions: Service Date/Time: Friday, December 30, 2016 04:13 - CONCLUSION: No significant interval change Thompson Khan MD Abdomen X-Ray 12/30/16 0600 Signed Impressions: Service Date/Time: Friday, December 30, 2016 04:18 - CONCLUSION: Improved bowel gas pattern Thompson Khan MD Small Bowel X-Ray 12/26/16 0000 Signed Impressions: Service Date/Time: December 09:09 - CONCLUSION: Nondiagnostic exam secondary to patient termination. Walter Moura MD Abdomen/Pelvis CT 12/20/16 1005 Signed Impressions: Service Date/Time: Tuesday, December 20, 2016 16:56 - CONCLUSION: 1. There are bibasilar areas of atelectasis. 2. There is gaseous distention of the colon. There is oral contrast which has passed through the colon nearly down to the ostomy. 3. Incidental note is made of an IVC filter. 4. Note is made of multiple loops of moderately dilated, fluid-filled small bowel. Brett Iniguez MD Assessment and Plan Disease Oriented Problem List: (1) Quadriplegia (2) Pneumonia Comment: Gram negative growing in sputum of 12/26/16 . (3) Small bowel obstruction, partial (4) UTI (urinary tract infection) (5) Sepsis (6) Hyponatremia Symptom Scale: (1) Pain 0-10 Scale: Unable to quantify Comment: Patient has been complaining of pain "all over." Unclear what he is able to actually feel below the neck. . (2) Nausea & vomiting 0-10 Scale: Unable to quantify Comment: Improving. . Pertinent Non-Medical Issues Psychosocial: Mother in [place]. Reportedly has 4 children. No one visits. Spiritual: Self-identifies as Pentecostal per face sheet from [employer]. Legal: Wants his mother to serve as health care surrogate. Ethical issues impacting care: None known,. . Important Contacts Lindsey Mendes (Mother -- patient has verbally said he wants his mother to serve as health care surrogate -- she speaks only Creole) [phone] . Prognosis Patient with quadriplegia. If he permits aggressive care we should be able to get him through this partial small bowel obstruction. Patient will be at ongoing risk for UTI's, pneumonia, skin breakdown -- common complications of spinal cord injury patients. . Code Status: Full Code Plan == code status: FULL CODE. Patient was able to confirm that he wanted ongoing aggressive care including chest compressions; shock; pressors. == Decision making: Patient is capacitated to make his own health care decisions. == Health Care Surrogate is mother Lindsey Mendes. == Goals of medical treatment: aggressive. Not ready to transition to comfort measures. == Symptoms * Pain: Continue oxycodone for pain, He also has baclofen for spasms. * * Dyspnea. Currently comfortable on the vent. Has gram neg bacteria in sputum. On antibiotics. No further recommendations at this time. == Will try and get old records == Patient will be discharged today. Time Spent Total Floor Time (mins): 25 Face to Face Time (mins): 20 >50% Counseling/Coord of Care: Yes Attestation To help prompt me to consider important information that might be impacting today's encounter and assessment, information from prior notes written by myself or my colleagues may have been "brought forward" into today's note. My signature on this note, however, is an attestation that I personally performed the exam, history, and/or decision-making noted today, and, unless otherwise indicated, the interactions with patient, family, and staff as well as the review of records all occurred today. I also attest that the listed assessment and stated plan reflect my best clinical judgment today based on the combination of historical information, prior notes, and today's exam/ interactions. When time spent is documented, it refers only to time spent today by the signer, or if indicated, combined time spent today by collaborating physician/nurse practitioner. Rafael Chu MD Dec 31, 2016 14:05
[2016-12-31] MEDS ORDERED: RESP: ALBUTEROL 2.5 MG/IPRATROPIUM 0.5 MG NEB (SCH) NEB (16:00)
== END 2016-12-31 16:35 | DRG 870 ==
LOC: NEPE 09:37 → NEDA 17:55 → HIMN 23:53
PROVIDERS: ADMIT Internal Medicine Critical Care Medicine; ATTEND Internal Medicine Critical Care Medicine
PROC: 5A1955Z Respiratory Ventilation, Greater than 96 Consecutive Hours (ICD-10-PCS; principal; 2016-12-20)
DX: A41.9 Sepsis, unspecified organism (principal); J69.0 Pneumonitis due to inhalation of food and vomit; G82.50 Quadriplegia, unspecified; Z99.11 Dependence on respirator [ventilator] status; L89.154 Pressure ulcer of sacral region, stage 4; J15.0 Pneumonia due to Klebsiella pneumoniae; J15.1 Pneumonia due to Pseudomonas; K56.690 Other partial intestinal obstruction; J96.10 Chronic respiratory failure, unspecified whether with hypoxia or hypercapnia; E87.1 Hypo-osmolality and hyponatremia; N39.0 Urinary tract infection, site not specified; E87.0 Hyperosmolality and hypernatremia; L89.029 Pressure ulcer of left elbow, unspecified stage; D64.9 Anemia, unspecified; F32.9 Major depressive disorder, single episode, unspecified; E87.6 Hypokalemia; B96.89 Other specified bacterial agents as the cause of diseases classified elsewhere; Z93.0 Tracheostomy status; I10 Essential (primary) hypertension; I95.1 Orthostatic hypotension; Z51.5 Encounter for palliative care; Z16.12 Extended spectrum beta lactamase (ESBL) resistance; Z93.3 Colostomy status; Z93.1 Gastrostomy status; Z79.891 Long term (current) use of opiate analgesic; S14.109S Unspecified injury at unspecified level of cervical spinal cord, sequela; Z88.1 Allergy status to other antibiotic agents
CPT/HCPCS: 36600; 71010; 74000; 74177; 74250; 76937; 80048; 80053; 80202; 81001; 82140; 82550; 82552; 82805; 82948; 83605; 83690; 83735; 84100; 84132; 84484; 85007; 85025; 85027; 85610; 85730; 87040; 87070; 87077; 87086; 87186; 87205; 87449; 87641; 94002; 94003; 94640; 94664; 96365; 96366; 96368; A7521; J0360; J0456; J0692; J1644; J2185; J2543; J2765; J3370; J3475; J3480; J7030; J7040; J7050; J7685; Q9967

== ENCOUNTER 2017-04-25 22:12 | Inpatient (IN) | payer MEDICARE, OTHER ==
[~2017-04-25 22:12] MED LIST: ASCO500T G-TUBE; BACL10TA G-TUBE; BUSP5TAB G-TUBE; CYMB60CA G-TUBE; EPIN1INJ21 IV PUSH; EPIN1INJ21 SQ; FAMO1TAB37 G-TUBE; INVA1INJ IV; IPRASOL NEB; LEVA500T33 PO; LORA-474 G-TUBE; MIDO5TAB G-TUBE; MULTTAB62 G-TUBE; OXYC-392 PEG; POLY17PO3 G-TUBE; REME15TA G-TUBE; SENN8.6T36 G-TUBE; SILV1CRE20 TOPICAL; SOLU250I IV PUSH; TRAZ1TAB14 PO; TYLE325T G-TUBE; ZOFR4TAB G-TUBE; [UNRECOGNIZED DRUG - CODE] SQ
[2017-04-25 22:18] VITALS: O2SAT 100
[2017-04-25 22:35] VITALS: BP 154/88; PULSE 121; RESP 16; TEMP 102; O2SAT 100
--- NOTE | 2017-04-25 23:11 | RADRPT ---
EXAM DATE/TIME: 04/25/2017 22:53 [facility] COMPARISON: CHEST SINGLE AP, December 30, 2016, 4:13. INDICATIONS : Fever. MEDICAL HISTORY : Ventilator dependant, Quadrapalegic SURGICAL HISTORY : Colostomy, Peg tube ENCOUNTER: Initial ACUITY: 1 day PAIN SCORE: Non-responsive. LOCATION: Bilateral chest FINDINGS: Tracheostomy tube again noted. Shallow lung findings with basilar consolidation again noted. No defin ite effusion. Osseous structures are intact. ACDF hardware again noted. CONCLUSION: No significant change has occurred. Ilya Nash MD on April 25, 2017 at 23:08 Board Certified Radiologist. This report was verified electronically.
[2017-04-25 23:30] VITALS: BP 158/81; PULSE 110; RESP 16; O2SAT 100
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
[2017-04-25 23:39] LABS: AUTOMATED NEUTROPHIL # 15.1 TH/MM3 (1.8-7.7); BASOPHIL # 0.1 TH/MM3 (0-0.2); BASOPHIL % 0.6 % (0.0-2.0); EOSINOPHIL # 0.2 TH/MM3 (0-0.4); EOSINOPHIL % 1.2 % (0.0-4.0); HEMOGLOBIN 7.5 GM/DL (13.0-17.0); LYMPH % 8.7 % (9.0-44.0); LYMPHOCYTE # 1.6 TH/MM3 (1.0-4.8); MEAN CELL VOLUME 68.7 FL (80.0-100.0); MEAN CORPUSCULAR HEMOGLOBIN 21.4 PG (27.0-34.0); MEAN CORPUSCULAR HGB CONC 31.2 % (32.0-36.0); MONO % 5.8 % (0.0-8.0); NEUT % 83.7 % (16.0-70.0); PLATELET COUNT 381 TH/MM3 (150-450); RED CELL DISTRIBUTION WIDTH 19.8 % (11.6-17.2); WHITE BLOOD COUNT 18.1 TH/MM3 (4.0-11.0)
[2017-04-25] MEDS ORDERED: MORPHINE SULFATE 2 MG/ML INJ IV PUSH ONE (23:45)
[2017-04-25] MEDS ORDERED: SODIUM CHLOR 0.9% 1000 ML INJ 1,000 ML IV ONE (23:45)
[2017-04-25 23:50] LABS: PROTHROMBIN TIME - PATIENT 9.7 SEC (9.8-11.6)
[2017-04-25 23:54] LABS: BACTERIA, URINE MOD /hpf; BILIRUBIN, URINE NEG (NEG); BLOOD, URINE SMALL (NEG); GLUCOSE,URINE NEG (NEG); KETONE, URINE NEG (NEG); MUCUS URINE FEW /lpf (OCC); NITRITE,URINE POS (NEG); PH, URINE 6.5 (5.0-8.5); URINE COLOR YELLOW (YELLW/STRAW); URINE LEUKOCYTE ESTERASE MOD (NEG); WHITE BLOOD CELL CLUMPS RARE
--- NOTE | 2017-04-25 23:55 | RADRPT ---
EXAM DATE/TIME: 04/25/2017 23:41 [facility] COMPARISON: CHEST SINGLE AP, April 25, 2017, 22:53. INDICATIONS : Post Central Line placement MEDICAL HISTORY : Vent dependent, Quadraplegic SURGICAL HISTORY : Colostomy, PEG tube ENCOUNTER: Initial ACUITY: 1 day PAIN SCORE: 7/10 LOCATION: Bilateral chest FINDINGS: Tracheostomy tube is noted. A right sided portacatheter is present and the tip overlies the SVC. Righ t jugular line tip overlies the SVC. Consolidation in the left lower lobe with diminished lung findin gs bilaterally. No obvious pneumothorax on this semiupright film. CONCLUSION: Central line placement as above. Ilya Nash MD on April 25, 2017 at 23:53 Board Certified Radiologist. This report was verified electronically.
[2017-04-25 23:58] LABS: ALBUMIN 2.8 GM/DL (3.4-5.0); AST (GOT) 40 U/L (15-37); BICARBONATE 25.7 MEQ/L (21.0-32.0); BLOOD UREA NITROGEN 13 MG/DL (7-18); CALCIUM 8.8 MG/DL (8.5-10.1); CHLORIDE 95 MEQ/L (98-107); CREATININE 0.57 MG/DL (0.60-1.30); GLOMERULAR FILTRATION RATE 180 ML/MIN (>89); GLUCOSE,RANDOM 215 MG/DL (74-106); MAGNESIUM 2.1 MG/DL (1.5-2.5); SODIUM (NA) 131 MEQ/L (136-145)
[2017-04-26] VITALS (22 sets, daily range): BP systolic 91–156; BP diastolic 54–94; PULSE 75–116; RESP 16–22; TEMP 98–101.4; O2SAT 94–100
[2017-04-26] LABS: LACTIC ACID SEPSIS PROTOCOL 2.1 mmol/L (0.4-2.0)
[2017-04-26] MEDS ORDERED: KETOROLAC TROMETHAMINE 30 MG/ML (IVP) VIAL IV PUSH ONE
[2017-04-26 00:02] LABS: ALKALINE PHOSPHATASE 490 U/L (45-117); ALT (GPT) 180 U/L (12-78); PHOSPHORUS 1.9 MG/DL (2.5-4.9); TROPONIN I LESS THAN 0.02 NG/ML (0.02-0.05)
[2017-04-26] MEDS ORDERED: IOHEXOL 350 MG/ML 10 ML VIAL (for RAD DIAG) IVCONTRAST ONE (01:16)
[2017-04-26] MEDS ORDERED: NEUR300C PO (01:35)
[2017-04-26] MEDS ORDERED: ZOSY3.375P IV (01:35)
[2017-04-26] MEDS ORDERED: METO25TA3 PO (01:35)
[2017-04-26] MEDS ORDERED: VANC1000P IV (01:35)
[2017-04-26] MEDS ORDERED: LORA-474 PO (01:35)
[2017-04-26] MEDS ORDERED: IPRASOL INH ×2 (01:35)
--- NOTE | 2017-04-26 01:40 | RADRPT ---
EXAM DATE/TIME: 04/26/2017 01:13 [place] COMPARISON: CT ABDOMEN & PELVIS W CONTRAST, December 20, 2016, 16:56. INDICATIONS : Abdominal pain with fever. IV CONTRAST: 100 cc Omnipaque 350 (iohexol) IV ORAL CONTRAST: No oral contrast ingested. RADIATION DOSE: 13.48 CTDIvol (mGy) MEDICAL HISTORY : Non-responsive. SURGICAL HISTORY : None. ENCOUNTER: Initial ACUITY: 1 day PAIN SCALE: Non-responsive LOCATION: abdomen TECHNIQUE: Volumetric scanning of the abdomen and pelvis was performed. Using automated exposure control and ad justment of the mA and/or kV according to patient size, radiation dose was kept as low as reasonably achievable to obtain optimal diagnostic quality images. DICOM format image data is available electro nically for review and comparison. FINDINGS: Osseous structures are intact. There is a decubitus ulcer the left ischial region with focal ulcerati on, skin thickening and sclerosis and hypertrophic changes of the fascial tuberosity, seen best on ax ial image 89 of the bone windows. This can be seen with chronic osteomyelitis in the appropriate clin ical setting. There is a large left pleural effusion and consolidation is noted in both lower lobes w ith air bronchogram formation seen. There is a low-density lesion in the right lobe of the liver post eriorly measuring 9.1 mm ultrasound a small cyst, stable. Gallbladder, spleen, pancreas, adrenals unr emarkable. Subcentimeter left upper pole renal cyst and a 3.6 cm right lower pole renal cyst. Broderick c atheter is noted within the urinary bladder. Prostatic calcifications are noted. A left lower quadran t colostomy is seen with a stomal hernia containing fat. IVC filter is noted. There is trace perisple amari fluid. Percutaneous gastrostomy tube is in place. There are dilated loops of small bowel mid abdo men identified without discrete transition point. An ileus versus developing obstruction may have thi s appearance. CONCLUSION: Probable ileus versus developing small bowel obstruction with dilated small bowel loops identified an d no discrete transition point, however close clinical and radiographic followup is advised. Left ple ural effusion and bilateral lower lobe consolidation. Renal cysts. Small amount of free fluid. Decubi tus ulcer with underlying sclerosis and hypertrophic changes of the left ischial tuberosity. Ilya Nash MD on April 26, 2017 at 1:33 Board Certified Radiologist. This report was verified electronically.
--- NOTE | 2017-04-26 03:16 | HHI.HP ---
[facility] Service Critical Care Medicine Primary Care Physician Ronald Bueno MD Admission Diagnosis SIRS, Vent dependent. Diagnosis: (1) Chronic respiratory failure Diagnosis: Secondary (2) Quadriplegia Diagnosis: Secondary (3) Anxiety Diagnosis: Secondary (4) Depression Diagnosis: Secondary (5) Chronic pain Diagnosis: Secondary (6) Pleural effusion on left Diagnosis: Secondary (7) HCAP (healthcare-associated pneumonia) Diagnosis: Principal (8) Tracheostomy present Diagnosis: Secondary (9) Ileus Diagnosis: Secondary (10) PEG tube malfunction Diagnosis: Secondary (11) Suprapubic catheter Diagnosis: Secondary (12) Port catheter in place Diagnosis: Secondary (13) Presence of IVC filter Diagnosis: Secondary (14) Elbow wound Diagnosis: Secondary (15) Sacral decubitus ulcer, stage IV Diagnosis: Secondary Travel History International Travel<30 Days: No Contact w/Intl Traveler <30 Da: No Sepsis Criteria SIRS Criteria (2 or more): Temp > 100.9 or < 96.8, Heart rate over 90, WBC > 90191, < 4000 or > 10% bands Sepsis Criteria (SIRS+source): Infect source susp/known Severe Sepsis (+one): Lactate >2 Criteria Outcome: Meets severe sepsis criteria History of Present Illness 57-year-old male with past medical history of spinal cord injury resulting in quadriplegia, s/p trach/PEG with vent dependency, ostomy, HTN, sacral and left elbow decubitus ulcers, chronic indwelling suprapubic catheter, depression, anxiety, port right chest, IVC filter who was sent to [facility] emergency department from [facility] due to fever 103.8 and ( per MD transfer documentation "highly agitated after getting medication for agitation"). Patient is alert on vent and difficult historian but does mouth some words and helps provide some limited history. Records indicate that he was started on Zosyn and vancomycin on 04/23/17 "for ESBL and Proteus mirabilis sacral wound/osteomyelitis x 6weeks", on isolation for "MRSA elbow". White blood cell count is elevated at 18.1. Hemoglobin is 7.5. Lactic acid is 2.1. Transaminases and alkaline phosphatase are elevated. Lipase is normal. CT abdomen and pelvis demonstrates bilateral lower lobe consolidations, moderate left pleural effusion. PEG tube is in place but there is dilation of the small bowel in the mid abdomen without discrete transition point; probable ileus versus developing small bowel obstruction. There is sclerosis and hyper trophic changes of the left ischial tuberosity which can be seen and chronic osteomyelitis. Gallbladder is unremarkable. In the emergency department patient was maintained on chronic ventilator settings with pressure SIMV. He was given Toradol 30 mg IV, morphine 4 mg IV, 1 L normal saline bolus. PEG was noted to be obstructed by ED physician who was unable to flush using soda. Patient refused NG tube. Patient does repeatedly request both oral and trach suctioning. He does reports some mild increase in respiratory secretions. Review of Systems ROS Limitations: Clinical Condition, Speech Impaired (trach) Past Family Social History Allergies: Coded Allergies: levofloxacin (Verified Allergy, Unknown, 04/25/17) PER [facility] AT [facility] Past Medical History Quadriplegia following spinal cord injury in 2009 Chronic vent dependent respiratory failure with tracheostomy Hypertension Chronic opioid use Sacral decubitus ulcer present on admission, Left elbow decubitus ulcer present on admission Indwelling port right chest Anxiety Depression Ostomy Chronic suprapubic catheter PEG Prior ileus Past Surgical History Ostomy (patient states was in 2009) Port placement right chest IVC filter Suprapubic catheter placed in 2009 PEG Reported Medications Neurontin 300 mg per tube daily at bedtime Oxycodone 6 mg every 6 hours as needed for pain Senna 8.62 tabs twice a day Silvadene apply to sacral decubitus Trazodone 150 mg daily at bedtime Vancomycin 1 g IV every 12 hours ordered 04/23/17 Zosyn 3.375 IV 4 times per day for 6 weeks 04/23/17 Act within 10 mg per tube 3 times a day BuSpar 5 mg per PEG 3 times a day Duloxetine 60 mg per PEG daily DuoNeb via trach every 3 hours as needed Famotidine 20 mg per tube 3 times a day MiraLAX 17 g per tube daily Heparin 5000 units subcutaneous every 8 hours Metoprolol 12.5 mg per tube twice a day Midrin 5 mg per tube 3 times a day Mirtazapine 15 mg per tube daily at bedtime Multivitamin 1 tab per tube daily Acetic acid 2% applied to left ischium/sacrum daily Ascorbic acid 500 mg per tube daily Regular diet Isosource 1.562 cc per hour 16 hours per day Prostat 45 ml per peg TID Family History Unable to obtain secondary to patient's clinical condition Social History Unable to obtain secondary to patient's clinical condition Physical Exam Vital Signs Vital Signs Date Time Temp Pulse Resp B/P (MAP) Pulse Ox O2 Delivery O2 Flow Rate FiO2 04/26/17 02:01 101.4 98 16 138/72 (94) 100 Ventilator 04/26/17 01:40 100 30 04/26/17 01:10 100 100 04/26/17 01:00 94 16 142/72 (95) 100 Ventilator 04/26/17 00:21 108 16 100 Ventilator 04/26/17 00:21 100 Ventilator 04/26/17 00:00 106 16 156/77 (103) 99 Ventilator 04/25/17 23:30 110 16 158/81 (106) 100 Room Air 04/25/17 22:35 102.0 121 16 154/88 (110) 100 04/25/17 22:18 100 30 Physical Exam GENERAL: Chronically ill-appearing male who has quadriplegia, tracheostomy on mechanical ventilation. He is sitting up and alert and communicating by nodding and trying to mouth some words though communication is limited. SKIN: Warm and dry. There is 11 cm x 9 cm stage IV sacral decubitus ulcer. There is 3.5 cm decubitus ulcer overlying left elbow. HEAD: Atraumatic. Normocephalic. EYES: Pupils equal and round. No scleral icterus. No injection or drainage. ENT: No nasal bleeding or discharge. Mucous membranes pink and moist. NECK: Cuff tracheostomy in place. On mechanical ventilation P SIMV CARDIOVASCULAR: Regular rate and rhythm. No murmurs rubs or gallops appreciated. VASC: Port is in place right chest with site benign appearing. Midline in place RUE, no erythema or drainage RESPIRATORY: On mechanical ventilation via trach. Appears reasonably comfortable without accessory muscle use. Bilateral rhonchi. No wheezes Rales. 6 white secretions noted with tracheal suctioning. GASTROINTESTINAL: Abdomen distended tympanitic. Bowel sounds present. PEG tube in place without abnormality of insertion site. Ostomy in place, ostomy bag is opaque, feel like soft stool in bag. MUSCULOSKELETAL: Extremities without clubbing, cyanosis. Arms held in flexion, wrist held in extension bilaterally. Bilateral foot drop. NEUROLOGICAL: Awake and alert. Quadriparesis. + shoulder shrug. No obvious cranial nerve deficits. Mouths words but is difficult to understand what he is saying. Communicates with blinking once for yes and twice for now. Laboratory Laboratory Tests Test 04/25/17 23:25 04/25/17 23:30 04/26/17 02:23 White Blood Count 18.1 Red Blood Count 3.50 Hemoglobin 7.5 Hematocrit 24.0 Mean Corpuscular Volume 68.7 Mean Corpuscular Hemoglobin 21.4 Mean Corpuscular Hemoglobin Concent 31.2 Red Cell Distribution Width 19.8 Platelet Count 381 Mean Platelet Volume 7.0 Neutrophils (%) (Auto) 83.7 Lymphocytes (%) (Auto) 8.7 Monocytes (%) (Auto) 5.8 Eosinophils (%) (Auto) 1.2 Basophils (%) (Auto) 0.6 Neutrophils # (Auto) 15.1 Lymphocytes # (Auto) 1.6 Monocytes # (Auto) 1.0 Eosinophils # (Auto) 0.2 Basophils # (Auto) 0.1 CBC Comment AUTO DIFF Differential Comment AUTO DIFF CONFIRMED Prothrombin Time 9.7 Prothromb Time International Ratio 1.0 Activated Partial Thromboplast Time 27.6 Blood Urea Nitrogen 13 Creatinine 0.57 Random Glucose 215 Total Protein 9.0 Albumin 2.8 Calcium Level 8.8 Phosphorus Level 1.9 Magnesium Level 2.1 Alkaline Phosphatase 490 Aspartate Amino Transf (AST/SGOT) 40 Alanine Aminotransferase (ALT/SGPT) 180 Total Bilirubin 1.0 Sodium Level 131 Potassium Level 4.0 Chloride Level 95 Carbon Dioxide Level 25.7 Anion Gap 10 Estimat Glomerular Filtration Rate 180 Lactic Acid Level 2.1 2.1 Total Creatine Kinase 116 Creatine Kinase MB 0.8 Troponin I LESS THAN 0.02 Lipase 114 Urine Color YELLOW Urine Turbidity HAZY Urine pH 6.5 Urine Specific [place] 1.030 Urine Protein 300 Urine Glucose (UA) NEG Urine Ketones NEG Urine Occult Blood SMALL Urine Nitrite POS Urine Bilirubin NEG Urine Urobilinogen LESS THAN 2.0 Urine Leukocyte Esterase MOD Urine RBC 51 Urine WBC 48 Urine WBC Clumps RARE Urine Bacteria MOD Urine Mucus FEW Microscopic Urinalysis Comment CATH-CULTURE IND Date/Time Source Procedure Growth Status 04/25/17 23:25 Blood Peripheral Aerobic Blood Culture Pending Received 04/25/17 23:25 Blood Peripheral Anaerobic Blood Culture Pending Received 04/25/17 22:55 Nasal Washing Influenza Types A,B Antigen ([facility]) - Final NEGATIVE FOR FLU A AND B ANTIGEN.... Complete 04/25/17 23:30 Urine Catheterized Urine Urine Culture Pending Received Result Diagram: 04/25/17232404/25/172324 Septic Shock Reassessment Septic shock perfusion: reassessment completed Caprini VTE Risk Assessment Caprini VTE Risk Assessment: Mod/High Risk (score >= 2) Caprini Risk Assessment Model Point Value = 1 Point Value = 2 Point Value = 3 Point Value = 5 Age 41-60 Minor surgery BMI > 25 kg/m2 Swollen legs Varicose veins or History of unexplained or recurrent spontaneous Oral contraceptives or hormone replacement Sepsis (< 1 month) Serious lung disease, including pneumonia (< 1 month) Abnormal pulmonary function Acute myocardial infarction Congestive heart failure (< 1 month) History of inflammatory bowel disease Medical patient at bed rest Age 61-74 Arthroscopic surgery Major open surgery (> 45 min) Laparoscopic surgery (> 45 min) Malignancy Confined to bed (> 72 hours) Immobilizing plaster cast Central venous access Age >= 75 History of VTE Family history of VTE Factor V Leiden Prothrombin [id number] Lupus anticoagulant Anticardiolipin antibodies Elevated serum homocysteine Heparin-induced thrombocytopenia Other congenital or acquired thrombophilia Stroke (< 1 month) Elective arthroplasty Hip, pelvis, or leg fracture Acute spinal cord injury (< 1 month) Prophylaxis Regimen Total Risk Factor Score Risk Level Prophylaxis Regimen 0-1 Low Early ambulation 2 Moderate Order ONE of the following: *Sequential Compression Device (SCD) *Heparin 5000 units SQ BID 3-4 Higher Order ONE of the following medications: *Heparin 5000 units SQ TID *Enoxaparin/Lovenox 40 mg SQ daily (WT < 150 kg, CrCl > 30 mL/min) *Enoxaparin/Lovenox 30 mg SQ daily (WT < 150 kg, CrCl > 10-29 mL/min) *Enoxaparin/Lovenox 30 mg SQ BID (WT < 150 kg, CrCl > 30 mL/min) AND/OR *Sequential Compression Device (SCD) 5 or more Highest Order ONE of the following medications: *Heparin 5000 units SQ TID (Preferred with Epidurals) *Enoxaparin/Lovenox 40 mg SQ daily (WT < 150 kg, CrCl > 30 mL/min) *Enoxaparin/Lovenox 30 mg SQ daily (WT < 150 kg, CrCl > 10-29 mL/min) *Enoxaparin/Lovenox 30 mg SQ BID (WT < 150 kg, CrCl > 30 mL/min) AND *Sequential Compression Device (SCD) Assessment and Plan Problem List: (1) Quadriplegia ICD Code: G82.50 - Quadriplegia, unspecified Status: Chronic (2) Chronic pain ICD Code: G89.29 - Other chronic pain Status: Chronic (3) Depression ICD Code: F32.9 - Major depressive disorder, single episode, unspecified Status: Chronic (4) Anxiety ICD Code: F41.9 - Anxiety disorder, unspecified Status: Chronic (5) Pleural effusion on left ICD Code: J90 - Pleural effusion, not elsewhere classified Status: Acute (6) Tracheostomy present ICD Code: Z93.0 - Tracheostomy status Status: Chronic (7) HCAP (healthcare-associated pneumonia) ICD Code: J18.9 - Pneumonia, unspecified organism Status: Acute (8) Ileus ICD Code: K56.7 - Ileus, unspecified Status: Acute (9) PEG tube malfunction ICD Code: K94.23 - Gastrostomy malfunction Status: Acute (10) Port catheter in place ICD Code: Z95.828 - Presence of other vascular implants and grafts Status: Chronic (11) Suprapubic catheter ICD Code: Z93.59 - Other cystostomy status Status: Chronic (12) Presence of IVC filter ICD Code: Z95.828 - Presence of other vascular implants and grafts Status: Chronic (13) Elbow wound ICD Code: S51.009A - Unspecified open wound of unspecified elbow, initial encounter (14) Sacral decubitus ulcer, stage IV ICD Code: L89.154 - Pressure ulcer of sacral region, stage 4 Status: Chronic (15) Severe sepsis ICD Code: A41.9 - Sepsis, unspecified organism; R65.20 - Severe sepsis without septic shock Status: Acute (16) Chronic respiratory failure ICD Code: J96.10 - Chronic respiratory failure, unspecified whether with hypoxia or hypercapnia Status: Chronic Assessment and Plan NEURO: Spinal cord injury with quadriplegia Chronic pain Chronic opioid use Peripheral neuropathy Depression Anxiety Gabapentin 300 daily at bedtime Trazodone 150 by mouth daily at bedtime Remeron 15 mg daily at bedtime Baclofen 5 mg 3 times a day BuSpar 5 mg 3 times a day RESP: Chronic vent dependent respiratory failure Tracheostomy Left pleural effusion Bibasilar pneumonia CT abdomen and pelvis 04/26 demonstrates bibasilar consolidation in the lower lobes with moderate left pleural effusion Continue chronic mechanical ventilation with pressure SIMV inspiratory pressure 28, rate 16, PEEP 5/I time 1/pressure support 15, FiO2 30% per chronic settings from [facility] Check ABG Consider pigtail catheter placement left pleural effusion CV: Monitor hemodynamics Continue chronic Midrin 5 mg 3 times a day. Hold metoprolol 25 twice a day. Follow-up 2-D echo Serial lactic acid GI: Ileus PEG malfunction. Transaminase elevation, downtrend from 04/22/17. No gallbladder abnormality noted on CT Colostomy CT abdomen and pelvis 2 ileus vs ???developing SBO Patient states had normal BM x1 yesterday. PEG occluded. ED unable to successfully resolve occlusion. Will consult gastroenterology to see if they may assist though this may be surgical PEG? Typically on tube feeds 16 hours a day. Also reportedly taking a regular diet by mouth. Keep NPO for now. Patient refuses NGT. Bowel regimen when able to administer through PEG. FEN/RENAL: Chronic Suprapubic catheter in place Chronic hyponatremia Catheter replaced 2/. Monitor intake and output. Monitor electrolytes and replace as indicated. ID: Leukocytosis Severe Sepsis Persistent fever Sacral decubitus ulcers with osteomyelitis, present on admission Left elbow wound ? UTI. Chronic indwelling suprapubic catheter Port in place right chest - site benign RUE midline - site benign. Remove and catheter tip culture per ID. Unclear when this was placed. Patient has been on vancomycin and Zosyn since 04/23/17. There is some notation in [facility] records regarding ESBL in sacral wound. Unclear how cultures were obtained. Will obtain cultures and further records from [facility]. Will stop Zosyn and use meropenem. Continue vancomycin Infectious disease consult. Wound care consult I replaced suprapubic catheter at bedside. Persistent fever may also be related to DVT. Patient has an IVC filter. Will follow-up bilateral lower extremity ultrasound. HEME: IVC filter in place Follow-up bilateral lower extremity ultrasounds ENDO: Acute hyperglycemia Monitor bedside glucose and initiate low-dose insulin sliding scale every 4 hours urine check hemoglobin A1c PROPH: Heparin 5000 units subcutaneous every 8 hours for DVT prophylaxis. Has an IVC filter in place. Imodium for stress ulcer prophylaxis ACCESS: Port in place right chest. Right IJ central venous line placed in ED 04/26/17 Level III H&P Problem Qualifiers (1) Elbow wound: Ramonita Brooks MD Apr 26, 2017 03:16
[2017-04-26] MEDS ORDERED: ASP: Documented ESBL, MDR A baumannii or P. aeruginosa PRN (04:15)
[2017-04-26] MEDS ORDERED: MISCELLANEOUS PHARMACY INFORMATION XX PRN (04:15)
[2017-04-26] MEDS ORDERED: ASP: ID consult, note reason in consult order PRN (04:15)
[2017-04-26] MEDS ORDERED: INSULIN ASPART SUPPLEMENTAL SCALE SQ SCH (05:00)
[2017-04-26] MEDS ORDERED: DEXTROSE 50% IN WATER 50 ML VIAL(D50) IV PUSH PRN ×2 (05:00→10:00)
[2017-04-26] MEDS ORDERED: GLUCAGON 1 MG/ML VIAL OTHER PRN ×2 (05:00→10:00)
[2017-04-26 05:21] LABS: ACETAMINOPHEN LESS THAN 2.0 MCG/ML (10.0-30.0)
[2017-04-26] MEDS ORDERED: ACETAMINOPHEN 325 MG TAB PO PRN (05:30)
[2017-04-26] MEDS ORDERED: SODIUM CHLORIDE 0.9% FLUSH 10 ML FLUSH IV FLUSH PRN (05:30)
[2017-04-26] MEDS ORDERED: LACTULOSE SYRUP 20 GM/30 ML CUP PO PRN (05:30)
[2017-04-26] MEDS ORDERED: MISCELLANEOUS NURSING INFORMATION XX SCH (05:30)
[2017-04-26] MEDS ORDERED: ONDANSETRON HCL 4 MG/2 ML VIAL IV PUSH PRN (05:30)
[2017-04-26] MEDS ORDERED: BISACODYL 10 MG SUPP RECTAL PRN (05:30)
[2017-04-26] MEDS ORDERED: SENNOSIDES 8.6 MG TAB PO PRN (05:30)
[2017-04-26] MEDS ORDERED: MAGNESIUM HYDROXIDE SUSP 30 ML CUP PO PRN (05:30)
[2017-04-26] MEDS ORDERED: CHLORHEXIDINE GLUCONATE 2 % 1 PACK (2 CLOTHS) TOP PRN (05:30)
[2017-04-26] MEDS ORDERED: MEROPENEM INJ 500 MG in SODIUM CHLORIDE 0.9% INJ 100 ML IV SCH (06:00)
[2017-04-26] MEDS: SODIUM CHLOR 0.9% 1000 ML INJ 1,000 ML IV SCH ×2 (06:02→22:00)
[2017-04-26] MEDS: HEPARIN SODIUM - SQ 10,000 UNITS/ML VIAL SQ SCH ×2 (06:14→15:31)
[2017-04-26] MEDS: CHLORHEXIDINE 0.12% (ORAL KIT) 15 ML CUP MT SCH ×2 (08:00→20:00)
[2017-04-26] MEDS: BACLOFEN 10 MG TAB G-TUBE SCH ×3 (09:00→18:53)
[2017-04-26] MEDS: busPIRone HCL 5 MG TAB G-TUBE SCH ×3 (09:00→18:53)
[2017-04-26] MEDS: FAMOTIDINE 20 MG TAB PO SCH (09:00)
[2017-04-26] MEDS: ASCORBIC ACID 500 MG TAB G-TUBE SCH (09:00)
[2017-04-26] MEDS: DOCUSATE SODIUM 50 MG/SENNA 8.6 MG TAB PO SCH (09:00)
[2017-04-26] MEDS: POLYETHYLENE GLYCOL 17 GM PKG G-TUBE SCH (09:00)
[2017-04-26] MEDS: MIDODRINE 5 MG TAB G-TUBE SCH ×5 (09:00→18:53)
[2017-04-26] MEDS: SENNOSIDES 8.6 MG TAB G-TUBE SCH (09:00)
[2017-04-26] MEDS: MULTIVITAMINS/MINERALS THERAPEUTIC TAB G-TUBE SCH (09:00)
[2017-04-26] MEDS: SILVER SULFADIAZINE 1% CR 50 GM JAR TOPICAL SCH (09:00)
[2017-04-26] MEDS: FAMOTIDINE 20 MG/2 ML VIAL IV PUSH SCH (09:01)
[2017-04-26] MEDS: SODIUM CHLORIDE 0.9% FLUSH 10 ML FLUSH IV FLUSH SCH (09:01)
[2017-04-26] MEDS: RESP: ALBUTEROL 2.5 MG/IPRATROPIUM 0.5 MG NEB (SCH) INH ×3 (09:12→19:48)
--- NOTE | 2017-04-26 09:22 | PD.CONS ---
History of Present Illness Service Infectious disease Consult Requested By Dr. Brooks Reason for Consult Evaluate patient with sepsis, with mention of history of ESBL-positive organisms from the residential records Primary Care Physician Ronald Bueno MD Diagnoses: History of Present Illness patient seen and examined. Records reviewed. Patient is a 57-year-old male, resident of a residential, chronically on the respirator, has history of spinal cord injury with quadriplegia, has a PEG, colostomy, and a suprapubic catheter in place, brought to the hospital for evaluation of fever. He was also agitated according to the residential notes. On evaluation of his residential records, it looks like the patient was started on vancomycin and Zosyn on April 23 for treatment of osteomyelitis as a result of a sacral decubitus ulcer, with growth of ESBL positive organism, Proteus mirabilis. There was also mention that he had an MRSA from an elbow wound culture. There has been no change on his respiratory status. He remains chronically vent dependent. Evaluation in the emergency room showed leukocytosis. Chest x-ray showed basilar infiltrates and which seem to be similar to his chest x-ray from December 2016. CT of the abdomen and pelvis showed bilateral lower lobe consolidation with left pleural effusion, PEG tube in place, the location of the small bowel, and some sclerotic changes and hypertrophic changes of the left ischial tuberosity. He is not on pressors. His suprapubic catheter was reportedly change in the emergency room. Urinalysis was abnormal with significant pyuria. His cultures are currently pending. Cultures from the residential are not available for review. Patient is currently on meropenem. Infectious disease consultation has been requested to evaluate and assist with management in a patient with known MDR organism infection. Review of Systems Constitutional: COMPLAINS OF: Fever, Chills Eyes: DENIES: Eye pain Ears, nose, mouth, throat: DENIES: Nasal discharge, Oral lesions, Throat pain Respiratory: DENIES: Cough, Shortness of breath Cardiovascular: DENIES: Chest pain Gastrointestinal: DENIES: Abdominal pain, Nausea, Vomiting Integumentary: DENIES: Rash Psychiatric: DENIES: Hallucinations Past Family Social History Allergies: Coded Allergies: levofloxacin (Verified Allergy, Unknown, 04/25/17) PER [facility] AT [facility] Past Medical History Quadriplegia following spinal cord injury Chronic vent dependent respiratory failure with tracheostomy Hypertension Chronic opioid use Sacral decubitus ulcer present on admission, Left elbow decubitus ulcer present on admission Anxiety Depression Ostomy Chronic suprapubic catheter PEG Prior ileus Previous treatment for 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 Past Surgical History Suprapubic catheter placement Colostomy Tracheostomy PEG placement IVC filter Placement of an [id number] Active Ordered Medications Current Medications Medications (Trade) Dose Ordered Sig/Francisco J Route Start Time Stop Time Status Last Admin (ASP Crit: Doc ESBL, MDR A baumannii or P aer) 1 UNSCH X1 PRN .XX 04/26/17 04:15 04/27/17 04:14 (ASP Crit: Infectious disease consult) 1 UNSCH X1 PRN .XX 04/26/17 04:15 04/27/17 04:14 ([facility] Information) 1 UNSCH X1 PRN XX 04/26/17 04:15 04/27/17 04:14 Meropenem 500 mg/ Sodium Chloride 100 ml @ 200 mls/hr Q8H IV 04/26/17 06:00 04/26/17 06:14 (D50w (Vial) Inj) 50 ml UNSCH PRN IV PUSH 04/26/17 05:00 (Glucagon Inj) 1 mg UNSCH PRN OTHER 04/26/17 05:00 (NovoLOG SUPPLEMENTAL SCALE) 1 Q6H SQ 04/26/17 05:00 (Peridex 0.12% Liq) 15 ml BID@08,20 MT 04/26/17 08:00 (Vitamin C) 500 mg DAILY G-TUBE 04/26/17 09:00 (Lioresal) 5 mg TID G-TUBE 04/26/17 09:00 (Buspar) 5 mg TID G-TUBE 04/26/17 09:00 (Neurontin) 300 mg HS PO 04/26/17 21:00 (Ativan) 1 mg Q6HR PRN G-TUBE 04/26/17 05:30 (Proamatine) 5 mg TID G-TUBE 04/26/17 09:00 (Remeron) 15 mg HS G-TUBE 04/26/17 21:00 (Roxicodone) 5 mg Q6HR PRN PEG 04/26/17 05:30 (Miralax) 17 gm DAILY G-TUBE 04/26/17 09:00 (Senokot) 17.2 mg BID G-TUBE 04/26/17 09:00 (Silvadene 1% Cream (50 Gm)) 1 applic DAILY TOPICAL 04/26/17 09:00 (Heparin Inj) 5,000 units Q8HR SQ 04/26/17 06:00 04/26/17 06:14 (Theragran M Tab) 1 tab DAILY G-TUBE 04/26/17 09:00 (Desyrel) 150 mg HS PO 04/26/17 21:00 (NS Flush) 2 ml UNSCH PRN IV FLUSH 04/26/17 05:30 (NS Flush) 2 ml BID IV FLUSH 04/26/17 09:00 (Tylenol) 650 mg Q6H PRN PO 04/26/17 05:30 (Pepcid Inj) 20 mg Q12HR IV PUSH 04/26/17 09:00 (Pepcid) 20 mg Q12HR PO 04/26/17 09:00 (Zofran Inj) 4 mg Q6H PRN IV PUSH 04/26/17 05:30 (Duoneb Neb) 1 ampule Q6HR NEB INH 04/26/17 10:00 (Albuterol Neb) 2.5 mg Q2HR NEB PRN INH 04/26/17 05:30 Miscellaneous Information 1 Q361D XX 04/26/17 05:30 04/26/17 05:30 (Chlorhexidine 2% Cloth) 3 pack Taper DAILY@04 TOP 04/27/17 04:00 04/23/18 03:59 (Chlorhexidine 2% Cloth) 3 pack UNSCH PRN TOP 04/26/17 05:30 (Lynsey-Colace) 1 tab BID PO 04/26/17 09:00 (Milk Of Magnesia Liq) 30 ml Q12H PRN PO 04/26/17 05:30 (Senokot) 17.2 mg Q12H PRN PO 04/26/17 05:30 (Dulcolax Supp) 10 mg DAILY PRN RECTAL 04/26/17 05:30 (Lactulose Liq) 30 ml DAILY PRN PO 04/26/17 05:30 Sodium Chloride 1,000 ml @ 100 mls/hr Q10H IV 04/26/17 05:45 04/26/17 06:02 Family History Unable to obtain Social History Could not be obtained - came from [place] Physical Exam Vital Signs Vital Signs Date Time Temp Pulse Resp B/P (MAP) Pulse Ox O2 Delivery O2 Flow Rate FiO2 04/26/17 05:59 100 04/26/17 05:58 98.9 92 22 111/59 (76) 100 04/26/17 05:50 100 30 04/26/17 05:31 98 100 04/26/17 05:31 100.4 04/26/17 04:38 98 30 04/26/17 02:01 101.4 98 16 138/72 (94) 100 Ventilator 04/26/17 01:40 100 30 04/26/17 01:10 100 100 04/26/17 01:00 94 16 142/72 (95) 100 Ventilator 04/26/17 00:21 108 16 100 Ventilator 04/26/17 00:21 100 Ventilator 04/26/17 00:00 106 16 156/77 (103) 99 Ventilator 04/25/17 23:30 110 16 158/81 (106) 100 Room Air 04/25/17 22:35 102.0 121 16 154/88 (110) 100 04/25/17 22:18 100 30 Physical Exam GENERAL: Patient is a well-nourished, well-developed patient, awake and alert , not in respiratory distress. On the vent SKIN: Cool and dry. No generalized rash, no ecchymoses and no evidence of embolic lesions. HEAD: Atraumatic. Normocephalic. No temporal wasting, or tenderness. EYES: [place] conjunctiva. No petechia or hemorrhage. Pupils equal, round and reactive to light. Extraocular movements full and intact. No scleral icterus. No injection or drainage. EARS, NOSE AND THROAT: Nose without bleeding or purulent nasal discharge. No sinus tenderness. Mucous membranes pink and moist. No oral lesions noted. NECK: Tracheostomy site is ok. Supple and not tender, no meningeal signs. RIJ line ok, no evidence of infection CARDIOVASCULAR: Regular rate and rhythm. No murmurs, rubs or gallops heard RESPIRATORY: Bilateral coarse rhonchi. Equal breath sounds ABDOMEN: Distended and protuberant, tympanitic on percussion, bowel sounds are hypoactive. PEG site looks ok. Colostomy bag with output. SPC site ok. BACK: Has sacral ulcer that is about 8 x 10 cm, min drainage, no odor, with some slough. EXTREMITIES: No clubbing, cyanosis. Has mild pedal edema. No calf tenderness. Cool feet. Dressing L elbow, no cellulitis around ulcer, no purulence NEUROLOGICAL: Awake and alert. Cranial nerves grossly intact. Contractures of his extremities PSYCHIATRIC: Normal affect, calm and cooperative. LINE: No evidence of infection Laboratory Laboratory Tests Test 04/25/17 23:25 04/25/17 23:30 04/26/17 02:23 04/26/17 04:00 White Blood Count 18.1 Red Blood Count 3.50 Hemoglobin 7.5 Hematocrit 24.0 Mean Corpuscular Volume 68.7 Mean Corpuscular Hemoglobin 21.4 Mean Corpuscular Hemoglobin Concent 31.2 Red Cell Distribution Width 19.8 Platelet Count 381 Mean Platelet Volume 7.0 Neutrophils (%) (Auto) 83.7 Lymphocytes (%) (Auto) 8.7 Monocytes (%) (Auto) 5.8 Eosinophils (%) (Auto) 1.2 Basophils (%) (Auto) 0.6 Neutrophils # (Auto) 15.1 Lymphocytes # (Auto) 1.6 Monocytes # (Auto) 1.0 Eosinophils # (Auto) 0.2 Basophils # (Auto) 0.1 CBC Comment AUTO DIFF Differential Comment AUTO DIFF CONFIRMED Prothrombin Time 9.7 Prothromb Time International Ratio 1.0 Activated Partial Thromboplast Time 27.6 Blood Urea Nitrogen 13 Creatinine 0.57 Random Glucose 215 Total Protein 9.0 Albumin 2.8 Calcium Level 8.8 Phosphorus Level 1.9 Magnesium Level 2.1 Alkaline Phosphatase 490 Aspartate Amino Transf (AST/SGOT) 40 Alanine Aminotransferase (ALT/SGPT) 180 Total Bilirubin 1.0 Sodium Level 131 Potassium Level 4.0 Chloride Level 95 Carbon Dioxide Level 25.7 Anion Gap 10 Estimat Glomerular Filtration Rate 180 Lactic Acid Level 2.1 2.1 Total Creatine Kinase 116 Creatine Kinase MB 0.8 Troponin I LESS THAN 0.02 Lipase 114 Acetaminophen Level LESS THAN 2.0 Urine Color YELLOW Urine Turbidity HAZY Urine pH 6.5 Urine Specific [place] 1.030 Urine Protein 300 Urine Glucose (UA) NEG Urine Ketones NEG Urine Occult Blood SMALL Urine Nitrite POS Urine Bilirubin NEG Urine Urobilinogen LESS THAN 2.0 Urine Leukocyte Esterase MOD Urine RBC 51 Urine WBC 48 Urine WBC Clumps RARE Urine Bacteria MOD Urine Mucus FEW Microscopic Urinalysis Comment CATH-CULTURE IND Test 04/26/17 05:02 Blood Gas Puncture Site LT RADIAL Blood Gas Patient Temperature 98.6 Blood Gas HCO3 23 Blood Gas Base Excess -0.1 Blood Gas Oxygen Saturation 96 Arterial Blood pH 7.46 Arterial Blood Partial Pressure CO2 33 Arterial Blood Partial Pressure O2 100 Arterial Blood Oxygen Content 10.4 Arterial Blood Carboxyhemoglobin 1.7 Arterial Blood Methemoglobin 0.4 Blood Gas Hemoglobin 7.5 Oxygen Delivery Device VENTILATOR Blood Gas Ventilator Setting SEE COMMENTS Blood Gas Inspired Oxygen 30 Date/Time Source Procedure Growth Status 04/25/17 23:25 Blood Peripheral Aerobic Blood Culture Pending Received 04/25/17 23:25 Blood Peripheral Anaerobic Blood Culture Pending Received 04/26/17 05:00 Sputum Endotracheal Gram Stain Pending Received 04/26/17 05:00 Sputum Endotracheal Sputum Culture Pending Received 04/25/17 23:30 Urine Catheterized Urine Urine Culture Pending Worksheet Result Diagram: 04/25/17 2325 04/25/17 2325 Imaging RADIOLOGY STUDIES/FILMS REVIEWED Chest X-Ray 04/25/17 2246 Signed Impressions: Service Date/Time: Tuesday, April 25, 2017 22:53 - CONCLUSION: No significant change has occurred. Ilya Nash MD Abdomen/Pelvis CT 04/25/17 0000 Signed Impressions: Service Date/Time: Wednesday, April 26, 2017 01:13 - CONCLUSION: Probable ileus versus developing small bowel obstruction with dilated small bowel loops identified and no discrete transition point, however close clinical and radiographic followup is advised. Left pleural effusion and bilateral lower lobe consolidation. Renal cysts. Small amount of free fluid. Decubitus ulcer with underlying sclerosis and hypertrophic changes of the left ischial tuberosity. Ilya Nash MD Assessment and Plan Assessment and Plan IMPRESSION Sepsis with fever, leukocytosis, tachycardia, elevated lactic acid, source - DDX: , PNA - has lines : port not working, has midline ?inserted, site ok - has decubitus, C/S MDR, wounds look ok, on Abx since 04/23, ? osteomyelitis Chronic respiratory failure, due to quadriplegia from [place] injury HCAP UTI, has SPC Sacral decubitus, ?osteo L elbow wound, looks ok, per SNF records (+) MRSA in C/S which could just be colonization Abdominal distension, possible ileus on CT Elevated LFTs, ?due to sepsis, GB looks ok on CT RECOMMENDATION Continue Merem, increase dose to 1 gm IV q8h Get C/S and records results from SNF Remove midline, tip for C/S Follow C/S and adjust Abx Follow temps Follow CBC Monitor progress Will determine course of Abx once records available and work-up completed I will follow along with you Thank you for this consultation Discussed Condition With D/W Leonila Jaramillo MD Apr 26, 2017 09:22
--- NOTE | 2017-04-26 09:36 | RADRPT ---
EXAM DATE/TIME: 04/26/2017 08:46 [place] COMPARISON: No previous studies available for comparison. INDICATIONS : Bilateral leg swelling. MEDICAL HISTORY : Vent dependent. Dysphagia. Kidney disease. Quadroplegia. PTSD. ESBL. SURGICAL HISTORY : Colostomy. G tube. Supra pubic catheter. Urogenital implant. Right port placement. Tracheostomy. ENCOUNTER: Initial ACUITY: 2 day PAIN SCORE: Non-responsive LOCATION: Bilateral leg. TECHNIQUE: Venous ultrasound of the left and right leg was performed from the inguinal ligament to the proximal calf. Real-time, color Doppler and spectral tracing, compression and augmentation techniques were us ed. FINDINGS: RIGHT LEG: There is occlusive thrombus in the common femoral vein, superficial femoral vein and greater saphenou s vein. LEFT LEG: There is normal compressibility of the deep venous system from the inguinal region to the proximal ca lf. No echogenic clot is seen in the lumen of the common femoral, femoral, popliteal, and posterior tibial veins. There is a normal response of the venous system to proximal and distal augmentation an d respiration. CONCLUSION: 1. Occlusive deep venous thrombosis right leg. 2. No DVT left leg. Adi Ferrer MD on April 26, 2017 at 9:32 Board Certified Radiologist. This report was verified electronically.
[2017-04-26] MEDS: INSULIN ASPART SUPPLEMENTAL SCALE SQ SCH ×3 (10:00→15:36)
--- NOTE | 2017-04-26 12:14 | PD.CONS ---
HPI History of Present Illness This is a 57 year old male with past medical history of spinal cord injury resulting in quadriplegia, s/p trach/PEG with vent dependency, ostomy, HTN, sacral and left elbow decubitus ulcers, chronic indwelling suprapubic catheter, depression, anxiety, who [facility] (103.8). He has hx of ESBL and Proteus mirabilis sacral wound/osteomyelitis. ID on the case. GI have been consulted for ileus and dysfunctional G tube. CT on 04/26/17 showed probable ileus versus developing SBO with dilates small bowel loops with no transition point, left plural effusion and bilateral lower lobe consolidation, renal cysts. Patient has some stools in colostomy bag. Abdomen firm and distended. He is refusing NGT. He is poor historian, able to answer some questions and nod yes or no, most of HPI obtained from EMR and nurse. (Anand Gordon) PFSH Past Medical History Quadriplegia following spinal cord injury in 2009 Chronic vent dependent respiratory failure with tracheostomy Hypertension Chronic opioid use Sacral decubitus ulcer present on admission, Left elbow decubitus ulcer present on admission Indwelling port right chest Anxiety Depression Ostomy Chronic suprapubic catheter PEG Prior ileus Past Surgical History Ostomy (patient states was in 2009) Port placement right chest IVC filter Suprapubic catheter placed in 2009 PEG (Anand Gordon) Coded Allergies: levofloxacin (Verified Allergy, Unknown, 04/25/17) [facility] Medications Current Medications Medications (Trade) Dose Ordered Sig/Francisco J Route Start Time Stop Time Status Last Admin (ASP Crit: Doc ESBL, MDR A baumannii or P aer) 1 UNSCH X1 PRN .XX 04/26/17 04:15 04/27/17 04:14 (ASP Crit: Infectious disease consult) 1 UNSCH X1 PRN .XX 04/26/17 04:15 04/27/17 04:14 ([facility] Information) 1 UNSCH X1 PRN XX 04/26/17 04:15 04/27/17 04:14 (Peridex 0.12% Liq) 15 ml BID@08,20 MT 04/26/17 08:00 (Vitamin C) 500 mg DAILY G-TUBE 04/26/17 09:00 (Lioresal) 5 mg TID G-TUBE 04/26/17 09:00 (Buspar) 5 mg TID G-TUBE 04/26/17 09:00 (Neurontin) 300 mg HS PO 04/26/17 21:00 (Ativan) 1 mg Q6HR PRN G-TUBE 04/26/17 05:30 (Proamatine) 5 mg TID G-TUBE 04/26/17 09:00 (Remeron) 15 mg HS G-TUBE 04/26/17 21:00 (Roxicodone) 5 mg Q6HR PRN PEG 04/26/17 05:30 (Miralax) 17 gm DAILY G-TUBE 04/26/17 09:00 (Senokot) 17.2 mg BID G-TUBE 04/26/17 09:00 (Silvadene 1% Cream (50 Gm)) 1 applic DAILY TOPICAL 04/26/17 09:00 (Heparin Inj) 5,000 units Q8HR SQ 04/26/17 06:00 04/26/17 06:14 (Theragran M Tab) 1 tab DAILY G-TUBE 04/26/17 09:00 (Desyrel) 150 mg HS PO 04/26/17 21:00 (NS Flush) 2 ml UNSCH PRN IV FLUSH 04/26/17 05:30 (NS Flush) 2 ml BID IV FLUSH 04/26/17 09:00 04/26/17 09:01 (Tylenol) 650 mg Q6H PRN PO 04/26/17 05:30 (Pepcid Inj) 20 mg Q12HR IV PUSH 04/26/17 09:00 04/26/17 09:01 (Pepcid) 20 mg Q12HR PO 04/26/17 09:00 (Zofran Inj) 4 mg Q6H PRN IV PUSH 04/26/17 05:30 (Duoneb Neb) 1 ampule Q6HR NEB INH 04/26/17 10:00 04/26/17 09:12 (Albuterol Neb) 2.5 mg Q2HR NEB PRN INH 04/26/17 05:30 Miscellaneous Information 1 Q361D XX 04/26/17 05:30 04/26/17 05:30 (Chlorhexidine 2% Cloth) 3 pack Taper DAILY@04 TOP 04/27/17 04:00 04/23/18 03:59 (Chlorhexidine 2% Cloth) 3 pack UNSCH PRN TOP 04/26/17 05:30 (Lynsey-Colace) 1 tab BID PO 04/26/17 09:00 (Milk Of Magnesia Liq) 30 ml Q12H PRN PO 04/26/17 05:30 (Senokot) 17.2 mg Q12H PRN PO 04/26/17 05:30 (Dulcolax Supp) 10 mg DAILY PRN RECTAL 04/26/17 05:30 (Lactulose Liq) 30 ml DAILY PRN PO 04/26/17 05:30 Sodium Chloride 1,000 ml @ 100 mls/hr Q10H IV 04/26/17 05:45 04/26/17 06:02 Meropenem 1000 mg/ Sodium Chloride 100 ml @ 200 mls/hr Q8H IV 04/26/17 14:00 (D50w (Vial) Inj) 50 ml UNSCH PRN IV PUSH 04/26/17 10:00 (Glucagon Inj) 1 mg UNSCH PRN OTHER 04/26/17 10:00 (NovoLOG SUPPLEMENTAL SCALE) 1 Q4HR SQ 04/26/17 10:00 Family History Non contributory Social History not able to obtain (Anand Gordon) Review of Systems Not able to obtain due to patient medical condition (Anand Gordon) GI Exam Vitals I&O Vital Signs Date Time Temp Pulse Resp B/P (MAP) Pulse Ox O2 Delivery O2 Flow Rate FiO2 04/26/17 09:14 100 30 04/26/17 05:59 100 04/26/17 05:58 98.9 92 22 111/59 (76) 100 04/26/17 05:50 100 30 04/26/17 05:31 98 100 04/26/17 05:31 100.4 04/26/17 04:38 98 30 04/26/17 02:01 101.4 98 16 138/72 (94) 100 Ventilator 04/26/17 01:40 100 30 04/26/17 01:10 100 100 04/26/17 01:00 94 16 142/72 (95) 100 Ventilator 04/26/17 00:21 108 16 100 Ventilator 04/26/17 00:21 100 Ventilator 04/26/17 00:00 106 16 156/77 (103) 99 Ventilator 04/25/17 23:30 110 16 158/81 (106) 100 Room Air 04/25/17 22:35 102.0 121 16 154/88 (110) 100 04/25/17 22:18 100 30 I/O 04/25/17 04/25/17 04/25/17 04/26/17 04/26/17 04/26/17 07:00 15:00 23:00 07:00 15:00 23:00 Intake Total 0 ml Output Total 950 ml Balance -950 ml Intake Oral 0 ml Output Urine Total 850 ml Stool Total 100 ml Imaging Last Impressions Lower Extremity Ultrasound 04/26/17 2344 Signed Impressions: Service Date/Time: Wednesday, April 26, 2017 08:46 - CONCLUSION: 1. Occlusive deep venous thrombosis right leg. 2. No DVT left leg. Adi Ferrer MD Chest X-Ray 04/25/17 2246 Signed Impressions: Service Date/Time: Tuesday, April 25, 2017 22:53 - CONCLUSION: No significant change has occurred. Ilya Nash MD Abdomen/Pelvis CT 04/25/17 0000 Signed Impressions: Service Date/Time: Wednesday, April 26, 2017 01:13 - CONCLUSION: Probable ileus versus developing small bowel obstruction with dilated small bowel loops identified and no discrete transition point, however close clinical and radiographic followup is advised. Left pleural effusion and bilateral lower lobe consolidation. Renal cysts. Small amount of free fluid. Decubitus ulcer with underlying sclerosis and hypertrophic changes of the left ischial tuberosity. Ilya Nash MD Laboratory Test 04/25/17 23:25 04/25/17 23:30 04/26/17 02:23 04/26/17 04:00 White Blood Count 18.1 TH/MM3 Red Blood Count 3.50 MIL/MM3 Hemoglobin 7.5 GM/DL Hematocrit 24.0 % Mean Corpuscular Volume 68.7 FL Mean Corpuscular Hemoglobin 21.4 PG Mean Corpuscular Hemoglobin Concent 31.2 % Red Cell Distribution Width 19.8 % Platelet Count 381 TH/MM3 Mean Platelet Volume 7.0 FL Neutrophils (%) (Auto) 83.7 % Lymphocytes (%) (Auto) 8.7 % Monocytes (%) (Auto) 5.8 % Eosinophils (%) (Auto) 1.2 % Basophils (%) (Auto) 0.6 % Neutrophils # (Auto) 15.1 TH/MM3 Lymphocytes # (Auto) 1.6 TH/MM3 Monocytes # (Auto) 1.0 TH/MM3 Eosinophils # (Auto) 0.2 TH/MM3 Basophils # (Auto) 0.1 TH/MM3 CBC Comment AUTO DIFF Differential Comment AUTO DIFF CONFIRMED Prothrombin Time 9.7 SEC Prothromb Time International Ratio 1.0 RATIO Activated Partial Thromboplast Time 27.6 SEC Blood Urea Nitrogen 13 MG/DL Creatinine 0.57 MG/DL Random Glucose 215 MG/DL Total Protein 9.0 GM/DL Albumin 2.8 GM/DL Calcium Level 8.8 MG/DL Phosphorus Level 1.9 MG/DL Magnesium Level 2.1 MG/DL Alkaline Phosphatase 490 U/L Aspartate Amino Transf (AST/SGOT) 40 U/L Alanine Aminotransferase (ALT/SGPT) 180 U/L Total Bilirubin 1.0 MG/DL Sodium Level 131 MEQ/L Potassium Level 4.0 MEQ/L Chloride Level 95 MEQ/L Carbon Dioxide Level 25.7 MEQ/L Anion Gap 10 MEQ/L Estimat Glomerular Filtration Rate 180 ML/MIN Lactic Acid Level 2.1 mmol/L 2.1 mmol/L Total Creatine Kinase 116 U/L Creatine Kinase MB 0.8 NG/ML Troponin I LESS THAN 0.02 NG/ML Lipase 114 U/L Acetaminophen Level LESS THAN 2.0 MCG/ML Urine Color YELLOW Urine Turbidity HAZY Urine pH 6.5 Urine Specific [place] 1.030 Urine Protein 300 mg/dL Urine Glucose (UA) NEG mg/dL Urine Ketones NEG mg/dL Urine Occult Blood SMALL Urine Nitrite POS Urine Bilirubin NEG Urine Urobilinogen LESS THAN 2.0 MG/DL Urine Leukocyte Esterase MOD Urine RBC 51 /hpf Urine WBC 48 /hpf Urine WBC Clumps RARE Urine Bacteria MOD /hpf Urine Mucus FEW /lpf Microscopic Urinalysis Comment CATH-CULTURE IND Nasal Screen MRSA (PCR) MRSA NOT DETECTED Test 04/26/17 05:02 04/26/17 11:23 Blood Gas Puncture Site LT RADIAL Blood Gas Patient Temperature 98.6 Blood Gas HCO3 23 mmol/L Blood Gas Base Excess -0.1 mmol/L Blood Gas Oxygen Saturation 96 % Arterial Blood pH 7.46 Arterial Blood Partial Pressure CO2 33 mmHg Arterial Blood Partial Pressure O2 100 mmHG Arterial Blood Oxygen Content 10.4 Vol % Arterial Blood Carboxyhemoglobin 1.7 % Arterial Blood Methemoglobin 0.4 % Blood Gas Hemoglobin 7.5 G/DL Oxygen Delivery Device VENTILATOR Blood Gas Ventilator Setting SEE COMMENTS Blood Gas Inspired Oxygen 30 % Date/Time Source Procedure Growth Status 04/25/17 23:25 Blood Peripheral Aerobic Blood Culture - Preliminary NO GROWTH IN 1 DAY Resulted 04/25/17 23:25 Blood Peripheral Anaerobic Blood Culture - Preliminary NO GROWTH IN 1 DAY Resulted 04/26/17 05:00 Sputum Endotracheal Gram Stain Pending Received 04/26/17 05:00 Sputum Endotracheal Sputum Culture Pending Received 04/25/17 23:30 Urine Catheterized Urine Urine Culture Pending Worksheet Physical Examination HEENT: normocephalic; atraumatic; no jaundice. NECK: trach on mech vent CHEST: on mech vent. Chest is clear to auscultation and percussion. 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 Patient has some stools in colostomy bag. Abdomen firm and distended. He is refusing NGT. - Dysfunctional G tube. not flushing with several attempts per nurse - fever- ID on the case, pt with hx of ESBL and Proteus mirabilis sacral wound/ osteomyelitis. and has sacral and left elbow decubitus ulcers - Elevated LFTs- CT as above, no biliary involvement, will monitor - past medical history of spinal cord injury resulting in quadriplegia, s/p trach/PEG with vent dependency, ostomy Plan: - NPO - Pt is refusing NGT tube, plan for sedation and NGT placement - Will consult IR for PEG tube dysfunction - Consider SBFT once NGT in place - Supportive care - Patient seen and examined by Dr. Estrada and myself and this note is written on his behalf. (Anand Gordon) Physician Comments Seen and examined with [employer], very distended belly. Place NG under sedation if necessary. Tried to unclog G tube at the bedside but not successful. IR to see if they can replace G tube. Discussed with Dr. Guzman. Thank you (Rivera Estrada MD) Anand Gordon Apr 26, 2017 12:14 Rivera Estrada MD Apr 26, 2017 13:01
[2017-04-26 12:31] LABS: ALBUMIN 2.7 GM/DL (3.4-5.0); ALT (GPT) 177 U/L (12-78); AST (GOT) 46 U/L (15-37); BICARBONATE 24.3 MEQ/L (21.0-32.0); BLOOD UREA NITROGEN 13 MG/DL (7-18); CALCIUM 9.1 MG/DL (8.5-10.1); CHLORIDE 100 MEQ/L (98-107); CREATININE 0.43 MG/DL (0.60-1.30); GLOMERULAR FILTRATION RATE 249 ML/MIN (>89); GLUCOSE,RANDOM 136 MG/DL (74-106); SODIUM (NA) 134 MEQ/L (136-145)
[2017-04-26 12:33] LABS: ALKALINE PHOSPHATASE 446 U/L (45-117); RANDOM VANCOMYCIN 3.1 COMMENT; TOTAL BILIRUBIN ADULT 0.7 MG/DL (0.2-1.0); TOTAL PROTEIN 9.1 GM/DL (6.4-8.2)
[2017-04-26 12:45] LABS: HEMOGLOBIN A1C 7.6 % (4.3-6.0)
[2017-04-26] MEDS ORDERED: PROPOFOL 500 MG/50 ML INJ 50 ML ONE (13:14)
[2017-04-26] MEDS: MEROPENEM INJ 1,000 MG in SODIUM CHLORIDE 0.9% INJ 100 ML IV SCH (14:00)
--- NOTE | 2017-04-26 14:27 | HHI.PR ---
Subjective Remarks f/u bilateral lower extremity doppler is + for DVT lower extremity. patient has IVC filter in place. planned IR procedure to swap out PEG tube in very near future and given GI pathology, do not want to delay this. patient has IVC filter in place which is intended to prevent massive PE. will leave on SQH until PEG tube issue is resolved, and decide at that point plan for full anticoagulation. with regard to GI distension: at GI request, sedated patient to place NGT. however, very difficult placement and unable to successfully place NGT into the stomach. Objective Vital Signs Date Time Temp Pulse Resp B/P (MAP) Pulse Ox O2 Delivery O2 Flow Rate FiO2 04/26/17 12:11 100 30 04/26/17 09:14 100 30 04/26/17 05:59 100 04/26/17 05:58 98.9 92 22 111/59 (76) 100 04/26/17 05:50 100 30 04/26/17 05:31 98 100 04/26/17 05:31 100.4 04/26/17 04:38 98 30 04/26/17 02:01 101.4 98 16 138/72 (94) 100 Ventilator 04/26/17 01:40 100 30 04/26/17 01:10 100 100 04/26/17 01:00 94 16 142/72 (95) 100 Ventilator 04/26/17 00:21 108 16 100 Ventilator 04/26/17 00:21 100 Ventilator 04/26/17 00:00 106 16 156/77 (103) 99 Ventilator 04/25/17 23:30 110 16 158/81 (106) 100 Room Air 04/25/17 22:35 102.0 121 16 154/88 (110) 100 04/25/17 22:18 100 30 I/O 04/25/17 04/25/17 04/25/17 04/26/17 04/26/17 04/26/17 07:00 15:00 23:00 07:00 15:00 23:00 Intake Total 0 ml Output Total 950 ml Balance -950 ml Intake Oral 0 ml Output Urine Total 850 ml Stool Total 100 ml Result Diagram: 04/25/17 2325 04/26/17 1123 Valeriy Berrios MD Apr 26, 2017 14:27
[2017-04-26] MEDS ORDERED: POTASSIUM CHLOR 20 MEQ PREMIX 100 ML IV PRN (14:30)
[2017-04-26] MEDS ORDERED: POTASSIUM CHLOR 40 MEQ PREMIX 100 ML IV PRN ×2 (14:30)
[2017-04-26] MEDS ORDERED: POTASSIUM PHOSPHATE INJ 30 MMOL in SODIUM CHLOR 0.9% 250 ML INJ 250 ML IV PRN (14:30)
[2017-04-26] MEDS ORDERED: MAGNESIUM OXIDE 400 MG TAB PO PRN (14:30)
[2017-04-26] MEDS ORDERED: MAGNESIUM SULFATE INJ 4 GM in SODIUM CHLORIDE 0.9% INJ 92 ML IV PRN (14:30)
[2017-04-26] MEDS ORDERED: POTASSIUM PHOSPHATE MONOBASIC 500 MG TAB PO PRN (14:30)
[2017-04-26] MEDS ORDERED: POTASSIUM PHOSPHATE MONOBASIC 500 MG TAB PO/TUBE PRN (14:30)
[2017-04-26] MEDS ORDERED: MAGNESIUM SULFATE INJ 2 GM in SODIUM CHLORIDE 0.9% INJ 96 ML IV PRN (14:30)
[2017-04-26] MEDS ORDERED: SODIUM PHOSPHATE INJ 30 MMOL in SODIUM CHLOR 0.9% 250 ML INJ 240 ML IV PRN (14:30)
--- NOTE | 2017-04-26 16:38 | RADRPT ---
EXAM DATE/TIME: 04/26/2017 15:51 [facility] COMPARISON: CHEST SINGLE AP, April 25, 2017, 23:41. INDICATIONS : Cough. MEDICAL HISTORY : Vent dependent, Quadraplegic SURGICAL HISTORY : Colostomy, PEG tube. ENCOUNTER: Subsequent ACUITY: 2 days PAIN SCORE: 0/10 LOCATION: Bilateral chest FINDINGS: Moderate perivascular pulmonary edema is present slightly worse since the prior exam. Left basilar op acity is present may be due to a combination of consolidation and or pleural effusion. Tracheostomy t ube is present in satisfactory position. Right IJ line is present with tip overlapping the expected r egion of the SVC. Right subclavian line is present with tip overlapping the expected region of the SV C. The rest of the examination has not significantly changed. CONCLUSION: Slight worsening pulmonary edema otherwise not significantly changed. Patrice Amanda MD on April 26, 2017 at 16:35 Board Certified Radiologist. This report was verified electronically.
[2017-04-27] VITALS (19 sets, daily range): BP systolic 108–193; BP diastolic 56–94; PULSE 99–133; RESP 16–29; TEMP 98–99.9; O2SAT 98–100
[2017-04-27] MEDS: FAMOTIDINE 20 MG/2 ML VIAL IV PUSH SCH ×2 (00:42→08:23)
[2017-04-27] MEDS: GABAPENTIN 300 MG CAP PO SCH ×2 (00:42→21:00)
[2017-04-27] MEDS: MEROPENEM INJ 1,000 MG in SODIUM CHLORIDE 0.9% INJ 100 ML IV SCH ×4 (00:42→22:03)
[2017-04-27] MEDS: SENNOSIDES 8.6 MG TAB G-TUBE SCH ×3 (00:42→21:00)
[2017-04-27] MEDS: FAMOTIDINE 20 MG TAB PO SCH ×3 (00:42→21:00)
[2017-04-27] MEDS: MIRTAZAPINE 15 MG TAB G-TUBE SCH ×2 (00:43→21:00)
[2017-04-27] MEDS: SODIUM CHLORIDE 0.9% FLUSH 10 ML FLUSH IV FLUSH SCH ×3 (00:43→22:03)
[2017-04-27] MEDS: HEPARIN SODIUM - SQ 10,000 UNITS/ML VIAL SQ SCH ×4 (00:44→22:03)
[2017-04-27] MEDS: DOCUSATE SODIUM 50 MG/SENNA 8.6 MG TAB PO SCH ×3 (00:44→21:00)
[2017-04-27] MEDS: traZODone HCL 100 MG TAB PO SCH ×2 (00:56→21:00)
[2017-04-27] MEDS: SODIUM CHLOR 0.9% 1000 ML INJ 1,000 ML IV SCH ×3 (01:45→21:45)
[2017-04-27] MEDS: RESP: ALBUTEROL 2.5 MG/IPRATROPIUM 0.5 MG NEB (SCH) INH ×4 (03:33→19:58)
[2017-04-27] MEDS: INSULIN ASPART SUPPLEMENTAL SCALE SQ SCH ×7 (04:00→23:01)
[2017-04-27] MEDS: CHLORHEXIDINE GLUCONATE 2 % 1 PACK (2 CLOTHS) TOP SCH (04:00)
--- NOTE | 2017-04-27 05:01 | RADRPT ---
EXAM DATE/TIME: 04/27/2017 03:59 [facility] COMPARISON: CHEST SINGLE AP, April 26, 2017, 15:51. INDICATIONS : Shortness of breath, possible pulmonary disease. MEDICAL HISTORY : Vent dependent, Quadraplegic SURGICAL HISTORY : Colostomy. Peg tube ENCOUNTER: Subsequent ACUITY: 3 days PAIN SCORE: 0/10 LOCATION: Bilateral chest FINDINGS: Right jugular line, right subclavian approach port catheter and tracheostomy tube again noted. Patchy left lower lobe and right medial basilar airspace disease again noted. Shallow lung volumes. CONCLUSION: No significant change has occurred. Ilya Nash MD on April 27, 2017 at 4:59 Board Certified Radiologist. This report was verified electronically.
[2017-04-27 05:49] LABS: AUTOMATED NEUTROPHIL # 11.1 TH/MM3 (1.8-7.7); BASOPHIL # 0.1 TH/MM3 (0-0.2); BASOPHIL % 0.6 % (0.0-2.0); EOSINOPHIL # 0.5 TH/MM3 (0-0.4); HEMATOCRIT 23.3 % (39.0-51.0); HEMOGLOBIN 7.4 GM/DL (13.0-17.0); LYMPH % 13.1 % (9.0-44.0); LYMPHOCYTE # 1.9 TH/MM3 (1.0-4.8); MEAN CELL VOLUME 68.4 FL (80.0-100.0); MEAN CORPUSCULAR HEMOGLOBIN 21.8 PG (27.0-34.0); MEAN CORPUSCULAR HGB CONC 31.9 % (32.0-36.0); MEAN PLATELET VOLUME 7.3 FL (7.0-11.0); MONO % 8.2 % (0.0-8.0); MONOCYTE # 1.2 TH/MM3 (0-0.9); NEUT % 75.1 % (16.0-70.0); PLATELET COUNT 372 TH/MM3 (150-450); RED BLOOD COUNT 3.41 MIL/MM3 (4.50-5.90); RED CELL DISTRIBUTION WIDTH 19.8 % (11.6-17.2); WHITE BLOOD COUNT 14.8 TH/MM3 (4.0-11.0)
[2017-04-27 06:11] LABS: ALBUMIN 2.6 GM/DL (3.4-5.0); AST (GOT) 36 U/L (15-37); BICARBONATE 24.2 MEQ/L (21.0-32.0); BLOOD UREA NITROGEN 11 MG/DL (7-18); CHLORIDE 100 MEQ/L (98-107); CREATININE 0.39 MG/DL (0.60-1.30); GLOMERULAR FILTRATION RATE 279 ML/MIN (>89); GLUCOSE,RANDOM 94 MG/DL (74-106); MAGNESIUM 2.1 MG/DL (1.5-2.5); SODIUM (NA) 132 MEQ/L (136-145)
[2017-04-27 06:16] LABS: ALKALINE PHOSPHATASE 369 U/L (45-117); ALT (GPT) 144 U/L (12-78); PHOSPHORUS 2.9 MG/DL (2.5-4.9); TOTAL BILIRUBIN ADULT 0.7 MG/DL (0.2-1.0); TOTAL PROTEIN 8.7 GM/DL (6.4-8.2)
[2017-04-27] MEDS: CHLORHEXIDINE 0.12% (ORAL KIT) 15 ML CUP MT SCH ×2 (08:00→20:00)
[2017-04-27 08:37] LABS: BANDS 1 % (0-6); CORRECTED NUCLEATED RBC 3 /100 WBC (0-0); LYMPHOCYTES 9 % (9-44); MONOCYTES 7 % (0-8); MYELOCYTES 1 % (0-0); NEUTROPHIL # MANUAL DIFF 12.1 TH/MM3 (1.8-7.7); NUCLEATED RED BLOOD CELL 3 (0-0); POLYS (SEG NEUTROPHILS) 80 % (16-70)
[2017-04-27] MEDS: ASCORBIC ACID 500 MG TAB G-TUBE SCH (09:00)
[2017-04-27] MEDS: SILVER SULFADIAZINE 1% CR 50 GM JAR TOPICAL SCH (09:00)
[2017-04-27] MEDS: busPIRone HCL 5 MG TAB G-TUBE SCH ×3 (09:00→18:00)
[2017-04-27] MEDS: POLYETHYLENE GLYCOL 17 GM PKG G-TUBE SCH (09:00)
[2017-04-27] MEDS: BACLOFEN 10 MG TAB G-TUBE SCH ×3 (09:00→18:00)
[2017-04-27] MEDS: MULTIVITAMINS/MINERALS THERAPEUTIC TAB G-TUBE SCH (09:00)
[2017-04-27] MEDS: MIDODRINE 5 MG TAB G-TUBE SCH ×3 (09:00→18:00)
--- NOTE | 2017-04-27 09:22 | HHI.IDPN ---
Subjective Subjective Remarks Patient is a 57-year-old male, resident of a detention, chronically on the respirator, has history of spinal cord injury with quadriplegia, has a PEG, colostomy, and a suprapubic catheter in place, brought to the hospital for evaluation of fever. He was also agitated according to the detention notes. On evaluation of his detention records, it looks like the patient was started on vancomycin and Zosyn on April 23 for treatment of osteomyelitis as a result of a sacral decubitus ulcer, with growth of ESBL positive organism, Proteus mirabilis. There was also mention that he had an MRSA from an elbow wound culture. There has been no change on his respiratory status. He remains chronically vent dependent. Evaluation in the emergency room showed leukocytosis. Chest x-ray showed basilar infiltrates and which seem to be similar to his chest x-ray from December 2016. CT of the abdomen and pelvis showed bilateral lower lobe consolidation with left pleural effusion, PEG tube in place, the location of the small bowel, and some sclerotic changes and hypertrophic changes of the left ischial tuberosity. He is not on pressors. His suprapubic catheter was reportedly change in the emergency room. Urinalysis was abnormal with significant pyuria. His cultures are currently pending. Cultures from the detention are not available for review. Patient is currently on meropenem. Infectious disease consultation has been requested to evaluate and assist with management in a patient with known MDR organism infection. Notes reviewed D/W RN Temps 99+ Vent dependent BP ok C/O whole body pain Has DVT RLE Cultures pending CXR stable infiltrates, low lung volumes WBC lower Antibiotics Current Medications Meropenem Medications (Trade) Dose Ordered Sig/Francisco J Route Start Time Stop Time Status Last Admin (Peridex 0.12% Liq) 15 ml BID@08,20 MT 04/26/17 08:00 04/26/17 08:00 (Vitamin C) 500 mg DAILY G-TUBE 04/26/17 09:00 (Lioresal) 5 mg TID G-TUBE 04/26/17 09:00 04/26/17 18:53 (Buspar) 5 mg TID G-TUBE 04/26/17 09:00 04/26/17 18:53 (Neurontin) 300 mg HS PO 04/26/17 21:00 2/4/18 00:42 (Ativan) 1 mg Q6HR PRN G-TUBE 04/26/17 05:30 (Proamatine) 5 mg TID G-TUBE 04/26/17 09:00 04/26/17 18:53 (Remeron) 15 mg HS G-TUBE 04/26/17 21:00 04/27/17 00:43 (Roxicodone) 5 mg Q6HR PRN PEG 04/26/17 05:30 (Miralax) 17 gm DAILY G-TUBE 04/26/17 09:00 (Senokot) 17.2 mg BID G-TUBE 04/26/17 09:00 04/27/17 00:42 (Silvadene 1% Cream (50 Gm)) 1 applic DAILY TOPICAL 04/26/17 09:00 (Heparin Inj) 5,000 units Q8HR SQ 04/26/17 06:00 04/27/17 04:34 (Theragran M Tab) 1 tab DAILY G-TUBE 04/26/17 09:00 (Desyrel) 150 mg HS PO 04/26/17 21:00 04/27/17 00:56 (NS Flush) 2 ml UNSCH PRN IV FLUSH 04/26/17 05:30 (NS Flush) 2 ml BID IV FLUSH 04/26/17 09:00 04/27/17 00:43 (Tylenol) 650 mg Q6H PRN PO 04/26/17 05:30 (Pepcid Inj) 20 mg Q12HR IV PUSH 04/26/17 09:00 04/27/17 08:23 (Pepcid) 20 mg Q12HR PO 04/26/17 09:00 04/27/17 00:42 (Zofran Inj) 4 mg Q6H PRN IV PUSH 04/26/17 05:30 (Duoneb Neb) 1 ampule Q6HR NEB INH 04/26/17 10:00 04/27/17 08:39 (Albuterol Neb) 2.5 mg Q2HR NEB PRN INH 04/26/17 05:30 Miscellaneous Information 1 Q361D XX 04/26/17 05:30 04/26/17 05:30 (Chlorhexidine 2% Cloth) 3 pack Taper DAILY@04 TOP 04/27/17 04:00 04/23/18 03:59 04/27/17 04:00 (Chlorhexidine 2% Cloth) 3 pack UNSCH PRN TOP 04/26/17 05:30 (Lynsey-Colace) 1 tab BID PO 04/26/17 09:00 04/27/17 00:44 (Milk Of Magnesia Liq) 30 ml Q12H PRN PO 04/26/17 05:30 (Senokot) 17.2 mg Q12H PRN PO 04/26/17 05:30 (Dulcolax Supp) 10 mg DAILY PRN RECTAL 04/26/17 05:30 (Lactulose Liq) 30 ml DAILY PRN PO 04/26/17 05:30 Sodium Chloride 1,000 ml @ 100 mls/hr Q10H IV 04/26/17 05:45 04/26/17 06:02 Meropenem 1000 mg/ Sodium Chloride 100 ml @ 200 mls/hr Q8H IV 04/26/17 14:00 04/27/17 04:34 (D50w (Vial) Inj) 50 ml UNSCH PRN IV PUSH 04/26/17 10:00 (Glucagon Inj) 1 mg UNSCH PRN OTHER 04/26/17 10:00 (NovoLOG SUPPLEMENTAL SCALE) 1 Q4HR SQ 04/26/17 10:00 04/26/17 15:36 Potassium Chloride 100 ml @ 50 mls/hr Q2H PRN IV 04/26/17 14:30 Potassium Chloride 100 ml @ 50 mls/hr Q2H PRN IV 04/26/17 14:30 (K-Lyte Cl Eff) 50 meq UNSCH PRN PO 04/26/17 14:30 Potassium Chloride 100 ml @ 25 mls/hr UNSCH PRN IV 04/26/17 14:30 04/26/17 15:31 Potassium Chloride 100 ml @ 50 mls/hr Q2H PRN IV 04/26/17 14:30 Magnesium Sulfate 4 gm/Sodium Chloride 100 ml @ 50 mls/hr UNSCH PRN IV 04/26/17 14:30 (Mag-Ox) 800 mg UNSCH PRN PO 04/26/17 14:30 Magnesium Sulfate 2 gm/Sodium Chloride 100 ml @ 50 mls/hr UNSCH PRN IV 04/26/17 14:30 (K-Phos) 2,000 mg Q4H PRN PO 04/26/17 14:30 Sodium Phosphate 30 mmol/Sodium Chloride 250 ml @ 42 mls/hr UNSCH PRN IV 04/26/17 14:30 (K-Phos) 2,000 mg UNSCH PRN PO/TUBE 04/26/17 14:30 Potassium Phosphate 30 mmol/ Sodium Chloride 260 ml @ 42 mls/hr UNSCH PRN IV 04/26/17 14:30 Lines [place] line Past Medical History Quadriplegia following spinal cord injury Chronic vent dependent respiratory failure with tracheostomy Hypertension Chronic opioid use Sacral decubitus ulcer present on admission, Left elbow decubitus ulcer present on admission Anxiety Depression Ostomy Chronic suprapubic catheter PEG Prior ileus Previous 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 Vital Signs Date Time Temp Pulse Resp B/P (MAP) Pulse Ox O2 Delivery O2 Flow Rate FiO2 04/27/17 08:41 98 30 04/27/17 06:00 99 04/27/17 04:15 100 30 04/27/17 04:00 111 04/27/17 04:00 99.2 111 16 108/59 (75) 100 04/27/17 04:00 30 04/27/17 02:00 110 04/27/17 01:10 100 30 04/27/17 00:00 98.3 103 27 126/83 (97) 100 04/27/17 00:00 30 04/27/17 00:00 103 04/26/17 22:18 100 30 04/26/17 22:00 81 04/26/17 20:00 30 04/26/17 20:00 99 04/26/17 20:00 98.0 99 16 91/54 (66) 100 04/26/17 19:44 94 30 04/26/17 18:00 81 04/26/17 16:43 100 30 04/26/17 16:00 98.6 76 16 155/94 (114) 100 04/26/17 16:00 76 04/26/17 16:00 30 04/26/17 14:00 102 04/26/17 14:00 102 17 105/58 (74) 100 04/26/17 12:11 100 30 04/26/17 12:00 99.0 116 16 150/86 (107) 99 04/26/17 12:00 116 04/26/17 12:00 30 04/26/17 10:00 75 17 149/93 (111) 100 04/26/17 10:00 75 . Laboratory Tests Test 04/25/17 23:25 04/27/17 04:23 White Blood Count 18.1 TH/MM3 14.8 TH/MM3 Red Blood Count 3.50 MIL/MM3 3.41 MIL/MM3 Hemoglobin 7.5 GM/DL 7.4 GM/DL Hematocrit 24.0 % 23.3 % Mean Corpuscular Volume 68.7 FL 68.4 FL Mean Corpuscular Hemoglobin 21.4 PG 21.8 PG Mean Corpuscular Hemoglobin Concent 31.2 % 31.9 % Red Cell Distribution Width 19.8 % 19.8 % Platelet Count 381 TH/MM3 372 TH/MM3 Mean Platelet Volume 7.0 FL 7.3 FL Neutrophils (%) (Auto) 83.7 % 75.1 % Lymphocytes (%) (Auto) 8.7 % 13.1 % Monocytes (%) (Auto) 5.8 % 8.2 % Eosinophils (%) (Auto) 1.2 % 3.0 % Basophils (%) (Auto) 0.6 % 0.6 % Neutrophils # (Auto) 15.1 TH/MM3 11.1 TH/MM3 Lymphocytes # (Auto) 1.6 TH/MM3 1.9 TH/MM3 Monocytes # (Auto) 1.0 TH/MM3 1.2 TH/MM3 Eosinophils # (Auto) 0.2 TH/MM3 0.5 TH/MM3 Basophils # (Auto) 0.1 TH/MM3 0.1 TH/MM3 CBC Comment AUTO DIFF AUTO DIFF Differential Comment AUTO DIFF CONFIRMED FINAL DIFF MANUAL Differential Total Cells Counted 100 Neutrophils % (Manual) 80 % Band Neutrophils % 1 % Lymphocytes % 9 % Monocytes % 7 % Eosinophils % 2 % Neutrophils # (Manual) 12.1 TH/MM3 Myelocytes 1 % Nucleated Red Blood Cells 3 /100 WBC Platelet Estimate NORMAL Platelet Morphology Comment NORMAL Laboratory Tests Test 04/25/17 23:25 04/26/17 02:23 04/26/17 11:10 04/26/17 11:23 Blood Urea Nitrogen 13 MG/DL 13 MG/DL Creatinine 0.57 MG/DL 0.43 MG/DL Random Glucose 215 MG/DL 136 MG/DL Total Protein 9.0 GM/DL 9.1 GM/DL Albumin 2.8 GM/DL 2.7 GM/DL Calcium Level 8.8 MG/DL 9.1 MG/DL Phosphorus Level 1.9 MG/DL Magnesium Level 2.1 MG/DL Alkaline Phosphatase 490 U/L 446 U/L Aspartate Amino Transf (AST/SGOT) 40 U/L 46 U/L Alanine Aminotransferase (ALT/SGPT) 180 U/L 177 U/L Total Bilirubin 1.0 MG/DL 0.7 MG/DL Sodium Level 131 MEQ/L 134 MEQ/L Potassium Level 4.0 MEQ/L 3.3 MEQ/L Chloride Level 95 MEQ/L 100 MEQ/L Carbon Dioxide Level 25.7 MEQ/L 24.3 MEQ/L Anion Gap 10 MEQ/L 10 MEQ/L Estimat Glomerular Filtration Rate 180 ML/MIN 249 ML/MIN Lactic Acid Level 2.1 mmol/L 2.1 mmol/L 0.8 mmol/L Total Creatine Kinase 116 U/L Creatine Kinase MB 0.8 NG/ML Troponin I LESS THAN 0.02 NG/ML Lipase 114 U/L Hemoglobin A1c 7.6 % Test 04/27/17 04:23 Blood Urea Nitrogen 11 MG/DL Creatinine 0.39 MG/DL Random Glucose 94 MG/DL Total Protein 8.7 GM/DL Albumin 2.6 GM/DL Calcium Level 9.0 MG/DL Phosphorus Level 2.9 MG/DL Magnesium Level 2.1 MG/DL Alkaline Phosphatase 369 U/L Aspartate Amino Transf (AST/SGOT) 36 U/L Alanine Aminotransferase (ALT/SGPT) 144 U/L Total Bilirubin 0.7 MG/DL Sodium Level 132 MEQ/L Potassium Level 3.5 MEQ/L Chloride Level 100 MEQ/L Carbon Dioxide Level 24.2 MEQ/L Anion Gap 8 MEQ/L Estimat Glomerular Filtration Rate 279 ML/MIN Microbiology Date/Time Source Procedure Growth Status 04/25/17 23:25 Blood Peripheral Aerobic Blood Culture - Preliminary NO GROWTH IN 1 DAY Resulted 04/25/17 23:25 Blood Peripheral Anaerobic Blood Culture - Preliminary NO GROWTH IN 1 DAY Resulted 04/25/17 23:20 Blood Peripheral Aerobic Blood Culture - Preliminary NO GROWTH IN 1 DAY Resulted 04/25/17 23:20 Blood Peripheral Anaerobic Blood Culture - Preliminary NO GROWTH IN 1 DAY Resulted 04/26/17 05:00 Sputum Endotracheal Gram Stain - Final Resulted 04/26/17 05:00 Sputum Endotracheal Sputum Culture Pending Resulted 04/25/17 22:55 Nasal Washing Influenza Types A,B Antigen ([facility]) - Final NEGATIVE FOR FLU A AND B ANTIGEN.... Complete 04/25/17 23:30 Urine Catheterized Urine Urine Culture - Preliminary No growth. Resulted 04/26/17 11:00 Catheter Tip Other Wound Culture Pending Received Imaging Chest X-Ray 04/27/17 0000 Signed Impressions: Service Date/Time: Thursday, April 27, 2017 03:59 - CONCLUSION: No significant change has occurred. Ilya Nash MD Lower Extremity Ultrasound 04/26/17 2344 Signed Impressions: Service Date/Time: Wednesday, April 26, 2017 08:46 - CONCLUSION: 1. Occlusive deep venous thrombosis right leg. 2. No DVT left leg. Adi Ferrer MD Abdomen/Pelvis CT 04/25/17 Signed Impressions: Service Date/Time: Wednesday, April 26, 2017 01:13 - CONCLUSION: Probable ileus versus developing small bowel obstruction with dilated small bowel loops identified and no discrete transition point, however close clinical and radiographic followup is advised. Left pleural effusion and bilateral lower lobe consolidation. Renal cysts. Small amount of free fluid. Decubitus ulcer with underlying sclerosis and hypertrophic changes of the left ischial tuberosity. Ilya Nash MD Physical Exam GENERAL: awake and alert, not in respiratory distress. On the vent SKIN: Cool and dry. No generalized rash, no ecchymoses and no evidence of embolic lesions. HEAD: Atraumatic. Normocephalic. No temporal wasting, or tenderness. EYES: [place] conjunctiva. No petechia or hemorrhage. Pupils equal, round and reactive to light. Extraocular movements full and intact. No scleral icterus. No injection or drainage. EARS, NOSE AND THROAT: Nose without bleeding or purulent nasal discharge. No sinus tenderness. Mucous membranes pink and moist. No oral lesions noted. NECK: Tracheostomy site is ok. Supple and not tender, no meningeal signs. RIJ line ok, no evidence of infection CARDIOVASCULAR: Regular rate and rhythm. No murmurs, rubs or gallops heard RESPIRATORY: Bilateral coarse rhonchi. Equal breath sounds ABDOMEN: Very distended, firm and protuberant, tympanitic on percussion, bowel sounds are hypoactive. PEG site looks ok,. Colostomy bag currently empty. SPC site ok. BACK: Has sacral ulcer that is about 8 x 10 cm, min drainage, no odor, with some slough. EXTREMITIES: No clubbing, cyanosis. Has mild pedal edema. L foot cool compared to R foot. Dressing L elbow, no cellulitis around ulcer, no purulence NEUROLOGICAL: Awake and alert. Cranial nerves grossly intact. Contractures of his extremities PSYCHIATRIC: Normal affect, calm and cooperative. LINE: No evidence of infection Assessment & Plan Remarks IMPRESSION Sepsis with fever, leukocytosis, tachycardia, elevated lactic acid, source - DDX: , PNA - has lines : port not working, has midline ?inserted, site ok - has decubitus, C/S MDR, wounds look ok, on Abx since 04/23, ? osteomyelitis Chronic respiratory failure, due to quadriplegia from SC injury HCAP UTI, has SPC Sacral decubitus, ?osteo L elbow wound, looks ok, per SNF records (+) MRSA in C/S which could just be colonization Abdominal distension, possible ileus on CT Leukocytosis better Elevated LFTs, ?due to sepsis, GB looks ok on CT - improving RECOMMENDATION Continue Merem, increase dose to 1 gm IV q8h Await C/S and records results from SNF Follow C/S done here and adjust Abx Follow temps Follow CBC Monitor progress Will determine course of Abx once records available and work-up completed Wound care to decubitus D/P Leonila Jaramillo MD Apr 27, 2017 09:22
--- NOTE | 2017-04-27 11:14 | HHI.GIFU ---
Subjective Remarks Patient is resting in bed, with complaints of abd pain. (+) for flatus and BM in colostomy, (Heidi,Debbieawla SNOW SHOVELER) Objective Vitals I&O Vital Signs Date Time Temp Pulse Resp B/P (MAP) Pulse Ox O2 Delivery O2 Flow Rate FiO2 04/27/17 10:00 117 04/27/17 08:41 98 30 04/27/17 08:00 117 04/27/17 08:00 98.8 109 25 117/83 (94) 100 04/27/17 08:00 30 04/27/17 06:00 99 04/27/17 04:15 100 30 04/27/17 04:00 111 04/27/17 04:00 99.2 111 16 108/59 (75) 100 04/27/17 04:00 30 04/27/17 02:00 110 04/27/17 01:10 100 30 04/27/17 00:00 98.3 103 27 126/83 (97) 100 04/27/17 00:00 30 04/27/17 00:00 103 04/26/17 22:18 100 30 04/26/17 22:00 81 04/26/17 20:00 30 04/26/17 20:00 99 04/26/17 20:00 98.0 99 16 91/54 (66) 100 04/26/17 19:44 94 30 04/26/17 18:00 81 04/26/17 16:43 100 30 04/26/17 16:00 98.6 76 16 155/94 (114) 100 04/26/17 16:00 76 04/26/17 16:00 30 04/26/17 14:00 102 04/26/17 14:00 102 17 105/58 (74) 100 04/26/17 12:11 100 30 04/26/17 12:00 99.0 116 16 150/86 (107) 99 04/26/17 12:00 116 04/26/17 12:00 30 I/O 04/26/1718 04/26/17 04/27/17 04/27/17 04/27/17 07:00 15:00 23:00 07:00 15:00 23:00 Intake Total 0 ml 250 ml 1000 ml Output Total 950 ml 350 ml Balance -950 ml 250 ml 650 ml Intake Oral 0 ml IV Total 250 ml 1000 ml Output Urine Total 850 ml 350 ml Stool Total 100 ml # Bowel Movements 2 Laboratory Laboratory Tests Test 04/26/17 11:10 04/26/17 11:23 04/26/17 18:10 04/27/17 04:23 Hemoglobin A1c 7.6 Blood Urea Nitrogen 13 11 Creatinine 0.43 0.39 Random Glucose 136 94 Total Protein 9.1 8.7 Albumin 2.7 2.6 Calcium Level 9.1 9.0 Alkaline Phosphatase 446 369 Aspartate Amino Transf (AST/SGOT) 46 36 Alanine Aminotransferase (ALT/SGPT) 177 144 Total Bilirubin 0.7 0.7 Sodium Level 134 132 Potassium Level 3.3 3.5 Chloride Level 100 100 Carbon Dioxide Level 24.3 24.2 Anion Gap 10 8 Estimat Glomerular Filtration Rate 249 279 Lactic Acid Level 0.8 Random Vancomycin Level 3.1 Blood Gas Puncture Site RT RADIAL Blood Gas Patient Temperature 98.6 Blood Gas HCO3 23 Blood Gas Base Excess -0.1 Blood Gas Oxygen Saturation 95 Arterial Blood pH 7.46 Arterial Blood Partial Pressure CO2 33 Arterial Blood Partial Pressure O2 96 Arterial Blood Oxygen Content 10.5 Arterial Blood Carboxyhemoglobin 1.5 Arterial Blood Methemoglobin 1.1 Blood Gas Hemoglobin 7.7 Oxygen Delivery Device VENTILATOR Blood Gas Ventilator Setting Blood Gas Inspired Oxygen 30 White Blood Count 14.8 Red Blood Count 3.41 Hemoglobin 7.4 Hematocrit 23.3 Mean Corpuscular Volume 68.4 Mean Corpuscular Hemoglobin 21.8 Mean Corpuscular Hemoglobin Concent 31.9 Red Cell Distribution Width 19.8 Platelet Count 372 Mean Platelet Volume 7.3 Neutrophils (%) (Auto) 75.1 Lymphocytes (%) (Auto) 13.1 Monocytes (%) (Auto) 8.2 Eosinophils (%) (Auto) 3.0 Basophils (%) (Auto) 0.6 Neutrophils # (Auto) 11.1 Lymphocytes # (Auto) 1.9 Monocytes # (Auto) 1.2 Eosinophils # (Auto) 0.5 Basophils # (Auto) 0.1 CBC Comment AUTO DIFF Differential Total Cells Counted 100 Neutrophils % (Manual) 80 Band Neutrophils % 1 Lymphocytes % 9 Monocytes % 7 Eosinophils % 2 Neutrophils # (Manual) 12.1 Myelocytes 1 Nucleated Red Blood Cells 3 Differential Comment FINAL DIFF MANUAL Platelet Estimate NORMAL Platelet Morphology Comment NORMAL Phosphorus Level 2.9 Magnesium Level 2.1 Date/Time Source Procedure Growth Status 04/25/17 23:25 Blood Peripheral Aerobic Blood Culture - Preliminary NO GROWTH IN 1 DAY Resulted 04/25/17 23:25 Blood Peripheral Anaerobic Blood Culture - Preliminary NO GROWTH IN 1 DAY Resulted 04/26/17 05:00 Sputum Endotracheal Gram Stain - Final Resulted 04/26/17 05:00 Sputum Endotracheal Sputum Culture Pending Resulted 04/25/17 23:30 Urine Catheterized Urine Urine Culture - Preliminary Gram Negative Javed Group D Enterococcus Resulted 04/26/17 11:00 Catheter Tip Other Wound Culture Pending Received Imaging Last Impressions Chest X-Ray 04/27/17 0000 Signed Impressions: Service Date/Time: Thursday, April 27, 2017 03:59 - CONCLUSION: No significant change has occurred. Ilya Nash MD Lower Extremity Ultrasound 04/26/17 2344 Signed Impressions: Service Date/Time: Wednesday, April 26, 2017 08:46 - CONCLUSION: 1. Occlusive deep venous thrombosis right leg. 2. No DVT left leg. Adi Ferrer MD Abdomen/Pelvis CT 04/25/17 0000 Signed Impressions: Service Date/Time: Wednesday, April 26, 2017 01:13 - CONCLUSION: Probable ileus versus developing small bowel obstruction with dilated small bowel loops identified and no discrete transition point, however close clinical and radiographic followup is advised. Left pleural effusion and bilateral lower lobe consolidation. Renal cysts. Small amount of free fluid. Decubitus ulcer with underlying sclerosis and hypertrophic changes of the left ischial tuberosity. Ilya Nash MD Physical Exam HEENT: normocephalic; atraumatic; no jaundice. NECK: trach CHEST: Chest is clear to auscultation and percussion. on vent through trach CARDIAC: Regular rate and rhythm ABDOMEN: firm , distended, nontender; no hepatosplenomegaly; bowel sounds are soft, colostomy and PEG EXTREMITIES: No clubbing, cyanosis, or edema. SKIN: Normal; no rash; no jaundice. DINING HOST: alert and oriented on vent (Anand Gordon) Assessment and Plan Plan - Ileus- CT on 04/26/17 showed probable ileus versus developing SBO with dilates small bowel loops with no transition point, left plural effusion and bilateral lower lobe consolidation, renal cysts. Patient is (+) for flatus and stools in colostomy bag. Abdomen firm and distended. Attempts made by CCM to insert NGT unsuccessful, IR consulted but not available on the weekend - Dysfunctional G tube. not flushing with several attempts made, unable to unclog - fever- ID on the case, pt with hx of ESBL and Proteus mirabilis sacral wound/ osteomyelitis. and has sacral and left elbow decubitus ulcers - Elevated LFTs- CT as above, no biliary involvement, will monitor, hepatitis panel pending - past medical history of spinal cord injury resulting in quadriplegia, s/p trach/PEG with vent dependency, ostomy Plan: - NPO - Stat KUB - Consents for EGD/PEG tube - Patient is already on abx - Supportive care - Patient seen and examined by Dr. Estrada and myself and this note is written on his behalf. (Anand Gordon) Physician Comments Seen and examined with [employer]ER, Abdomen somewhat softer. Unable to place NG under sedation. EGD/PEG replacement planned if patient agreeable. KUB pending. Discussed with dr. Rodríguez. (Rivera Estrada MD) Anand Gordon Apr 27, 2017 11:14 Rivera Estrada MD Apr 27, 2017 12:11
--- NOTE | 2017-04-27 12:09 | RADRPT ---
EXAM DATE/TIME: 04/27/2017 11:38 [facility] COMPARISON: ABDOMEN KUB ONLY, December 30, 2016, 4:18. INDICATIONS : Ileus, abdomen distention. MEDICAL HISTORY : Quadrapelgic, ventilator dependent. SURGICAL HISTORY : PEG tube, colostomy ENCOUNTER: Initial ACUITY: 3 days PAIN SCORE: 0/10 LOCATION: Abdomen FINDINGS: Supine view of the abdomen was performed. Gaseous distention of multiple bowel loops, including the stomach. PEG tube seen. No abnormal masses, calcifications, or organomegaly is seen. The osseous st ructures are unremarkable. CONCLUSION: 1. Gaseous distention of multiple bowel loops likely ileus. 2. PEG tube. Adi Ferrer MD on April 27, 2017 at 12:06 Board Certified Radiologist. This report was verified electronically.
[2017-04-27] MEDS ORDERED: FAMOTIDINE 20 MG/2 ML VIAL IV PUSH PRN (14:30)
--- NOTE | 2017-04-27 14:55 | HHI.CCPN ---
Subjective Remarks/Hospital Course Hospital Course: 57-year-old male with past medical history of spinal cord injury resulting in quadriplegia, s/p trach/PEG with vent dependency, ostomy, HTN, sacral and left elbow decubitus ulcers, chronic indwelling suprapubic catheter, depression, anxiety, port right chest, IVC filter who was sent to [facility] emergency department from [facility] due to fever 103.8 and ( per [place] transfer documentation "highly agitated after getting medication for agitation"). Patient is alert on vent and difficult historian but does mouth some words and helps provide some limited history. Records indicate that he was started on Zosyn and vancomycin on 04/23/17 "for ESBL and Proteus mirabilis sacral wound/osteomyelitis x 6weeks", on isolation for "MRSA elbow". White blood cell count is elevated at 18.1. Hemoglobin is 7.5. Lactic acid is 2.1. Transaminases and alkaline phosphatase are elevated. Lipase is normal. CT abdomen and pelvis demonstrates bilateral lower lobe consolidations, moderate left pleural effusion. PEG tube is in place but there is dilation of the small bowel in the mid abdomen without discrete transition point; probable ileus versus developing small bowel obstruction. There is sclerosis and hyper trophic changes of the left ischial tuberosity which can be seen and chronic osteomyelitis. Gallbladder is unremarkable. In the emergency department patient was maintained on chronic ventilator settings with pressure SIMV. He was given Toradol 30 mg IV, morphine 4 mg IV, 1 L normal saline bolus. PEG was noted to be obstructed by ED physician who was unable to flush using soda. Patient refused NG tube. Patient does repeatedly request both oral and trach suctioning. He does reports some mild increase in respiratory secretions. subjective: 04/27: GI planning EGD with decompression and PEG tube swap. patient states he wants to go home and feels better. ROS difficult to obtain due to chronic vent dependency, but limited ROS negative for fever, chills, abd pain, swelling. LE DVT + on u/s yesterday: ivc filter in place. holding full dose anticoagulation until GI procedure today. will need full dose anticoagulation after that. Objective Vital Signs Date Time Temp Pulse Resp B/P (MAP) Pulse Ox O2 Delivery O2 Flow Rate FiO2 04/27/17 14:49 100 30 04/27/17 14:00 117 04/27/17 12:00 98.0 23 193/79 (117) 04/26/17 02:01 Ventilator Intake and Output 04/27/17 04/27/17 04/27/17 07:59 15:59 23:59 Intake Total 1000 ml Output Total 350 ml Balance 650 ml Result Diagram: 04/27/17 0423 04/27/17 0423 Other Results Microbiology Date/Time Source Procedure Growth Status 04/25/17 22:55 Nasal Washing Influenza Types A,B Antigen ([facility]) - Final NEGATIVE FOR FLU A AND B ANTIGEN.... Complete Laboratory Tests Test 04/26/17 18:10 Blood Gas Puncture Site RT RADIAL Blood Gas Patient Temperature 98.6 Blood Gas HCO3 23 mmol/L (22-26) Blood Gas Base Excess -0.1 mmol/L (-2-2) Blood Gas Oxygen Saturation 95 % (90-100) Arterial Blood pH 7.46 (7.380-7.420) Arterial Blood Partial Pressure CO2 33 mmHg (38-42) Arterial Blood Partial Pressure O2 96 mmHg (61-120) Arterial Blood Oxygen Content 10.5 Vol % (12.0-20.0) Arterial Blood Carboxyhemoglobin 1.5 % (0-4) Arterial Blood Methemoglobin 1.1 % (0-2) Blood Gas Hemoglobin 7.7 G/DL (12.0-16.0) Oxygen Delivery Device VENTILATOR Blood Gas Ventilator Setting Blood Gas Inspired Oxygen 30 % Objective Remarks GENERAL: Chronically ill-appearing male who has quadriplegia, tracheostomy on mechanical ventilation. He is sitting up and alert and communicating by nodding and trying to mouth some words though communication is limited. HEAD: Atraumatic. Normocephalic. EYES: Pupils equal and round. No scleral icterus. No injection or drainage. ENT: No nasal bleeding or discharge. Mucous membranes pink and moist. NECK: Cuff tracheostomy in place. On mechanical ventilation SIMV: home settings. CARDIOVASCULAR: Regular rate and rhythm. No murmurs rubs or gallops appreciated. VASC: Port is in place right chest with site benign appearing. Midline in place RUE, no erythema or drainage RESPIRATORY: On mechanical ventilation via trach. Appears reasonably comfortable without accessory muscle use. GASTROINTESTINAL: Abdomen distended tympanitic. PEG tube in place without abnormality of insertion site, does not flush or draw. Ostomy in place. MUSCULOSKELETAL: Extremities without clubbing, cyanosis. Arms held in flexion, wrist held in extension bilaterally. Bilateral foot drop. NEUROLOGICAL: Awake and alert. Quadriparesis. + shoulder shrug. No obvious cranial nerve deficits. Mouths words but is difficult to understand what he is saying. A/P Assessment and Plan Assessment: 57yM with chronic vent dependency due to SCI who presented with sepsis and now has GNR in sputum and urine. PEG tube clogged. plan for EGD today. will need full dose anticoagulation for DVT after this. ID involved given the patient has a chronic and complex ID history. Once PEG tube replaced and abx narrowed per sensitivities, can likely go back to his chronic vent facility. NEURO: Spinal cord injury with quadriplegia Chronic pain Chronic opioid use Peripheral neuropathy Depression Anxiety Gabapentin 300 daily at bedtime Trazodone 150 by mouth daily at bedtime Remeron 15 mg daily at bedtime Baclofen 5 mg 3 times a day BuSpar 5 mg 3 times a day RESP: Chronic vent dependent respiratory failure Tracheostomy Left pleural effusion Bibasilar pneumonia CT abdomen and pelvis 2/3 demonstrates bibasilar consolidation in the lower lobes with moderate left pleural effusion Continue chronic mechanical ventilation with pressure SIMV inspiratory pressure 28, rate 16, PEEP 5/I time 1/pressure support 15, FiO2 30% per chronic settings from [facility] CV: Monitor hemodynamics Continue chronic Midodrin 5 mg 3 times a day. Hold metoprolol 25 twice a day. GI: Ileus PEG malfunction. Transaminase elevation, downtrend from 04/22/17. No gallbladder abnormality noted on CT Colostomy CT abdomen and pelvis 2/3 ileus vs ???developing SBO: patient having BMs, unlikely to be SBO. Patient states had normal BM x1 yesterday. PEG occluded. ED unable to successfully resolve occlusion. GI plan for EGD today. Typically on tube feeds 16 hours a day. Also reportedly taking a regular diet by mouth. Keep NPO for now. Patient refuses NGT. FEN/RENAL: Chronic Suprapubic catheter in place Chronic hyponatremia Catheter replaced 2/3. Monitor intake and output. Monitor electrolytes and replace as indicated. ID: Leukocytosis Sepsis Persistent fever Sacral decubitus ulcers with osteomyelitis Left elbow wound ? UTI. Chronic indwelling suprapubic catheter Port in place right chest - site benign RUE midline - site benign. Remove and catheter tip culture per ID. Unclear when this was placed. Patient has been on vancomycin and Zosyn since 04/23/17. There is some notation in [facility] records regarding ESBL in sacral wound. Unclear how cultures were obtained. Will obtain cultures and further records from [facility]. Will stop Zosyn and use meropenem. Continue vancomycin Infectious disease consult. Wound care consult suprapubic catheter replaced at bedside 04/26. Persistent fever may also be related to DVT. Patient has an IVC filter. LE ultrasound + for DVT. HEME: IVC filter in place LE DVT IVC filter needs anticoagulation after GI procedure determined. ENDO: Acute hyperglycemia Monitor bedside glucose and initiate low-dose insulin sliding scale every 4 hours urine check hemoglobin A1c PROPH: Heparin 5000 units subcutaneous every 8 hours for DVT prophylaxis. Has an IVC filter in place. Imodium for stress ulcer prophylaxis ACCESS: Port in place right chest. Right IJ central venous line placed in ED 04/26/17 Valeriy Berrios MD Apr 27, 2017 14:55
[2017-04-28] VITALS (28 sets, daily range): BP systolic 132–243; BP diastolic 64–126; PULSE 56–130; RESP 16–27; TEMP 98.3–99.8; O2SAT 91–100
[2017-04-28] MEDS: RESP: ALBUTEROL 2.5 MG/IPRATROPIUM 0.5 MG NEB (SCH) INH ×4 (03:22→20:29)
[2017-04-28] MEDS: INSULIN ASPART SUPPLEMENTAL SCALE SQ SCH ×5 (04:00→20:00)
[2017-04-28] MEDS: CHLORHEXIDINE GLUCONATE 2 % 1 PACK (2 CLOTHS) TOP SCH (04:00)
[2017-04-28] MEDS: HEPARIN SODIUM - SQ 10,000 UNITS/ML VIAL SQ SCH (04:51)
[2017-04-28] MEDS: MEROPENEM INJ 1,000 MG in SODIUM CHLORIDE 0.9% INJ 100 ML IV SCH (05:11)
[2017-04-28] MEDS: SILVER SULFADIAZINE 1% CR 50 GM JAR TOPICAL SCH (09:00)
--- NOTE | 2017-04-28 09:46 | HHI.CCPN ---
Subjective Remarks/Hospital Course Hospital Course: 57-year-old male with past medical history of spinal cord injury resulting in quadriplegia, s/p trach/PEG with vent dependency, ostomy, HTN, sacral and left elbow decubitus ulcers, chronic indwelling suprapubic catheter, depression, anxiety, port right chest, IVC filter who was sent to [facility] emergency department from [facility] due to fever 103.8 and ( per CT transfer documentation "highly agitated after getting medication for agitation"). Patient is alert on vent and difficult historian but does mouth some words and helps provide some limited history. Records indicate that he was started on Zosyn and vancomycin on 04/23/17 "for ESBL and Proteus mirabilis sacral wound/osteomyelitis x 6weeks", on isolation for "MRSA elbow". White blood cell count is elevated at 18.1. Hemoglobin is 7.5. Lactic acid is 2.1. Transaminases and alkaline phosphatase are elevated. Lipase is normal. CT abdomen and pelvis demonstrates bilateral lower lobe consolidations, moderate left pleural effusion. PEG tube is in place but there is dilation of the small bowel in the mid abdomen without discrete transition point; probable ileus versus developing small bowel obstruction. There is sclerosis and hyper trophic changes of the left ischial tuberosity which can be seen and chronic osteomyelitis. Gallbladder is unremarkable. In the emergency department patient was maintained on chronic ventilator settings with pressure SIMV. He was given Toradol 30 mg IV, morphine 4 mg IV, 1 L normal saline bolus. PEG was noted to be obstructed by ED physician who was unable to flush using soda. Patient refused NG tube. Patient does repeatedly request both oral and trach suctioning. He does reports some mild increase in respiratory secretions. subjective: 2/4: GI planning EGD with decompression and PEG tube swap. patient states he wants to go home and feels better. ROS difficult to obtain due to chronic vent dependency, but limited ROS negative for fever, chills, abd pain, swelling. LE DVT + on u/s yesterday: ivc filter in place. holding full dose anticoagulation until GI procedure today. will need full dose anticoagulation after that. 25 No events overnight. For PEG tube replacement today. Afebrile. Objective Vital Signs Date Time Temp Pulse Resp B/P (MAP) Pulse Ox O2 Delivery O2 Flow Rate FiO2 04/28/17 08:54 99 30 04/28/17 08:00 99.4 113 27 176/88 (117) 04/26/17 02:01 Ventilator Intake and Output 04/28/17 04/28/17 04/29/17 08:00 16:00 00:00 Output Total 500 ml Balance -500 ml Result Diagram: 04/27/17 0423 04/27/17 0423 Imaging Last Impressions Chest X-Ray 04/27/17 0000 Signed Impressions: Service Date/Time: Thursday, April 27, 2017 03:59 - CONCLUSION: No significant change has occurred. Ilya Nash MD Abdomen X-Ray 04/27/17 0000 Signed Impressions: Service Date/Time: Thursday, April 27, 2017 11:38 - CONCLUSION: 1. Gaseous distention of multiple bowel loops likely ileus. 2. PEG tube. Adi Ferrer MD Lower Extremity Ultrasound 04/26/17 2344 Signed Impressions: Service Date/Time: Wednesday, April 26, 2017 08:46 - CONCLUSION: 1. Occlusive deep venous thrombosis right leg. 2. No DVT left leg. Adi Ferrer MD Abdomen/Pelvis CT 04/25/17 0000 Signed Impressions: Service Date/Time: Wednesday, April 26, 2017 01:13 - CONCLUSION: Probable ileus versus developing small bowel obstruction with dilated small bowel loops identified and no discrete transition point, however close clinical and radiographic followup is advised. Left pleural effusion and bilateral lower lobe consolidation. Renal cysts. Small amount of free fluid. Decubitus ulcer with underlying sclerosis and hypertrophic changes of the left ischial tuberosity. Ilya Nash MD Objective Remarks GENERAL: Chronically ill-appearing male who has quadriplegia, tracheostomy on mechanical ventilation. He is sitting up and alert and communicating by nodding and trying to mouth some words though communication is limited. HEAD: Atraumatic. Normocephalic. EYES: Pupils equal and round. No scleral icterus. No injection or drainage. ENT: No nasal bleeding or discharge. Mucous membranes pink and moist. NECK: Cuff tracheostomy in place. On mechanical ventilation SIMV: home settings. CARDIOVASCULAR: Regular rate and rhythm. No murmurs rubs or gallops appreciated. VASC: Port is in place right chest with site benign appearing. Midline in place RUE, no erythema or drainage RESPIRATORY: On mechanical ventilation via trach. Appears reasonably comfortable without accessory muscle use. GASTROINTESTINAL: Abdomen distended tympanitic. PEG tube in place without abnormality of insertion site, does not flush or draw. Ostomy in place. MUSCULOSKELETAL: Extremities without clubbing, cyanosis. Arms held in flexion, wrist held in extension bilaterally. Bilateral foot drop. NEUROLOGICAL: Awake and alert. Quadriparesis. + shoulder shrug. No obvious cranial nerve deficits. Mouths words but is difficult to understand what he is saying. A/P Assessment and Plan Assessment: 57yM with chronic vent dependency due to SCI who presented with sepsis and now has GNR in sputum and urine. PEG tube clogged. plan for EGD today. will need full dose anticoagulation for DVT after this. NEURO: Spinal cord injury with quadriplegia Chronic pain Chronic opioid use Peripheral neuropathy Depression Anxiety Monitor neuro status Gabapentin 300 daily at bedtime Trazodone 150 by mouth daily at bedtime Remeron 15 mg daily at bedtime Baclofen 5 mg 3 times a day BuSpar 5 mg 3 times a day RESP: Chronic vent dependent respiratory failure Tracheostomy Left pleural effusion Bibasilar pneumonia Continue vent sipport keep sat >92% On mechanical ventilation with pressure SIMV IP: 28, rate 16, PEEP 5/I time 1/ pressure support 15, FiO2 30% per chronic settings from correction Bronchodilators, ICU vent bundle. Pulm toilet, trach care CV: Monitor Hr and BP keep MAP>65mmHg Continue chronic Midodrine 5 mg 3 times a day. GI: Ileus PEG malfunction. Transaminase elevation, downtrend from 04/22/17. No gallbladder abnormality noted on CT Colostomy CT abdomen and pelvis 2/3 ileus vs ???developing SBO: patient having BMs, unlikely to be SBO. Check KUB abdomen today PEG occluded. ED unable to successfully resolve occlusion. For PEG replacement today Typically on tube feeds 16 hours a day. Also reportedly taking a regular diet by mouth. Keep NPO for now. Patient refuses NGT. FEN/RENAL: Chronic Suprapubic catheter in place Chronic hyponatremia Catheter replaced 2/3. Monitor intake and output. Monitor electrolytes and replace as indicated. Continue IVF=NS@75ml/hr ID: Leukocytosis Sacral decubitus ulcers with osteomyelitis Left elbow wound ? UTI. Chronic indwelling suprapubic catheter Port in place right chest - site benign RUE midline - site benign. Removed and catheter tip culture per ID. Unclear when this was placed. 04/26 Sputum cx: GNR 04/25 Urine cx : GNR, Group D enterococcus Continue abx per ID( On Merrem) and monitor for signs of infections ( Fever, WBC ) Wound care consult suprapubic catheter replaced at bedside 04/26. Persistent fever may also be related to DVT. Patient has an IVC filter. LE ultrasound + for DVT. HEME: IVC filter in place LE DVT IVC filter needs anticoagulation after GI procedure determined. ENDO: Acute hyperglycemia SSI for glycemic control PROPH: Heparin 5000 units sq every 8 hours for DVT prophylaxis. Has an IVC filter in place. Pepcid for stress ulcer prophylaxis ACCESS: Port in place right chest. Right IJ central venous line placed in ED 04/26/17 Check labs today Thierry Thurston MD Apr 28, 2017 09:46
--- NOTE | 2017-04-28 10:49 | RADRPT ---
EXAM DATE/TIME: 04/28/2017 09:58 [place] COMPARISON: ABDOMEN KUB ONLY, April 27, 2017, 11:38. INDICATIONS : Distention. MEDICAL HISTORY : Quadrapelgic, ventilator dependent SURGICAL HISTORY : PEG tube, colostomy ENCOUNTER: Subsequent ACUITY: 3 days PAIN SCORE: 0/10 LOCATION: Bilateral Abdomen FINDINGS: G-tube is evident. Moderate gastric distention with both colonic and small bowel gas evident suggest ing ileus. No free air. No obstruction. CONCLUSION: Probable ileus with moderate gaseous distention findings have progressed in interval. Gurpreet Iniguez MD FACR on April 28, 2017 at 10:46 Board Certified Radiologist. This report was verified electronically.
[2017-04-28 10:56] LABS: AUTOMATED NEUTROPHIL # 11.2 TH/MM3 (1.8-7.7); BASOPHIL # 0.1 TH/MM3 (0-0.2); BASOPHIL % 0.7 % (0.0-2.0); EOSINOPHIL # 0.1 TH/MM3 (0-0.4); EOSINOPHIL % 0.9 % (0.0-4.0); HEMOGLOBIN 8.3 GM/DL (13.0-17.0); LYMPH % 10.9 % (9.0-44.0); LYMPHOCYTE # 1.5 TH/MM3 (1.0-4.8); MEAN CELL VOLUME 68.4 FL (80.0-100.0); MEAN CORPUSCULAR HEMOGLOBIN 21.7 PG (27.0-34.0); MEAN CORPUSCULAR HGB CONC 31.7 % (32.0-36.0); MEAN PLATELET VOLUME 7.6 FL (7.0-11.0); MONO % 6.9 % (0.0-8.0); NEUT % 80.6 % (16.0-70.0); PLATELET COUNT 392 TH/MM3 (150-450); RED BLOOD COUNT 3.81 MIL/MM3 (4.50-5.90); WHITE BLOOD COUNT 13.9 TH/MM3 (4.0-11.0)
[2017-04-28 11:17] LABS: ALBUMIN 2.8 GM/DL (3.4-5.0); ALT (GPT) 122 U/L (12-78); AST (GOT) 35 U/L (15-37); BICARBONATE 20.7 MEQ/L (21.0-32.0); BLOOD UREA NITROGEN 15 MG/DL (7-18); CALCIUM 8.9 MG/DL (8.5-10.1); CHLORIDE 101 MEQ/L (98-107); CREATININE 0.39 MG/DL (0.60-1.30); GLOMERULAR FILTRATION RATE 279 ML/MIN (>89); GLUCOSE,RANDOM 106 MG/DL (74-106); MAGNESIUM 2.1 MG/DL (1.5-2.5); PHOSPHORUS 2.7 MG/DL (2.5-4.9); SODIUM (NA) 136 MEQ/L (136-145)
[2017-04-28 11:20] LABS: ALKALINE PHOSPHATASE 334 U/L (45-117); TOTAL BILIRUBIN ADULT 0.8 MG/DL (0.2-1.0); TOTAL PROTEIN 9.3 GM/DL (6.4-8.2)
[2017-04-28] MEDS ORDERED: PROPOFOL 200 MG/20 ML AMP IV ONE (12:00)
[2017-04-28] MEDS ORDERED: PHENYLEPH/NS 1000 MCG/10 ML SYR IV ONE (12:00)
[2017-04-28] MEDS ORDERED: LIDOCAINE HCL 1% PF 5 ML SYRINGE OTHER ONE (12:00)
[2017-04-28] MEDS ORDERED: DO NOT ADM ANY ANTICOAGULANT DRUGS PRN (12:00)
[2017-04-28] MEDS: POLYETHYLENE GLYCOL 17 GM PKG G-TUBE SCH (12:11)
[2017-04-28] MEDS: MULTIVITAMINS/MINERALS THERAPEUTIC TAB G-TUBE SCH (12:11)
[2017-04-28] MEDS: FAMOTIDINE 20 MG TAB PO SCH ×2 (12:11→20:49)
[2017-04-28] MEDS: SENNOSIDES 8.6 MG TAB G-TUBE SCH ×2 (12:12→20:50)
[2017-04-28] MEDS: DOCUSATE SODIUM 50 MG/SENNA 8.6 MG TAB PO SCH ×2 (12:12→20:49)
[2017-04-28] MEDS: busPIRone HCL 5 MG TAB G-TUBE SCH ×3 (12:13→18:29)
[2017-04-28] MEDS: BACLOFEN 10 MG TAB G-TUBE SCH ×3 (12:13→18:29)
[2017-04-28] MEDS: MIDODRINE 5 MG TAB G-TUBE SCH ×2 (12:13→12:55)
--- NOTE | 2017-04-28 12:18 | HHI.IDPN ---
Subjective Subjective Remarks Patient is a 57-year-old male, resident of a detention, chronically on the respirator, has history of spinal cord injury with quadriplegia, has a PEG, colostomy, and a suprapubic catheter in place, brought to the hospital for evaluation of fever. He was also agitated according to the detention notes. On evaluation of his detention records, it looks like the patient was started on vancomycin and Zosyn on April 23 for treatment of osteomyelitis as a result of a sacral decubitus ulcer, with growth of ESBL positive organism, Proteus mirabilis. There was also mention that he had an MRSA from an elbow wound culture. There has been no change on his respiratory status. He remains chronically vent dependent. Evaluation in the emergency room showed leukocytosis. Chest x-ray showed basilar infiltrates and which seem to be similar to his chest x-ray from December 2016. CT of the abdomen and pelvis showed bilateral lower lobe consolidation with left pleural effusion, PEG tube in place, the location of the small bowel, and some sclerotic changes and hypertrophic changes of the left ischial tuberosity. He is not on pressors. His suprapubic catheter was reportedly change in the emergency room. Urinalysis was abnormal with significant pyuria. His cultures are currently pending. Cultures from the detention are not available for review. Patient is currently on meropenem. Infectious disease consultation has been requested to evaluate and assist with management in a patient with known MDR organism infection. Notes reviewed D/W RN Temps 99+ Vent dependent BP ok Had replacement of his PEG Has DVT RLE Cultures reviewed CXR stable infiltrates, low lung volumes WBC lower Antibiotics Current Medications Merem Medications (Trade) Dose Ordered Sig/Francisco J Route Start Time Stop Time Status Last Admin (Peridex 0.12% Liq) 15 ml BID@08,20 MT 04/26/17 08:00 04/27/17 20:00 (Vitamin C) 500 mg DAILY G-TUBE 04/26/17 09:00 (Lioresal) 5 mg TID G-TUBE 04/26/17 09:00 04/26/17 18:53 (Buspar) 5 mg TID G-TUBE 04/26/17 09:00 04/26/17 18:53 (Neurontin) 300 mg HS PO 04/26/17 21:00 04/27/17 00:42 (Ativan) 1 mg Q6HR PRN G-TUBE 04/26/17 05:30 (Proamatine) 5 mg TID G-TUBE 04/26/17 09:00 04/26/17 18:53 (Remeron) 15 mg HS G-TUBE 04/26/17 21:00 04/27/17 00:43 (Roxicodone) 5 mg Q6HR PRN PEG 04/26/17 05:30 (Miralax) 17 gm DAILY G-TUBE 04/26/17 09:00 (Senokot) 17.2 mg BID G-TUBE 04/26/17 09:00 04/27/17 00:42 (Silvadene 1% Cream (50 Gm)) 1 applic DAILY TOPICAL 04/26/17 09:00 (Theragran M Tab) 1 tab DAILY G-TUBE 04/26/17 09:00 (Desyrel) 150 mg HS PO 04/26/17 21:00 04/27/17 00:56 (NS Flush) 2 ml UNSCH PRN IV FLUSH 04/26/17 05:30 (NS Flush) 2 ml BID IV FLUSH 04/26/17 09:00 04/27/17 22:03 (Tylenol) 650 mg Q6H PRN PO 04/26/17 05:30 (Pepcid) 20 mg Q12HR PO 04/26/17 09:00 04/27/17 00:42 (Zofran Inj) 4 mg Q6H PRN IV PUSH 04/26/17 05:30 (Duoneb Neb) 1 ampule Q6HR NEB INH 04/26/17 10:00 04/28/17 08:49 (Albuterol Neb) 2.5 mg Q2HR NEB PRN INH 04/26/17 05:30 Miscellaneous Information 1 Q361D XX 04/26/17 05:30 04/26/17 05:30 (Chlorhexidine 2% Cloth) 3 pack Taper DAILY@04 TOP 04/27/17 04:00 04/23/18 03:59 04/28/17 04:00 (Chlorhexidine 2% Cloth) 3 pack UNSCH PRN TOP 04/26/17 05:30 (Lynsey-Colace) 1 tab BID PO 04/26/17 09:00 04/27/17 09:00 (Milk Of Magnesia Liq) 30 ml Q12H PRN PO 04/26/17 05:30 (Senokot) 17.2 mg Q12H PRN PO 04/26/17 05:30 (Dulcolax Supp) 10 mg DAILY PRN RECTAL 04/26/17 05:30 (Lactulose Liq) 30 ml DAILY PRN PO 04/26/17 05:30 Sodium Chloride 1,000 ml @ 75 mls/hr [id number] IV 04/26/17 05:45 04/26/17 22:00 Meropenem 1000 mg/ Sodium Chloride 100 ml @ 200 mls/hr Q8H IV 04/26/17 14:00 04/28/17 05:11 (D50w (Vial) Inj) 50 ml UNSCH PRN IV PUSH 04/26/17 10:00 (Glucagon Inj) 1 mg UNSCH PRN OTHER 04/26/17 10:00 (NovoLOG SUPPLEMENTAL SCALE) 1 Q4HR SQ 04/26/17 10:00 04/26/17 15:36 Potassium Chloride 100 ml @ 50 mls/hr Q2H PRN IV 04/26/17 14:30 Potassium Chloride 100 ml @ 50 mls/hr Q2H PRN IV 04/26/17 14:30 (K-Lyte Cl Eff) 50 meq UNSCH PRN PO 04/26/17 14:30 Potassium Chloride 100 ml @ 25 mls/hr UNSCH PRN IV 04/26/17 14:30 04/26/17 15:31 Potassium Chloride 100 ml @ 50 mls/hr Q2H PRN IV 04/26/17 14:30 Magnesium Sulfate 4 gm/Sodium Chloride 100 ml @ 50 mls/hr UNSCH PRN IV 04/26/17 14:30 (Mag-Ox) 800 mg UNSCH PRN PO 04/26/17 14:30 Magnesium Sulfate 2 gm/Sodium Chloride 100 ml @ 50 mls/hr UNSCH PRN IV 04/26/17 14:30 (K-Phos) 2,000 mg Q4H PRN PO 04/26/17 14:30 Sodium Phosphate 30 mmol/Sodium Chloride 250 ml @ 42 mls/hr UNSCH PRN IV 04/26/17 14:30 (K-Phos) 2,000 mg UNSCH PRN PO/TUBE 04/26/17 14:30 Potassium Phosphate 30 mmol/ Sodium Chloride 260 ml @ 42 mls/hr UNSCH PRN IV 04/26/17 14:30 (Pepcid Inj) 20 mg Q12HR PRN IV PUSH 04/27/17 14:30 Miscellaneous Information ALL NURSING DEPARTME... 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 Vital Signs Date Time Temp Pulse Resp B/P (MAP) Pulse Ox O2 Delivery O2 Flow Rate FiO2 04/28/17 08:54 99 30 04/28/17 08:00 99.4 113 27 176/88 (117) 97 04/28/17 08:00 30 04/28/17 08:00 89 04/28/17 07:00 103 23 142/89 (106) 91 04/28/17 06:00 91 04/28/17 04:15 100 30 04/28/17 04:00 98.9 81 16 139/73 (95) 98 04/28/17 04:00 81 04/28/17 04:00 30 04/28/17 02:00 103 04/28/17 01:40 100 30 04/28/17 00:00 102 04/28/17 00:00 99.7 102 16 132/64 (86) 100 04/28/17 00:00 30 04/27/17 22:45 100 30 04/27/17 22:00 100 04/27/17 20:00 120 04/27/17 20:00 99.9 120 16 113/56 (75) 100 04/27/17 20:00 30 04/27/17 19:50 100 30 04/27/17 18:00 117 04/27/17 16:00 30 04/27/17 16:00 98.8 133 29 145/94 (111) 100 04/27/17 16:00 117 04/27/17 14:49 100 30 04/27/17 14:00 117 04/28/17 04/28/17 04/29/17 15:00 23:00 07:00 Intake Total 50 ml Balance 50 ml Other 50 ml . Laboratory Tests Test 04/27/17 04:23 04/28/17 10:05 White Blood Count 14.8 TH/MM3 13.9 TH/MM3 Red Blood Count 3.41 MIL/MM3 3.81 MIL/MM3 Hemoglobin 7.4 GM/DL 8.3 GM/DL Hematocrit 23.3 % 26.0 % Mean Corpuscular Volume 68.4 FL 68.4 FL Mean Corpuscular Hemoglobin 21.8 PG 21.7 PG Mean Corpuscular Hemoglobin Concent 31.9 % 31.7 % Red Cell Distribution Width 19.8 % 20.0 % Platelet Count 372 TH/MM3 392 TH/MM3 Mean Platelet Volume 7.3 FL 7.6 FL Neutrophils (%) (Auto) 75.1 % 80.6 % Lymphocytes (%) (Auto) 13.1 % 10.9 % Monocytes (%) (Auto) 8.2 % 6.9 % Eosinophils (%) (Auto) 3.0 % 0.9 % Basophils (%) (Auto) 0.6 % 0.7 % Neutrophils # (Auto) 11.1 TH/MM3 11.2 TH/MM3 Lymphocytes # (Auto) 1.9 TH/MM3 1.5 TH/MM3 Monocytes # (Auto) 1.2 TH/MM3 1.0 TH/MM3 Eosinophils # (Auto) 0.5 TH/MM3 0.1 TH/MM3 Basophils # (Auto) 0.1 TH/MM3 0.1 TH/MM3 CBC Comment AUTO DIFF AUTO DIFF Differential Total Cells Counted 100 Neutrophils % (Manual) 80 % Band Neutrophils % 1 % Lymphocytes % 9 % Monocytes % 7 % Eosinophils % 2 % Neutrophils # (Manual) 12.1 TH/MM3 Myelocytes 1 % Nucleated Red Blood Cells 3 /100 WBC Differential Comment FINAL DIFF MANUAL AUTO DIFF CONFIRMED Platelet Estimate NORMAL Platelet Morphology Comment NORMAL Laboratory Tests Test 04/27/17 04:23 04/28/17 10:05 Blood Urea Nitrogen 11 MG/DL 15 MG/DL Creatinine 0.39 MG/DL 0.39 MG/DL Random Glucose 94 MG/DL 106 MG/DL Total Protein 8.7 GM/DL 9.3 GM/DL Albumin 2.6 GM/DL 2.8 GM/DL Calcium Level 9.0 MG/DL 8.9 MG/DL Phosphorus Level 2.9 MG/DL 2.7 MG/DL Magnesium Level 2.1 MG/DL 2.1 MG/DL Alkaline Phosphatase 369 U/L 334 U/L Aspartate Amino Transf (AST/SGOT) 36 U/L 35 U/L Alanine Aminotransferase (ALT/SGPT) 144 U/L 122 U/L Total Bilirubin 0.7 MG/DL 0.8 MG/DL Sodium Level 132 MEQ/L 136 MEQ/L Potassium Level 3.5 MEQ/L 3.5 MEQ/L Chloride Level 100 MEQ/L 101 MEQ/L Carbon Dioxide Level 24.2 MEQ/L 20.7 MEQ/L Anion Gap 8 MEQ/L 14 MEQ/L Estimat Glomerular Filtration Rate 279 ML/MIN 279 ML/MIN Microbiology Date/Time Source Procedure Growth Status 04/25/17 23:25 Blood Peripheral Aerobic Blood Culture - Preliminary NO GROWTH IN 3 DAYS Resulted 04/25/17 23:25 Blood Peripheral Anaerobic Blood Culture - Preliminary NO GROWTH IN 3 DAYS Resulted 04/25/17 23:20 Blood Peripheral Aerobic Blood Culture - Preliminary NO GROWTH IN 3 DAYS Resulted 04/25/17 23:20 Blood Peripheral Anaerobic Blood Culture - Preliminary NO GROWTH IN 3 DAYS Resulted 04/26/17 05:00 Sputum Endotracheal Gram Stain - Final Resulted 04/26/17 05:00 Sputum Culture - Preliminary Gram Negative Javed Resulted 04/25/17 22:55 Nasal Washing Influenza Types A,B Antigen ([facility]) - Final NEGATIVE FOR FLU A AND B ANTIGEN.... Complete 04/25/17 23:30 Urine Catheterized Urine Urine Culture - Preliminary Enterococcus Faecalis Pseudomonas Aeruginosa Multi-Drug Resistant Resulted 04/26/17 11:00 Catheter Tip Other Wound Culture - Final Complete Imaging Chest X-Ray 04/27/17 0000 Signed Impressions: Service Date/Time: Thursday, April 27, 2017 03:59 - CONCLUSION: No significant change has occurred. Ilya Nash MD Lower Extremity Ultrasound 04/26/17 2344 Signed Impressions: Service Date/Time: Wednesday, April 26, 2017 08:46 - CONCLUSION: 1. Occlusive deep venous thrombosis right leg. 2. No DVT left leg. Adi Ferrer MD Abdomen/Pelvis CT 04/25/17 0000 Signed Impressions: Service Date/Time: Wednesday, April 26, 2017 01:13 - CONCLUSION: Probable ileus versus developing small bowel obstruction with dilated small bowel loops identified and no discrete transition point, however close clinical and radiographic followup is advised. Left pleural effusion and bilateral lower lobe consolidation. Renal cysts. Small amount of free fluid. Decubitus ulcer with underlying sclerosis and hypertrophic changes of the left ischial tuberosity. Ilya Nash MD Physical Exam GENERAL: awake and alert, not in respiratory distress. On the vent SKIN: Cool and dry. No generalized rash, no ecchymoses and no evidence of embolic lesions. HEAD: Atraumatic. Normocephalic. No temporal wasting, or tenderness. EYES: Sledge conjunctiva. No petechia or hemorrhage. Pupils equal, round and reactive to light. Extraocular movements full and intact. No scleral icterus. No injection or drainage. EARS, NOSE AND THROAT: Nose without bleeding or purulent nasal discharge. No sinus tenderness. Mucous membranes pink and moist. No oral lesions noted. NECK: Tracheostomy site is ok. Supple and not tender, no meningeal signs. RIJ line ok, no evidence of infection CARDIOVASCULAR: Regular rate and rhythm. No murmurs, rubs or gallops heard RESPIRATORY: Bilateral coarse rhonchi. Equal breath sounds ABDOMEN: Very distended, firm and protuberant, tympanitic on percussion, bowel sounds are hypoactive. PEG site looks ok,. Colostomy bag currently with some formed stool. SPC site ok. BACK: Has sacral ulcer that is about 8 x 10 cm, min drainage, no odor, with some slough. EXTREMITIES: No clubbing, cyanosis. Has mild pedal edema. L foot cool compared to R foot. Dressing L elbow, no cellulitis around ulcer, no purulence NEUROLOGICAL: Awake and alert. Cranial nerves grossly intact. Contractures of his extremities PSYCHIATRIC: Normal affect, calm and cooperative. LINE: No evidence of infection Assessment & Plan Remarks IMPRESSION Sepsis with fever, leukocytosis, tachycardia, elevated lactic acid, source - DDX: , PNA - has lines : port not working, has midline ?inserted, site ok - has decubitus, C/S MDR, wounds look ok, on Abx since 04/23, ? osteomyelitis Chronic respiratory failure, due to quadriplegia from SC injury HCAP UTI, has SPC Sacral decubitus, ?osteo L elbow wound, looks ok, per SNF records (+) MRSA in C/S which could just be colonization Abdominal distension, possible ileus on CT Leukocytosis better Elevated LFTs, ?due to sepsis, GB looks ok on CT - improving RECOMMENDATION Change Merem to Zosyn Follow C/S done here and adjust Abx Follow temps Follow CBC Monitor progress Wound care to decubitus D/W Leonila Jaramillo MD Apr 28, 2017 12:18
--- NOTE | 2017-04-28 12:25 | GIPROC ---
[facility] [address] [facility]. [facility], [address] EGD PROCEDURE REPORT EXAM DATE: 04/28/2017 PATIENT NAME: Mina Duran MR #: [id number] BIRTHDATE: 1960 ATTENDING: Caron Feldman MD ORDER #: [id number] SURFACE BOSS: Tara Herzog and Juan Luis Albright STATUS: inpatient INDICATIONS: The patient is a 57 yr old male here for an EGD due to ileus, blocked peg PROCEDURE PERFORMED: EGD, diagnostic egd with peg change MEDICATIONS: Per Anesthesia and None. TOPICAL ANESTHETIC: none CONSENT: The patient understands the risks and benefits of the procedure and understands that these risks include, but are not limited to: sedation, allergic reaction, infection, perforation and/or bleeding. Alternative means of evaluation and treatment include, among others: physical exam, x-rays, and/or surgical intervention. The patient elects to proceed with this endoscopic procedure. medical equipment was checked for proper function. Hand hygiene and appropriate measures for infection prevention was taken. After the risks, benefits and alternatives of the procedure were thoroughly explained, Informed consent was verified, confirmed and timeout was successfully executed by the treatment team. The patient was anesthetized with topical anesthesia and the Pentax [id number] endoscope was introduced through the mouth and advanced to the second portion of the duodenum. Retroflexed views revealed a hiatal hernia The gastroscope was then slowly withdrawn and removed. Old peg in place , pulled out , replaced with a new 20 fr peg baloon inflated 20 cc , documented endoscopically 600 cc of gastric content suctioned ulcers in duodenum second portion-multiple, nonbleeding one -1 cm the others 3 mm-approximately 5 gastritis esophagitis. ADVERSE EVENTS: There were no complications. IMPRESSIONS: 1. Old peg in place , pulled out , replaced with a new 20 fr peg baloon inflated 20 cc , documented endoscopically 600 cc of gastric content suctioned ulcers in duodenum second portion-multiple, nonbleeding one -1 cm the others 3 mm-approximately 5 gastritis esophagitis 2. Retroflexed views revealed a hiatal hernia RECOMMENDATIONS: Ppi monitor hb/ht closely ok to use peg for medications, if no further distension start tickle feeding if no improvement in ileus con IR for g/j tube PATIENT CONDITION: stable DISPOSITION: Inpatient REPEAT EXAM: Return 3 months EGD Caron Feldman MD eSigned: Caron Feldman MD 04/28/2017 12:25 PM cc: PATIENT NAME: Mina Duran MR#: [id number]
[2017-04-28] MEDS ORDERED: LABE100T2 PO (12:43)
[2017-04-28] MEDS ORDERED: WARF4TAB51 PO (12:43)
[2017-04-28] MEDS: PIPERACIL-TAZO 4.5 GM PREMIX 100 ML IV SCH ×2 (13:05→18:29)
[2017-04-28] MEDS: ASCORBIC ACID 500 MG TAB G-TUBE SCH (13:05)
[2017-04-28] MEDS: SODIUM CHLORIDE 0.9% FLUSH 10 ML FLUSH IV FLUSH SCH ×2 (13:06→20:50)
[2017-04-28] MEDS: CHLORHEXIDINE 0.12% (ORAL KIT) 15 ML CUP MT SCH ×2 (13:06→20:00)
[2017-04-28 13:29] LABS: HEPATITIS A AB IGM NEGATIVE (NEGATIVE); HEPATITIS B CORE AB IGM NEGATIVE (NEGATIVE); HEPATITIS B SURFACE ANTIGEN NEGATIVE (NEGATIVE); HEPATITIS C AB IgG NEGATIVE (NEGATIVE)
[2017-04-28] MEDS: SODIUM CHLOR 0.9% 1000 ML INJ 1,000 ML IV SCH (14:54)
[2017-04-28] MEDS: POTASSIUM CHLORIDE 25 MEQ EFFERVESCENT TAB PO PRN (15:14)
--- NOTE | 2017-04-28 16:28 | PD.WCN.NOT ---
Wound Consult Description: Wound consult ordered by for sacrum and left elbow Communicated with: Sivan BRADFORD/Amira BRADFORD 5th [place] [facility] [place]: 1) Reposition patient every 2 hours for comfort and offloading. 2) Cleanse sacral wound with normal saline pat dry 3) Apply calcium alginate cut to fit wound base filling in all tunnels cover with sacral foam date and sign change every 3 days or as needed for exudate or dislodgement. 4) Apply thick layer of Calazime cream to Scrotum and komal suprapubic daily. 5) Apply 4x4 adhesive foam to left elbow , Skin prep prior to applying dressing. change every 7 days or as needed for dislodgement. Additional Information: Patient was seen today [place] 5th [place] [facility] [place] check writer salesperson and Sivan/Amira BRADFORD [address] [place] [address].Patient alert in Emmy bed upon check writer salesperson arrival.Patient is a quadriplegic that is currently vented for respiratory support.Patient is contracted in bilateral upper extremities.Left elbow currently had Tegaderm in place.Dressing removed to expose healing pressure injury with intact newly epithelized tissue present, no drainage or odor noted.Left elbow cleansed with normal saline pat dry skin prep applied and covered with foam dressing for protection.Patient requires full 2 person assist to reposition to left side.Patient has stage 3 pressure injury to sacrum measuring 9.6cm x10.8cm x 0.3cm with full thickness tunnels noted medially at 3 O'clock measuring 0.7cm x 0.8cm x 0.5cm and medially at 9 O'clock measuring ~0.2cm x ~0.1cm x 0.6cm both tunnels were probed with sterile cotton tip applicator with wound bases not visualized no bone was felt.Wound base has 85% pink/red tissue with 10% facia 5% biofilm yellow slough.Wound edges are even with wound base and periwound unremarkable.Moderate amount of serosanguineous drainage noted to underpad with no odor present.Wound was cleansed with normal saline pat dry skin prep applied to komal wound calcium alginate AG cut to fit wound base and packed into tunnels covered with Optifoam sacral dated and signed.Calazime cream applied in thick layer to scrotum and komal suprapubic catheter.Patient was then reposition to Right side for comfort. Andrew Nuno [facility] Apr 28, 2017 16:28
[2017-04-28] MEDS ORDERED: hydrALAZINE HCL 20 MG/ML VIAL IV PUSH PRN (17:45)
[2017-04-28] MEDS: METOPROLOL TARTRATE 50 MG TAB PO SCH (18:29)
[2017-04-28] MEDS: MIRTAZAPINE 15 MG TAB G-TUBE SCH (20:49)
[2017-04-28] MEDS: GABAPENTIN 300 MG CAP PO SCH (20:49)
[2017-04-28] MEDS: traZODone HCL 100 MG TAB PO SCH (20:49)
[2017-04-29] VITALS (26 sets, daily range): BP systolic 100–190; BP diastolic 55–107; PULSE 54–96; RESP 16–26; TEMP 98.1–99.1; O2SAT 99–100
[2017-04-29] MEDS: PIPERACIL-TAZO 4.5 GM PREMIX 100 ML IV SCH ×5 (00:11→22:57)
[2017-04-29] MEDS: CHLORHEXIDINE GLUCONATE 2 % 1 PACK (2 CLOTHS) TOP SCH (04:00)
[2017-04-29] MEDS: INSULIN ASPART SUPPLEMENTAL SCALE SQ SCH ×7 (04:00→22:57)
[2017-04-29] MEDS: RESP: ALBUTEROL 2.5 MG/IPRATROPIUM 0.5 MG NEB (SCH) INH ×4 (04:18→20:41)
[2017-04-29] MEDS: METOPROLOL TARTRATE 50 MG TAB PO SCH ×2 (06:07→18:00)
[2017-04-29 06:21] LABS: AUTOMATED NEUTROPHIL # 9.5 TH/MM3 (1.8-7.7); BASOPHIL # 0.1 TH/MM3 (0-0.2); BASOPHIL % 1.1 % (0.0-2.0); EOSINOPHIL # 0.4 TH/MM3 (0-0.4); EOSINOPHIL % 2.9 % (0.0-4.0); HEMATOCRIT 26.2 % (39.0-51.0); HEMOGLOBIN 8.1 GM/DL (13.0-17.0); LYMPH % 13.9 % (9.0-44.0); LYMPHOCYTE # 1.8 TH/MM3 (1.0-4.8); MEAN CELL VOLUME 69.6 FL (80.0-100.0); MEAN CORPUSCULAR HEMOGLOBIN 21.6 PG (27.0-34.0); MEAN CORPUSCULAR HGB CONC 31.1 % (32.0-36.0); MEAN PLATELET VOLUME 7.4 FL (7.0-11.0); MONO % 9.1 % (0.0-8.0); MONOCYTE # 1.2 TH/MM3 (0-0.9); PLATELET COUNT 393 TH/MM3 (150-450); RED BLOOD COUNT 3.76 MIL/MM3 (4.50-5.90); RED CELL DISTRIBUTION WIDTH 20.2 % (11.6-17.2)
[2017-04-29 07:02] LABS: ALBUMIN 2.6 GM/DL (3.4-5.0); AST (GOT) 19 U/L (15-37); BICARBONATE 18.2 MEQ/L (21.0-32.0); BLOOD UREA NITROGEN 13 MG/DL (7-18); CHLORIDE 101 MEQ/L (98-107); CREATININE 0.35 MG/DL (0.60-1.30); GLOMERULAR FILTRATION RATE 316 ML/MIN (>89); GLUCOSE,RANDOM 77 MG/DL (74-106); SODIUM (NA) 133 MEQ/L (136-145)
[2017-04-29 07:03] LABS: ALT (GPT) 85 U/L (12-78)
[2017-04-29 07:06] LABS: ALKALINE PHOSPHATASE 266 U/L (45-117); TOTAL BILIRUBIN ADULT 0.7 MG/DL (0.2-1.0); TOTAL PROTEIN 8.4 GM/DL (6.4-8.2)
[2017-04-29 07:18] LABS: BANDS 4 % (0-6); LYMPHOCYTES 13 % (9-44); MONOCYTES 3 % (0-8); NEUTROPHIL # MANUAL DIFF 10.7 TH/MM3 (1.8-7.7); POLYS (SEG NEUTROPHILS) 78 % (16-70)
[2017-04-29 07:19] LABS: OVALOCYTES 1+ (NORMAL)
[2017-04-29] MEDS: CHLORHEXIDINE 0.12% (ORAL KIT) 15 ML CUP MT SCH ×2 (08:00→20:00)
[2017-04-29] MEDS: SILVER SULFADIAZINE 1% CR 50 GM JAR TOPICAL SCH (09:00)
[2017-04-29] MEDS: BACLOFEN 10 MG TAB G-TUBE SCH ×3 (09:16→18:00)
[2017-04-29] MEDS: busPIRone HCL 5 MG TAB G-TUBE SCH ×3 (09:17→18:00)
[2017-04-29] MEDS: MULTIVITAMINS/MINERALS THERAPEUTIC TAB G-TUBE SCH (09:17)
[2017-04-29] MEDS: DOCUSATE SODIUM 50 MG/SENNA 8.6 MG TAB PO SCH ×2 (09:17→21:21)
[2017-04-29] MEDS: SENNOSIDES 8.6 MG TAB G-TUBE SCH ×2 (09:17→21:21)
[2017-04-29] MEDS: FAMOTIDINE 20 MG TAB PO SCH ×2 (09:17→21:21)
[2017-04-29] MEDS: POLYETHYLENE GLYCOL 17 GM PKG G-TUBE SCH (09:17)
[2017-04-29] MEDS: ASCORBIC ACID 500 MG TAB G-TUBE SCH (09:17)
[2017-04-29] MEDS: SODIUM CHLORIDE 0.9% FLUSH 10 ML FLUSH IV FLUSH SCH ×2 (09:18→22:57)
--- NOTE | 2017-04-29 09:19 | HHI.CCPN ---
Subjective Remarks/Hospital Course Hospital Course: 57-year-old male with past medical history of spinal cord injury resulting in quadriplegia, s/p trach/PEG with vent dependency, ostomy, HTN, sacral and left elbow decubitus ulcers, chronic indwelling suprapubic catheter, depression, anxiety, port right chest, IVC filter who was sent to [facility] emergency department from [facility] due to fever 103.8 and ( per PA transfer documentation "highly agitated after getting medication for agitation"). Patient is alert on vent and difficult historian but does mouth some words and helps provide some limited history. Records indicate that he was started on Zosyn and vancomycin on 04/23/17 "for ESBL and Proteus mirabilis sacral wound/osteomyelitis x 6weeks", on isolation for "MRSA elbow". White blood cell count is elevated at 18.1. Hemoglobin is 7.5. Lactic acid is 2.1. Transaminases and alkaline phosphatase are elevated. Lipase is normal. CT abdomen and pelvis demonstrates bilateral lower lobe consolidations, moderate left pleural effusion. PEG tube is in place but there is dilation of the small bowel in the mid abdomen without discrete transition point; probable ileus versus developing small bowel obstruction. There is sclerosis and hyper trophic changes of the left ischial tuberosity which can be seen and chronic osteomyelitis. Gallbladder is unremarkable. In the emergency department patient was maintained on chronic ventilator settings with pressure SIMV. He was given Toradol 30 mg IV, morphine 4 mg IV, 1 L normal saline bolus. PEG was noted to be obstructed by ED physician who was unable to flush using soda. Patient refused NG tube. Patient does repeatedly request both oral and trach suctioning. He does reports some mild increase in respiratory secretions. subjective: 2/: GI planning EGD with decompression and PEG tube swap. patient states he wants to go home and feels better. ROS difficult to obtain due to chronic vent dependency, but limited ROS negative for fever, chills, abd pain, swelling. LE DVT + on u/s yesterday: ivc filter in place. holding full dose anticoagulation until GI procedure today. will need full dose anticoagulation after that. 04/28 No events overnight. For PEG tube replacement today. Afebrile. 04/29 Patient remains on ventilator via trach. s/p PEG tube placement yesterday. Objective Vital Signs Date Time Temp Pulse Resp B/P (MAP) Pulse Ox O2 Delivery O2 Flow Rate FiO2 04/29/17 06:00 62 04/29/17 04:19 100 30 04/29/17 04:00 98.3 16 160/73 (102) 04/26/17 02:01 Ventilator Intake and Output 04/29/17 04/29/17 04/30/17 08:00 16:00 00:00 Intake Total 600 ml Output Total 450 ml Balance 150 ml Result Diagram: 04/29/17 0559 04/29/17 0559 Other Results Laboratory Tests Test 04/28/17 10:05 04/29/17 05:59 White Blood Count 13.9 TH/MM3 13.0 TH/MM3 Red Blood Count 3.81 MIL/MM3 3.76 MIL/MM3 Hemoglobin 8.3 GM/DL 8.1 GM/DL Hematocrit 26.0 % 26.2 % Mean Corpuscular Volume 68.4 FL 69.6 FL Mean Corpuscular Hemoglobin 21.7 PG 21.6 PG Mean Corpuscular Hemoglobin Concent 31.7 % 31.1 % Red Cell Distribution Width 20.0 % 20.2 % Platelet Count 392 TH/MM3 393 TH/MM3 Mean Platelet Volume 7.6 FL 7.4 FL Neutrophils (%) (Auto) 80.6 % 73.0 % Lymphocytes (%) (Auto) 10.9 % 13.9 % Monocytes (%) (Auto) 6.9 % 9.1 % Eosinophils (%) (Auto) 0.9 % 2.9 % Basophils (%) (Auto) 0.7 % 1.1 % Neutrophils # (Auto) 11.2 TH/MM3 9.5 TH/MM3 Lymphocytes # (Auto) 1.5 TH/MM3 1.8 TH/MM3 Monocytes # (Auto) 1.0 TH/MM3 1.2 TH/MM3 Eosinophils # (Auto) 0.1 TH/MM3 0.4 TH/MM3 Basophils # (Auto) 0.1 TH/MM3 0.1 TH/MM3 CBC Comment AUTO DIFF AUTO DIFF Differential Comment AUTO DIFF CONFIRMED FINAL DIFF MANUAL Blood Urea Nitrogen 15 MG/DL 13 MG/DL Creatinine 0.39 MG/DL 0.35 MG/DL Random Glucose 106 MG/DL 77 MG/DL Total Protein 9.3 GM/DL 8.4 GM/DL Albumin 2.8 GM/DL 2.6 GM/DL Calcium Level 8.9 MG/DL 9.0 MG/DL Phosphorus Level 2.7 MG/DL Magnesium Level 2.1 MG/DL Alkaline Phosphatase 334 U/L 266 U/L Aspartate Amino Transf (AST/SGOT) 35 U/L 19 U/L Alanine Aminotransferase (ALT/SGPT) 122 U/L 85 U/L Total Bilirubin 0.8 MG/DL 0.7 MG/DL Sodium Level 136 MEQ/L 133 MEQ/L Potassium Level 3.5 MEQ/L 3.4 MEQ/L Chloride Level 101 MEQ/L 101 MEQ/L Carbon Dioxide Level 20.7 MEQ/L 18.2 MEQ/L Anion Gap 14 MEQ/L 14 MEQ/L Estimat Glomerular Filtration Rate 279 ML/MIN 316 ML/MIN Differential Total Cells Counted 100 Neutrophils % (Manual) 78 % Band Neutrophils % 4 % Lymphocytes % 13 % Monocytes % 3 % Eosinophils % 2 % Neutrophils # (Manual) 10.7 TH/MM3 Platelet Estimate NORMAL Platelet Morphology Comment NORMAL Ovalocytes 1+ Imaging Last Impressions Abdomen X-Ray 04/28/17 0000 Signed Impressions: Service Date/Time: Friday, April 28, 2017 09:58 - CONCLUSION: Probable ileus with moderate gaseous distention findings have progressed in interval. Gurpreet Iniguez MD FACR Chest X-Ray 04/27/17 0000 Signed Impressions: Service Date/Time: Thursday, April 27, 2017 03:59 - CONCLUSION: No significant change has occurred. Ilya Nash MD Lower Extremity Ultrasound 04/26/17 2344 Signed Impressions: Service Date/Time: Wednesday, April 26, 2017 08:46 - CONCLUSION: 1. Occlusive deep venous thrombosis right leg. 2. No DVT left leg. Adi Ferrer MD Abdomen/Pelvis CT 04/25/17 0000 Signed Impressions: Service Date/Time: Wednesday, April 26, 2017 01:13 - CONCLUSION: Probable ileus versus developing small bowel obstruction with dilated small bowel loops identified and no discrete transition point, however close clinical and radiographic followup is advised. Left pleural effusion and bilateral lower lobe consolidation. Renal cysts. Small amount of free fluid. Decubitus ulcer with underlying sclerosis and hypertrophic changes of the left ischial tuberosity. Iyla Nash MD Objective Remarks GENERAL: Chronically ill-appearing male who has quadriplegia, tracheostomy on mechanical ventilation. He is sitting up and alert and communicating by nodding and trying to mouth some words though communication is limited. HEAD: Atraumatic. Normocephalic. EYES: Pupils equal and round. No scleral icterus. No injection or drainage. ENT: No nasal bleeding or discharge. Mucous membranes pink and moist. NECK: Cuff tracheostomy in place. On mechanical ventilation SIMV: home settings. CARDIOVASCULAR: Regular rate and rhythm. No murmurs rubs or gallops appreciated. VASC: Port is in place right chest with site benign appearing. Midline in place RUE, no erythema or drainage RESPIRATORY: On mechanical ventilation via trach. Appears reasonably comfortable without accessory muscle use. GASTROINTESTINAL: Abdomen distended tympanitic. PEG tube in place without abnormality of insertion site, does not flush or draw. Ostomy in place. MUSCULOSKELETAL: Extremities without clubbing, cyanosis. Arms held in flexion, wrist held in extension bilaterally. Bilateral foot drop. NEUROLOGICAL: Awake and alert. Quadriparesis. + shoulder shrug. No obvious cranial nerve deficits. Mouths words but is difficult to understand what he is saying. A/P Assessment and Plan Assessment: 57yM with chronic vent dependency due to SCI who presented with sepsis and now has GNR in sputum and urine. PEG tube clogged. plan for EGD today. will need full dose anticoagulation for DVT after this. NEURO: Spinal cord injury with quadriplegia Chronic pain Chronic opioid use Peripheral neuropathy Depression Anxiety Monitor neuro status Gabapentin 300 daily at bedtime Trazodone 150 by mouth daily at bedtime Remeron 15 mg daily at bedtime Baclofen 5 mg 3 times a day BuSpar 5 mg 3 times a day RESP: Chronic vent dependent respiratory failure Tracheostomy Left pleural effusion Bibasilar pneumonia Continue vent support keep sat >92% On mechanical ventilation with pressure SIMV IP: 28, rate 16, PEEP 5/I time 1/ pressure support 15, FiO2 30% per chronic settings from assisted Bronchodilators, ICU vent bundle. Pulm toilet, trach care CV: Monitor Hr and BP keep MAP>65mmHg On Lopressor 50mg Q12 GI: Ileus PEG malfunction. Transaminase elevation, downtrend from 04/22/17. No gallbladder abnormality noted on CT Colostomy CT abdomen and pelvis 2/3 ileus vs ???developing SBO: patient having BMs, unlikely to be SBO. KUB abdomen 2/5: Ileus, repeat KUB abdomen today. On Marium lax, Senokot, add Reglan s/p PEG replacement 04/28 Start tube feeds- Levity 1.5 with goal rate 60ml/hr FEN/RENAL: Chronic Suprapubic catheter in place Chronic hyponatremia Catheter replaced 04/26. Monitor intake and output. Monitor electrolytes and replace as indicated. d/c IVF ID: Leukocytosis Sacral decubitus ulcers with osteomyelitis Left elbow wound ? UTI. Chronic indwelling suprapubic catheter Port in place right chest - site benign RUE midline - site benign. Removed and catheter tip culture per ID. Unclear when this was placed. 04/26 Sputum cx: Pseudomonas, Kleb ESBL, Proteus 04/25 Urine cx : GNR, Group D enterococcus Continue abx per ID(Zosyn) monitor for signs of infections ( Fever, WBC) Wound care is following suprapubic catheter replaced at bedside 04/26. Persistent fever may also be related to DVT. Patient has an IVC filter. LE ultrasound + for DVT. HEME: IVC filter in place LE DVT IVC filter Place on Lovenox 90mg Q12 ENDO: Acute hyperglycemia SSI for glycemic control PROPH: Has an IVC filter in place, place on Lovenox 90mg Sq Q12. Pepcid for stress ulcer prophylaxis ACCESS: Port in place right chest. Right IJ central venous line placed in ED 04/26/17 Level 2 Thierry Thurston MD Apr 29, 2017 09:19
[2017-04-29] MEDS: METOCLOPRAMIDE HCL 10 MG/2 ML VIAL IV PUSH SCH ×3 (10:00→21:22)
--- NOTE | 2017-04-29 10:22 | RADRPT ---
EXAM DATE/TIME: 04/29/2017 09:36 [place] COMPARISON: ABDOMEN KUB ONLY, April 28, 2017, 9:58. INDICATIONS : Ileus. MEDICAL HISTORY : Quadrapelgic SURGICAL HISTORY : peg tube, colostomy ENCOUNTER: Initial ACUITY: 4 - 6 days PAIN SCORE: Non-responsive. LOCATION: Bilateral abdomen FINDINGS: Gastrostomy tube is again noted overlying left upper quadrant. There has been slight interval decreas e in distention of small bowel and colon. Skeletal structures are grossly stable. No new acute findin gs are present. CONCLUSION: Slight interval decrease in diffuse gaseous distention of bowel Thompson Khan MD on April 29, 2017 at 10:18 Board Certified Radiologist. This report was verified electronically.
[2017-04-29] MEDS: ENOXAPARIN SODIUM 100 MG/ML SYRINGE SQ SCH ×2 (13:18→21:23)
[2017-04-29] MEDS: POTASSIUM CHLORIDE 25 MEQ EFFERVESCENT TAB PO PRN (13:32)
--- NOTE | 2017-04-29 14:57 | HHI.GIFU ---
Subjective Remarks Pt resting in bed, no GI complaints at this time. Per RN has not had any output from ostomy, however, has had a lot of flatus. (Puja Cochran) Objective Vitals I&O Vital Signs Date Time Temp Pulse Resp B/P (MAP) Pulse Ox O2 Delivery O2 Flow Rate FiO2 04/29/17 11:36 100 30 04/29/17 11:00 55 04/29/17 11:00 55 16 159/91 (113) 100 04/29/17 10:14 96 16 100/55 (70) 100 04/29/17 10:00 66 04/29/17 10:00 66 24 185/93 (123) 100 04/29/17 09:00 76 04/29/17 09:00 76 22 149/78 (101) 100 04/29/17 08:00 98.6 62 17 131/74 (93) 100 04/29/17 08:00 62 04/29/17 08:00 30 04/29/17 07:35 100 30 04/29/17 07:00 63 16 124/65 (84) 100 04/29/17 07:00 63 04/29/17 06:00 62 04/29/17 04:19 100 30 04/29/17 04:00 30 04/29/17 04:00 60 04/29/17 04:00 98.3 60 16 160/73 (102) 100 04/29/17 02:00 60 04/29/17 01:41 99 30 04/29/17 00:00 58 04/29/17 00:00 99.1 58 16 163/75 (104) 99 04/29/17 00:00 30 04/28/17 23:41 99 30 04/28/17 22:00 56 04/28/17 20:29 100 30 04/28/17 20:00 30 04/28/17 20:00 61 04/28/17 20:00 98.3 61 16 157/78 (104) 100 04/28/17 18:00 74 04/28/17 17:00 99 30 04/28/17 16:00 30 04/28/17 16:00 99.8 79 18 243/114 (157) 97 04/28/17 16:00 79 04/28/17 15:00 64 19 243/122 (162) 93 I/O 04/28/17 04/28/17 04/28/17 04/29/17 04/29/17 04/29/17 07:00 15:00 23:00 07:00 15:00 23:00 Intake Total 100 ml 1150 ml 460 ml 600 ml Output Total 500 ml 550 ml 450 ml Balance -400 ml 1150 ml -90 ml 150 ml Intake Oral 500 ml IV Total 100 ml 1100 ml 100 ml 100 ml Other 50 ml 360 ml Output Urine Total 400 ml 500 ml 450 ml Stool Total 100 ml 50 ml Laboratory Laboratory Tests Test 04/29/17 05:59 White Blood Count 13.0 Red Blood Count 3.76 Hemoglobin 8.1 Hematocrit 26.2 Mean Corpuscular Volume 69.6 Mean Corpuscular Hemoglobin 21.6 Mean Corpuscular Hemoglobin Concent 31.1 Red Cell Distribution Width 20.2 Platelet Count 393 Mean Platelet Volume 7.4 Neutrophils (%) (Auto) 73.0 Lymphocytes (%) (Auto) 13.9 Monocytes (%) (Auto) 9.1 Eosinophils (%) (Auto) 2.9 Basophils (%) (Auto) 1.1 Neutrophils # (Auto) 9.5 Lymphocytes # (Auto) 1.8 Monocytes # (Auto) 1.2 Eosinophils # (Auto) 0.4 Basophils # (Auto) 0.1 CBC Comment AUTO DIFF Differential Total Cells Counted 100 Neutrophils % (Manual) 78 Band Neutrophils % 4 Lymphocytes % 13 Monocytes % 3 Eosinophils % 2 Neutrophils # (Manual) 10.7 Differential Comment FINAL DIFF MANUAL Platelet Estimate NORMAL Platelet Morphology Comment NORMAL Ovalocytes 1+ Blood Urea Nitrogen 13 Creatinine 0.35 Random Glucose 77 Total Protein 8.4 Albumin 2.6 Calcium Level 9.0 Alkaline Phosphatase 266 Aspartate Amino Transf (AST/SGOT) 19 Alanine Aminotransferase (ALT/SGPT) 85 Total Bilirubin 0.7 Sodium Level 133 Potassium Level 3.4 Chloride Level 101 Carbon Dioxide Level 18.2 Anion Gap 14 Estimat Glomerular Filtration Rate 316 Date/Time Source Procedure Growth Status 04/25/17 23:25 Blood Peripheral Aerobic Blood Culture - Preliminary NO GROWTH IN 4 DAYS Resulted 04/25/17 23:25 Blood Peripheral Anaerobic Blood Culture - Preliminary NO GROWTH IN 4 DAYS Resulted 04/26/17 05:00 Sputum Endotracheal Gram Stain - Final Complete 04/26/17 05:00 Sputum Culture - Final Pseudomonas Aeruginosa Multi-Drug Resistant Klebsiella Pneumoniae Esbl Pos Proteus Mirabilis Complete 04/25/17 23:30 Urine Catheterized Urine Urine Culture - Final Enterococcus Faecalis Pseudomonas Aeruginosa Multi-Drug Resistant Complete 04/26/17 11:00 Catheter Tip Other Wound Culture - Final Complete Imaging Last Impressions Abdomen X-Ray 04/29/17 0000 Signed Impressions: Service Date/Time: Saturday, April 29, 2017 09:36 - CONCLUSION: Slight interval decrease in diffuse gaseous distention of bowel Thompson Khan MD Chest X-Ray 04/27/17 0000 Signed Impressions: Service Date/Time: Thursday, April 27, 2017 03:59 - CONCLUSION: No significant change has occurred. Ilya Nash MD Lower Extremity Ultrasound 04/26/17 2344 Signed Impressions: Service Date/Time: Wednesday, April 26, 2017 08:46 - CONCLUSION: 1. Occlusive deep venous thrombosis right leg. 2. No DVT left leg. Adi Ferrer MD Abdomen/Pelvis CT 04/25/17 0000 Signed Impressions: Service Date/Time: Wednesday, April 26, 2017 01:13 - CONCLUSION: Probable ileus versus developing small bowel obstruction with dilated small bowel loops identified and no discrete transition point, however close clinical and radiographic followup is advised. Left pleural effusion and bilateral lower lobe consolidation. Renal cysts. Small amount of free fluid. Decubitus ulcer with underlying sclerosis and hypertrophic changes of the left ischial tuberosity. Ilya Nash MD Physical Exam HEENT: Normocephalic; atraumatic CHEST: Coarse BS, trach CARDIAC: RRR ABDOMEN: Distended, firm, nontender, no output in ostomy bag. PEG tube site with minimal amount of dried blood. Gauze is clean and dry, no active drainage. Connected to TF Jevity 1.5 currently running at 20 mL/hr SKIN: Normal; no rash; no jaundice. INSTRUCTIONAL DESIGN MANAGER: Alert and oriented x 3 (Puja Cochran AGENT PRODUCER) Assessment and Plan Plan - Ileus- CT on 04/26/17 showed probable ileus versus developing SBO with dilates small bowel loops with no transition point, left plural effusion and bilateral lower lobe consolidation, renal cysts. Patient is (+) for flatus and stools in colostomy bag. Abdomen firm and distended. Attempts made by CCM to insert NGT unsuccessful, IR consulted but not available on the weekend - Dysfunctional G tube. not flushing with several attempts made, unable to unclog - fever- ID on the case, pt with hx of ESBL and Proteus mirabilis sacral wound/ osteomyelitis. and has sacral and left elbow decubitus ulcers - Elevated LFTs- CT as above, no biliary involvement, will monitor, hepatitis panel pending - past medical history of spinal cord injury resulting in quadriplegia, s/p trach/PEG with vent dependency, ostomy (04/29) S/P EGD with replacement of PEG tube yesterday --> 600cc of gastric content suctioned ulcers in duodenum second portion, multiple, nonbleeding, gastritis, esophagitis. Repeat KUB done today --> Slight interval decrease in diffuse gaseous distention of bowel. Pt remain on Reglan. Per RN has not had output through ostomy, however, passing flatus. TF currently Jevity 1.5 running at 20 mL/hr, goal rate of 60 mL/hr. Per RN has not had high residuals. Recommendations to continue PPI, check for residuals. If abdomen remains distended and no improvement in ileus then consult IR for GJ tube. Plan: - Continue PPI - Trickle feeding - Increase as tolerated with goal rate 60 mL/hr - IR consult if abdominal distension worsens - Continue Reglan - Monitor stool output - Further recommendations to follow based on clinical course Pt has been seen and examined by myself and dr. Feldman and this note is written on her behalf (Puja Cochran) Physician Comments seen, examined agree with above we will order sbft via peg with Gastrografin if no obstruction we will consult IR for g/j tube placement place peg to suction as he did not tolerate trickle feeds had a large amount of stool in bag (Caron Feldman MD) Puja Cochran Apr 29, 2017 14:57 Caron Feldman MD Apr 29, 2017 17:27
--- NOTE | 2017-04-29 16:14 | HHI.IDPN ---
Subjective Subjective Remarks Patient is a 57-year-old male, resident of a retirement, chronically on the respirator, has history of spinal cord injury with quadriplegia, has a PEG, colostomy, and a suprapubic catheter in place, brought to the hospital for evaluation of fever. He was also agitated according to the retirement notes. On evaluation of his retirement records, it looks like the patient was started on vancomycin and Zosyn on April 23 for treatment of osteomyelitis as a result of a sacral decubitus ulcer, with growth of ESBL positive organism, Proteus mirabilis. There was also mention that he had an MRSA from an elbow wound culture. There has been no change on his respiratory status. He remains chronically vent dependent. Evaluation in the emergency room showed leukocytosis. Chest x-ray showed basilar infiltrates and which seem to be similar to his chest x-ray from December 2016. CT of the abdomen and pelvis showed bilateral lower lobe consolidation with left pleural effusion, PEG tube in place, the location of the small bowel, and some sclerotic changes and hypertrophic changes of the left ischial tuberosity. He is not on pressors. His suprapubic catheter was reportedly change in the emergency room. Urinalysis was abnormal with significant pyuria. His cultures are currently pending. Cultures from the retirement are not available for review. Patient is currently on meropenem. Infectious disease consultation has been requested to evaluate and assist with management in a patient with known MDR organism infection. Notes reviewed D/W RN Temps ok Vent dependent BP ok Had replacement of his PEG yesterday Tolerating TF No BM Has abdominal distension GI aware Has DVT RLE Cultures reviewed - has MDR both urine and sputum CXR stable infiltrates, low lung volumes WBC same at 13K Antibiotics Current Medications Zosyn Medications (Trade) Dose Ordered Sig/Francisco J Route Start Time Stop Time Status Last Admin (Peridex 0.12% Liq) 15 ml BID@08,20 MT 04/26/17 08:00 04/29/17 08:00 (Vitamin C) 500 mg DAILY G-TUBE 04/26/17 09:00 04/29/17 09:17 (Lioresal) 5 mg TID G-TUBE 04/26/17 09:00 04/29/17 13:10 (Buspar) 5 mg TID G-TUBE 04/26/17 09:00 04/29/17 13:10 (Neurontin) 300 mg HS PO 04/26/17 21:00 04/28/17 20:49 (Ativan) 1 mg Q6HR PRN G-TUBE 04/26/17 05:30 (Remeron) 15 mg HS G-TUBE 04/26/17 21:00 04/28/17 20:49 (Roxicodone) 5 mg Q6HR PRN PEG 04/26/17 05:30 (Miralax) 17 gm DAILY G-TUBE 04/26/17 09:00 04/29/17 09:17 (Senokot) 17.2 mg BID G-TUBE 04/26/17 09:00 04/29/17 09:17 (Silvadene 1% Cream (50 Gm)) 1 applic DAILY TOPICAL 04/26/17 09:00 (Theragran M Tab) 1 tab DAILY G-TUBE 04/26/17 09:00 04/29/17 09:17 (Desyrel) 150 mg HS PO 04/26/17 21:00 04/28/17 20:49 (NS Flush) 2 ml UNSCH PRN IV FLUSH 04/26/17 05:30 (NS Flush) 2 ml BID IV FLUSH 04/26/17 09:00 04/29/17 09:18 (Tylenol) 650 mg Q6H PRN PO 04/26/17 05:30 (Pepcid) 20 mg Q12HR PO 04/26/17 09:00 04/29/17 09:17 (Zofran Inj) 4 mg Q6H PRN IV PUSH 04/26/17 05:30 (Duoneb Neb) 1 ampule Q6HR NEB INH 04/26/17 10:00 04/29/17 15:01 (Albuterol Neb) 2.5 mg Q2HR NEB PRN INH 04/26/17 05:30 Miscellaneous Information 1 Q361D XX 04/26/17 05:30 04/26/17 05:30 (Chlorhexidine 2% Cloth) 3 pack Taper DAILY@04 TOP 04/27/17 04:00 04/23/18 03:59 04/29/17 04:00 (Chlorhexidine 2% Cloth) 3 pack UNSCH PRN TOP 04/26/17 05:30 (Lynsey-Colace) 1 tab BID PO 04/26/17 09:00 04/29/17 09:17 (Milk Of Magnesia Liq) 30 ml Q12H PRN PO 04/26/17 05:30 (Senokot) 17.2 mg Q12H PRN PO 04/26/17 05:30 (Dulcolax Supp) 10 mg DAILY PRN RECTAL 04/26/17 05:30 (Lactulose Liq) 30 ml DAILY PRN PO 04/26/17 05:30 (D50w (Vial) Inj) 50 ml UNSCH PRN IV PUSH 04/26/17 10:00 (Glucagon Inj) 1 mg UNSCH PRN OTHER 04/26/17 10:00 (NovoLOG SUPPLEMENTAL SCALE) 1 Q4HR SQ 04/26/17 10:00 04/26/17 15:36 Potassium Chloride 100 ml @ 50 mls/hr Q2H PRN IV 04/26/17 14:30 Potassium Chloride 100 ml @ 50 mls/hr Q2H PRN IV 04/26/17 14:30 (K-Lyte Cl Eff) 50 meq UNSCH PRN PO 04/26/17 14:30 04/29/17 13:32 Potassium Chloride 100 ml @ 25 mls/hr UNSCH PRN IV 04/26/17 14:30 04/26/17 15:31 Potassium Chloride 100 ml @ 50 mls/hr Q2H PRN IV 04/26/17 14:30 Magnesium Sulfate 4 gm/Sodium Chloride 100 ml @ 50 mls/hr UNSCH PRN IV 04/26/17 14:30 (Mag-Ox) 800 mg UNSCH PRN PO 04/26/17 14:30 Magnesium Sulfate 2 gm/Sodium Chloride 100 ml @ 50 mls/hr UNSCH PRN IV 04/26/17 14:30 (K-Phos) 2,000 mg Q4H PRN PO 04/26/17 14:30 Sodium Phosphate 30 mmol/Sodium Chloride 250 ml @ 42 mls/hr UNSCH PRN IV 04/26/17 14:30 (K-Phos) 2,000 mg UNSCH PRN PO/TUBE 04/26/17 14:30 Potassium Phosphate 30 mmol/ Sodium Chloride 260 ml @ 42 mls/hr UNSCH PRN IV 04/26/17 14:30 (Pepcid Inj) 20 mg Q12HR PRN IV PUSH 04/27/17 14:30 Piperacillin Sod/ Tazobactam Sod 100 ml @ 200 mls/hr Q6H IV 04/28/17 12:00 04/29/17 13:11 (Lopressor) 50 mg Q12H PO 04/28/17 18:00 04/29/17 06:07 (Apresoline Inj) 10 mg Q6H PRN IV PUSH 04/28/17 17:45 (Reglan Inj) 5 mg Q8HR IV PUSH 04/29/17 10:00 04/29/17 10:00 (Lovenox Inj) 90 mg Q12H SQ 04/29/17 10:00 04/29/17 13:18 Lines [place] line Past Medical History Quadriplegia following spinal cord injury Chronic vent dependent respiratory failure with tracheostomy Hypertension Chronic opioid use Sacral decubitus ulcer present on admission, Left elbow decubitus ulcer present on admission Anxiety Depression Ostomy Chronic suprapubic catheter PEG Prior ileus Previous treatment for 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 Vital Signs Date Time Temp Pulse Resp B/P (MAP) Pulse Ox O2 Delivery O2 Flow Rate FiO2 04/29/17 15:01 100 30 04/29/17 14:00 94 04/29/17 14:00 94 26 153/65 (94) 100 04/29/17 13:00 58 22 188/107 (134) 100 04/29/17 13:00 58 04/29/17 12:00 62 04/29/17 12:00 30 04/29/17 12:00 98.1 85 18 169/78 (108) 100 04/29/17 11:36 100 30 04/29/17 11:00 55 04/29/17 11:00 55 16 159/91 (113) 100 04/29/17 10:14 96 16 100/55 (70) 100 04/29/17 10:00 66 04/29/17 10:00 66 24 185/93 (123) 100 04/29/17 09:00 76 04/29/17 09:00 76 22 149/78 (101) 100 04/29/17 08:00 98.6 62 17 131/74 (93) 100 04/29/17 08:00 62 04/29/17 08:00 30 04/29/17 07:35 100 30 04/29/17 07:00 63 16 124/65 (84) 100 04/29/17 07:00 63 04/29/17 06:00 62 04/29/17 04:19 100 30 04/29/17 04:00 30 04/29/17 04:00 60 04/29/17 04:00 98.3 60 16 160/73 (102) 100 04/29/17 02:00 60 04/29/17 01:41 99 30 04/29/17 00:00 58 04/29/17 00:00 99.1 58 16 163/75 (104) 99 04/29/17 00:00 30 04/28/17 23:41 99 30 04/28/17 22:00 56 04/28/17 20:29 100 30 04/28/17 20:00 30 04/28/17 20:00 61 04/28/17 20:00 98.3 61 16 157/78 (104) 100 04/28/17 18:00 74 04/28/17 17:00 99 30 . Laboratory Tests Test 04/28/17 10:05 04/29/17 05:59 White Blood Count 13.9 TH/MM3 13.0 TH/MM3 Red Blood Count 3.81 MIL/MM3 3.76 MIL/MM3 Hemoglobin 8.3 GM/DL 8.1 GM/DL Hematocrit 26.0 % 26.2 % Mean Corpuscular Volume 68.4 FL 69.6 FL Mean Corpuscular Hemoglobin 21.7 PG 21.6 PG Mean Corpuscular Hemoglobin Concent 31.7 % 31.1 % Red Cell Distribution Width 20.0 % 20.2 % Platelet Count 392 TH/MM3 393 TH/MM3 Mean Platelet Volume 7.6 FL 7.4 FL Neutrophils (%) (Auto) 80.6 % 73.0 % Lymphocytes (%) (Auto) 10.9 % 13.9 % Monocytes (%) (Auto) 6.9 % 9.1 % Eosinophils (%) (Auto) 0.9 % 2.9 % Basophils (%) (Auto) 0.7 % 1.1 % Neutrophils # (Auto) 11.2 TH/MM3 9.5 TH/MM3 Lymphocytes # (Auto) 1.5 TH/MM3 1.8 TH/MM3 Monocytes # (Auto) 1.0 TH/MM3 1.2 TH/MM3 Eosinophils # (Auto) 0.1 TH/MM3 0.4 TH/MM3 Basophils # (Auto) 0.1 TH/MM3 0.1 TH/MM3 CBC Comment AUTO DIFF AUTO DIFF Differential Comment AUTO DIFF CONFIRMED FINAL DIFF MANUAL Differential Total Cells Counted 100 Neutrophils % (Manual) 78 % Band Neutrophils % 4 % Lymphocytes % 13 % Monocytes % 3 % Eosinophils % 2 % Neutrophils # (Manual) 10.7 TH/MM3 Platelet Estimate NORMAL Platelet Morphology Comment NORMAL Ovalocytes 1+ Laboratory Tests Test 04/28/17 10:05 04/29/17 05:59 Blood Urea Nitrogen 15 MG/DL 13 MG/DL Creatinine 0.39 MG/DL 0.35 MG/DL Random Glucose 106 MG/DL 77 MG/DL Total Protein 9.3 GM/DL 8.4 GM/DL Albumin 2.8 GM/DL 2.6 GM/DL Calcium Level 8.9 MG/DL 9.0 MG/DL Phosphorus Level 2.7 MG/DL Magnesium Level 2.1 MG/DL Alkaline Phosphatase 334 U/L 266 U/L Aspartate Amino Transf (AST/SGOT) 35 U/L 19 U/L Alanine Aminotransferase (ALT/SGPT) 122 U/L 85 U/L Total Bilirubin 0.8 MG/DL 0.7 MG/DL Sodium Level 136 MEQ/L 133 MEQ/L Potassium Level 3.5 MEQ/L 3.4 MEQ/L Chloride Level 101 MEQ/L 101 MEQ/L Carbon Dioxide Level 20.7 MEQ/L 18.2 MEQ/L Anion Gap 14 MEQ/L 14 MEQ/L Estimat Glomerular Filtration Rate 279 ML/MIN 316 ML/MIN Imaging Chest X-Ray 04/27/17 0000 Signed Impressions: Service Date/Time: Thursday, April 27, 2017 03:59 - CONCLUSION: No significant change has occurred. lIya Nash MD Lower Extremity Ultrasound 04/26/17 [id number] Signed Impressions: Service Date/Time: Wednesday, April 26, 2017 08:46 - CONCLUSION: 1. Occlusive deep venous thrombosis right leg. 2. No DVT left leg. Adi Ferrer MD Abdomen/Pelvis CT 04/25/17 0000 Signed Impressions: Service Date/Time: Wednesday, April 26, 2017 01:13 - CONCLUSION: Probable ileus versus developing small bowel obstruction with dilated small bowel loops identified and no discrete transition point, however close clinical and radiographic followup is advised. Left pleural effusion and bilateral lower lobe consolidation. Renal cysts. Small amount of free fluid. Decubitus ulcer with underlying sclerosis and hypertrophic changes of the left ischial tuberosity. Ilya Nash MD Physical Exam GENERAL: awakens easily from sleep, not in respiratory distress. On the vent SKIN: Cool and dry. No generalized rash, no ecchymoses and no evidence of embolic lesions. HEAD: Atraumatic. Normocephalic. No temporal wasting, or tenderness. EYES: Caruthers conjunctiva. No petechia or hemorrhage. Pupils equal, round and reactive to light. Extraocular movements full and intact. No scleral icterus. No injection or drainage. EARS, NOSE AND THROAT: Nose without bleeding or purulent nasal discharge. No sinus tenderness. Mucous membranes pink and moist. No oral lesions noted. NECK: Tracheostomy site is ok. Supple and not tender, no meningeal signs. RIJ line ok, no evidence of infection CARDIOVASCULAR: Regular rate and rhythm. No murmurs, rubs or gallops heard RESPIRATORY: Bilateral coarse rhonchi. Equal breath sounds ABDOMEN: Distended, firm and protuberant, tympanitic on percussion, bowel sounds are hypoactive. PEG site looks ok,. Colostomy bag currently empty. SPC site ok. BACK: Has sacral ulcer that is about 8 x 10 cm, min drainage, no odor, with some slough. EXTREMITIES: No clubbing, cyanosis. Has mild pedal edema. L foot cool compared to R foot. Dressing L elbow, no cellulitis around ulcer, no purulence NEUROLOGICAL: Awakens easily from sleep. Contractures of his extremities PSYCHIATRIC: Normal affect, calm and cooperative. LINE: No evidence of infection Assessment & Plan Remarks IMPRESSION Sepsis with fever, leukocytosis, tachycardia, elevated lactic acid, source - DDX: , PNA - has lines : port not working, has midline ?inserted, site ok - has decubitus, C/S MDR, wounds look ok, on Abx since 04/23, ? osteomyelitis - temps better Chronic respiratory failure, due to quadriplegia from SC injury HCAP UTI, has SPC Sacral decubitus, ?osteo L elbow wound, looks ok, per SNF records (+) MRSA in C/S which could just be colonization Abdominal distension, possible ileus on CT Leukocytosis, persistent, satbel Elevated LFTs, ?due to sepsis, GB looks ok on CT - improving Abdominal distension, no BM RECOMMENDATION Continue Zosyn Follow temps Follow CBC Monitor progress Wound care to decubitus GI to evaluate distension and no BM D/W Leonila Jaramillo MD Apr 29, 2017 16:14
[2017-04-29] MEDS ORDERED: NAPHAZOLINE HCL 0.012% OPHT SOLN 15 ML BOTTLE EACH EYE PRN (19:45)
--- NOTE | 2017-04-29 20:34 | RADRPT ---
EXAM DATE/TIME: 04/29/2017 20:09 [facility] COMPARISON: CHEST SINGLE AP, April 27, 2017, 3:59. INDICATIONS : Shortness of breath. MEDICAL HISTORY : Vent dependent, Quadraplegic SURGICAL HISTORY : Colostomy. Peg tube. ENCOUNTER: Subsequent ACUITY: 4 - 6 days PAIN SCORE: Non-responsive. LOCATION: Bilateral chest FINDINGS: There continue to be some mild scattered infiltrates in both lung bases. This appears to be about the same compared to the prior exam. The tracheostomy tube remains in place. There is no pneumothorax. T here is a right-sided central line in place. The heart size is stable. The bony structures are stable . No significant change is seen compared to the prior studies. CONCLUSION: There continues to be some scattered bibasilar pulmonary infiltrates. No significant change compared to the prior exam. Nick Smith MD on April 29, 2017 at 20:31 Board Certified Radiologist. This report was verified electronically.
[2017-04-29] MEDS: MIRTAZAPINE 15 MG TAB G-TUBE SCH (21:20)
[2017-04-29] MEDS: GABAPENTIN 300 MG CAP PO SCH (21:21)
[2017-04-29] MEDS: traZODone HCL 100 MG TAB PO SCH (21:21)
[2017-04-29] MEDS: LORazepam 2 MG/ML VIAL IV PUSH PRN (21:50)
--- NOTE | 2017-04-29 22:14 | MB ---
cc: EDD OWUSU ALAA M.D. DATE OF CONSULTATION: 04/29/2017 REASON FOR CONSULTATION: Respiratory failure, ventilator management. HISTORY OF PRESENT ILLNESS: This is a 57 year-old -I[place] male, previously known to me, with a history of spinal cord injury with quadriplegia, has a trache and PEG, and is ventilator dependent. The patient was at the [facility] and has been on ventilator support and has a suprapubic catheter, as well as ostomy. He has had multiple decubitus ulcers in the sacral area, as well as the left elbow. The patient has a prior history of DVT and has IVC filter in place, and a right chest port in place. He was brought into the emergency room due to high fever and agitation. Upon arrival in the ER, he was noted to be hypotensive. His hemoglobin was 7.5 and white count was elevated. The patient was sent for CT of the abdomen and was found to have bilateral lower lobe pneumonia as well as pleural effusions. His PEG tube was in place and the patient had some small bowel ileus. He has been placed on broad-spectrum antibiotic coverage due to suspicion of sepsis as well as decubitus ulcers and presently on ventilator support with FIO2 of 30% and SIMV rate of 16, PEEP of 5. The patient is awake and does communicate, and seems to be quite appropriate. He is quadriparetic and has multiple contractures of his extremities. PAST HISTORY History of hypertension, history of decubitus ulcers and elbow ulcers. History of depression/anxiety, history of ostomy and chronic suprapubic catheter and PEG tube. History of IVC filter. The patient was hypotensive. HABITS The patient is a nonsmoker. No significant history of alcohol. FAMILY HISTORY Noncontributory. MEDICATIONS: 1. Zosyn 3.375 grams IV q6. 2. Vancomycin one gram q12 IV. 3. BuSpar 5 milligrams t.i.d. 4. Duloxetine 60 mg a day. 5. Famotidine 20 milligrams t.i.d. 6. Heparin subcu 5000 units q8. 7. Metoprolol 12.5 milligrams b.i.d. 8. Remeron 15 milligrams hs. 9. Silvadene cream to the decubitus ulcer. 10. Neurontin 300 milligrams hs. REVIEW OF SYSTEMS The patient is unable to provide significant details. He complains of itchy eyes and tightness in his chest, and dizziness. PHYSICAL EXAMINATION This emaciated middle-aged -Ivorian male has multiple contractures of the extremities and weakness of all extremities. Skin: Tightly stretched over the extremities. Decubitus ulcers in the sacral and elbow areas. VITAL SIGNS: Blood pressure 150/60, pulse 95, respirations 20, temperature 100.2. HEENT: Head normocephalic. Pupils are reactive. Tongue is moist. Throat is injected. Nasal mucosa is clear. Ears: no inflammation. Neck: Supple without venous distension. Trachea midline. Chest: Decreased excursions with wheezes bilaterally and few bibasilar crackles. Heart: Heart sounds are regular S1-S2. No murmur. No S3. Abdomen: Protuberant with a PEG tube in place, ostomy and suprapubic catheter. No organomegaly. Bowel sounds faint. Extremities: Contractures with flexion of arms, elbows and foot drop bilaterally with quadriparesis. There is minimal edema of the extremities. Skin: Dry and cool. IMPRESSION: 1. Ventilator dependent respiratory failure. 2. Status post tracheostomy and PEG tube placement, port placement. 3. Quadriplegia. 4. Multiple decubitus ulcers with sepsis. 5. Bibasilar pneumonia and atelectasis. 6. Anxiety and depression. 7. Hypertension. PLAN: The patient is already on antibiotic coverage per infectious disease service which we will continue, DuoNeb nebs q.i.d. to be added and the patient will be maintained on SIMV rate of 16 and pressure control 28 x 5. Frequent tracheal suctioning, tracheal toilet to be done, tube feeds have been started. The patient's wounds are being attended to by the wound management team. Chest x-ray will be repeated in the a.m. Attempts will be made to wean the respiratory rate if he is clinically stable. Thank you, Dr. Thurston, for this consultation. MD LORETTA Freedman/BRITTANY /8:12 PM /9:28 PM
[2017-04-30] VITALS (18 sets, daily range): BP systolic 85–121; BP diastolic 50–58; PULSE 56–81; RESP 16–80; TEMP 97.4–98.9; O2SAT 99–100
[2017-04-30] MEDS: LORazepam 2 MG/ML VIAL IV PUSH PRN (03:00)
[2017-04-30] MEDS: RESP: ALBUTEROL 2.5 MG/IPRATROPIUM 0.5 MG NEB (SCH) INH ×2 (03:37→08:48)
[2017-04-30] MEDS: INSULIN ASPART SUPPLEMENTAL SCALE SQ SCH ×6 (04:00→23:34)
[2017-04-30] MEDS: CHLORHEXIDINE GLUCONATE 2 % 1 PACK (2 CLOTHS) TOP SCH (04:00)
[2017-04-30 05:19] LABS: AUTOMATED NEUTROPHIL # 4.8 TH/MM3 (1.8-7.7); BASOPHIL # 0.1 TH/MM3 (0-0.2); BASOPHIL % 0.9 % (0.0-2.0); EOSINOPHIL # 0.4 TH/MM3 (0-0.4); EOSINOPHIL % 5.3 % (0.0-4.0); HEMATOCRIT 26.5 % (39.0-51.0); HEMOGLOBIN 8.2 GM/DL (13.0-17.0); LYMPH % 25.1 % (9.0-44.0); MEAN CELL VOLUME 69.8 FL (80.0-100.0); MEAN CORPUSCULAR HEMOGLOBIN 21.5 PG (27.0-34.0); MEAN CORPUSCULAR HGB CONC 30.9 % (32.0-36.0); MEAN PLATELET VOLUME 7.2 FL (7.0-11.0); MONO % 9.6 % (0.0-8.0); MONOCYTE # 0.8 TH/MM3 (0-0.9); NEUT % 59.1 % (16.0-70.0); PLATELET COUNT 392 TH/MM3 (150-450); WHITE BLOOD COUNT 8.1 TH/MM3 (4.0-11.0)
[2017-04-30] MEDS: PIPERACIL-TAZO 4.5 GM PREMIX 100 ML IV SCH ×4 (05:22→23:34)
[2017-04-30] MEDS: METOCLOPRAMIDE HCL 10 MG/2 ML VIAL IV PUSH SCH ×3 (05:22→20:42)
[2017-04-30] MEDS: METOPROLOL TARTRATE 50 MG TAB PO SCH ×2 (05:23→16:42)
[2017-04-30 05:42] LABS: ALBUMIN 2.4 GM/DL (3.4-5.0); AST (GOT) 12 U/L (15-37); BICARBONATE 17.1 MEQ/L (21.0-32.0); BLOOD UREA NITROGEN 15 MG/DL (7-18); CALCIUM 9.1 MG/DL (8.5-10.1); CHLORIDE 102 MEQ/L (98-107); CREATININE 0.37 MG/DL (0.60-1.30); GLOMERULAR FILTRATION RATE 296 ML/MIN (>89); GLUCOSE,RANDOM 75 MG/DL (74-106); SODIUM (NA) 136 MEQ/L (136-145)
[2017-04-30 05:46] LABS: ALKALINE PHOSPHATASE 227 U/L (45-117); ALT (GPT) 63 U/L (12-78); PHOSPHORUS 3.5 MG/DL (2.5-4.9); TOTAL BILIRUBIN ADULT 0.7 MG/DL (0.2-1.0); TOTAL PROTEIN 7.8 GM/DL (6.4-8.2)
[2017-04-30] MEDS: BACLOFEN 10 MG TAB G-TUBE SCH ×3 (07:57→16:41)
[2017-04-30] MEDS: MULTIVITAMINS/MINERALS THERAPEUTIC TAB G-TUBE SCH (07:58)
[2017-04-30] MEDS: FAMOTIDINE 20 MG TAB PO SCH ×2 (07:58→20:41)
[2017-04-30] MEDS: SENNOSIDES 8.6 MG TAB G-TUBE SCH ×2 (07:58→20:41)
[2017-04-30] MEDS: ASCORBIC ACID 500 MG TAB G-TUBE SCH (07:58)
[2017-04-30] MEDS: busPIRone HCL 5 MG TAB G-TUBE SCH ×3 (07:58→16:41)
[2017-04-30] MEDS: DOCUSATE SODIUM 50 MG/SENNA 8.6 MG TAB PO SCH ×2 (07:58→20:41)
[2017-04-30] MEDS: SODIUM CHLORIDE 0.9% FLUSH 10 ML FLUSH IV FLUSH SCH ×2 (07:59→20:43)
[2017-04-30] MEDS: CHLORHEXIDINE 0.12% (ORAL KIT) 15 ML CUP MT SCH ×2 (07:59→20:40)
[2017-04-30] MEDS: POLYETHYLENE GLYCOL 17 GM PKG G-TUBE SCH (07:59)
[2017-04-30] MEDS: SILVER SULFADIAZINE 1% CR 50 GM JAR TOPICAL SCH (08:00)
[2017-04-30] MEDS ORDERED: SODIUM CHLORID 0.9% 500 ML INJ 500 ML IV ONE (09:15)
--- NOTE | 2017-04-30 09:15 | HHI.CCPN ---
Subjective Remarks/Hospital Course Hospital Course: 57-year-old male with past medical history of spinal cord injury resulting in quadriplegia, s/p trach/PEG with vent dependency, ostomy, HTN, sacral and left elbow decubitus ulcers, chronic indwelling suprapubic catheter, depression, anxiety, port right chest, IVC filter who was sent to [facility] emergency department from [facility] due to fever 103.8 and ( per [place] transfer documentation "highly agitated after getting medication for agitation"). Patient is alert on vent and difficult historian but does mouth some words and helps provide some limited history. Records indicate that he was started on Zosyn and vancomycin on 04/23/17 "for ESBL and Proteus mirabilis sacral wound/osteomyelitis x 6weeks", on isolation for "MRSA elbow". White blood cell count is elevated at 18.1. Hemoglobin is 7.5. Lactic acid is 2.1. Transaminases and alkaline phosphatase are elevated. Lipase is normal. CT abdomen and pelvis demonstrates bilateral lower lobe consolidations, moderate left pleural effusion. PEG tube is in place but there is dilation of the small bowel in the mid abdomen without discrete transition point; probable ileus versus developing small bowel obstruction. There is sclerosis and hyper trophic changes of the left ischial tuberosity which can be seen and chronic osteomyelitis. Gallbladder is unremarkable. In the emergency department patient was maintained on chronic ventilator settings with pressure SIMV. He was given Toradol 30 mg IV, morphine 4 mg IV, 1 L normal saline bolus. PEG was noted to be obstructed by ED physician who was unable to flush using soda. Patient refused NG tube. Patient does repeatedly request both oral and trach suctioning. He does reports some mild increase in respiratory secretions. subjective: 2/4: GI planning EGD with decompression and PEG tube swap. patient states he wants to go home and feels better. ROS difficult to obtain due to chronic vent dependency, but limited ROS negative for fever, chills, abd pain, swelling. LE DVT + on u/s yesterday: ivc filter in place. holding full dose anticoagulation until GI procedure today. will need full dose anticoagulation after that. 2 No events overnight. For PEG tube replacement today. Afebrile. 04/29 Patient remains on ventilator via trach. s/p PEG tube placement yesterday. 2 No events overnight. BP borderline low this morning given Ativan 1mg x1 at 3 am. Afebrile. Objective Vital Signs Date Time Temp Pulse Resp B/P (MAP) Pulse Ox O2 Delivery O2 Flow Rate FiO2 04/30/17 08:50 100 30 04/30/17 06:00 60 04/30/17 04:00 98.9 80 85/51 (62) Intake and Output 04/30/17 04/30/17 05/01/17 08:00 16:00 00:00 Intake Total 300 ml Output Total 50 ml Balance 250 ml Result Diagram: 04/30/17 0500 04/30/17 0500 Other Results Laboratory Tests Test 04/30/17 05:00 White Blood Count 8.1 TH/MM3 Red Blood Count 3.80 MIL/MM3 Hemoglobin 8.2 GM/DL Hematocrit 26.5 % Mean Corpuscular Volume 69.8 FL Mean Corpuscular Hemoglobin 21.5 PG Mean Corpuscular Hemoglobin Concent 30.9 % Red Cell Distribution Width 21.0 % Platelet Count 392 TH/MM3 Mean Platelet Volume 7.2 FL Neutrophils (%) (Auto) 59.1 % Lymphocytes (%) (Auto) 25.1 % Monocytes (%) (Auto) 9.6 % Eosinophils (%) (Auto) 5.3 % Basophils (%) (Auto) 0.9 % Neutrophils # (Auto) 4.8 TH/MM3 Lymphocytes # (Auto) 2.0 TH/MM3 Monocytes # (Auto) 0.8 TH/MM3 Eosinophils # (Auto) 0.4 TH/MM3 Basophils # (Auto) 0.1 TH/MM3 CBC Comment DIFF FINAL Differential Comment Blood Urea Nitrogen 15 MG/DL Creatinine 0.37 MG/DL Random Glucose 75 MG/DL Total Protein 7.8 GM/DL Albumin 2.4 GM/DL Calcium Level 9.1 MG/DL Phosphorus Level 3.5 MG/DL Magnesium Level 2.0 MG/DL Alkaline Phosphatase 227 U/L Aspartate Amino Transf (AST/SGOT) 12 U/L Alanine Aminotransferase (ALT/SGPT) 63 U/L Total Bilirubin 0.7 MG/DL Sodium Level 136 MEQ/L Potassium Level 3.4 MEQ/L Chloride Level 102 MEQ/L Carbon Dioxide Level 17.1 MEQ/L Anion Gap 17 MEQ/L Estimat Glomerular Filtration Rate 296 ML/MIN Imaging Last Impressions Chest X-Ray 04/29/17 0000 Signed Impressions: Service Date/Time: Saturday, April 29, 2017 20:09 - CONCLUSION: There continues to be some scattered bibasilar pulmonary infiltrates. No significant change compared to the prior exam. Nick Smith MD Abdomen X-Ray 04/29/17 0000 Signed Impressions: Service Date/Time: Saturday, April 29, 2017 09:36 - CONCLUSION: Slight interval decrease in diffuse gaseous distention of bowel Thompson Khan MD Lower Extremity Ultrasound 04/26/17 2344 Signed Impressions: Service Date/Time: Wednesday, April 26, 2017 08:46 - CONCLUSION: 1. Occlusive deep venous thrombosis right leg. 2. No DVT left leg. Adi Ferrer MD Abdomen/Pelvis CT 04/25/17 0000 Signed Impressions: Service Date/Time: Wednesday, April 26, 2017 01:13 - CONCLUSION: Probable ileus versus developing small bowel obstruction with dilated small bowel loops identified and no discrete transition point, however close clinical and radiographic followup is advised. Left pleural effusion and bilateral lower lobe consolidation. Renal cysts. Small amount of free fluid. Decubitus ulcer with underlying sclerosis and hypertrophic changes of the left ischial tuberosity. Ilya Nash MD Objective Remarks GENERAL: Chronically ill-appearing male who has quadriplegia, tracheostomy on mechanical ventilation. He is sitting up and alert and communicating by nodding and trying to mouth some words though communication is limited. HEAD: Atraumatic. Normocephalic. EYES: Pupils equal and round. No scleral icterus. No injection or drainage. ENT: No nasal bleeding or discharge. Mucous membranes pink and moist. NECK: Cuff tracheostomy in place. On mechanical ventilation SIMV: home settings. CARDIOVASCULAR: Regular rate and rhythm. No murmurs rubs or gallops appreciated. VASC: Port is in place right chest with site benign appearing. Midline in place RUE, no erythema or drainage RESPIRATORY: On mechanical ventilation via trach. Appears reasonably comfortable without accessory muscle use. GASTROINTESTINAL: Abdomen distended tympanitic. PEG tube in place without abnormality of insertion site, does not flush or draw. Ostomy in place. MUSCULOSKELETAL: Extremities without clubbing, cyanosis. Arms held in flexion, wrist held in extension bilaterally. Bilateral foot drop. NEUROLOGICAL: Awake and alert. Quadriparesis. + shoulder shrug. No obvious cranial nerve deficits. Mouths words but is difficult to understand what he is saying. A/P Assessment and Plan Assessment: 57yM with chronic vent dependency due to SCI who presented with sepsis and now has GNR in sputum and urine. PEG tube clogged. plan for EGD today. will need full dose anticoagulation for DVT after this. NEURO: Spinal cord injury with quadriplegia Chronic pain Chronic opioid use Peripheral neuropathy Depression Anxiety Monitor neuro status Gabapentin 300 daily at bedtime Trazodone 150 by mouth daily at bedtime Remeron 15 mg daily at bedtime Baclofen 5 mg 3 times a day BuSpar 5 mg 3 times a day RESP: Chronic vent dependent respiratory failure Tracheostomy Left pleural effusion Bibasilar pneumonia Continue vent support keep sat >92% On mechanical ventilation with pressure SIMV IP: 28, rate 16, PEEP 5/I time 1/ pressure support 15, FiO2 30% per chronic settings from correction Bronchodilators, ICU vent bundle. Pulm toilet, trach care CV: Monitor Hr and BP keep MAP>65mmHg Hold Lopressor 50mg Q12, Give NS 500ml x1 then D5NS@84ml/hr GI: Ileus PEG malfunction. Transaminase elevation, downtrend from 04/22/17. No gallbladder abnormality noted on CT Colostomy CT abdomen and pelvis 2/3 ileus vs ???developing SBO: KUB abdomen 2: Ileus, repeat KUB abdomen 04/29: Slight interval decrease in diffuse gaseous distention of bowel . On Marium lax, Senokot, Reglan s/p PEG replacement 2/5 tube feeds- on hold (Jevity 1.5 with goal rate 60ml/hr ) for SB series w/ Gastrografin . FEN/RENAL: Chronic Suprapubic catheter in place Chronic hyponatremia Catheter replaced 2/ by Urology. Monitor intake and output. Monitor electrolytes and replace as indicated. ID: Leukocytosis Sacral decubitus ulcers with osteomyelitis Left elbow wound ? UTI. Chronic indwelling suprapubic catheter Port in place right chest - site benign RUE midline - site benign. Removed and catheter tip culture per ID. Unclear when this was placed. 2/ Sputum cx: Pseudomonas, Kleb ESBL, Proteus 2/ Urine cx : GNR, Group D enterococcus Continue abx per ID(Zosyn) monitor for signs of infections ( Fever, WBC) Wound care is following suprapubic catheter replaced at bedside /. Persistent fever may also be related to DVT. Patient has an IVC filter. LE ultrasound + for DVT. HEME: IVC filter in place LE DVT IVC filter on Lovenox 90mg Q12 ENDO: Acute hyperglycemia SSI for glycemic control PROPH: Has an IVC filter in place, place on Lovenox 90mg Sq Q12. Pepcid for stress ulcer prophylaxis ACCESS: Port in place right chest. Right IJ central venous line placed in ED 04/26/17 Level 2 Thierry Thurston MD Apr 30, 2017 09:15
[2017-04-30] MEDS: ENOXAPARIN SODIUM 100 MG/ML SYRINGE SQ SCH ×2 (10:00→20:42)
[2017-04-30] MEDS: DEXT 5%-NACL 0.9% 1000 ML INJ 1,000 ML IV SCH ×2 (10:10→20:43)
[2017-04-30] MEDS ORDERED: DIATRIZOATE MEGLUM/DIATRIZOATE SOD 120 ML BTL (for RAD DIAG) PEG ONE (10:30)
--- NOTE | 2017-04-30 10:57 | HHI.IDPN ---
Subjective Subjective Remarks Patient is a 57-year-old male, resident of a half-way, chronically on the respirator, has history of spinal cord injury with quadriplegia, has a PEG, colostomy, and a suprapubic catheter in place, brought to the hospital for evaluation of fever. He was also agitated according to the half-way notes. On evaluation of his half-way records, it looks like the patient was started on vancomycin and Zosyn on April 23 for treatment of osteomyelitis as a result of a sacral decubitus ulcer, with growth of ESBL positive organism, Proteus mirabilis. There was also mention that he had an MRSA from an elbow wound culture. There has been no change on his respiratory status. He remains chronically vent dependent. Evaluation in the emergency room showed leukocytosis. Chest x-ray showed basilar infiltrates and which seem to be similar to his chest x-ray from December 2016. CT of the abdomen and pelvis showed bilateral lower lobe consolidation with left pleural effusion, PEG tube in place, the location of the small bowel, and some sclerotic changes and hypertrophic changes of the left ischial tuberosity. He is not on pressors. His suprapubic catheter was reportedly change in the emergency room. Urinalysis was abnormal with significant pyuria. His cultures are currently pending. Cultures from the half-way are not available for review. Patient is currently on meropenem. Infectious disease consultation has been requested to evaluate and assist with management in a patient with known MDR organism infection. Notes reviewed D/W RN Temps ok Vent dependent BP ok Colostomy is working Had replacement of his PEG 2/5 Tolerating TF Still with abdominal distension but looks better Cultures reviewed - has MDR both urine and sputum CXR stable infiltrates, low lung volumes WBC down to normal Antibiotics Current Medications Medications (Trade) Dose Ordered Sig/Francisco J Route Start Time Stop Time Status Last Admin (Peridex 0.12% Liq) 15 ml BID@08,20 MT 04/26/17 08:00 04/30/17 07:59 (Vitamin C) 500 mg DAILY G-TUBE 04/26/17 09:00 04/30/17 07:58 (Lioresal) 5 mg TID G-TUBE 04/26/17 09:00 04/30/17 07:57 (Buspar) 5 mg TID G-TUBE 04/26/17 09:00 04/30/17 07:58 (Neurontin) 300 mg HS PO 04/26/17 21:00 04/29/17 21:21 (Ativan) 1 mg Q6HR PRN G-TUBE 04/26/17 05:30 (Remeron) 15 mg HS G-TUBE 04/26/17 21:00 04/29/17 21:20 (Roxicodone) 5 mg Q6HR PRN PEG 04/26/17 05:30 04/29/17 21:20 (Miralax) 17 gm DAILY G-TUBE 04/26/17 09:00 04/30/17 07:59 (Senokot) 17.2 mg BID G-TUBE 04/26/17 09:00 04/30/17 07:58 (Silvadene 1% Cream (50 Gm)) 1 applic DAILY TOPICAL 04/26/17 09:00 (Theragran M Tab) 1 tab DAILY G-TUBE 04/26/17 09:00 04/30/17 07:58 (Desyrel) 150 mg HS PO 04/26/17 21:00 04/29/17 21:21 (NS Flush) 2 ml UNSCH PRN IV FLUSH 04/26/17 05:30 (NS Flush) 2 ml BID IV FLUSH 04/26/17 09:00 04/30/17 07:59 (Tylenol) 650 mg Q6H PRN PO 04/26/17 05:30 (Pepcid) 20 mg Q12HR PO 04/26/17 09:00 04/30/17 07:58 (Zofran Inj) 4 mg Q6H PRN IV PUSH 04/26/17 05:30 (Albuterol Neb) 2.5 mg Q2HR NEB PRN INH 04/26/17 05:30 Miscellaneous Information 1 Q361D XX 04/26/17 05:30 04/26/17 05:30 (Chlorhexidine 2% Cloth) 3 pack Taper DAILY@04 TOP 04/27/17 04:00 04/23/18 03:59 04/30/17 04:00 (Chlorhexidine 2% Cloth) 3 pack UNSCH PRN TOP 04/26/17 05:30 (Lynsey-Colace) 1 tab BID PO 04/26/17 09:00 04/30/17 07:58 (Milk Of Magnesia Liq) 30 ml Q12H PRN PO 04/26/17 05:30 (Senokot) 17.2 mg Q12H PRN PO 04/26/17 05:30 (Dulcolax Supp) 10 mg DAILY PRN RECTAL 04/26/17 05:30 (Lactulose Liq) 30 ml DAILY PRN PO 04/26/17 05:30 (D50w (Vial) Inj) 50 ml UNSCH PRN IV PUSH 04/26/17 10:00 (Glucagon Inj) 1 mg UNSCH PRN OTHER 04/26/17 10:00 (NovoLOG SUPPLEMENTAL SCALE) 1 Q4HR SQ 04/26/17 10:00 04/26/17 15:36 Potassium Chloride 100 ml @ 50 mls/hr Q2H PRN IV 04/26/17 14:30 Potassium Chloride 100 ml @ 50 mls/hr Q2H PRN IV 04/26/17 14:30 (K-Lyte Cl Eff) 50 meq UNSCH PRN PO 04/26/17 14:30 04/29/17 13:32 Potassium Chloride 100 ml @ 25 mls/hr UNSCH PRN IV 04/26/17 14:30 04/26/17 15:31 Potassium Chloride 100 ml @ 50 mls/hr Q2H PRN IV 04/26/17 14:30 Magnesium Sulfate 4 gm/Sodium Chloride 100 ml @ 50 mls/hr UNSCH PRN IV 04/26/17 14:30 (Mag-Ox) 800 mg UNSCH PRN PO 04/26/17 14:30 Magnesium Sulfate 2 gm/Sodium Chloride 100 ml @ 50 mls/hr UNSCH PRN IV 04/26/17 14:30 (K-Phos) 2,000 mg Q4H PRN PO 04/26/17 14:30 Sodium Phosphate 30 mmol/Sodium Chloride 250 ml @ 42 mls/hr UNSCH PRN IV 04/26/17 14:30 (K-Phos) 2,000 mg UNSCH PRN PO/TUBE 04/26/17 14:30 Potassium Phosphate 30 mmol/ Sodium Chloride 260 ml @ 42 mls/hr UNSCH PRN IV 04/26/17 14:30 (Pepcid Inj) 20 mg Q12HR PRN IV PUSH 04/27/17 14:30 Piperacillin Sod/ Tazobactam Sod 100 ml @ 200 mls/hr Q6H IV 04/28/17 12:00 05/12/17 12:00 04/30/17 05:22 (Lopressor) 50 mg Q12H PO 04/28/17 18:00 04/29/17 18:00 (Apresoline Inj) 10 mg Q6H PRN IV PUSH 04/28/17 17:45 (Reglan Inj) 5 mg Q8HR IV PUSH 04/29/17 10:00 04/30/17 05:22 (Lovenox Inj) 90 mg Q12H SQ 04/29/17 10:00 04/29/17 21:23 (Clear Eyes Redness Relief 0.012% Opth Soln) 1 drop QID PRN EACH EYE 04/29/17 19:45 Dextrose/Sodium Chloride 1,000 ml @ 84 mls/hr [id number] IV 04/30/17 10:00 04/30/17 10:10 Lines Port Central line Past Medical History Quadriplegia following spinal cord injury Chronic vent dependent respiratory failure with tracheostomy Hypertension Chronic opioid use Sacral decubitus ulcer present on admission, Left elbow decubitus ulcer present on admission Anxiety Depression Ostomy Chronic suprapubic catheter PEG Prior ileus Previous treatment for 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 Past Surgical History Suprapubic catheter placement Colostomy Tracheostomy PEG placement IVC filter Placement of an [id number] Allergies: Coded Allergies: levofloxacin (Verified Allergy, Unknown, 04/25/17) PER [facility] Objective . Vital Signs Date Time Temp Pulse Resp B/P (MAP) Pulse Ox O2 Delivery O2 Flow Rate FiO2 04/30/17 08:50 100 30 04/30/17 06:00 60 04/30/17 04:49 100 30 04/30/17 04:00 65 04/30/17 04:00 98.9 65 80 85/51 (62) 99 04/30/17 04:00 30 04/30/17 02:00 64 04/30/17 01:17 100 30 04/30/17 00:00 98.7 71 16 85/50 (62) 100 04/30/17 00:00 58 04/30/17 00:00 30 04/29/17 22:20 100 30 04/29/17 22:00 58 04/29/17 20:00 30 04/29/17 20:00 67 04/29/17 20:00 98.3 67 17 120/73 (89) 100 04/29/17 19:45 100 30 04/29/17 18:00 96 04/29/17 17:00 54 04/29/17 17:00 58 20 190/92 (124) 100 04/29/17 16:00 98.6 59 16 190/90 (123) 100 04/29/17 16:00 59 04/29/17 16:00 30 04/29/17 15:01 100 30 04/29/17 15:00 59 16 142/68 (92) 100 04/29/17 15:00 59 04/29/17 14:00 94 04/29/17 14:00 94 26 153/65 (94) 100 04/29/17 13:00 58 22 188/107 (134) 100 04/29/17 13:00 58 04/29/17 12:00 62 04/29/17 12:00 30 04/29/17 12:00 98.1 85 18 169/78 (108) 100 04/29/17 11:36 100 30 04/29/17 11:00 55 04/29/17 11:00 55 16 159/91 (113) 100 . Laboratory Tests Test 04/29/17 05:59 04/30/17 05:00 White Blood Count 13.0 TH/MM3 8.1 TH/MM3 Red Blood Count 3.76 MIL/MM3 3.80 MIL/MM3 Hemoglobin 8.1 GM/DL 8.2 GM/DL Hematocrit 26.2 % 26.5 % Mean Corpuscular Volume 69.6 FL 69.8 FL Mean Corpuscular Hemoglobin 21.6 PG 21.5 PG Mean Corpuscular Hemoglobin Concent 31.1 % 30.9 % Red Cell Distribution Width 20.2 % 21.0 % Platelet Count 393 TH/MM3 392 TH/MM3 Mean Platelet Volume 7.4 FL 7.2 FL Neutrophils (%) (Auto) 73.0 % 59.1 % Lymphocytes (%) (Auto) 13.9 % 25.1 % Monocytes (%) (Auto) 9.1 % 9.6 % Eosinophils (%) (Auto) 2.9 % 5.3 % Basophils (%) (Auto) 1.1 % 0.9 % Neutrophils # (Auto) 9.5 TH/MM3 4.8 TH/MM3 Lymphocytes # (Auto) 1.8 TH/MM3 2.0 TH/MM3 Monocytes # (Auto) 1.2 TH/MM3 0.8 TH/MM3 Eosinophils # (Auto) 0.4 TH/MM3 0.4 TH/MM3 Basophils # (Auto) 0.1 TH/MM3 0.1 TH/MM3 CBC Comment AUTO DIFF DIFF FINAL Differential Total Cells Counted 100 Neutrophils % (Manual) 78 % Band Neutrophils % 4 % Lymphocytes % 13 % Monocytes % 3 % Eosinophils % 2 % Neutrophils # (Manual) 10.7 TH/MM3 Differential Comment FINAL DIFF MANUAL Platelet Estimate NORMAL Platelet Morphology Comment NORMAL Ovalocytes 1+ Laboratory Tests Test 04/29/17 05:59 04/30/17 05:00 Blood Urea Nitrogen 13 MG/DL 15 MG/DL Creatinine 0.35 MG/DL 0.37 MG/DL Random Glucose 77 MG/DL 75 MG/DL Total Protein 8.4 GM/DL 7.8 GM/DL Albumin 2.6 GM/DL 2.4 GM/DL Calcium Level 9.0 MG/DL 9.1 MG/DL Alkaline Phosphatase 266 U/L 227 U/L Aspartate Amino Transf (AST/SGOT) 19 U/L 12 U/L Alanine Aminotransferase (ALT/SGPT) 85 U/L 63 U/L Total Bilirubin 0.7 MG/DL 0.7 MG/DL Sodium Level 133 MEQ/L 136 MEQ/L Potassium Level 3.4 MEQ/L 3.4 MEQ/L Chloride Level 101 MEQ/L 102 MEQ/L Carbon Dioxide Level 18.2 MEQ/L 17.1 MEQ/L Anion Gap 14 MEQ/L 17 MEQ/L Estimat Glomerular Filtration Rate 316 ML/MIN 296 ML/MIN Phosphorus Level 3.5 MG/DL Magnesium Level 2.0 MG/DL Imaging Chest X-Ray 04/27/17 0000 Signed Impressions: Service Date/Time: Thursday, April 27, 2017 03:59 - CONCLUSION: No significant change has occurred. Ilya Nash MD Lower Extremity Ultrasound 04/26/17 [id number] Signed Impressions: Service Date/Time: Wednesday, April 26, 2017 08:46 - CONCLUSION: 1. Occlusive deep venous thrombosis right leg. 2. No DVT left leg. Adi Ferrer MD Abdomen/Pelvis CT 04/25/17 0000 Signed Impressions: Service Date/Time: Wednesday, April 26, 2017 01:13 - CONCLUSION: Probable ileus versus developing small bowel obstruction with dilated small bowel loops identified and no discrete transition point, however close clinical and radiographic followup is advised. Left pleural effusion and bilateral lower lobe consolidation. Renal cysts. Small amount of free fluid. Decubitus ulcer with underlying sclerosis and hypertrophic changes of the left ischial tuberosity. Ilya Nash MD Physical Exam GENERAL: awakens easily from sleep, not in respiratory distress. On the vent SKIN: Cool and dry. No generalized rash, no ecchymoses and no evidence of embolic lesions. HEAD: Atraumatic. Normocephalic. No temporal wasting, or tenderness. EYES: [place] conjunctiva. No petechia or hemorrhage. Pupils equal, round and reactive to light. Extraocular movements full and intact. No scleral icterus. No injection or drainage. EARS, NOSE AND THROAT: Nose without bleeding or purulent nasal discharge. No sinus tenderness. Mucous membranes pink and moist. No oral lesions noted. NECK: Tracheostomy site is ok. Supple and not tender, no meningeal signs. RIJ line ok, no evidence of infection CARDIOVASCULAR: Regular rate and rhythm. No murmurs, rubs or gallops heard RESPIRATORY: Bilateral coarse rhonchi. Equal breath sounds ABDOMEN: Less distended, tympanitic on percussion, bowel sounds are hypoactive. PEG site looks ok,. Colostomy bag with pasty stool. SPC site ok. BACK: Has sacral ulcer that is about 8 x 10 cm, min drainage, no odor, with some slough. EXTREMITIES: No clubbing, cyanosis. Has mild pedal edema. L foot cool compared to R foot. Dressing L elbow, no cellulitis around ulcer, no purulence NEUROLOGICAL: Awakens easily from sleep. Contractures of his extremities PSYCHIATRIC: Normal affect, calm and cooperative. LINE: No evidence of infection Assessment & Plan Remarks IMPRESSION Sepsis with fever, leukocytosis, tachycardia, elevated lactic acid, source - DDX: , PNA - has lines : port not working, has midline ?inserted, site ok - has decubitus, C/S MDR, wounds look ok, on Abx since 04/23, ? osteomyelitis - temps better Chronic respiratory failure, due to quadriplegia from SC injury HCAP UTI, has SPC Sacral decubitus, ?osteo L elbow wound, looks ok, per SNF records (+) MRSA in C/S which could just be colonization Abdominal distension, possible ileus on CT Leukocytosis, resolcved Elevated LFTs, ?due to sepsis, GB looks ok on CT - improving Abdominal distension, better, has BM RECOMMENDATION Continue Zosyn - plan 14 days Rx - end date May 12 Follow temps Follow CBC Monitor progress Wound care to decubitus GI to evaluate distension and no BM Clinically doing well I will be off May 01- Other ID MD covering if needed in my absence D/W Leonila Jaramillo MD Apr 30, 2017 10:57
--- NOTE | 2017-04-30 13:53 | HHI.GIFU ---
Subjective Remarks Pt resting in bed, on vent. SBFT in process. Now having stool via ostomy. (Augustina Tenorio) Objective Vitals I&O Vital Signs Date Time Temp Pulse Resp B/P (MAP) Pulse Ox O2 Delivery O2 Flow Rate FiO2 04/30/17 08:50 100 30 04/30/17 06:00 60 04/30/17 04:49 100 30 04/30/17 04:00 65 04/30/17 04:00 98.9 65 80 85/51 (62) 99 04/30/17 04:00 30 04/30/17 02:00 64 04/30/17 01:17 100 30 04/30/17 00:00 98.7 71 16 85/50 (62) 100 04/30/17 00:00 58 04/30/17 00:00 30 04/29/17 22:20 100 30 04/29/17 22:00 58 04/29/17 20:00 30 04/29/17 20:00 67 04/29/17 20:00 98.3 67 17 120/73 (89) 100 04/29/17 19:45 100 30 04/29/17 18:00 96 04/29/17 17:00 54 04/29/17 17:00 58 20 190/92 (124) 100 04/29/17 16:00 98.6 59 16 190/90 (123) 100 04/29/17 16:00 59 04/29/17 16:00 30 04/29/17 15:01 100 30 04/29/17 15:00 59 16 142/68 (92) 100 04/29/17 15:00 59 04/29/17 14:00 94 04/29/17 14:00 94 26 153/65 (94) 100 I/O 04/29/17 04/29/17 04/29/17 04/30/17 04/30/17 04/30/17 07:00 15:00 23:00 07:00 15:00 23:00 Intake Total 600 ml 375 ml 300 ml Output Total 450 ml 775 ml 50 ml Balance 150 ml -400 ml 250 ml Intake Oral 500 ml IV Total 100 ml 200 ml Tube Feeding 135 ml 0 ml Other 240 ml 100 ml Output Urine Total 450 ml 450 ml 50 ml Stool Total 175 ml Gastric Drainage Total 150 ml Laboratory Laboratory Tests Test 04/30/17 05:00 White Blood Count 8.1 Red Blood Count 3.80 Hemoglobin 8.2 Hematocrit 26.5 Mean Corpuscular Volume 69.8 Mean Corpuscular Hemoglobin 21.5 Mean Corpuscular Hemoglobin Concent 30.9 Red Cell Distribution Width 21.0 Platelet Count 392 Mean Platelet Volume 7.2 Neutrophils (%) (Auto) 59.1 Lymphocytes (%) (Auto) 25.1 Monocytes (%) (Auto) 9.6 Eosinophils (%) (Auto) 5.3 Basophils (%) (Auto) 0.9 Neutrophils # (Auto) 4.8 Lymphocytes # (Auto) 2.0 Monocytes # (Auto) 0.8 Eosinophils # (Auto) 0.4 Basophils # (Auto) 0.1 CBC Comment DIFF FINAL Differential Comment Blood Urea Nitrogen 15 Creatinine 0.37 Random Glucose 75 Total Protein 7.8 Albumin 2.4 Calcium Level 9.1 Phosphorus Level 3.5 Magnesium Level 2.0 Alkaline Phosphatase 227 Aspartate Amino Transf (AST/SGOT) 12 Alanine Aminotransferase (ALT/SGPT) 63 Total Bilirubin 0.7 Sodium Level 136 Potassium Level 3.4 Chloride Level 102 Carbon Dioxide Level 17.1 Anion Gap 17 Estimat Glomerular Filtration Rate 296 Date/Time Source Procedure Growth Status 04/25/17 23:25 Blood Peripheral Aerobic Blood Culture - Final NO GROWTH IN 5 DAYS Complete 04/25/17 23:25 Blood Peripheral Anaerobic Blood Culture - Final NO GROWTH IN 5 DAYS Complete 04/26/17 05:00 Sputum Endotracheal Gram Stain - Final Complete 04/26/17 05:00 Sputum Culture - Final Pseudomonas Aeruginosa Multi-Drug Resistant Klebsiella Pneumoniae Esbl Pos Proteus Mirabilis Complete 04/25/17 23:30 Urine Catheterized Urine Urine Culture - Final Enterococcus Faecalis Pseudomonas Aeruginosa Multi-Drug Resistant Complete 04/26/17 11:00 Catheter Tip Other Wound Culture - Final Complete Imaging Last Impressions Chest X-Ray 04/29/17 0000 Signed Impressions: Service Date/Time: Saturday, April 29, 2017 20:09 - CONCLUSION: There continues to be some scattered bibasilar pulmonary infiltrates. No significant change compared to the prior exam. Nick Smith MD Abdomen X-Ray 04/29/17 0000 Signed Impressions: Service Date/Time: Saturday, April 29, 2017 09:36 - CONCLUSION: Slight interval decrease in diffuse gaseous distention of bowel Thompson Khan MD Lower Extremity Ultrasound 04/26/17 2344 Signed Impressions: Service Date/Time: Wednesday, April 26, 2017 08:46 - CONCLUSION: 1. Occlusive deep venous thrombosis right leg. 2. No DVT left leg. Adi Ferrer MD Abdomen/Pelvis CT 04/25/17 0000 Signed Impressions: Service Date/Time: Wednesday, April 26, 2017 01:13 - CONCLUSION: Probable ileus versus developing small bowel obstruction with dilated small bowel loops identified and no discrete transition point, however close clinical and radiographic followup is advised. Left pleural effusion and bilateral lower lobe consolidation. Renal cysts. Small amount of free fluid. Decubitus ulcer with underlying sclerosis and hypertrophic changes of the left ischial tuberosity. Ilya Nash MD Physical Exam HEENT: Normocephalic; atraumatic CHEST: Coarse BS, trach CARDIAC: RRR ABDOMEN: Distended, firm, nontender, soft brown stool ostomy. PEG tube. EXTREMITIES; contracted SKIN: Normal; no rash; no jaundice. MAIL AGENT: Not responsive (Augustina Tenorio SENIOR SALES MANAGER) Assessment and Plan Plan - Ileus- CT on 04/26/17 showed probable ileus versus developing SBO with dilates small bowel loops with no transition point, left plural effusion and bilateral lower lobe consolidation, renal cysts. Patient is (+) for flatus and stools in colostomy bag. Abdomen firm and distended. Attempts made by CCM to insert NGT unsuccessful, IR consulted but not available on the weekend - Dysfunctional G tube. not flushing with several attempts made, unable to unclog - fever- ID on the case, pt with hx of ESBL and Proteus mirabilis sacral wound/ osteomyelitis. and has sacral and left elbow decubitus ulcers - Elevated LFTs- CT as above, no biliary involvement, will monitor, hepatitis panel pending - past medical history of spinal cord injury resulting in quadriplegia, s/p trach/PEG with vent dependency, ostomy (04/29) S/P EGD with replacement of PEG tube yesterday --> 600cc of gastric content suctioned ulcers in duodenum second portion, multiple, nonbleeding, gastritis, esophagitis. Repeat KUB done today --> Slight interval decrease in diffuse gaseous distention of bowel. Pt remain on Reglan. Per RN has not had output through ostomy, however, passing flatus. TF currently Jevity 1.5 running at 20 mL/hr, goal rate of 60 mL/hr. Per RN has not had high residuals. Recommendations to continue PPI, check for residuals. If abdomen remains distended and no improvement in ileus then consult IR for GJ tube. 04/30/17 SBFT in progress. Now having stool from ostomy. d/w RN Plan: - Continue PPI - await completion SBFT - if no obstruction per SBFT consider IR consult for GJ - Continue Reglan - Monitor stool output - Further recommendations to follow based on clinical course Pt has been seen and examined by myself and dr. Feldman and this note is written on her behalf (Augustina Tenorio) Physician Comments seen, examined agree with above sbft negative for obstruction if no improvement consider ir consult for g/j tube placement ok to start trickle feeding (Caron Feldman MD) Augustina Tenorio Apr 30, 2017 13:53 Caron Feldman MD Apr 30, 2017 21:18
[2017-04-30] MEDS: POTASSIUM CHLORIDE 25 MEQ EFFERVESCENT TAB PO PRN (16:41)
--- NOTE | 2017-04-30 20:05 | RADRPT ---
EXAM DATE/TIME: 04/30/2017 10:17 [facility] COMPARISON: SMALL BOWEL SERIES W/GASTROGRAFIN, December 26, 2016, 9:09. INDICATIONS : Obstruction. FLUORO TIME: 0 minutes IMAGE COUNT: 9 CONTRAST: MD Griffith IMAGING TIME(S): 15 min, 1.5 hrs, 4 [id number]. MEDICAL HISTORY : Quadraplegic SURGICAL HISTORY : peg tube, colostomy ENCOUNTER: Initial ACUITY: 4 - 6 days PAIN SCORE: Non-responsive. LOCATION: Bilateral abdomen FINDINGS: Preliminary film shows a nonspecific bowel gas pattern. The stomach is grossly unremarkable. Examination of the small bowel demonstrates a grossly normal mucosal pattern involving the jejunum an d ileum. There is no evidence of mass or obstruction. No intraluminal filling defects are identifie d. Small bowel transit time is about 4- 8 hours. At 4 hours, most of the small bowel appears to be o pacified. An 8 hours there is contrast throughout the small and large bowel without evidence of any s ignificant dilatation. CONCLUSION: No evidence of obstruction. Nick Smith MD on April 30, 2017 at 20:00 Board Certified Radiologist. This report was verified electronically.
--- NOTE | 2017-04-30 20:12 | HHI.PR ---
Subjective Remarks He is awake and on Vent support, FIo2 at 30 %. Wants some pain meds. Has an Ileus, and Small bowel series in progress Objective Vital Signs Date Time Temp Pulse Resp B/P (MAP) Pulse Ox O2 Delivery O2 Flow Rate FiO2 04/30/17 18:00 66 04/30/17 16:36 100 30 04/30/17 16:00 60 04/30/17 16:00 30 04/30/17 16:00 98.3 60 16 112/58 (76) 100 04/30/17 14:00 81 04/30/17 12:00 63 04/30/17 12:00 97.4 63 16 100/56 (71) 99 04/30/17 12:00 30 04/30/17 10:00 58 04/30/17 08:50 100 30 04/30/17 08:00 98.8 66 18 94/53 (67) 100 04/30/17 08:00 30 04/30/17 08:00 66 04/30/17 06:00 60 04/30/17 04:49 100 30 04/30/17 04:00 65 04/30/17 04:00 98.9 65 80 85/51 (62) 99 04/30/17 04:00 30 04/30/17 02:00 64 04/30/17 01:17 100 30 04/30/17 00:00 98.7 71 16 85/50 (62) 100 04/30/17 00:00 58 04/30/17 00:00 30 04/29/17 22:20 100 30 04/29/17 22:00 58 I/O 04/29/17 04/29/17 04/29/17 04/30/17 04/30/17 04/30/17 07:00 15:00 23:00 07:00 15:00 23:00 Intake Total 600 ml 375 ml 300 ml 100 ml 1284 ml Output Total 450 ml 775 ml 50 ml 1650 ml Balance 150 ml -400 ml 250 ml 100 ml -366 ml Intake Oral 500 ml 0 ml IV Total 100 ml 200 ml 100 ml 1284 ml Tube Feeding 135 ml 0 ml Other 240 ml 100 ml Output Urine Total 450 ml 450 ml 50 ml 550 ml Stool Total 175 ml 1100 ml Gastric Drainage Total 150 ml Result Diagram: 04/30/17 0500 04/30/17 0500 Objective Remarks This emaciated middle-aged -[place] male has multiple contractures of the extremities and weakness of all extremities. Skin: Tightly stretched over the extremities. Decubitus ulcers in the sacral and elbow areas. HEENT: Head normocephalic. Pupils are reactive. Tongue is moist. Throat is injected. Nasal mucosa is clear. Ears: no inflammation. Neck: Supple without venous distension. Trachea midline. Chest: Decreased excursions with wheezes bilaterally and few bibasilar crackles. Heart: Heart sounds are regular S1-S2. No murmur. No S3. Abdomen: Protuberant with a PEG tube in place, ostomy and suprapubic catheter. No organomegaly. Bowel sounds faint. Extremities: Contractures with flexion of arms, elbows and foot drop bilaterally with quadriparesis. There is minimal edema of the extremities. Skin: Dry and cool. Assessment and Plan Assessment and Plan IMPRESSION: 1. Ventilator dependent respiratory failure. 2. Status post tracheostomy and PEG tube placement, port placement. 3. Quadriplegia. 4. Multiple decubitus ulcers with sepsis. 5. Bibasilar pneumonia and atelectasis. 6. Anxiety and depression. 7. Hypertension. plan : 1. Continue on vent support , A/C rate 16 and FIO2 30 % 2. Nebs q6h , duoneb 3. Antibiotics per ID 4. Small bowel series. 5. Tube feeds at 40 CC 6. Chest Xray in Jaleel Vann MD Apr 30, 2017 20:12
[2017-04-30] MEDS: RESP: ALBUTEROL 2.5 MG/3 ML NEB (PRN) INH (20:32)
[2017-04-30] MEDS: MIRTAZAPINE 15 MG TAB G-TUBE SCH (20:41)
[2017-04-30] MEDS: LORazepam 1 MG TAB G-TUBE PRN (20:41)
[2017-04-30] MEDS: traZODone HCL 100 MG TAB PO SCH (20:41)
[2017-04-30] MEDS: GABAPENTIN 300 MG CAP PO SCH (20:41)
[2017-05-01] VITALS (58 sets, daily range): BP systolic 101–165; BP diastolic 51–72; PULSE 63–112; RESP 4–21; TEMP 98.2–98.6; O2SAT 94–100
[2017-05-01] MEDS: INSULIN ASPART SUPPLEMENTAL SCALE SQ SCH ×5 (03:00→20:00)
[2017-05-01] MEDS: LORazepam 1 MG TAB G-TUBE PRN (03:00)
[2017-05-01] MEDS: CHLORHEXIDINE GLUCONATE 2 % 1 PACK (2 CLOTHS) TOP SCH (03:00)
--- NOTE | 2017-05-01 04:07 | RADRPT ---
EXAM DATE/TIME: 05/01/2017 03:31 [facility] COMPARISON: CHEST SINGLE AP, April 29, 2017, 20:09. INDICATIONS : Shortness of breath, possible pulmonary disease. MEDICAL HISTORY : Vent dependent, Quadraplegic SURGICAL HISTORY : Colostomy. Peg tube ENCOUNTER: Subsequent ACUITY: 1 week PAIN SCORE: Non-responsive. LOCATION: Bilateral chest FINDINGS: Portable AP view of the chest demonstrates a normal-sized cardiac silhouette. Tracheostomy and right [id number] remain present. There are multiple EKG lines overlying the patient. Lungs are underinfl ated and there is stable left basilar pleural-parenchymal opacity. No pneumothorax is visualized. The re is atelectasis at the right lung base. CONCLUSION: Stable chest x-ray with left basilar opacity representing either atelectasis, consolidation, and/or p leural effusion. Thompson Munoz MD on May 01, 2017 at 4:05 Board Certified Radiologist. This report was verified electronically.
[2017-05-01] MEDS: METOCLOPRAMIDE HCL 10 MG/2 ML VIAL IV PUSH SCH ×3 (05:05→22:23)
[2017-05-01] MEDS: PIPERACIL-TAZO 4.5 GM PREMIX 100 ML IV SCH ×4 (05:05→22:23)
[2017-05-01] MEDS: METOPROLOL TARTRATE 50 MG TAB PO SCH ×2 (05:06→17:45)
[2017-05-01 05:35] LABS: AUTOMATED NEUTROPHIL # 4.7 TH/MM3 (1.8-7.7); BASOPHIL # 0.1 TH/MM3 (0-0.2); BASOPHIL % 0.9 % (0.0-2.0); EOSINOPHIL # 0.4 TH/MM3 (0-0.4); EOSINOPHIL % 5.7 % (0.0-4.0); HEMATOCRIT 23.7 % (39.0-51.0); HEMOGLOBIN 7.3 GM/DL (13.0-17.0); LYMPH % 19.9 % (9.0-44.0); LYMPHOCYTE # 1.5 TH/MM3 (1.0-4.8); MEAN CELL VOLUME 69.5 FL (80.0-100.0); MEAN CORPUSCULAR HEMOGLOBIN 21.5 PG (27.0-34.0); MEAN CORPUSCULAR HGB CONC 30.9 % (32.0-36.0); MEAN PLATELET VOLUME 7.5 FL (7.0-11.0); MONOCYTE # 0.7 TH/MM3 (0-0.9); NEUT % 64.5 % (16.0-70.0); PLATELET COUNT 373 TH/MM3 (150-450); RED BLOOD COUNT 3.41 MIL/MM3 (4.50-5.90); RED CELL DISTRIBUTION WIDTH 20.6 % (11.6-17.2); WHITE BLOOD COUNT 7.3 TH/MM3 (4.0-11.0)
[2017-05-01 05:40] LABS: BICARBONATE 18.6 MEQ/L (21.0-32.0); CALCIUM 8.3 MG/DL (8.5-10.1); CREATININE 0.44 MG/DL (0.60-1.30)
--- NOTE | 2017-05-01 08:15 | HHI.CCPN ---
Subjective Remarks/Hospital Course Hospital Course: 57-year-old male with past medical history of spinal cord injury resulting in quadriplegia, s/p trach/PEG with vent dependency, ostomy, HTN, sacral and left elbow decubitus ulcers, chronic indwelling suprapubic catheter, depression, anxiety, port right chest, IVC filter who was sent to [facility] emergency department from [facility] due to fever 103.8 and ( per OR transfer documentation "highly agitated after getting medication for agitation"). Patient is alert on vent and difficult historian but does mouth some words and helps provide some limited history. Records indicate that he was started on Zosyn and vancomycin on 04/23/17 "for ESBL and Proteus mirabilis sacral wound/osteomyelitis x 6weeks", on isolation for "MRSA elbow". White blood cell count is elevated at 18.1. Hemoglobin is 7.5. Lactic acid is 2.1. Transaminases and alkaline phosphatase are elevated. Lipase is normal. CT abdomen and pelvis demonstrates bilateral lower lobe consolidations, moderate left pleural effusion. PEG tube is in place but there is dilation of the small bowel in the mid abdomen without discrete transition point; probable ileus versus developing small bowel obstruction. There is sclerosis and hyper trophic changes of the left ischial tuberosity which can be seen and chronic osteomyelitis. Gallbladder is unremarkable. In the emergency department patient was maintained on chronic ventilator settings with pressure SIMV. He was given Toradol 30 mg IV, morphine 4 mg IV, 1 L normal saline bolus. PEG was noted to be obstructed by ED physician who was unable to flush using soda. Patient refused NG tube. Patient does repeatedly request both oral and trach suctioning. He does reports some mild increase in respiratory secretions. subjective: 2/4: GI planning EGD with decompression and PEG tube swap. patient states he wants to go home and feels better. ROS difficult to obtain due to chronic vent dependency, but limited ROS negative for fever, chills, abd pain, swelling. LE DVT + on u/s yesterday: ivc filter in place. holding full dose anticoagulation until GI procedure today. will need full dose anticoagulation after that. 2 No events overnight. For PEG tube replacement today. Afebrile. 04/29 Patient remains on ventilator via trach. s/p PEG tube placement yesterday. 2 No events overnight. BP borderline low this morning given Ativan 1mg x1 at 3 am. Afebrile. 05/01 No events overnight. Patient had SB series yesterday showed no obstruction. Afebrile. Objective Vital Signs Date Time Temp Pulse Resp B/P (MAP) Pulse Ox O2 Delivery O2 Flow Rate FiO2 05/01/17 06:00 63 05/01/17 04:42 100 30 05/01/17 04:00 98.2 10 110/56 (74) Intake and Output 05/01/17 05/01/17 05/02/17 08:00 16:00 00:00 Intake Total 297 ml Output Total 1300 ml Balance -1003 ml Result Diagram: 05/01/17 04305/01/17 0430 Other Results Laboratory Tests Test 05/01/17 04:30 White Blood Count 7.3 TH/MM3 Red Blood Count 3.41 MIL/MM3 Hemoglobin 7.3 GM/DL Hematocrit 23.7 % Mean Corpuscular Volume 69.5 FL Mean Corpuscular Hemoglobin 21.5 PG Mean Corpuscular Hemoglobin Concent 30.9 % Red Cell Distribution Width 20.6 % Platelet Count 373 TH/MM3 Mean Platelet Volume 7.5 FL Neutrophils (%) (Auto) 64.5 % Lymphocytes (%) (Auto) 19.9 % Monocytes (%) (Auto) 9.0 % Eosinophils (%) (Auto) 5.7 % Basophils (%) (Auto) 0.9 % Neutrophils # (Auto) 4.7 TH/MM3 Lymphocytes # (Auto) 1.5 TH/MM3 Monocytes # (Auto) 0.7 TH/MM3 Eosinophils # (Auto) 0.4 TH/MM3 Basophils # (Auto) 0.1 TH/MM3 CBC Comment DIFF FINAL Differential Comment Blood Urea Nitrogen 11 MG/DL Creatinine 0.44 MG/DL Random Glucose 111 MG/DL Calcium Level 8.3 MG/DL Sodium Level 145 MEQ/L Potassium Level 2.9 MEQ/L Chloride Level 114 MEQ/L Carbon Dioxide Level 18.6 MEQ/L Anion Gap 12 MEQ/L Estimat Glomerular Filtration Rate 242 ML/MIN Imaging Last Impressions Chest X-Ray 05/01/17 0600 Signed Impressions: Service Date/Time: April 03:31 - CONCLUSION: Stable chest x-ray with left basilar opacity representing either atelectasis, consolidation , and/or pleural effusion. Thompson Munoz MD Small Bowel X-Ray 04/30/17 0000 Signed Impressions: Service Date/Time: Sunday, April 30, 2017 10:17 - CONCLUSION: No evidence of obstruction. Nick Smith MD Abdomen X-Ray 04/29/17 0000 Signed Impressions: Service Date/Time: Saturday, April 29, 2017 09:36 - CONCLUSION: Slight interval decrease in diffuse gaseous distention of bowel Thompson Khan MD Lower Extremity Ultrasound 04/26/17 2344 Signed Impressions: Service Date/Time: Wednesday, April 26, 2017 08:46 - CONCLUSION: 1. Occlusive deep venous thrombosis right leg. 2. No DVT left leg. Adi Ferrer MD Abdomen/Pelvis CT 04/25/17 0000 Signed Impressions: Service Date/Time: Wednesday, April 26, 2017 01:13 - CONCLUSION: Probable ileus versus developing small bowel obstruction with dilated small bowel loops identified and no discrete transition point, however close clinical and radiographic followup is advised. Left pleural effusion and bilateral lower lobe consolidation. Renal cysts. Small amount of free fluid. Decubitus ulcer with underlying sclerosis and hypertrophic changes of the left ischial tuberosity. Ilya Nash MD Objective Remarks GENERAL: Chronically ill-appearing male who has quadriplegia, tracheostomy on mechanical ventilation. He is sitting up and alert and communicating by nodding and trying to mouth some words though communication is limited. HEAD: Atraumatic. Normocephalic. EYES: Pupils equal and round. No scleral icterus. No injection or drainage. ENT: No nasal bleeding or discharge. Mucous membranes pink and moist. NECK: Cuff tracheostomy in place. On mechanical ventilation SIMV: home settings. CARDIOVASCULAR: Regular rate and rhythm. No murmurs rubs or gallops appreciated. VASC: Port is in place right chest with site benign appearing. Midline in place RUE, no erythema or drainage RESPIRATORY: On mechanical ventilation via trach. Appears reasonably comfortable without accessory muscle use. GASTROINTESTINAL: Abdomen distended tympanitic. PEG tube in place without abnormality of insertion site, does not flush or draw. Ostomy in place. MUSCULOSKELETAL: Extremities without clubbing, cyanosis. Arms held in flexion, wrist held in extension bilaterally. Bilateral foot drop. NEUROLOGICAL: Awake and alert. Quadriparesis. + shoulder shrug. No obvious cranial nerve deficits. Mouths words but is difficult to understand what he is saying. A/P Assessment and Plan NEURO: Spinal cord injury with quadriplegia Chronic pain Chronic opioid use Peripheral neuropathy Depression Anxiety Monitor neuro status Gabapentin 300 daily at bedtime Trazodone 150 by mouth daily at bedtime Remeron 15 mg daily at bedtime Baclofen 5 mg 3 times a day BuSpar 5 mg 3 times a day RESP: Chronic vent dependent respiratory failure Tracheostomy Left pleural effusion Bibasilar pneumonia Continue vent support keep sat >92% On mechanical ventilation with pressure SIMV IP: 28, rate 16, PEEP 5/I time 1/ pressure support 15, FiO2 30% per chronic settings from alf Bronchodilators, ICU vent bundle. Pulm toilet, trach care CV: Monitor Hr and BP keep MAP>65mmHg GI: Ileus PEG malfunction. Transaminase elevation, downtrend from 04/22/17. No gallbladder abnormality noted on CT Colostomy 04/30: SB series showed no obstruction CT abdomen and pelvis 04/26 ileus vs ???developing SBO: KUB abdomen 04/28: Ileus, repeat KUB abdomen 04/29: Slight interval decrease in diffuse gaseous distention of bowel . On Marium lax, Senokot, Reglan s/p PEG replacement 04/28 tube feeds- started on trickle feeds per GI. On Jevity 1.5 @10ml/hr FEN/RENAL: Monitor renal function, I/O's, electrolytes replacement per procotol. Will need K replacement today. Change IVF D51/2NS@42ml/hr Catheter replaced 04/29 by Urology. Monitor intake and output. Monitor electrolytes and replace as indicated. ID: Leukocytosis... trending down Sacral decubitus ulcers with osteomyelitis Left elbow wound ? UTI. Chronic indwelling suprapubic catheter Port in place right chest - site benign RUE midline - site benign. Removed and catheter tip culture per ID. Unclear when this was placed. 04/26 Sputum cx: Pseudomonas, Kleb ESBL, Proteus 04/25 Urine cx : GNR, Group D enterococcus Continue abx per ID(Zosyn) monitor for signs of infections ( Fever, WBC) WBC is trending down Wound care is following. Check sputum cx, UA with cx if indicated suprapubic catheter replaced at bedside /3. Patient has an IVC filter. LE ultrasound + for DVT. HEME: IVC filter in place LE DVT IVC filter on Lovenox 90mg Q12 ENDO: Acute hyperglycemia SSI for glycemic control PROPH: Has an IVC filter in place, on Lovenox 90mg Sq Q12. Pepcid for stress ulcer prophylaxis ACCESS: Port in place right chest. Right IJ central venous line placed in ED 04/26/17 Level 3 Thierry Thurston MD May 01, 2017 08:15
[2017-05-01] MEDS: SILVER SULFADIAZINE 1% CR 50 GM JAR TOPICAL SCH (09:00)
[2017-05-01] MEDS: busPIRone HCL 5 MG TAB G-TUBE SCH ×3 (09:35→17:45)
[2017-05-01] MEDS: ASCORBIC ACID 500 MG TAB G-TUBE SCH (09:35)
[2017-05-01] MEDS: BACLOFEN 10 MG TAB G-TUBE SCH ×3 (09:35→17:45)
[2017-05-01] MEDS: MULTIVITAMINS/MINERALS THERAPEUTIC TAB G-TUBE SCH (09:35)
[2017-05-01] MEDS: FAMOTIDINE 20 MG TAB PO SCH ×2 (09:36→21:07)
[2017-05-01] MEDS: CHLORHEXIDINE 0.12% (ORAL KIT) 15 ML CUP MT SCH ×2 (09:36→21:07)
[2017-05-01] MEDS: SENNOSIDES 8.6 MG TAB G-TUBE SCH ×2 (09:36→21:08)
[2017-05-01] MEDS: DOCUSATE SODIUM 50 MG/SENNA 8.6 MG TAB PO SCH ×2 (09:36→21:07)
[2017-05-01] MEDS: DEXT 5%-NACL 0.45% 1000 ML INJ 1,000 ML IV SCH (09:37)
[2017-05-01] MEDS: SODIUM CHLORIDE 0.9% FLUSH 10 ML FLUSH IV FLUSH SCH ×2 (09:38→21:08)
[2017-05-01] MEDS: ENOXAPARIN SODIUM 100 MG/ML SYRINGE SQ SCH ×2 (09:38→21:07)
[2017-05-01 12:36] LABS: AMORPHOUS SEDIMENT, URINE MOD; BACTERIA, URINE FEW /hpf; BILIRUBIN, URINE NEG (NEG); BLOOD, URINE MOD (NEG); GLUCOSE,URINE NEG (NEG); HYALINE CAST, URINE 1 /lpf (RARE); KETONE, URINE 40 mg/dL (NEG); NITRITE,URINE NEG (NEG); SQUAMOUS EPITHELIAL CELL URINE 1 /hpf (0-5); URINE COLOR YELLOW (YELLW/STRAW); URINE LEUKOCYTE ESTERASE LARGE (NEG); WHITE BLOOD CELL CLUMPS FEW
--- NOTE | 2017-05-01 13:04 | HHI.PR ---
Subjective Remarks He is awake and on Vent support, FIo2 at 30 %.Rate at 16. Has mild Ileus, Needs feeds. Objective Vital Signs Date Time Temp Pulse Resp B/P (MAP) Pulse Ox O2 Delivery O2 Flow Rate FiO2 05/01/17 12:45 87 13 128/55 (79) 99 05/01/17 12:30 79 14 132/60 (84) 99 05/01/17 12:15 89 14 127/60 (82) 99 05/01/17 12:00 94 05/01/17 12:00 94 8 115/55 (75) 97 05/01/17 12:00 30 05/01/17 11:52 98 30 05/01/17 11:45 85 14 109/53 (71) 96 05/01/17 11:30 73 12 112/53 (72) 94 05/01/17 11:15 72 13 111/57 (75) 97 05/01/17 11:00 112 12 138/66 (90) 98 05/01/17 10:45 70 16 121/57 (78) 97 05/01/17 10:30 71 16 126/59 (81) 98 05/01/17 10:15 80 12 123/56 (78) 99 05/01/17 10:00 88 16 111/56 (74) 98 05/01/17 10:00 72 05/01/17 09:45 86 16 123/58 (79) 99 05/01/17 09:30 88 15 122/59 (80) 98 05/01/17 09:15 83 16 132/59 (83) 99 05/01/17 09:00 102 20 141/62 (88) 97 05/01/17 08:58 98 30 05/01/17 08:45 78 17 129/57 (81) 99 05/01/17 08:30 76 16 134/59 (84) 99 05/01/17 08:15 75 16 109/55 (73) 99 05/01/17 08:00 72 05/01/17 08:00 30 05/01/17 08:00 83 16 128/59 (82) 99 05/01/17 07:45 65 16 109/51 (70) 99 05/01/17 07:30 72 16 118/58 (78) 99 05/01/17 07:15 63 16 112/53 (72) 99 05/01/17 07:00 64 17 111/54 (73) 99 05/01/17 06:00 63 05/01/17 04:42 100 30 05/01/17 04:00 98.2 95 10 110/56 (74) 100 05/01/17 04:00 95 05/01/17 04:00 30 05/01/17 03:02 97 30 05/01/17 02:00 86 05/01/17 00:00 98.6 91 16 101/55 (70) 100 05/01/17 00:00 89 05/01/17 00:00 30 04/30/17 23:58 100 30 04/30/17 22:00 71 04/30/17 22:00 100 30 04/30/17 20:28 100 30 04/30/17 20:00 97.8 56 17 121/58 (79) 100 04/30/17 20:00 56 04/30/17 20:00 30 04/30/17 18:00 66 04/30/17 16:36 100 30 04/30/17 16:00 60 04/30/17 16:00 30 04/30/17 16:00 98.3 60 16 112/58 (76) 100 04/30/17 14:00 81 I/O 04/30/17 04/30/17 04/30/17 05/01/17 05/01/17 05/01/17 07:00 15:00 23:00 07:00 15:00 23:00 Intake Total 300 ml 100 ml 2284 ml 297 ml Output Total 50 ml 1650 ml 1300 ml Balance 250 ml 100 ml 634 ml -1003 ml Intake Oral 0 ml IV Total 200 ml 100 ml 2284 ml 200 ml Tube Feeding 0 ml 47 ml Other 100 ml 50 ml Output Urine Total 50 ml 550 ml 300 ml Stool Total 1100 ml 1000 ml Result Diagram: 05/01/1742905/01/17429 Objective Remarks This emaciated middle-aged -[place]ales[place] male has multiple contractures of the extremities and weakness of all extremities. Skin: Tightly stretched over the extremities. Decubitus ulcers in the sacral and elbow areas. HEENT: Head normocephalic. Pupils are reactive. Tongue is moist. Throat is dry. Nasal mucosa is clear. Ears: no inflammation. Neck: Supple without venous distension. Trachea midline. Chest: Decreased excursions with wheezes bilaterally and few basilar crackles. Heart: Heart sounds are regular S1-S2. No murmur. No S3. Abdomen: Protuberant with a PEG tube in place, ostomy and suprapubic catheter. No organomegaly. Bowel sounds faint. Extremities: Contractures with flexion of arms, elbows and foot drop bilaterally with quadriparesis. There is minimal edema of the extremities. Skin: Dry and cool. Assessment and Plan Assessment and Plan IMPRESSION: 1. Ventilator dependent respiratory failure. 2. Status post tracheostomy and PEG tube placement, port placement. 3. Quadriplegia. 4. Multiple decubitus ulcers with sepsis. 5. Bibasilar pneumonia and atelectasis. 6. Anxiety and depression. 7. Hypertension. plan : 1. Continue on vent support , Pressure SIMV rate 14 , PEEP +5 and FIO2 30 % 2. Nebs q6h , duoneb 3. Antibiotics per ID 4. Small bowel series. 5. Tube feeds at 40 CC 6. Labs in am 7. Wound management Jaleel Oneill MD May 01, 2017 13:04
--- NOTE | 2017-05-01 13:16 | HHI.GIFU ---
Subjective Remarks Pt resting in bed. Tolerating trickle feeds @ 20ml/hr. watery stool in ostomy. Pt awake today, denies abd discomfort or nause. (Augustina Tenorio) Objective Vitals I&O Vital Signs Date Time Temp Pulse Resp B/P (MAP) Pulse Ox O2 Delivery O2 Flow Rate FiO2 05/01/17 12:45 87 13 128/55 (79) 99 05/01/17 12:30 79 14 132/60 (84) 99 05/01/17 12:15 89 14 127/60 (82) 99 05/01/17 12:00 94 05/01/17 12:00 94 8 115/55 (75) 97 05/01/17 12:00 30 05/01/17 11:52 98 30 05/01/17 11:45 85 14 109/53 (71) 96 05/01/17 11:30 73 12 112/53 (72) 94 05/01/17 11:15 72 13 111/57 (75) 97 05/01/17 11:00 112 12 138/66 (90) 98 05/01/17 10:45 70 16 121/57 (78) 97 05/01/17 10:30 71 16 126/59 (81) 98 05/01/17 10:15 80 12 123/56 (78) 99 05/01/17 10:00 88 16 111/56 (74) 98 05/01/17 10:00 72 05/01/17 09:45 86 16 123/58 (79) 99 05/01/17 09:30 88 15 122/59 (80) 98 05/01/17 09:15 83 16 132/59 (83) 99 05/01/17 09:00 102 20 141/62 (88) 97 05/01/17 08:58 98 30 05/01/17 08:45 78 17 129/57 (81) 99 05/01/17 08:30 76 16 134/59 (84) 99 05/01/17 08:15 75 16 109/55 (73) 99 05/01/17 08:00 72 05/01/17 08:00 30 05/01/17 08:00 83 16 128/59 (82) 99 05/01/17 07:45 65 16 109/51 (70) 99 05/01/17 07:30 72 16 118/58 (78) 99 05/01/17 07:15 63 16 112/53 (72) 99 05/01/17 07:00 64 17 111/54 (73) 99 05/01/17 06:00 63 05/01/17 04:42 100 30 05/01/17 04:00 98.2 95 10 110/56 (74) 100 05/01/17 04:00 95 05/01/17 04:00 30 05/01/17 03:02 97 30 05/01/17 02:00 86 05/01/17 00:00 98.6 91 16 101/55 (70) 100 05/01/17 00:00 89 05/01/17 00:00 30 04/30/17 23:58 100 30 04/30/17 22:00 71 04/30/17 22:00 100 30 04/30/17 20:28 100 30 04/30/17 20:00 97.8 56 17 121/58 (79) 100 04/30/17 20:00 56 04/30/17 20:00 30 04/30/17 18:00 66 04/30/17 16:36 100 30 04/30/17 16:00 60 04/30/17 16:00 30 04/30/17 16:00 98.3 60 16 112/58 (76) 100 04/30/17 14:00 81 I/O 04/30/17 04/30/17 04/30/17 05/01/17 05/01/17 05/01/17 07:00 15:00 23:00 07:00 15:00 23:00 Intake Total 300 ml 100 ml 2284 ml 297 ml Output Total 50 ml 1650 ml 1300 ml Balance 250 ml 100 ml 634 ml -1003 ml Intake Oral 0 ml IV Total 200 ml 100 ml 2284 ml 200 ml Tube Feeding 0 ml 47 ml Other 100 ml 50 ml Output Urine Total 50 ml 550 ml 300 ml Stool Total 1100 ml 1000 ml Laboratory Laboratory Tests Test 05/01/17 04:30 05/01/17 12:00 White Blood Count 7.3 Red Blood Count 3.41 Hemoglobin 7.3 Hematocrit 23.7 Mean Corpuscular Volume 69.5 Mean Corpuscular Hemoglobin 21.5 Mean Corpuscular Hemoglobin Concent 30.9 Red Cell Distribution Width 20.6 Platelet Count 373 Mean Platelet Volume 7.5 Neutrophils (%) (Auto) 64.5 Lymphocytes (%) (Auto) 19.9 Monocytes (%) (Auto) 9.0 Eosinophils (%) (Auto) 5.7 Basophils (%) (Auto) 0.9 Neutrophils # (Auto) 4.7 Lymphocytes # (Auto) 1.5 Monocytes # (Auto) 0.7 Eosinophils # (Auto) 0.4 Basophils # (Auto) 0.1 CBC Comment DIFF FINAL Differential Comment Blood Urea Nitrogen 11 Creatinine 0.44 Random Glucose 111 Calcium Level 8.3 Sodium Level 145 Potassium Level 2.9 Chloride Level 114 Carbon Dioxide Level 18.6 Anion Gap 12 Estimat Glomerular Filtration Rate 242 Urine Color YELLOW Urine Turbidity CLOUDY Urine pH 6.0 Urine Specific [place] 1.024 Urine Protein 100 Urine Glucose (UA) NEG Urine Ketones 40 Urine Occult Blood MOD Urine Nitrite NEG Urine Bilirubin NEG Urine Urobilinogen LESS THAN 2.0 Urine Leukocyte Esterase LARGE Urine RBC 29 Urine WBC 60 Urine WBC Clumps FEW Urine Squamous Epithelial Cells 1 Urine Amorphous Sediment MOD Urine Bacteria FEW Urine Hyaline Casts 1 Microscopic Urinalysis Comment CATH-CULTURE IND Date/Time Source Procedure Growth Status 04/25/17 23:25 Blood Peripheral Aerobic Blood Culture - Final NO GROWTH IN 5 DAYS Complete 04/25/17 23:25 Blood Peripheral Anaerobic Blood Culture - Final NO GROWTH IN 5 DAYS Complete 05/01/17 12:00 Sputum Endotracheal Gram Stain Pending Received 05/01/17 12:00 Sputum Endotracheal Sputum Culture Pending Received 05/01/17 12:00 Urine Catheterized Urine Urine Culture Pending Received 04/26/17 11:00 Catheter Tip Other Wound Culture - Final Complete Imaging Last Impressions Chest X-Ray 05/01/17 0600 Signed Impressions: Service Date/Time: April 03:31 - CONCLUSION: Stable chest x-ray with left basilar opacity representing either atelectasis, consolidation , and/or pleural effusion. Thompson Munoz MD Small Bowel X-Ray 04/30/17 0000 Signed Impressions: Service Date/Time: Sunday, April 30, 2017 10:17 - CONCLUSION: No evidence of obstruction. Nick Smith MD Abdomen X-Ray 04/29/17 0000 Signed Impressions: Service Date/Time: Saturday, April 29, 2017 09:36 - CONCLUSION: Slight interval decrease in diffuse gaseous distention of bowel Thompson Khan MD Lower Extremity Ultrasound 04/26/17 2344 Signed Impressions: Service Date/Time: Wednesday, April 26, 2017 08:46 - CONCLUSION: 1. Occlusive deep venous thrombosis right leg. 2. No DVT left leg. Adi Ferrer MD Abdomen/Pelvis CT 04/25/17 0000 Signed Impressions: Service Date/Time: Wednesday, April 26, 2017 01:13 - CONCLUSION: Probable ileus versus developing small bowel obstruction with dilated small bowel loops identified and no discrete transition point, however close clinical and radiographic followup is advised. Left pleural effusion and bilateral lower lobe consolidation. Renal cysts. Small amount of free fluid. Decubitus ulcer with underlying sclerosis and hypertrophic changes of the left ischial tuberosity. Ilya Nash MD Physical Exam HEENT: Normocephalic; atraumatic CHEST: Coarse BS, trach CARDIAC: RRR ABDOMEN: Distended, firm, nontender, watery stool ostomy. PEG tube. EXTREMITIES; contracted SKIN: Normal; no rash; no jaundice. FURNACE COOLER: awake, answers questions appropriately (Augustina Tenorio) Assessment and Plan Plan - Ileus- CT on 04/26/17 showed probable ileus versus developing SBO with dilates small bowel loops with no transition point, left plural effusion and bilateral lower lobe consolidation, renal cysts. Patient is (+) for flatus and stools in colostomy bag. Abdomen firm and distended. Attempts made by CCM to insert NGT unsuccessful, IR consulted but not available on the weekend - Dysfunctional G tube. not flushing with several attempts made, unable to unclog - fever- ID on the case, pt with hx of ESBL and Proteus mirabilis sacral wound/ osteomyelitis. and has sacral and left elbow decubitus ulcers - Elevated LFTs- CT as above, no biliary involvement, will monitor, hepatitis panel pending - past medical history of spinal cord injury resulting in quadriplegia, s/p trach/PEG with vent dependency, ostomy (04/29) S/P EGD with replacement of PEG tube yesterday --> 600cc of gastric content suctioned ulcers in duodenum second portion, multiple, nonbleeding, gastritis, esophagitis. Repeat KUB done today --> Slight interval decrease in diffuse gaseous distention of bowel. Pt remain on Reglan. Per RN has not had output through ostomy, however, passing flatus. TF currently Jevity 1.5 running at 20 mL/hr, goal rate of 60 mL/hr. Per RN has not had high residuals. Recommendations to continue PPI, check for residuals. If abdomen remains distended and no improvement in ileus then consult IR for GJ tube. 04/30/17 SBFT in progress. Now having stool from ostomy. d/w RN 05/01/17 s/p SBFT no evidence obstruction. watery stool ostomy, could be 2/2 gastrografin. pt awake and denies abd pain or nause. TF running 20ml/hr Plan: - continue TF, advance gradually as tolerated - if he doesn't tolerate the TF then recommend IR consult for GJ - Continue PPI - Continue Reglan - Monitor stool output - GI will sign off, please reconsult if needed Pt has been seen and examined by myself and dr. Feldman and this note is written on her behalf (Augustina Tenorio) Physician Comments seen, examined agree with above mild anemia -multifactorial-we will send iron, ferritin, vit b12 if low will need supplementation mild elevated alp-possible bone source we will send additional blood test may eventually need colonoscopy/ba enema if iron deficiency anemia depends on goal of care too overall poor prognosis (Caron Feldman MD) Augustina Tenorio May 01, 2017 13:16 Caron Feldman MD May 01, 2017 15:10
[2017-05-01 20:25] LABS: GAMMA GT 374 U/L (15-85)
[2017-05-01 20:51] LABS: % SATURATION IRON PROFILE 7.6 % (20-50); FERRITIN 113 NG/ML (26-388); IRON (FE) 19 MCG/DL (65-175); TOTAL IRON BINDING CAPACITY 251 MCG/DL (250-450)
[2017-05-01 20:57] LABS: FOLATE GREATER THAN 20.0 NG/ML (3.1-17.5)
[2017-05-01] MEDS: GABAPENTIN 300 MG CAP PO SCH (21:07)
[2017-05-01] MEDS: traZODone HCL 100 MG TAB PO SCH (21:08)
[2017-05-01] MEDS: MIRTAZAPINE 15 MG TAB G-TUBE SCH (22:22)
[2017-05-02] VITALS (20 sets, daily range): BP systolic 96–157; BP diastolic 50–71; PULSE 62–115; RESP 15–65; TEMP 97.5–98.3; O2SAT 95–100
[2017-05-02] MEDS: INSULIN ASPART SUPPLEMENTAL SCALE SQ SCH ×7 (03:26→23:45)
[2017-05-02] MEDS: CHLORHEXIDINE GLUCONATE 2 % 1 PACK (2 CLOTHS) TOP SCH (03:26)
[2017-05-02 03:59] LABS: AUTOMATED NEUTROPHIL # 5.9 TH/MM3 (1.8-7.7); BASOPHIL # 0.1 TH/MM3 (0-0.2); BASOPHIL % 0.9 % (0.0-2.0); EOSINOPHIL # 0.4 TH/MM3 (0-0.4); EOSINOPHIL % 4.1 % (0.0-4.0); LYMPH % 22.4 % (9.0-44.0); MEAN CELL VOLUME 70.6 FL (80.0-100.0); MEAN CORPUSCULAR HEMOGLOBIN 22.6 PG (27.0-34.0); MEAN PLATELET VOLUME 7.7 FL (7.0-11.0); MONOCYTE # 0.6 TH/MM3 (0-0.9); NEUT % 65.6 % (16.0-70.0); PLATELET COUNT 341 TH/MM3 (150-450); RED BLOOD COUNT 3.12 MIL/MM3 (4.50-5.90); RED CELL DISTRIBUTION WIDTH 21.2 % (11.6-17.2)
[2017-05-02 04:18] LABS: BICARBONATE 20.8 MEQ/L (21.0-32.0); CREATININE 0.49 MG/DL (0.60-1.30)
[2017-05-02] MEDS: METOPROLOL TARTRATE 50 MG TAB PO SCH (06:03)
[2017-05-02] MEDS: PIPERACIL-TAZO 4.5 GM PREMIX 100 ML IV SCH ×4 (06:04→23:45)
[2017-05-02] MEDS: METOCLOPRAMIDE HCL 10 MG/2 ML VIAL IV PUSH SCH ×3 (06:04→22:00)
[2017-05-02] MEDS: POTASSIUM CHLOR 20 MEQ PREMIX 100 ML IV PRN ×4 (06:44→13:40)
[2017-05-02] MEDS: DEXT 5%-NACL 0.45% 1000 ML INJ 1,000 ML IV SCH (09:10)
[2017-05-02] MEDS: FAMOTIDINE 20 MG TAB PO SCH ×2 (09:14→22:01)
[2017-05-02] MEDS: MULTIVITAMINS/MINERALS THERAPEUTIC TAB G-TUBE SCH (09:14)
[2017-05-02] MEDS: busPIRone HCL 5 MG TAB G-TUBE SCH ×3 (09:14→18:07)
[2017-05-02] MEDS: ASCORBIC ACID 500 MG TAB G-TUBE SCH (09:14)
[2017-05-02] MEDS: SENNOSIDES 8.6 MG TAB G-TUBE SCH ×2 (09:14→22:01)
[2017-05-02] MEDS: ENOXAPARIN SODIUM 100 MG/ML SYRINGE SQ SCH ×2 (09:14→22:00)
[2017-05-02] MEDS: BACLOFEN 10 MG TAB G-TUBE SCH ×3 (09:14→18:07)
[2017-05-02] MEDS: DOCUSATE SODIUM 50 MG/SENNA 8.6 MG TAB PO SCH ×2 (09:14→22:01)
--- NOTE | 2017-05-02 10:03 | HHI.CCPN ---
Subjective Remarks/Hospital Course Hospital Course: 57-year-old male with past medical history of spinal cord injury resulting in quadriplegia, s/p trach/PEG with vent dependency, ostomy, HTN, sacral and left elbow decubitus ulcers, chronic indwelling suprapubic catheter, depression, anxiety, port right chest, IVC filter who was sent to [facility] emergency department from [facility] due to fever 103.8 and ( per [place] transfer documentation "highly agitated after getting medication for agitation"). Patient is alert on vent and difficult historian but does mouth some words and helps provide some limited history. Records indicate that he was started on Zosyn and vancomycin on 04/23/17 "for ESBL and Proteus mirabilis sacral wound/osteomyelitis x 6weeks", on isolation for "MRSA elbow". White blood cell count is elevated at 18.1. Hemoglobin is 7.5. Lactic acid is 2.1. Transaminases and alkaline phosphatase are elevated. Lipase is normal. CT abdomen and pelvis demonstrates bilateral lower lobe consolidations, moderate left pleural effusion. PEG tube is in place but there is dilation of the small bowel in the mid abdomen without discrete transition point; probable ileus versus developing small bowel obstruction. There is sclerosis and hyper trophic changes of the left ischial tuberosity which can be seen and chronic osteomyelitis. Gallbladder is unremarkable. In the emergency department patient was maintained on chronic ventilator settings with pressure SIMV. He was given Toradol 30 mg IV, morphine 4 mg IV, 1 L normal saline bolus. PEG was noted to be obstructed by ED physician who was unable to flush using soda. Patient refused NG tube. Patient does repeatedly request both oral and trach suctioning. He does reports some mild increase in respiratory secretions. subjective: 2/4: GI planning EGD with decompression and PEG tube swap. patient states he wants to go home and feels better. ROS difficult to obtain due to chronic vent dependency, but limited ROS negative for fever, chills, abd pain, swelling. LE DVT + on u/s yesterday: ivc filter in place. holding full dose anticoagulation until GI procedure today. will need full dose anticoagulation after that. 2 No events overnight. For PEG tube replacement today. Afebrile. 04/29 Patient remains on ventilator via trach. s/p PEG tube placement yesterday. 2 No events overnight. BP borderline low this morning given Ativan 1mg x1 at 3 am. Afebrile. 05/01 No events overnight. Patient had SB series yesterday showed no obstruction. Afebrile. 05/02 Patient remains on ventilator via trach. Afebrile. Objective Vital Signs Date Time Temp Pulse Resp B/P (MAP) Pulse Ox O2 Delivery O2 Flow Rate FiO2 05/02/17 09:00 71 61 96/54 (68) 98 05/02/17 08:16 30 05/02/17 08:00 97.5 Intake and Output 05/02/17 05/02/17 05/03/17 08:00 16:00 00:00 Intake Total 590 ml 1100 ml Output Total 600 ml Balance -10 ml 1100 ml Result Diagram: 05/02/17 0249 05/02/17 0248 Other Results Laboratory Tests Test 05/01/17 12:00 05/01/17 19:47 05/02/17 02:48 05/02/17 02:49 Urine Color YELLOW Urine Turbidity CLOUDY Urine pH 6.0 Urine Specific [place] 1.024 Urine Protein 100 mg/dL Urine Glucose (UA) NEG mg/dL Urine Ketones 40 mg/dL Urine Occult Blood MOD Urine Nitrite NEG Urine Bilirubin NEG Urine Urobilinogen LESS THAN 2.0 MG/DL Urine Leukocyte Esterase LARGE Urine RBC 29 /hpf Urine WBC 60 /hpf Urine WBC Clumps FEW Urine Squamous Epithelial Cells 1 /hpf Urine Amorphous Sediment MOD Urine Bacteria FEW /hpf Urine Hyaline Casts 1 /lpf Microscopic Urinalysis Comment CATH-CULTURE IND Potassium Level 3.3 MEQ/L 3.1 MEQ/L Iron Level 19 MCG/DL Total Iron Binding Capacity 251 MCG/DL Percent Iron Saturation 7.6 % Ferritin 113 NG/ML Gamma Glutamyl Transpeptidase 374 U/L Vitamin B12 Level 1153 PG/ML Folate GREATER THAN 20.0 NG/ML Blood Urea Nitrogen 10 MG/DL Creatinine 0.49 MG/DL Random Glucose 105 MG/DL Calcium Level 8.0 MG/DL Sodium Level 144 MEQ/L Chloride Level 114 MEQ/L Carbon Dioxide Level 20.8 MEQ/L Anion Gap 9 MEQ/L Estimat Glomerular Filtration Rate 214 ML/MIN White Blood Count 9.0 TH/MM3 Red Blood Count 3.12 MIL/MM3 Hemoglobin 7.0 GM/DL Hematocrit 22.0 % Mean Corpuscular Volume 70.6 FL Mean Corpuscular Hemoglobin 22.6 PG Mean Corpuscular Hemoglobin Concent 32.0 % Red Cell Distribution Width 21.2 % Platelet Count 341 TH/MM3 Mean Platelet Volume 7.7 FL Neutrophils (%) (Auto) 65.6 % Lymphocytes (%) (Auto) 22.4 % Monocytes (%) (Auto) 7.0 % Eosinophils (%) (Auto) 4.1 % Basophils (%) (Auto) 0.9 % Neutrophils # (Auto) 5.9 TH/MM3 Lymphocytes # (Auto) 2.0 TH/MM3 Monocytes # (Auto) 0.6 TH/MM3 Eosinophils # (Auto) 0.4 TH/MM3 Basophils # (Auto) 0.1 TH/MM3 CBC Comment DIFF FINAL Differential Comment Imaging Last Impressions Chest X-Ray 05/01/17 0600 Signed Impressions: Service Date/Time: April 03:31 - CONCLUSION: Stable chest x-ray with left basilar opacity representing either atelectasis, consolidation , and/or pleural effusion. Thompson Munoz MD Small Bowel X-Ray 04/30/17 0000 Signed Impressions: Service Date/Time: Sunday, April 30, 2017 10:17 - CONCLUSION: No evidence of obstruction. Nick Smith MD Abdomen X-Ray 04/29/17 0000 Signed Impressions: Service Date/Time: Saturday, April 29, 2017 09:36 - CONCLUSION: Slight interval decrease in diffuse gaseous distention of bowel Thompson Khan MD Lower Extremity Ultrasound 04/26/17 2344 Signed Impressions: Service Date/Time: Wednesday, April 26, 2017 08:46 - CONCLUSION: 1. Occlusive deep venous thrombosis right leg. 2. No DVT left leg. Adi Ferrer MD Abdomen/Pelvis CT 04/25/17 0000 Signed Impressions: Service Date/Time: Wednesday, April 26, 2017 01:13 - CONCLUSION: Probable ileus versus developing small bowel obstruction with dilated small bowel loops identified and no discrete transition point, however close clinical and radiographic followup is advised. Left pleural effusion and bilateral lower lobe consolidation. Renal cysts. Small amount of free fluid. Decubitus ulcer with underlying sclerosis and hypertrophic changes of the left ischial tuberosity. Ilya Nash MD Objective Remarks GENERAL: Chronically ill-appearing male who has quadriplegia, tracheostomy on mechanical ventilation. He is sitting up and alert and communicating by nodding and trying to mouth some words though communication is limited. HEAD: Atraumatic. Normocephalic. EYES: Pupils equal and round. No scleral icterus. No injection or drainage. ENT: No nasal bleeding or discharge. Mucous membranes pink and moist. NECK: Cuff tracheostomy in place. On mechanical ventilation SIMV: home settings. CARDIOVASCULAR: Regular rate and rhythm. No murmurs rubs or gallops appreciated. VASC: Port is in place right chest with site benign appearing. Midline in place RUE, no erythema or drainage RESPIRATORY: On mechanical ventilation via trach. Appears reasonably comfortable without accessory muscle use. GASTROINTESTINAL: Abdomen distended tympanitic. PEG tube in place without abnormality of insertion site, does not flush or draw. Ostomy in place. MUSCULOSKELETAL: Extremities without clubbing, cyanosis. Arms held in flexion, wrist held in extension bilaterally. Bilateral foot drop. NEUROLOGICAL: Awake and alert. Quadriparesis. + shoulder shrug. No obvious cranial nerve deficits. Mouths words but is difficult to understand what he is saying. A/P Assessment and Plan NEURO: Spinal cord injury with quadriplegia Chronic pain Chronic opioid use Peripheral neuropathy Depression Anxiety Monitor neuro status Gabapentin 300 daily at bedtime Trazodone 150 by mouth daily at bedtime Remeron 15 mg daily at bedtime Baclofen 5 mg 3 times a day BuSpar 5 mg 3 times a day RESP: Chronic vent dependent respiratory failure Tracheostomy Left pleural effusion Bibasilar pneumonia Continue vent support keep sat >92% On mechanical ventilation with pressure SIMV IP: 28, rate 16, PEEP 5/I time 1/ pressure support 15, FiO2 30% per chronic settings from [facility] Bronchodilators, ICU vent bundle. Pulm toilet, trach care CV: Monitor Hr and BP keep MAP>65mmHg GI: Ileus PEG malfunction. Transaminase elevation, downtrend from 04/22/17. No gallbladder abnormality noted on CT Colostomy 04/30: SB series showed no obstruction CT abdomen and pelvis 04/26 ileus vs ???developing SBO: KUB abdomen 04/28: Ileus, repeat KUB abdomen 04/29: Slight interval decrease in diffuse gaseous distention of bowel . On Marium lax, Senokot, Reglan s/p PEG replacement 2/5 tube feeds- On Jevity 1.5 @60ml/hr FEN/RENAL: Monitor renal function, I/O's, electrolytes replacement per procotol. Will need K replacement today. IVF D51/2NS@42ml/hr Catheter replaced 04/29 by Urology. Monitor intake and output. Monitor electrolytes and replace as indicated. ID: Leukocytosis... trending down Sacral decubitus ulcers with osteomyelitis Left elbow wound ? UTI. Chronic indwelling suprapubic catheter Port in place right chest - site benign RUE midline - site benign. Removed and catheter tip culture per ID. Unclear when this was placed. 04/26 Sputum cx: Pseudomonas, Kleb ESBL, Proteus 04/25 Urine cx : GNR, Group D enterococcus Continue abx per ID(Zosyn) monitor for signs of infections ( Fever, WBC) WBC is trending down Wound care is following. Check sputum cx, UA with cx if indicated suprapubic catheter replaced at bedside 04/26. Patient has an IVC filter. LE ultrasound + for DVT. HEME: IVC filter in place LE DVT IVC filter on Lovenox 90mg Q12 ENDO: Acute hyperglycemia SSI for glycemic control PROPH: Has an IVC filter in place, on Lovenox 90mg Sq Q12. Pepcid for stress ulcer prophylaxis ACCESS: Port in place right chest. Right IJ central venous line placed in ED 04/26/17, d/c central line Level 3 Thierry Thurston MD May 02, 2017 10:03
[2017-05-02] MEDS: CHLORHEXIDINE 0.12% (ORAL KIT) 15 ML CUP MT SCH ×2 (11:23→21:59)
[2017-05-02] MEDS: SILVER SULFADIAZINE 1% CR 50 GM JAR TOPICAL SCH (11:23)
[2017-05-02] MEDS: SODIUM CHLORIDE 0.9% FLUSH 10 ML FLUSH IV FLUSH SCH ×2 (11:31→21:00)
[2017-05-02 13:02] LABS: HEMATOCRIT 24.7 % (39.0-51.0); HEMOGLOBIN 7.7 GM/DL (13.0-17.0)
[2017-05-02 13:20] LABS: PHOSPHORUS 2.9 MG/DL (2.5-4.9)
--- NOTE | 2017-05-02 14:01 | HHI.GIFU ---
Subjective Remarks Pt resting in bed, remains mechanically ventilated via ETT. Abdomen distended and firm. Moderate amount of light brown, watery stool in colostomy bag. Objective Vitals I&O Vital Signs Date Time Temp Pulse Resp B/P (MAP) Pulse Ox O2 Delivery O2 Flow Rate FiO2 05/02/17 12:00 30 05/02/17 12:00 64 05/02/17 11:36 98 30 05/02/17 10:00 72 05/02/17 09:00 71 61 96/54 (68) 98 05/02/17 08:16 97 30 05/02/17 08:00 97.5 79 65 98/50 (66) 98 05/02/17 08:00 79 05/02/17 08:00 30 05/02/17 06:00 75 05/02/17 04:57 98 30 05/02/17 04:00 98.2 83 18 110/55 (73) 98 05/02/17 04:00 83 05/02/17 04:00 30 05/02/17 02:00 78 05/02/17 01:45 95 30 05/02/17 00:00 30 05/02/17 00:00 74 05/02/17 00:00 98.3 74 20 97/52 (67) 96 05/01/17 22:22 97 30 05/01/17 22:00 70 05/01/17 20:54 96 30 05/01/17 20:00 30 05/01/17 20:00 66 05/01/17 20:00 98.3 66 19 142/72 (95) 99 05/01/17 18:00 69 05/01/17 18:00 76 14 124/56 (78) 98 05/01/17 17:30 89 15 132/58 (82) 99 05/01/17 17:15 83 15 121/59 (79) 99 05/01/17 17:01 99 30 05/01/17 17:00 105 21 114/57 (76) 100 05/01/17 16:45 84 13 107/54 (71) 97 05/01/17 16:30 73 9 109/55 (73) 96 05/01/17 16:15 78 12 108/53 (71) 96 05/01/17 16:00 76 05/01/17 16:00 30 05/01/17 16:00 79 8 111/56 (74) 97 05/01/17 15:45 88 4 110/56 (74) 98 05/01/17 15:30 63 11 165/70 (101) 99 05/01/17 15:15 83 4 117/56 (76) 98 05/01/17 15:00 101 18 127/58 (81) 97 05/01/17 14:45 88 9 119/55 (76) 98 05/01/17 14:30 94 15 106/51 (69) 97 05/01/17 14:15 88 7 110/56 (74) 97 05/01/17 14:00 99 05/01/17 14:00 99 10 109/56 (73) 98 I/O 05/01/17 05/01/17 05/01/17 05/02/17 05/02/17 05/02/17 07:00 15:00 23:00 07:00 15:00 23:00 Intake Total 297 ml 200 ml 750 ml 590 ml 1100 ml Output Total 1300 ml 250 ml 600 ml Balance -1003 ml 200 ml 500 ml -10 ml 1100 ml Intake Oral 240 ml 0 ml IV Total 200 ml 200 ml 1100 ml Tube Feeding 47 ml 350 ml 590 ml Other 50 ml 160 ml Output Urine Total 300 ml 300 ml Stool Total 1000 ml 250 ml 300 ml Laboratory Laboratory Tests Test 05/01/17 19:47 05/02/17 02:48 05/02/17 02:49 05/02/17 11:34 Potassium Level 3.3 3.1 Iron Level 19 Total Iron Binding Capacity 251 Percent Iron Saturation 7.6 Ferritin 113 Gamma Glutamyl Transpeptidase 374 Vitamin B12 Level 1153 Folate GREATER THAN 20.0 Blood Urea Nitrogen 10 Creatinine 0.49 Random Glucose 105 Calcium Level 8.0 Sodium Level 144 Chloride Level 114 Carbon Dioxide Level 20.8 Anion Gap 9 Estimat Glomerular Filtration Rate 214 White Blood Count 9.0 Red Blood Count 3.12 Hemoglobin 7.0 7.7 Hematocrit 22.0 24.7 Mean Corpuscular Volume 70.6 Mean Corpuscular Hemoglobin 22.6 Mean Corpuscular Hemoglobin Concent 32.0 Red Cell Distribution Width 21.2 Platelet Count 341 Mean Platelet Volume 7.7 Neutrophils (%) (Auto) 65.6 Lymphocytes (%) (Auto) 22.4 Monocytes (%) (Auto) 7.0 Eosinophils (%) (Auto) 4.1 Basophils (%) (Auto) 0.9 Neutrophils # (Auto) 5.9 Lymphocytes # (Auto) 2.0 Monocytes # (Auto) 0.6 Eosinophils # (Auto) 0.4 Basophils # (Auto) 0.1 CBC Comment DIFF FINAL Differential Comment Phosphorus Level 2.9 Magnesium Level 2.0 Date/Time Source Procedure Growth Status 04/25/17 23:25 Blood Peripheral Aerobic Blood Culture - Final NO GROWTH IN 5 DAYS Complete 04/25/17 23:25 Blood Peripheral Anaerobic Blood Culture - Final NO GROWTH IN 5 DAYS Complete 05/01/17 12:00 Sputum Endotracheal Gram Stain Pending Resulted 05/01/17 12:00 Sputum Culture - Preliminary Gram Negative Javed Resulted 05/01/17 12:00 Urine Catheterized Urine Urine Culture - Preliminary NO GROWTH IN 24 HOURS. Resulted 04/26/17 11:00 Catheter Tip Other Wound Culture - Final Complete Imaging Last Impressions Chest X-Ray 05/01/17 0600 Signed Impressions: Service Date/Time: April 03:31 - CONCLUSION: Stable chest x-ray with left basilar opacity representing either atelectasis, consolidation , and/or pleural effusion. Thompson Munoz MD Small Bowel X-Ray 04/30/17 0000 Signed Impressions: Service Date/Time: Sunday, April 30, 2017 10:17 - CONCLUSION: No evidence of obstruction. Nick Smith MD Abdomen X-Ray 04/29/17 0000 Signed Impressions: Service Date/Time: Saturday, April 29, 2017 09:36 - CONCLUSION: Slight interval decrease in diffuse gaseous distention of bowel Thopmson Khan MD Lower Extremity Ultrasound 04/26/17 [id number] Signed Impressions: Service Date/Time: Wednesday, April 26, 2017 08:46 - CONCLUSION: 1. Occlusive deep venous thrombosis right leg. 2. No DVT left leg. Adi Ferrer MD Abdomen/Pelvis CT 04/25/17 0000 Signed Impressions: Service Date/Time: Wednesday, April 26, 2017 01:13 - CONCLUSION: Probable ileus versus developing small bowel obstruction with dilated small bowel loops identified and no discrete transition point, however close clinical and radiographic followup is advised. Left pleural effusion and bilateral lower lobe consolidation. Renal cysts. Small amount of free fluid. Decubitus ulcer with underlying sclerosis and hypertrophic changes of the left ischial tuberosity. Ilya Nash MD Physical Exam HEENT: Normocephalic; atraumatic CHEST: Coarse BS, trach CARDIAC: RRR ABDOMEN: Distended, firm, nontender, watery stool ostomy. PEG tube. EXTREMITIES; contracted SKIN: Normal; no rash; no jaundice. 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 Patient is (+) for flatus and stools in colostomy bag. Abdomen firm and distended. Attempts made by CCM to insert NGT unsuccessful, IR consulted but not available on the weekend - Dysfunctional G tube. not flushing with several attempts made, unable to unclog - fever- ID on the case, pt with hx of ESBL and Proteus mirabilis sacral wound/ osteomyelitis. and has sacral and left elbow decubitus ulcers - Elevated LFTs- CT as above, no biliary involvement, will monitor, hepatitis panel pending - past medical history of spinal cord injury resulting in quadriplegia, s/p trach/PEG with vent dependency, ostomy (04/29) S/P EGD with replacement of PEG tube yesterday --> 600cc of gastric content suctioned ulcers in duodenum second portion, multiple, nonbleeding, gastritis, esophagitis. Repeat KUB done today --> Slight interval decrease in diffuse gaseous distention of bowel. Pt remain on Reglan. Per RN has not had output through ostomy, however, passing flatus. TF currently Jevity 1.5 running at 20 mL/hr, goal rate of 60 mL/hr. Per RN has not had high residuals. Recommendations to continue PPI, check for residuals. If abdomen remains distended and no improvement in ileus then consult IR for GJ tube. (04/30/17) SBFT in progress. Now having stool from ostomy. d/w RN (05/01/17) s/p SBFT no evidence obstruction. watery stool ostomy, could be 2/2 gastrografin. pt awake and denies abd pain or nause. TF running 20ml/hr (05/02) --> Anemia- some improvement in H/H today. Currently 7.7/24.7, has not received blood transfusion. Vit B 12-1153 Folate- >20. Iron-19 TIBC-251 %sat-7.6 Ferritin- 113. Recommend iron replacement. Alk phos has not been rechecked, unclear significance. Iso -enzymes pending. Ileus- abdomen remains distended and firm, but good output from colostomy. Tolerating TF- currently at 60mL/hr. RN states no high residuals Plan: - Alk phos iso enzymes pending - Iron replacement - Continue TF - Cotinue Protonix - H/H currently improving and no evidence of GIB - Possible need for colonoscopy in the future if pt able to tolerate - Further recommendations to follow Pt has been seen and examined by myself and Dr. Feldman and this note is written on her behalf Puja Cochran May 02, 2017 14:01
[2017-05-02] MEDS: traZODone HCL 100 MG TAB PO SCH (22:00)
[2017-05-02] MEDS: MIRTAZAPINE 15 MG TAB G-TUBE SCH (22:01)
[2017-05-02] MEDS: GABAPENTIN 300 MG CAP PO SCH (22:01)
[2017-05-03] VITALS (20 sets, daily range): BP systolic 103–183; BP diastolic 56–81; PULSE 62–90; RESP 14–81; TEMP 98.4–100.1; O2SAT 94–100
[2017-05-03] MEDS: INSULIN ASPART SUPPLEMENTAL SCALE SQ SCH ×5 (03:32→20:00)
[2017-05-03] MEDS: CHLORHEXIDINE GLUCONATE 2 % 1 PACK (2 CLOTHS) TOP SCH (03:32)
[2017-05-03] MEDS: PIPERACIL-TAZO 4.5 GM PREMIX 100 ML IV SCH ×3 (05:13→17:39)
[2017-05-03] MEDS: METOCLOPRAMIDE HCL 10 MG/2 ML VIAL IV PUSH SCH ×3 (05:13→20:21)
[2017-05-03 05:41] LABS: AUTOMATED NEUTROPHIL # 6.7 TH/MM3 (1.8-7.7); BASOPHIL # 0.1 TH/MM3 (0-0.2); BASOPHIL % 1.1 % (0.0-2.0); EOSINOPHIL # 0.5 TH/MM3 (0-0.4); EOSINOPHIL % 6.1 % (0.0-4.0); HEMATOCRIT 23.8 % (39.0-51.0); HEMOGLOBIN 7.6 GM/DL (13.0-17.0); LYMPH % 13.3 % (9.0-44.0); LYMPHOCYTE # 1.2 TH/MM3 (1.0-4.8); MEAN CELL VOLUME 70.3 FL (80.0-100.0); MEAN CORPUSCULAR HEMOGLOBIN 22.5 PG (27.0-34.0); MEAN CORPUSCULAR HGB CONC 32.1 % (32.0-36.0); MEAN PLATELET VOLUME 7.5 FL (7.0-11.0); MONO % 4.3 % (0.0-8.0); MONOCYTE # 0.4 TH/MM3 (0-0.9); NEUT % 75.2 % (16.0-70.0); PLATELET COUNT 342 TH/MM3 (150-450); RED BLOOD COUNT 3.38 MIL/MM3 (4.50-5.90); WHITE BLOOD COUNT 8.9 TH/MM3 (4.0-11.0)
--- NOTE | 2017-05-03 06:12 | RADRPT ---
EXAM DATE/TIME: 05/03/2017 04:19 [place] COMPARISON: CHEST SINGLE AP, May 01, 2017, 3:31. INDICATIONS : Shortness of breath, possible pulmonary disease. MEDICAL HISTORY : Vent dependent, Quadraplegic SURGICAL HISTORY : Colostomy. Peg tube ENCOUNTER: Subsequent ACUITY: 1 week PAIN SCORE: Non-responsive. LOCATION: Bilateral chest FINDINGS: A single view of the chest demonstrates right [id number] in superior vena cava. Tracheostomy in go od position. Basilar airspace disease, left greater than right similar to May 01. No pneumothorax . CONCLUSION: 1. Basilar airspace disease, left greater than right similar to May 01. No pneumothorax. Miguel Mendez MD on May 03, 2017 at 6:09 Board Certified Radiologist. This report was verified electronically.
[2017-05-03 06:17] LABS: BICARBONATE 25.2 MEQ/L (21.0-32.0); CALCIUM 8.7 MG/DL (8.5-10.1); CREATININE 0.43 MG/DL (0.60-1.30); MAGNESIUM 1.9 MG/DL (1.5-2.5)
--- NOTE | 2017-05-03 08:46 | HHI.CCPN ---
Subjective Remarks/Hospital Course Hospital Course: 57-year-old male with past medical history of spinal cord injury resulting in quadriplegia, s/p trach/PEG with vent dependency, ostomy, HTN, sacral and left elbow decubitus ulcers, chronic indwelling suprapubic catheter, depression, anxiety, port right chest, IVC filter who was sent to [facility] emergency department from [facility] due to fever 103.8 and ( per [place] transfer documentation "highly agitated after getting medication for agitation"). Patient is alert on vent and difficult historian but does mouth some words and helps provide some limited history. Records indicate that he was started on Zosyn and vancomycin on 04/23/17 "for ESBL and Proteus mirabilis sacral wound/osteomyelitis x 6weeks", on isolation for "MRSA elbow". White blood cell count is elevated at 18.1. Hemoglobin is 7.5. Lactic acid is 2.1. Transaminases and alkaline phosphatase are elevated. Lipase is normal. CT abdomen and pelvis demonstrates bilateral lower lobe consolidations, moderate left pleural effusion. PEG tube is in place but there is dilation of the small bowel in the mid abdomen without discrete transition point; probable ileus versus developing small bowel obstruction. There is sclerosis and hyper trophic changes of the left ischial tuberosity which can be seen and chronic osteomyelitis. Gallbladder is unremarkable. In the emergency department patient was maintained on chronic ventilator settings with pressure SIMV. He was given Toradol 30 mg IV, morphine 4 mg IV, 1 L normal saline bolus. PEG was noted to be obstructed by ED physician who was unable to flush using soda. Patient refused NG tube. Patient does repeatedly request both oral and trach suctioning. He does reports some mild increase in respiratory secretions. subjective: 2/4: GI planning EGD with decompression and PEG tube swap. patient states he wants to go home and feels better. ROS difficult to obtain due to chronic vent dependency, but limited ROS negative for fever, chills, abd pain, swelling. LE DVT + on u/s yesterday: ivc filter in place. holding full dose anticoagulation until GI procedure today. will need full dose anticoagulation after that. 2 No events overnight. For PEG tube replacement today. Afebrile. 04/29 Patient remains on ventilator via trach. s/p PEG tube placement yesterday. 2 No events overnight. BP borderline low this morning given Ativan 1mg x1 at 3 am. Afebrile. 05/01 No events overnight. Patient had SB series yesterday showed no obstruction. Afebrile. 05/02 Patient remains on ventilator via trach. Afebrile. 05/03: Afebrile. Patient tolerating tube feeds. Hemodynamically stable. Colostomy output liquid brown stool. Reported overnight small amount of maroon color stool, hemoglobin stable will continue to monitor. Objective Vital Signs Date Time Temp Pulse Resp B/P (MAP) Pulse Ox O2 Delivery O2 Flow Rate FiO2 05/03/17 08:14 98 30 05/03/17 06:00 89 05/03/17 04:00 98.4 14 104/56 (72) Intake and Output 05/03/17 05/03/17 05/04/17 08:00 16:00 00:00 Intake Total 607 ml Output Total 520 ml Balance 87 ml Result Diagram: 05/03/17 0509 05/03/17 0509 Other Results Microbiology Date/Time Source Procedure Growth Status 05/01/17 12:00 Urine Catheterized Urine Urine Culture - Final Ema Albicans Complete Imaging Last Impressions Chest X-Ray 05/03/17 0000 Signed Impressions: Service Date/Time: Wednesday, May 03, 2017 04:19 - CONCLUSION: 1. Basilar airspace disease, left greater than right similar to May 01. No pneumothorax. Miguel Mendez MD Small Bowel X-Ray 04/30/17 0000 Signed Impressions: Service Date/Time: Sunday, April 30, 2017 10:17 - CONCLUSION: No evidence of obstruction. Nick Smith MD Abdomen X-Ray 04/29/17 0000 Signed Impressions: Service Date/Time: Saturday, April 29, 2017 09:36 - CONCLUSION: Slight interval decrease in diffuse gaseous distention of bowel Thompson Khan MD Lower Extremity Ultrasound 04/26/17 9916 Signed Impressions: Service Date/Time: Wednesday, April 26, 2017 08:46 - CONCLUSION: 1. Occlusive deep venous thrombosis right leg. 2. No DVT left leg. Adi Ferrer MD Abdomen/Pelvis CT 04/25/17 0000 Signed Impressions: Service Date/Time: Wednesday, April 26, 2017 01:13 - CONCLUSION: Probable ileus versus developing small bowel obstruction with dilated small bowel loops identified and no discrete transition point, however close clinical and radiographic followup is advised. Left pleural effusion and bilateral lower lobe consolidation. Renal cysts. Small amount of free fluid. Decubitus ulcer with underlying sclerosis and hypertrophic changes of the left ischial tuberosity. Ilya Nash MD Last Impressions Chest X-Ray 05/01/17 0600 Signed Impressions: Service Date/Time: April 03:31 - CONCLUSION: Stable chest x-ray with left basilar opacity representing either atelectasis, consolidation , and/or pleural effusion. Thompson Munoz MD Small Bowel X-Ray 04/30/17 0000 Signed Impressions: Service Date/Time: Sunday, April 30, 2017 10:17 - CONCLUSION: No evidence of obstruction. Nick Smith MD Abdomen X-Ray 04/29/17 0000 Signed Impressions: Service Date/Time: Saturday, April 29, 2017 09:36 - CONCLUSION: Slight interval decrease in diffuse gaseous distention of bowel Thompson Khan MD Lower Extremity Ultrasound 04/26/17 2344 Signed Impressions: Service Date/Time: Wednesday, April 26, 2017 08:46 - CONCLUSION: 1. Occlusive deep venous thrombosis right leg. 2. No DVT left leg. Adi Ferrer MD Abdomen/Pelvis CT 04/25/17 0000 Signed Impressions: Service Date/Time: Wednesday, April 26, 2017 01:13 - CONCLUSION: Probable ileus versus developing small bowel obstruction with dilated small bowel loops identified and no discrete transition point, however close clinical and radiographic followup is advised. Left pleural effusion and bilateral lower lobe consolidation. Renal cysts. Small amount of free fluid. Decubitus ulcer with underlying sclerosis and hypertrophic changes of the left ischial tuberosity. Ilya Nash MD Objective Remarks GENERAL: Chronically ill-appearing male who has quadriplegia, tracheostomy on mechanical ventilation. He is sitting up and alert and communicating by nodding and trying to mouth some words though communication is limited. HEAD: Atraumatic. Normocephalic. EYES: Pupils equal and round. No scleral icterus. No injection or drainage. ENT: No nasal bleeding or discharge. Mucous membranes pink and moist. NECK: Cuff tracheostomy in place. On mechanical ventilation SIMV: home settings. CARDIOVASCULAR: Regular rate and rhythm. No murmurs rubs or gallops appreciated. VASC: Port is in place right chest with site benign appearing. Midline in place RUE, no erythema or drainage RESPIRATORY: On mechanical ventilation via trach. Appears reasonably comfortable without accessory muscle use. GASTROINTESTINAL: Abdomen distended tympanitic. PEG tube in place without abnormality of insertion site, does not flush or draw. Ostomy in place. MUSCULOSKELETAL: Extremities without clubbing, cyanosis. Arms held in flexion, wrist held in extension bilaterally (contractures). Bilateral foot drop. NEUROLOGICAL: Awake and alert. Quadriparesis. + shoulder shrug. No obvious cranial nerve deficits. Mouths words but is difficult to understand what he is saying. A/P Assessment and Plan NEURO: Spinal cord injury with quadriplegia Chronic pain Chronic opioid use Peripheral neuropathy Depression Anxiety Monitor neuro status Gabapentin 300 daily at bedtime Trazodone 150 by mouth daily at bedtime Remeron 15 mg daily at bedtime Baclofen 5 mg 3 times a day BuSpar 5 mg 3 times a day RESP: Chronic vent dependent respiratory failure Tracheostomy Left pleural effusion Bibasilar pneumonia Continue vent support keep sat >92% On mechanical ventilation with pressure SIMV IP: 28, rate 16, PEEP 5/I time 1/ pressure support 15, FiO2 30% per chronic settings from longterm Schedule bronchodilators, ICU vent bundle. Pulm toilet, trach care CV: Monitor Hr and BP Maintain MAP>65mmHg GI: Ileus PEG malfunction. Transaminase elevation, downtrend from 04/22/17. No gallbladder abnormality noted on CT Colostomy 04/30: SB series showed no obstruction CT abdomen and pelvis 2/ ileus vs ???developing SBO: KUB abdomen 04/28: Ileus, repeat KUB abdomen 04/29: Slight interval decrease in diffuse gaseous distention of bowel . On Marium lax, Senokot, Reglan s/p PEG replacement 2/ tube feeds- On Jevity 1.5 @60ml/hr, minimal residual Colostomy-liquid brown stool output FEN/RENAL: Suprapubic catheter Monitor renal function, I/O's, electrolytes replacement per procotol. Will need K replacement today. IVF D51/2NS@42ml/hr Catheter replaced 04/29 by Urology. Small leak noted, consult urology Monitor intake and output. Monitor electrolytes and replace as indicated. ID: Leukocytosis... trending down Sacral decubitus ulcers with osteomyelitis Left elbow wound ? UTI. Chronic indwelling suprapubic catheter Port in place right chest - site benign RUE midline - site benign. Removed and catheter tip culture per ID. Unclear when this was placed. 2 Sputum cx: Pseudomonas, Kleb ESBL, Proteus 2 Urine cx : GNR, Group D enterococcus 05/01 urine culture-Ema albicans Continue abx per ID(Zosyn) monitor for signs of infections ( Fever, WBC) WBC is trending down Wound care is following. Check sputum cx, UA with cx if indicated suprapubic catheter replaced at bedside 04/26. Patient has an IVC filter. RLE ultrasound + for DVT. HEME: IVC filter in place LE DVT IVC filter on Lovenox 90mg Q12 ENDO: Acute hyperglycemia SSI for glycemic control PROPH: Has an IVC filter in place, on Lovenox 90mg Sq Q12. Pepcid for stress ulcer prophylaxis ACCESS: Port in place right chest. Right IJ central venous line placed in ED 04/26/17, d/c central line Level 3 Physician Julee Dumont MD May 03, 2017 08:46
[2017-05-03] MEDS: CHLORHEXIDINE 0.12% (ORAL KIT) 15 ML CUP MT SCH ×2 (08:49→20:19)
[2017-05-03] MEDS: SODIUM CHLORIDE 0.9% FLUSH 10 ML FLUSH IV FLUSH SCH ×2 (08:49→20:18)
[2017-05-03] MEDS: DOCUSATE SODIUM 50 MG/SENNA 8.6 MG TAB PO SCH ×2 (08:50→20:17)
[2017-05-03] MEDS: MULTIVITAMINS/MINERALS THERAPEUTIC TAB G-TUBE SCH (08:50)
[2017-05-03] MEDS: BACLOFEN 10 MG TAB G-TUBE SCH ×3 (08:50→17:38)
[2017-05-03] MEDS: SENNOSIDES 8.6 MG TAB G-TUBE SCH ×2 (08:50→20:17)
[2017-05-03] MEDS: ASCORBIC ACID 500 MG TAB G-TUBE SCH (08:50)
[2017-05-03] MEDS: busPIRone HCL 5 MG TAB G-TUBE SCH ×3 (08:50→17:38)
[2017-05-03] MEDS: SILVER SULFADIAZINE 1% CR 50 GM JAR TOPICAL SCH (08:51)
[2017-05-03] MEDS: FAMOTIDINE 20 MG TAB PO SCH ×2 (08:51→20:16)
[2017-05-03] MEDS: ENOXAPARIN SODIUM 100 MG/ML SYRINGE SQ SCH ×2 (10:22→20:21)
--- NOTE | 2017-05-03 12:28 | HHI.GIFU ---
Subjective Remarks Pt resting in bed, awake and alert. RN at bedside. Remains with good output in colostomy bag. (Puja Cochran) Objective Vitals I&O Vital Signs Date Time Temp Pulse Resp B/P (MAP) Pulse Ox O2 Delivery O2 Flow Rate FiO2 05/03/17 10:15 99 30 05/03/17 10:00 67 05/03/17 08:14 98 30 05/03/17 08:00 30 05/03/17 08:00 98.4 80 18 128/61 (83) 99 05/03/17 08:00 80 05/03/17 06:00 89 05/03/17 04:40 97 30 05/03/17 04:00 30 05/03/17 04:00 98.4 85 14 104/56 (72) 94 05/03/17 04:00 85 05/03/17 02:00 62 05/03/17 01:20 100 30 05/03/17 00:00 30 05/03/17 00:00 98.5 67 14 103/57 (72) 100 05/03/17 00:00 67 05/02/17 22:20 100 30 05/02/17 22:00 69 05/02/17 20:10 100 30 05/02/17 20:00 30 05/02/17 20:00 98.0 67 15 135/67 (89) 100 05/02/17 20:00 67 05/02/17 18:00 99 05/02/17 16:00 30 05/02/17 16:00 97.8 62 19 157/71 (99) 99 05/02/17 16:00 62 05/02/17 15:44 97 30 05/02/17 14:00 71 I/O 05/02/17 05/02/17 05/02/17 05/03/17 05/03/17 05/03/17 07:00 15:00 23:00 07:00 15:00 23:00 Intake Total 590 ml 1400 ml 1101 ml 607 ml Output Total 600 ml 600 ml 520 ml Balance -10 ml 1400 ml 501 ml 87 ml Intake Oral 0 ml 0 ml IV Total 1400 ml Tube Feeding 590 ml 741 ml 607 ml Other 360 ml Output Urine Total 300 ml 350 ml 360 ml Stool Total 300 ml 250 ml 160 ml # Voids 3 # Bowel Movements 1 Laboratory Laboratory Tests Test 05/02/17 18:31 05/02/17 22:36 05/03/17 05:09 Potassium Level 4.2 3.8 3.6 White Blood Count 8.9 Red Blood Count 3.38 Hemoglobin 7.6 Hematocrit 23.8 Mean Corpuscular Volume 70.3 Mean Corpuscular Hemoglobin 22.5 Mean Corpuscular Hemoglobin Concent 32.1 Red Cell Distribution Width 21.0 Platelet Count 342 Mean Platelet Volume 7.5 Neutrophils (%) (Auto) 75.2 Lymphocytes (%) (Auto) 13.3 Monocytes (%) (Auto) 4.3 Eosinophils (%) (Auto) 6.1 Basophils (%) (Auto) 1.1 Neutrophils # (Auto) 6.7 Lymphocytes # (Auto) 1.2 Monocytes # (Auto) 0.4 Eosinophils # (Auto) 0.5 Basophils # (Auto) 0.1 CBC Comment DIFF FINAL Differential Comment Blood Urea Nitrogen 9 Creatinine 0.43 Random Glucose 129 Calcium Level 8.7 Phosphorus Level 2.0 Magnesium Level 1.9 Sodium Level 143 Chloride Level 109 Carbon Dioxide Level 25.2 Anion Gap 9 Estimat Glomerular Filtration Rate 249 Date/Time Source Procedure Growth Status 04/25/17 23:25 Blood Peripheral Aerobic Blood Culture - Final NO GROWTH IN 5 DAYS Complete 04/25/17 23:25 Blood Peripheral Anaerobic Blood Culture - Final NO GROWTH IN 5 DAYS Complete 05/01/17 12:00 Sputum Endotracheal Gram Stain - Final Resulted 05/01/17 12:00 Sputum Culture - Preliminary Gram Negative Javed Resulted 05/01/17 12:00 Urine Catheterized Urine Urine Culture - Final Ema Albicans Complete 04/26/17 11:00 Catheter Tip Other Wound Culture - Final Complete Imaging Last Impressions Chest X-Ray 05/03/17 0000 Signed Impressions: Service Date/Time: Wednesday, May 03, 2017 04:19 - CONCLUSION: 1. Basilar airspace disease, left greater than right similar to May 01. No pneumothorax. Miguel Mendez MD Small Bowel X-Ray 04/30/17 0000 Signed Impressions: Service Date/Time: Sunday, April 30, 2017 10:17 - CONCLUSION: No evidence of obstruction. Nick Smith MD Abdomen X-Ray 04/29/17 0000 Signed Impressions: Service Date/Time: Saturday, April 29, 2017 09:36 - CONCLUSION: Slight interval decrease in diffuse gaseous distention of bowel Thompson Khan MD Lower Extremity Ultrasound 04/26/17 2344 Signed Impressions: Service Date/Time: Wednesday, April 26, 2017 08:46 - CONCLUSION: 1. Occlusive deep venous thrombosis right leg. 2. No DVT left leg. Adi Ferrer MD Abdomen/Pelvis CT 04/25/17 0000 Signed Impressions: Service Date/Time: Wednesday, April 26, 2017 01:13 - CONCLUSION: Probable ileus versus developing small bowel obstruction with dilated small bowel loops identified and no discrete transition point, however close clinical and radiographic followup is advised. Left pleural effusion and bilateral lower lobe consolidation. Renal cysts. Small amount of free fluid. Decubitus ulcer with underlying sclerosis and hypertrophic changes of the left ischial tuberosity. Ilya Nash MD Physical Exam HEENT: Normocephalic; atraumatic CHEST: Coarse BS, trach CARDIAC: RRR ABDOMEN: Distended, firm, nontender, watery stool ostomy. PEG tube. SKIN: Normal; no rash; no jaundice. HAT AND CAP OPENER: Awake, answers questions appropriately (Puja Cochran) Assessment and Plan Plan - Ileus- CT on 04/26/17 showed probable ileus versus developing SBO with dilates small bowel loops with no transition point, left plural effusion and bilateral lower lobe consolidation, renal cysts. Patient is (+) for flatus and stools in colostomy bag. Abdomen firm and distended. Attempts made by CCM to insert NGT unsuccessful, IR consulted but not available on the weekend - Dysfunctional G tube. not flushing with several attempts made, unable to unclog - fever- ID on the case, pt with hx of ESBL and Proteus mirabilis sacral wound/ osteomyelitis. and has sacral and left elbow decubitus ulcers - Elevated LFTs- CT as above, no biliary involvement, will monitor, hepatitis panel pending - past medical history of spinal cord injury resulting in quadriplegia, s/p trach/PEG with vent dependency, ostomy (04/29) S/P EGD with replacement of PEG tube yesterday --> 600cc of gastric content suctioned ulcers in duodenum second portion, multiple, nonbleeding, gastritis, esophagitis. Repeat KUB done today --> Slight interval decrease in diffuse gaseous distention of bowel. Pt remain on Reglan. Per RN has not had output through ostomy, however, passing flatus. TF currently Jevity 1.5 running at 20 mL/hr, goal rate of 60 mL/hr. Per RN has not had high residuals. Recommendations to continue PPI, check for residuals. If abdomen remains distended and no improvement in ileus then consult IR for GJ tube. (04/30/17) SBFT in progress. Now having stool from ostomy. d/w RN (05/01/17) s/p SBFT no evidence obstruction. watery stool ostomy, could be 2/2 gastrografin. pt awake and denies abd pain or nause. TF running 20ml/hr (05/02) --> Anemia- some improvement in H/H today. Currently 7.7/24.7, has not received blood transfusion. Vit B 12-1153 Folate- >20. Iron-19 TIBC-251 %sat-7.6 Ferritin- 113. Recommend iron replacement. Alk phos has not been rechecked, unclear significance. Iso -enzymes pending. Ileus- abdomen remains distended and firm, but good output from colostomy. Tolerating TF- currently at 60mL/hr. RN states no high residuals (05/03) --> H/h stable. Continued adequate output through colostomy bag. Abdomen is distended and firm, on the right side, however clinically the ileus seems to have improved. Remains on Reglan. Tolerating TF, no high residuals. Alk phos iso enzymes still pending. Plan: - Alk phos iso enzymes pending - Iron replacement - Continue TF - Cotinue Protonix - H/H currently improving and no evidence of GIB - Possible need for colonoscopy in the future if pt able to tolerate - Further recommendations to follow Pt has been seen and examined by myself and Dr. Hawthorne and this note is written on his behalf (Puja Cochran) Plan Patient was seen and examined, alert and oriented, answering yes no questions, had good output from the colostomy, abdomen less distended, tolerating 60 cc of feeding, we will sign off at this (Rosaura Hawthorne MD) Puja Cochran May 03, 2017 12:28 Rosaura Hawthorne MD May 03, 2017 15:48
[2017-05-03 14:10] LABS: SMOOTH MUSCLE TOTAL AUTOABS Negative (Negative)
[2017-05-03] MEDS: GABAPENTIN 300 MG CAP PO SCH (20:16)
[2017-05-03] MEDS: MIRTAZAPINE 15 MG TAB G-TUBE SCH (20:17)
[2017-05-03] MEDS: traZODone HCL 100 MG TAB PO SCH (20:17)
[2017-05-03] MEDS: DEXT 5%-NACL 0.45% 1000 ML INJ 1,000 ML IV SCH (20:18)
[2017-05-04] VITALS (19 sets, daily range): BP systolic 136–171; BP diastolic 63–92; PULSE 62–92; RESP 13–91; TEMP 98.4–98.9; O2SAT 97–100
[2017-05-04] MEDS: PIPERACIL-TAZO 4.5 GM PREMIX 100 ML IV SCH ×5 (00:23→23:43)
[2017-05-04] MEDS: CHLORHEXIDINE GLUCONATE 2 % 1 PACK (2 CLOTHS) TOP SCH ×2 (04:00→22:46)
[2017-05-04] MEDS: INSULIN ASPART SUPPLEMENTAL SCALE SQ SCH ×7 (04:00→23:43)
[2017-05-04] MEDS: METOCLOPRAMIDE HCL 10 MG/2 ML VIAL IV PUSH SCH ×3 (05:10→19:53)
--- NOTE | 2017-05-04 05:21 | RADRPT ---
EXAM DATE/TIME: 05/04/2017 03:16 [place] COMPARISON: CHEST SINGLE AP, May 03, 2017, 4:19. INDICATIONS : Evaluate for pneumonia MEDICAL HISTORY : Vent Dependent SURGICAL HISTORY : Colostomy, PEG Tube ENCOUNTER: Subsequent ACUITY: PAIN SCORE: Non-responsive. LOCATION: Bilateral chest FINDINGS: A single view of the chest demonstrates tracheostomy in good position. Right-sided port and superior vena cava. Basilar airspace disease, left greater than right unchanged from May 03. No pneumotho rax. CONCLUSION: 1. Stable basilar airspace disease, left greater than right. Miguel Mendez MD on May 04, 2017 at 5:18 Board Certified Radiologist. This report was verified electronically.
[2017-05-04 05:36] LABS: AUTOMATED NEUTROPHIL # 6.6 TH/MM3 (1.8-7.7); BASOPHIL # 0.1 TH/MM3 (0-0.2); BASOPHIL % 0.6 % (0.0-2.0); EOSINOPHIL # 0.5 TH/MM3 (0-0.4); EOSINOPHIL % 5.1 % (0.0-4.0); HEMATOCRIT 24.8 % (39.0-51.0); HEMOGLOBIN 7.9 GM/DL (13.0-17.0); LYMPH % 18.5 % (9.0-44.0); LYMPHOCYTE # 1.8 TH/MM3 (1.0-4.8); MEAN CELL VOLUME 70.8 FL (80.0-100.0); MEAN CORPUSCULAR HEMOGLOBIN 22.4 PG (27.0-34.0); MEAN CORPUSCULAR HGB CONC 31.6 % (32.0-36.0); MEAN PLATELET VOLUME 7.6 FL (7.0-11.0); MONO % 6.8 % (0.0-8.0); MONOCYTE # 0.7 TH/MM3 (0-0.9); PLATELET COUNT 347 TH/MM3 (150-450); RED BLOOD COUNT 3.51 MIL/MM3 (4.50-5.90); RED CELL DISTRIBUTION WIDTH 21.8 % (11.6-17.2); WHITE BLOOD COUNT 9.6 TH/MM3 (4.0-11.0)
[2017-05-04 06:03] LABS: BICARBONATE 26.6 MEQ/L (21.0-32.0); CALCIUM 8.4 MG/DL (8.5-10.1); CREATININE 0.41 MG/DL (0.60-1.30)
[2017-05-04 06:04] LABS: PHOSPHORUS 2.9 MG/DL (2.5-4.9)
[2017-05-04] MEDS: FAMOTIDINE 20 MG TAB PO SCH ×2 (08:05→19:49)
[2017-05-04] MEDS: BACLOFEN 10 MG TAB G-TUBE SCH ×3 (08:05→18:43)
[2017-05-04] MEDS: DOCUSATE SODIUM 50 MG/SENNA 8.6 MG TAB PO SCH ×2 (08:05→19:50)
[2017-05-04] MEDS: busPIRone HCL 5 MG TAB G-TUBE SCH ×3 (08:05→18:43)
[2017-05-04] MEDS: MULTIVITAMINS/MINERALS THERAPEUTIC TAB G-TUBE SCH (08:05)
[2017-05-04] MEDS: SENNOSIDES 8.6 MG TAB G-TUBE SCH ×2 (08:05→19:49)
[2017-05-04] MEDS: ASCORBIC ACID 500 MG TAB G-TUBE SCH (08:05)
[2017-05-04] MEDS: CHLORHEXIDINE 0.12% (ORAL KIT) 15 ML CUP MT SCH ×2 (08:06→19:49)
[2017-05-04] MEDS: SODIUM CHLORIDE 0.9% FLUSH 10 ML FLUSH IV FLUSH SCH ×2 (08:06→19:59)
[2017-05-04] MEDS: SILVER SULFADIAZINE 1% CR 50 GM JAR TOPICAL SCH (08:06)
[2017-05-04] MEDS: ENOXAPARIN SODIUM 100 MG/ML SYRINGE SQ SCH ×2 (10:15→19:59)
--- NOTE | 2017-05-04 14:16 | HHI.CCPN ---
Subjective Remarks/Hospital Course Hospital Course: 57-year-old male with past medical history of spinal cord injury resulting in quadriplegia, s/p trach/PEG with vent dependency, ostomy, HTN, sacral and left elbow decubitus ulcers, chronic indwelling suprapubic catheter, depression, anxiety, port right chest, IVC filter who was sent to [facility] emergency department from [facility] due to fever 103.8 and ( per [place] transfer documentation "highly agitated after getting medication for agitation"). Patient is alert on vent and difficult historian but does mouth some words and helps provide some limited history. Records indicate that he was started on Zosyn and vancomycin on 04/23/17 "for ESBL and Proteus mirabilis sacral wound/osteomyelitis x 6weeks", on isolation for "MRSA elbow". White blood cell count is elevated at 18.1. Hemoglobin is 7.5. Lactic acid is 2.1. Transaminases and alkaline phosphatase are elevated. Lipase is normal. CT abdomen and pelvis demonstrates bilateral lower lobe consolidations, moderate left pleural effusion. PEG tube is in place but there is dilation of the small bowel in the mid abdomen without discrete transition point; probable ileus versus developing small bowel obstruction. There is sclerosis and hyper trophic changes of the left ischial tuberosity which can be seen and chronic osteomyelitis. Gallbladder is unremarkable. In the emergency department patient was maintained on chronic ventilator settings with pressure SIMV. He was given Toradol 30 mg IV, morphine 4 mg IV, 1 L normal saline bolus. PEG was noted to be obstructed by ED physician who was unable to flush using soda. Patient refused NG tube. Patient does repeatedly request both oral and trach suctioning. He does reports some mild increase in respiratory secretions. subjective: 2/4: GI planning EGD with decompression and PEG tube swap. patient states he wants to go home and feels better. ROS difficult to obtain due to chronic vent dependency, but limited ROS negative for fever, chills, abd pain, swelling. LE DVT + on u/s yesterday: ivc filter in place. holding full dose anticoagulation until GI procedure today. will need full dose anticoagulation after that. 2 No events overnight. For PEG tube replacement today. Afebrile. 04/29 Patient remains on ventilator via trach. s/p PEG tube placement yesterday. 2 No events overnight. BP borderline low this morning given Ativan 1mg x1 at 3 am. Afebrile. 05/01 No events overnight. Patient had SB series yesterday showed no obstruction. Afebrile. 05/02 Patient remains on ventilator via trach. Afebrile. 05/03: Afebrile. Patient tolerating tube feeds. Hemodynamically stable. Colostomy output liquid brown stool. Reported overnight small amount of maroon color stool, hemoglobin stable will continue to monitor. 05/04: Afebrile. No acute events overnight. Patient tolerating tube feeds. Objective Vital Signs Date Time Temp Pulse Resp B/P (MAP) Pulse Ox O2 Delivery O2 Flow Rate FiO2 05/04/17 13:07 98 30 05/04/17 12:00 84 05/04/17 12:00 98.4 13 171/92 (118) Intake and Output 05/04/17 05/04/17 05/05/17 08:00 16:00 00:00 Intake Total 945 ml Output Total 650.0 ml Balance 295.0 ml Result Diagram: 05/04/17 0448 05/04/17 0448 Imaging Last Impressions Chest X-Ray 05/03/17 0000 Signed Impressions: Service Date/Time: Wednesday, May 03, 2017 04:19 - CONCLUSION: 1. Basilar airspace disease, left greater than right similar to May 01. No pneumothorax. Miguel Mendez MD Small Bowel X-Ray 04/30/17 0000 Signed Impressions: Service Date/Time: Sunday, April 30, 2017 10:17 - CONCLUSION: No evidence of obstruction. Nick Smith MD Abdomen X-Ray 04/29/17 0000 Signed Impressions: Service Date/Time: Saturday, April 29, 2017 09:36 - CONCLUSION: Slight interval decrease in diffuse gaseous distention of bowel Thompson Khan MD Lower Extremity Ultrasound 04/26/17 7286 Signed Impressions: Service Date/Time: Wednesday, April 26, 2017 08:46 - CONCLUSION: 1. Occlusive deep venous thrombosis right leg. 2. No DVT left leg. Adi Ferrer MD Abdomen/Pelvis CT 04/25/17 0000 Signed Impressions: Service Date/Time: Wednesday, April 26, 2017 01:13 - CONCLUSION: Probable ileus versus developing small bowel obstruction with dilated small bowel loops identified and no discrete transition point, however close clinical and radiographic followup is advised. Left pleural effusion and bilateral lower lobe consolidation. Renal cysts. Small amount of free fluid. Decubitus ulcer with underlying sclerosis and hypertrophic changes of the left ischial tuberosity. Ilya Nash MD Last Impressions Chest X-Ray 05/01/17 0600 Signed Impressions: Service Date/Time: April 03:31 - CONCLUSION: Stable chest x-ray with left basilar opacity representing either atelectasis, consolidation , and/or pleural effusion. Thompson Munoz MD Small Bowel X-Ray 04/30/17 0000 Signed Impressions: Service Date/Time: Sunday, April 30, 2017 10:17 - CONCLUSION: No evidence of obstruction. Nick Smith MD Abdomen X-Ray 04/29/17 0000 Signed Impressions: Service Date/Time: Saturday, April 29, 2017 09:36 - CONCLUSION: Slight interval decrease in diffuse gaseous distention of bowel Thompson Khan MD Lower Extremity Ultrasound 04/26/17 2344 Signed Impressions: Service Date/Time: Wednesday, April 26, 2017 08:46 - CONCLUSION: 1. Occlusive deep venous thrombosis right leg. 2. No DVT left leg. Adi Ferrer MD Abdomen/Pelvis CT 04/25/17 0000 Signed Impressions: Service Date/Time: Wednesday, April 26, 2017 01:13 - CONCLUSION: Probable ileus versus developing small bowel obstruction with dilated small bowel loops identified and no discrete transition point, however close clinical and radiographic followup is advised. Left pleural effusion and bilateral lower lobe consolidation. Renal cysts. Small amount of free fluid. Decubitus ulcer with underlying sclerosis and hypertrophic changes of the left ischial tuberosity. Ilya Nash MD Objective Remarks GENERAL: Chronically ill-appearing male who has quadriplegia, tracheostomy on mechanical ventilation. He is sitting up and alert and communicating by nodding and trying to mouth some words though communication is limited. HEAD: Atraumatic. Normocephalic. EYES: Pupils equal and round. No scleral icterus. No injection or drainage. ENT: No nasal bleeding or discharge. Mucous membranes pink and moist. NECK: Cuff tracheostomy in place. On mechanical ventilation SIMV: home settings. CARDIOVASCULAR: Regular rate and rhythm. No murmurs rubs or gallops appreciated. VASC: Port is in place right chest with site benign appearing. Midline in place RUE, no erythema or drainage RESPIRATORY: On mechanical ventilation via trach. Appears reasonably comfortable without accessory muscle use. GASTROINTESTINAL: Abdomen distended tympanitic. PEG tube in place without abnormality of insertion site, does not flush or draw. Ostomy pink draining liquid brown stool. MUSCULOSKELETAL: Extremities without clubbing, cyanosis. Arms held in flexion, wrist held in extension bilaterally (contractures). Bilateral foot drop. NEUROLOGICAL: GCS 11T Awake and alert. Quadriparesis. + shoulder shrug. No obvious cranial nerve deficits. Mouths words but is difficult to understand what he is saying. A/P Assessment and Plan NEURO: Spinal cord injury with quadriplegia Chronic pain Chronic opioid use Peripheral neuropathy Depression Anxiety Monitor neuro status Gabapentin 300 daily at bedtime Trazodone 150 by mouth daily at bedtime Remeron 15 mg daily at bedtime Baclofen 5 mg 3 times a day BuSpar 5 mg 3 times a day GCS 11T RESP: Chronic vent dependent respiratory failure Tracheostomy Left pleural effusion Bibasilar pneumonia Continue vent support keep sat >92% On mechanical ventilation with pressure SIMV IP: 28, rate 16, PEEP 5/I time 1/ pressure support 15, FiO2 30% per chronic settings from residential Schedule bronchodilators, ICU vent bundle. Pulm toilet, trach care 05/04 CXR-stable air space disease left greater than right CV: Monitor Hr and BP Maintain MAP> 65mmHg GI: Ileus PEG malfunction. Transaminase elevation, downtrend from 04/22/17. No gallbladder abnormality noted on CT Colostomy 04/30: SB series showed no obstruction CT abdomen and pelvis 04/26 ileus vs ???developing SBO: KUB abdomen 04/28: Ileus, repeat KUB abdomen 04/29: Slight interval decrease in diffuse gaseous distention of bowel . On Marium lax, Senokot, Reglan s/p PEG replacement 04/28 tube feeds- On Jevity 1.5 @60ml/hr, minimal residual Colostomy-liquid brown stool output FEN/RENAL: Suprapubic catheter Monitor renal function, I/O's, electrolytes replacement per procotol. IVF D51/2NS@42ml/hr placed on hold Catheter replaced 04/29 by Urology. Small leak noted, consult urology Monitor intake and output. Monitor electrolytes and replace as indicated. ID: Leukocytosis... trending down Sacral decubitus ulcers with osteomyelitis Left elbow wound ? UTI. Chronic indwelling suprapubic catheter Port in place right chest - site benign RUE midline - site benign. Removed and catheter tip culture per ID. Unclear when this was placed. 04/26 Sputum cx: Pseudomonas, Kleb ESBL, Proteus 04/25 Urine cx : GNR, Group D enterococcus 05/01 urine culture-Ema albicans Continue abx per ID(Zosyn) monitor for signs of infections ( Fever, WBC) WBC is trending down Wound care is following. Check sputum cx, UA with cx if indicated suprapubic catheter replaced at bedside 04/26. Patient has an IVC filter. RLE ultrasound + for DVT. HEME: IVC filter in place LE DVT IVC filter on Lovenox 90mg Q12 ENDO: Acute hyperglycemia SSI for glycemic control PROPH: Has an IVC filter in place, on Lovenox 90mg Sq Q12. Pepcid for stress ulcer prophylaxis ACCESS: Port in place right chest. Right IJ central venous line placed in ED 04/26/17, discontinued Level 3 Physician Julee Dumont MD May 04, 2017 14:16
[2017-05-04] MEDS: MIRTAZAPINE 15 MG TAB G-TUBE SCH (19:49)
[2017-05-04] MEDS: traZODone HCL 100 MG TAB PO SCH (19:50)
[2017-05-04] MEDS: LORazepam 1 MG TAB G-TUBE PRN (19:50)
[2017-05-04] MEDS: GABAPENTIN 300 MG CAP PO SCH (19:50)
[2017-05-05] VITALS (25 sets, daily range): BP systolic 107–160; BP diastolic 58–86; PULSE 60–101; RESP 14–111; TEMP 98.1–98.5; O2SAT 84–100
[2017-05-05] MEDS: INSULIN ASPART SUPPLEMENTAL SCALE SQ SCH ×5 (04:00→20:00)
[2017-05-05] MEDS: PIPERACIL-TAZO 4.5 GM PREMIX 100 ML IV SCH ×3 (05:26→17:34)
[2017-05-05] MEDS: METOCLOPRAMIDE HCL 10 MG/2 ML VIAL IV PUSH SCH ×3 (05:26→21:05)
--- NOTE | 2017-05-05 09:09 | HHI.CCPN ---
Subjective Remarks/Hospital Course Hospital Course: 57-year-old male with past medical history of spinal cord injury resulting in quadriplegia, s/p trach/PEG with vent dependency, ostomy, HTN, sacral and left elbow decubitus ulcers, chronic indwelling suprapubic catheter, depression, anxiety, port right chest, IVC filter who was sent to [facility] emergency department from [facility] due to fever 103.8 and ( per [place] transfer documentation "highly agitated after getting medication for agitation"). Patient is alert on vent and difficult historian but does mouth some words and helps provide some limited history. Records indicate that he was started on Zosyn and vancomycin on 04/23/17 "for ESBL and Proteus mirabilis sacral wound/osteomyelitis x 6weeks", on isolation for "MRSA elbow". White blood cell count is elevated at 18.1. Hemoglobin is 7.5. Lactic acid is 2.1. Transaminases and alkaline phosphatase are elevated. Lipase is normal. CT abdomen and pelvis demonstrates bilateral lower lobe consolidations, moderate left pleural effusion. PEG tube is in place but there is dilation of the small bowel in the mid abdomen without discrete transition point; probable ileus versus developing small bowel obstruction. There is sclerosis and hyper trophic changes of the left ischial tuberosity which can be seen and chronic osteomyelitis. Gallbladder is unremarkable. In the emergency department patient was maintained on chronic ventilator settings with pressure SIMV. He was given Toradol 30 mg IV, morphine 4 mg IV, 1 L normal saline bolus. PEG was noted to be obstructed by ED physician who was unable to flush using soda. Patient refused NG tube. Patient does repeatedly request both oral and trach suctioning. He does reports some mild increase in respiratory secretions. subjective: 2/4: GI planning EGD with decompression and PEG tube swap. patient states he wants to go home and feels better. ROS difficult to obtain due to chronic vent dependency, but limited ROS negative for fever, chills, abd pain, swelling. LE DVT + on u/s yesterday: ivc filter in place. holding full dose anticoagulation until GI procedure today. will need full dose anticoagulation after that. 2 No events overnight. For PEG tube replacement today. Afebrile. 04/29 Patient remains on ventilator via trach. s/p PEG tube placement yesterday. 2 No events overnight. BP borderline low this morning given Ativan 1mg x1 at 3 am. Afebrile. 05/01 No events overnight. Patient had SB series yesterday showed no obstruction. Afebrile. 05/02 Patient remains on ventilator via trach. Afebrile. 05/03: Afebrile. Patient tolerating tube feeds. Hemodynamically stable. Colostomy output liquid brown stool. Reported overnight small amount of maroon color stool, hemoglobin stable will continue to monitor. 05/04: Afebrile. No acute events overnight. Patient tolerating tube feeds. 05/05 No events overnight. On ventilator via trach. Afebrile. Objective Vital Signs Date Time Temp Pulse Resp B/P (MAP) Pulse Ox O2 Delivery O2 Flow Rate FiO2 05/05/17 08:59 100 30 05/05/17 06:00 63 05/05/17 04:00 118/61 (80) 05/05/17 04:00 98.2 05/05/17 04:00 14 Intake and Output 05/05/17 05/05/17 05/06/17 08:00 16:00 00:00 Intake Total 605 ml Output Total 1100 ml Balance -495 ml Result Diagram: 05/04/17 0448 05/04/17 0448 Other Results Laboratory Tests Test 05/05/17 08:46 Imaging Last Impressions Chest X-Ray 05/04/17 0600 Signed Impressions: Service Date/Time: Thursday, May 04, 2017 03:16 - CONCLUSION: 1. Stable basilar airspace disease, left greater than right. Miguel Mendez MD Small Bowel X-Ray 04/30/17 0000 Signed Impressions: Service Date/Time: Sunday, April 30, 2017 10:17 - CONCLUSION: No evidence of obstruction. Nick Smith MD Abdomen X-Ray 04/29/17 0000 Signed Impressions: Service Date/Time: Saturday, April 29, 2017 09:36 - CONCLUSION: Slight interval decrease in diffuse gaseous distention of bowel Thompson Khan MD Lower Extremity Ultrasound 04/26/17 7970 Signed Impressions: Service Date/Time: Wednesday, April 26, 2017 08:46 - CONCLUSION: 1. Occlusive deep venous thrombosis right leg. 2. No DVT left leg. Adi Ferrer MD Abdomen/Pelvis CT 04/25/17 0000 Signed Impressions: Service Date/Time: Wednesday, April 26, 2017 01:13 - CONCLUSION: Probable ileus versus developing small bowel obstruction with dilated small bowel loops identified and no discrete transition point, however close clinical and radiographic followup is advised. Left pleural effusion and bilateral lower lobe consolidation. Renal cysts. Small amount of free fluid. Decubitus ulcer with underlying sclerosis and hypertrophic changes of the left ischial tuberosity. Ilya Nash MD Objective Remarks GENERAL: Chronically ill-appearing male who has quadriplegia, tracheostomy on mechanical ventilation. He is sitting up and alert and communicating by nodding and trying to mouth some words though communication is limited. HEAD: Atraumatic. Normocephalic. EYES: Pupils equal and round. No scleral icterus. No injection or drainage. ENT: No nasal bleeding or discharge. Mucous membranes pink and moist. NECK: Cuff tracheostomy in place. On mechanical ventilation SIMV: home settings. CARDIOVASCULAR: Regular rate and rhythm. No murmurs rubs or gallops appreciated. VASC: Port is in place right chest with site benign appearing. Midline in place RUE, no erythema or drainage RESPIRATORY: On mechanical ventilation via trach. Appears reasonably comfortable without accessory muscle use. GASTROINTESTINAL: Abdomen distended tympanitic. PEG tube in place without abnormality of insertion site, does not flush or draw. Ostomy pink draining liquid brown stool. MUSCULOSKELETAL: Extremities without clubbing, cyanosis. Arms held in flexion, wrist held in extension bilaterally (contractures). Bilateral foot drop. NEUROLOGICAL: GCS 11T Awake and alert. Quadriparesis. + shoulder shrug. No obvious cranial nerve deficits. Mouths words but is difficult to understand what he is saying. A/P Assessment and Plan NEURO: Spinal cord injury with quadriplegia Chronic pain Chronic opioid use Peripheral neuropathy Depression Anxiety Monitor neuro status Gabapentin 300 daily at bedtime Trazodone 150 by mouth daily at bedtime Remeron 15 mg daily at bedtime Baclofen 5 mg 3 times a day BuSpar 5 mg 3 times a day GCS 11T RESP: Chronic vent dependent respiratory failure Tracheostomy Left pleural effusion Bibasilar pneumonia Continue vent support keep sat >92% On mechanical ventilation with pressure SIMV IP: 28, rate 16, PEEP 5/I time 1/ pressure support 15, FiO2 30% per chronic settings from detention Schedule bronchodilators, ICU vent bundle. Pulm toilet, trach care 05/04 CXR-stable air space disease left greater than right CV: Monitor Hr and BP. Maintain MAP> 65mmHg GI: Ileus PEG malfunction. Transaminase elevation, downtrend from 04/22/17. No gallbladder abnormality noted on CT Colostomy 04/30: SB series showed no obstruction CT abdomen and pelvis 04/26 ileus vs ???developing SBO: KUB abdomen 04/28: Ileus, repeat KUB abdomen 04/29: Slight interval decrease in diffuse gaseous distention of bowel . On Marium lax, Senokot, Reglan s/p PEG replacement 04/28 tube feeds- On Jevity 1.5 @60ml/hr, minimal residual Colostomy-liquid brown stool output FEN/RENAL: Suprapubic catheter Monitor renal function, I/O's, electrolytes replacement per protocol Catheter replaced 04/29 by Urology. Small leak noted, consult urology Monitor intake and output. Monitor electrolytes and replace as indicated. ID: Leukocytosis... trending down Sacral decubitus ulcers with osteomyelitis Left elbow wound ? UTI. Chronic indwelling suprapubic catheter Port in place right chest - site benign RUE midline - site benign. Removed and catheter tip culture per ID. Unclear when this was placed. 04/26 Sputum cx: Pseudomonas, Kleb ESBL, Proteus 04/25 Urine cx : GNR, Group D enterococcus 05/01 urine culture-Ema albicans Continue abx per ID(Zosyn till 05/12) monitor for signs of infections ( Fever, WBC) Wound care is following. Check sputum cx, UA with cx if indicated suprapubic catheter replaced at bedside 04/26. Patient has an IVC filter. RLE ultrasound + for DVT. HEME: IVC filter in place LE DVT IVC filter on Lovenox 90mg Q12 ENDO: Acute hyperglycemia SSI for glycemic control PROPH: Has an IVC filter in place, on Lovenox 90mg Sq Q12. Pepcid for stress ulcer prophylaxis ACCESS: Port in place right chest. practice managers eval for placement. Level 2 Thierry Thurston MD May 05, 2017 09:09
[2017-05-05 09:10] LABS: HEMATOCRIT 26.8 % (39.0-51.0); HEMOGLOBIN 8.5 GM/DL (13.0-17.0); MEAN CELL VOLUME 70.3 FL (80.0-100.0); MEAN CORPUSCULAR HEMOGLOBIN 22.1 PG (27.0-34.0); MEAN CORPUSCULAR HGB CONC 31.5 % (32.0-36.0); MEAN PLATELET VOLUME 7.6 FL (7.0-11.0); PLATELET COUNT 359 TH/MM3 (150-450); RED BLOOD COUNT 3.82 MIL/MM3 (4.50-5.90); RED CELL DISTRIBUTION WIDTH 21.8 % (11.6-17.2); WHITE BLOOD COUNT 7.7 TH/MM3 (4.0-11.0)
[2017-05-05 09:40] LABS: BICARBONATE 27.8 MEQ/L (21.0-32.0); CALCIUM 8.9 MG/DL (8.5-10.1); CREATININE 0.39 MG/DL (0.60-1.30); MAGNESIUM 2.3 MG/DL (1.5-2.5); PHOSPHORUS 3.3 MG/DL (2.5-4.9)
[2017-05-05] MEDS: RESP: ALBUTEROL 2.5 MG/3 ML NEB (PRN) INH (09:56)
[2017-05-05] MEDS: ASCORBIC ACID 500 MG TAB G-TUBE SCH (10:00)
[2017-05-05] MEDS: DOCUSATE SODIUM 50 MG/SENNA 8.6 MG TAB PO SCH ×2 (10:00→21:03)
[2017-05-05] MEDS: BACLOFEN 10 MG TAB G-TUBE SCH ×3 (10:00→17:34)
[2017-05-05] MEDS: FAMOTIDINE 20 MG TAB PO SCH ×2 (10:00→21:03)
[2017-05-05] MEDS: SENNOSIDES 8.6 MG TAB G-TUBE SCH ×2 (10:00→21:03)
[2017-05-05] MEDS: busPIRone HCL 5 MG TAB G-TUBE SCH ×3 (10:00→17:34)
[2017-05-05] MEDS: MULTIVITAMINS/MINERALS THERAPEUTIC TAB G-TUBE SCH (10:00)
[2017-05-05] MEDS: SILVER SULFADIAZINE 1% CR 50 GM JAR TOPICAL SCH (10:01)
[2017-05-05] MEDS: SODIUM CHLORIDE 0.9% FLUSH 10 ML FLUSH IV FLUSH SCH ×2 (10:02→21:00)
[2017-05-05] MEDS: CHLORHEXIDINE 0.12% (ORAL KIT) 15 ML CUP MT SCH ×2 (10:02→20:00)
[2017-05-05] MEDS: ENOXAPARIN SODIUM 100 MG/ML SYRINGE SQ SCH ×2 (10:03→21:04)
--- NOTE | 2017-05-05 12:39 | HHI.PR ---
Subjective Remarks He is awake and on Vent support, FIo2 at 30 %.Rate at 14. On tube feeds. Tolerates it Objective Vital Signs Date Time Temp Pulse Resp B/P (MAP) Pulse Ox O2 Delivery O2 Flow Rate FiO2 05/05/17 12:30 79 20 142/78 (99) 93 05/05/17 12:00 30 05/05/17 12:00 60 05/05/17 12:00 98.3 85 20 136/80 (98) 94 05/05/17 11:30 100 35 05/05/17 11:00 80 18 133/86 (102) 95 05/05/17 10:30 63 15 129/65 (86) 100 05/05/17 10:00 66 23 141/69 (93) 100 05/05/17 10:00 65 05/05/17 09:30 97 23 134/68 (90) 84 05/05/17 09:00 101 20 132/69 (90) 100 05/05/17 08:59 100 30 05/05/17 08:30 76 15 152/72 (98) 99 05/05/17 08:00 98.5 67 75 160/76 (104) 100 05/05/17 08:00 60 05/05/17 08:00 30 05/05/17 07:30 70 72 115/79 (91) 99 05/05/17 07:00 64 62 113/58 (76) 99 05/05/17 06:00 63 05/05/17 04:27 100 30 05/05/17 04:00 118/61 (80) 05/05/17 04:00 83 05/05/17 04:00 98.2 61 118/61 (80) 05/05/17 04:00 30 05/05/17 04:00 98.2 83 14 118/61 (80) 98 05/05/17 02:00 64 05/05/17 00:27 99 30 05/05/17 00:00 75 05/05/17 00:00 98.4 75 111 131/63 (85) 100 05/05/17 00:00 30 05/04/17 22:00 63 05/04/17 21:37 100 30 05/04/17 20:00 98.6 66 91 164/80 (108) 100 05/04/17 20:00 30 05/04/17 20:00 66 05/04/17 18:00 92 05/04/17 16:40 97 30 05/04/17 16:00 30 05/04/17 16:00 98.6 88 17 137/63 (87) 98 05/04/17 16:00 88 05/04/17 14:00 66 05/04/17 13:07 98 30 I/O 05/04/17 05/04/17 05/04/17 05/05/17 05/05/17 05/05/17 07:00 15:00 23:00 07:00 15:00 23:00 Intake Total 945 ml 100 ml 803 ml 605 ml Output Total 650 ml 0 ml 1600 ml 1100 ml Balance 295 ml 100 ml -797 ml -495 ml Intake Oral 0 ml IV Total 200 ml 100 ml Tube Feeding 645 ml 803 ml 545 ml Other 100 ml 60 ml Output Urine Total 550 ml 1100 ml 1000 ml Stool Total 100 ml 500 ml 100 ml Gastric Drainage Total 0 ml Tube Feeding Residual Discard 0 ml Result Diagram: 05/05/1746 05/05/1746 Objective Remarks This emaciated middle-aged -Portuguese male has multiple contractures of the extremities and weakness of all extremities. Skin: Tightly stretched over the extremities. Decubitus ulcers in the sacral and elbow areas. HEENT: Head normocephalic. Pupils are reactive. Tongue is moist. Throat is dry. Nasal mucosa is clear. Ears: no inflammation. Neck: Supple without venous distension. Trachea midline. Chest: Decreased excursions with few basilar crackles. Heart: Heart sounds are regular S1-S2. No murmur. No S3. Abdomen: Protuberant with a PEG tube in place, ostomy and suprapubic catheter. No organomegaly. Bowel sounds active. Extremities: Contractures with flexion of arms, elbows and foot drop bilaterally with quadriparesis. There is minimal edema of the extremities. Skin: Dry and cool. Assessment and Plan Assessment and Plan IMPRESSION: 1. Ventilator dependent respiratory failure. 2. Status post tracheostomy and PEG tube placement, port placement. 3. Quadriplegia. 4. Multiple decubitus ulcers with sepsis. 5. Bibasilar pneumonia and atelectasis. 6. Anxiety and depression. 7. Hypertension. plan : 1. Continue on vent support , Pressure SIMV rate 14 , PEEP +5 and FIO2 30 % 2. Nebs q6h , duoneb 3. Antibiotics per ID 4. OK to transfer to [facility]. 5. Tube feeds at 50 CC 6. CXR in am 7. Wound management Jaleel Oneill MD May 05, 2017 12:39
--- NOTE | 2017-05-05 13:39 | HHI.IDPN ---
Subjective Subjective Remarks Patient is a 57-year-old male, resident of a [place] [facility], chronically on the respirator, has history of spinal cord injury with quadriplegia, has a PEG, colostomy, and a suprapubic catheter in place, brought to the hospital for evaluation of fever. He was also agitated according to the [place] [facility] notes. On evaluation of his [place] [facility] records, it looks like the patient was started on vancomycin and Zosyn on April 23 for treatment of osteomyelitis as a result of a sacral decubitus ulcer, with growth of ESBL positive organism, Proteus mirabilis. There was also mention that he had an MRSA from an elbow wound culture. There has been no change on his respiratory status. He remains chronically vent dependent. Evaluation in the emergency room showed leukocytosis. Chest x-ray showed basilar infiltrates and which seem to be similar to his chest x-ray from December 2016. CT of the abdomen and pelvis showed bilateral lower lobe consolidation with left pleural effusion, PEG tube in place, the location of the small bowel, and some sclerotic changes and hypertrophic changes of the left ischial tuberosity. He is not on pressors. His suprapubic catheter was reportedly change in the emergency room. Urinalysis was abnormal with significant pyuria. His cultures are currently pending. Cultures from the [place] [facility] are not available for review. Patient is currently on meropenem. Infectious disease consultation has been requested to evaluate and assist with management in a patient with known MDR organism infection. Notes reviewed D/W RN Temps ok Vent dependent BP ok Looking to D/C back to SNF He is clinically doing well from ID standpoint Antibiotics Current Medications Zosyn Medications (Trade) Dose Ordered Sig/Francisco J Route Start Time Stop Time Status Last Admin (Peridex 0.12% Liq) 15 ml BID@08,20 MT 04/26/17 08:00 05/05/17 10:02 (Vitamin C) 500 mg DAILY G-TUBE 04/26/17 09:00 05/05/17 10:00 (Lioresal) 5 mg TID G-TUBE 04/26/17 09:00 05/05/17 13:11 (Buspar) 5 mg TID G-TUBE 04/26/17 09:00 05/05/17 13:11 (Neurontin) 300 mg HS PO 04/26/17 21:00 05/04/17 19:50 (Ativan) 1 mg Q6HR PRN G-TUBE 04/26/17 05:30 05/04/17 19:50 (Remeron) 15 mg HS G-TUBE 04/26/17 21:00 05/04/17 19:49 (Roxicodone) 5 mg Q6HR PRN PEG 04/26/17 05:30 05/03/17 20:17 (Senokot) 17.2 mg BID G-TUBE 04/26/17 09:00 05/05/17 10:00 (Silvadene 1% Cream (50 Gm)) 1 applic DAILY TOPICAL 04/26/17 09:00 05/05/17 10:01 (Theragran M Tab) 1 tab DAILY G-TUBE 04/26/17 09:00 05/05/17 10:00 (Desyrel) 150 mg HS PO 04/26/17 21:00 05/04/17 19:50 (NS Flush) 2 ml UNSCH PRN IV FLUSH 04/26/17 05:30 05/03/17 20:18 (NS Flush) 2 ml BID IV FLUSH 04/26/17 09:00 05/05/17 10:02 (Tylenol) 650 mg Q6H PRN PO 04/26/17 05:30 (Pepcid) 20 mg Q12HR PO 04/26/17 09:00 05/05/17 10:00 (Zofran Inj) 4 mg Q6H PRN IV PUSH 04/26/17 05:30 (Albuterol Neb) 2.5 mg Q2HR NEB PRN INH 04/26/17 05:30 05/05/17 09:56 Miscellaneous Information 1 Q361D XX 04/26/17 05:30 04/26/17 05:30 (Chlorhexidine 2% Cloth) Taper DAILY@04 TOP 04/27/17 04:00 04/23/18 03:59 05/02/17 03:26 (Chlorhexidine 2% Cloth) 3 pack UNSCH PRN TOP 04/26/17 05:30 (Lynsey-Colace) 1 tab BID PO 04/26/17 09:00 05/05/17 10:00 (Milk Of Magnesia Liq) 30 ml Q12H PRN PO 04/26/17 05:30 (Senokot) 17.2 mg Q12H PRN PO 04/26/17 05:30 (Dulcolax Supp) 10 mg DAILY PRN RECTAL 04/26/17 05:30 (Lactulose Liq) 30 ml DAILY PRN PO 04/26/17 05:30 (D50w (Vial) Inj) 50 ml UNSCH PRN IV PUSH 04/26/17 10:00 Future Hold (Glucagon Inj) 1 mg UNSCH PRN OTHER 04/26/17 10:00 (NovoLOG SUPPLEMENTAL SCALE) 1 Q4HR SQ 04/26/17 10:00 04/26/17 15:36 Potassium Chloride 100 ml @ 50 mls/hr Q2H PRN IV 04/26/17 14:30 05/01/17 06:11 Potassium Chloride 100 ml @ 50 mls/hr Q2H PRN IV 04/26/17 14:30 05/02/17 13:40 (K-Lyte Cl Eff) 50 meq UNSCH PRN PO 04/26/17 14:30 04/30/17 16:41 Potassium Chloride 100 ml @ 25 mls/hr UNSCH PRN IV 04/26/17 14:30 04/26/17 15:31 Potassium Chloride 100 ml @ 50 mls/hr Q2H PRN IV 04/26/17 14:30 Magnesium Sulfate 4 gm/Sodium Chloride 100 ml @ 50 mls/hr UNSCH PRN IV 04/26/17 14:30 (Mag-Ox) 800 mg UNSCH PRN PO 04/26/17 14:30 Magnesium Sulfate 2 gm/Sodium Chloride 100 ml @ 50 mls/hr UNSCH PRN IV 04/26/17 14:30 (K-Phos) 2,000 mg Q4H PRN PO 04/26/17 14:30 Sodium Phosphate 30 mmol/Sodium Chloride 250 ml @ 42 mls/hr UNSCH PRN IV 04/26/17 14:30 05/03/17 10:23 (K-Phos) 2,000 mg UNSCH PRN PO/TUBE 04/26/17 14:30 Potassium Phosphate 30 mmol/ Sodium Chloride 260 ml @ 42 mls/hr UNSCH PRN IV 04/26/17 14:30 (Pepcid Inj) 20 mg Q12HR PRN IV PUSH 04/27/17 14:30 Piperacillin Sod/ Tazobactam Sod 100 ml @ 200 mls/hr Q6H IV 04/28/17 12:00 05/12/17 12:00 05/05/17 13:12 (Apresoline Inj) 10 mg Q6H PRN IV PUSH 04/28/17 17:45 05/04/17 15:15 (Reglan Inj) 5 mg Q8HR IV PUSH 04/29/17 10:00 05/05/17 13:11 (Lovenox Inj) 90 mg Q12H SQ 04/29/17 10:00 05/05/17 10:03 (Clear Eyes Redness Relief 0.012% Opth Soln) 1 drop QID PRN EACH EYE 04/29/17 19:45 Dextrose/Sodium Chloride 1,000 ml @ 42 mls/hr [id number] IV 05/01/17 08:15 Future Hold 05/02/17 09:10 Lines Port [place] line Past Medical History Quadriplegia following spinal cord injury Chronic vent dependent respiratory failure with tracheostomy Hypertension Chronic opioid use Sacral decubitus ulcer present on admission, Left elbow decubitus ulcer present on admission Anxiety Depression Ostomy Chronic suprapubic catheter PEG Prior ileus Previous treatment for 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 Vital Signs Date Time Temp Pulse Resp B/P (MAP) Pulse Ox O2 Delivery O2 Flow Rate FiO2 05/05/17 12:30 79 20 142/78 (99) 93 05/05/17 12:00 30 05/05/17 12:00 60 05/05/17 12:00 98.3 85 20 136/80 (98) 94 05/05/17 11:30 100 35 05/05/17 11:00 80 18 133/86 (102) 95 05/05/17 10:30 63 15 129/65 (86) 100 05/05/17 10:00 66 23 141/69 (93) 100 05/05/17 10:00 65 05/05/17 09:30 97 23 134/68 (90) 84 05/05/17 09:00 101 20 132/69 (90) 100 05/05/17 08:59 100 30 05/05/17 08:30 76 15 152/72 (98) 99 05/05/17 08:00 98.5 67 75 160/76 (104) 100 05/05/17 08:00 60 05/05/17 08:00 30 05/05/17 07:30 70 72 115/79 (91) 99 05/05/17 07:00 64 62 113/58 (76) 99 05/05/17 06:00 63 05/05/17 04:27 100 30 05/05/17 04:00 118/61 (80) 05/05/17 04:00 83 05/05/17 04:00 98.2 61 118/61 (80) 05/05/17 04:00 30 05/05/17 04:00 98.2 83 14 118/61 (80) 98 05/05/17 02:00 64 05/05/17 00:27 99 30 05/05/17 00:00 75 05/05/17 00:00 98.4 75 111 131/63 (85) 100 05/05/17 00:00 30 05/04/17 22:00 63 05/04/17 21:37 100 30 05/04/17 20:00 98.6 66 91 164/80 (108) 100 05/04/17 20:00 30 05/04/17 20:00 66 05/04/17 18:00 92 05/04/17 16:40 97 30 05/04/17 16:00 30 05/04/17 16:00 98.6 88 17 137/63 (87) 98 05/04/17 16:00 88 05/04/17 14:00 66 . Laboratory Tests Test 05/04/17 04:48 05/05/17 08:46 White Blood Count 9.6 TH/MM3 7.7 TH/MM3 Red Blood Count 3.51 MIL/MM3 3.82 MIL/MM3 Hemoglobin 7.9 GM/DL 8.5 GM/DL Hematocrit 24.8 % 26.8 % Mean Corpuscular Volume 70.8 FL 70.3 FL Mean Corpuscular Hemoglobin 22.4 PG 22.1 PG Mean Corpuscular Hemoglobin Concent 31.6 % 31.5 % Red Cell Distribution Width 21.8 % 21.8 % Platelet Count 347 TH/MM3 359 TH/MM3 Mean Platelet Volume 7.6 FL 7.6 FL Neutrophils (%) (Auto) 69.0 % Lymphocytes (%) (Auto) 18.5 % Monocytes (%) (Auto) 6.8 % Eosinophils (%) (Auto) 5.1 % Basophils (%) (Auto) 0.6 % Neutrophils # (Auto) 6.6 TH/MM3 Lymphocytes # (Auto) 1.8 TH/MM3 Monocytes # (Auto) 0.7 TH/MM3 Eosinophils # (Auto) 0.5 TH/MM3 Basophils # (Auto) 0.1 TH/MM3 CBC Comment DIFF FINAL Differential Comment Laboratory Tests Test 05/04/17 04:48 05/05/17 08:46 Blood Urea Nitrogen 8 MG/DL 8 MG/DL Creatinine 0.41 MG/DL 0.39 MG/DL Random Glucose 115 MG/DL 124 MG/DL Calcium Level 8.4 MG/DL 8.9 MG/DL Phosphorus Level 2.9 MG/DL 3.3 MG/DL Magnesium Level 2.0 MG/DL 2.3 MG/DL Sodium Level 141 MEQ/L 140 MEQ/L Potassium Level 3.6 MEQ/L 3.5 MEQ/L Chloride Level 107 MEQ/L 106 MEQ/L Carbon Dioxide Level 26.6 MEQ/L 27.8 MEQ/L Anion Gap 7 MEQ/L 6 MEQ/L Estimat Glomerular Filtration Rate 263 ML/MIN 279 ML/MIN Imaging Chest X-Ray 04/27/17 0000 Signed Impressions: Service Date/Time: Thursday, April 27, 2017 03:59 - CONCLUSION: No significant change has occurred. Ilya Nash MD Lower Extremity Ultrasound 04/26/17 2344 Signed Impressions: Service Date/Time: Wednesday, April 26, 2017 08:46 - CONCLUSION: 1. Occlusive deep venous thrombosis right leg. 2. No DVT left leg. Adi Ferrer MD Abdomen/Pelvis CT 04/25/17 0000 Signed Impressions: Service Date/Time: Wednesday, April 26, 2017 01:13 - CONCLUSION: Probable ileus versus developing small bowel obstruction with dilated small bowel loops identified and no discrete transition point, however close clinical and radiographic followup is advised. Left pleural effusion and bilateral lower lobe consolidation. Renal cysts. Small amount of free fluid. Decubitus ulcer with underlying sclerosis and hypertrophic changes of the left ischial tuberosity. Ilya Nash MD Physical Exam GENERAL: awakens easily from sleep, not in respiratory distress. On the vent SKIN: Cool and dry. No generalized rash, no ecchymoses and no evidence of embolic lesions. HEAD: Atraumatic. Normocephalic. No temporal wasting, or tenderness. EYES: [place] conjunctiva. No petechia or hemorrhage. Pupils equal, round and reactive to light. Extraocular movements full and intact. No scleral icterus. No injection or drainage. EARS, NOSE AND THROAT: Nose without bleeding or purulent nasal discharge. No sinus tenderness. Mucous membranes pink and moist. No oral lesions noted. NECK: Tracheostomy site is ok. Supple and not tender, no meningeal signs. RIJ line ok, no evidence of infection CARDIOVASCULAR: Regular rate and rhythm. No murmurs, rubs or gallops heard RESPIRATORY: Bilateral coarse rhonchi. Equal breath sounds ABDOMEN: Less distended, tympanitic on percussion, bowel sounds are hypoactive. PEG site looks ok,. Colostomy bag with pasty stool. SPC site ok. BACK: Has sacral ulcer that is about 8 x 10 cm, min drainage, no odor, with some slough. EXTREMITIES: No clubbing, cyanosis. Has mild pedal edema. L foot cool compared to R foot. Dressing L elbow, no cellulitis around ulcer, no purulence NEUROLOGICAL: Awakens easily from sleep. Contractures of his extremities PSYCHIATRIC: Normal affect, calm and cooperative. LINE: No evidence of infection Assessment & Plan Remarks IMPRESSION Sepsis with fever, leukocytosis, tachycardia, elevated lactic acid, source - resolved - DDX: , PNA - has lines : port not working, has midline ?inserted, site ok - has decubitus, C/S MDR, wounds look ok, on Abx since 04/23, ? osteomyelitis - temps better Chronic respiratory failure, due to quadriplegia from SC injury HCAP UTI, has SPC Sacral decubitus, ?osteo L elbow wound, looks ok, per SNF records (+) MRSA in C/S which could just be colonization Abdominal distension, possible ileus on CT Leukocytosis, resolcved Elevated LFTs, ?due to sepsis, GB looks ok on CT - improving Abdominal distension, better, has BM RECOMMENDATION Continue Zosyn - plan 14 days Rx - end date May 12 Patient clinically doing well and stable from ID standpoint for D/C Looking at getting D/C back to SNF - waiting for bed D/W Leonila Jaramillo MD May 05, 2017 13:39
[2017-05-05] MEDS: LORazepam 1 MG TAB G-TUBE PRN (17:34)
[2017-05-05] MEDS: traZODone HCL 100 MG TAB PO SCH (21:03)
[2017-05-05] MEDS: GABAPENTIN 300 MG CAP PO SCH (21:03)
[2017-05-05] MEDS: MIRTAZAPINE 15 MG TAB G-TUBE SCH (21:03)
[2017-05-06] VITALS (10 sets, daily range): BP systolic 124–160; BP diastolic 65–81; PULSE 100–104; RESP 19–30; TEMP 98.1–98.7; O2SAT 96–100
[2017-05-06] MEDS: CHLORHEXIDINE GLUCONATE 2 % 1 PACK (2 CLOTHS) TOP SCH (04:00)
[2017-05-06] MEDS: INSULIN ASPART SUPPLEMENTAL SCALE SQ SCH ×6 (04:00→20:00)
--- NOTE | 2017-05-06 05:02 | RADRPT ---
EXAM DATE/TIME: 05/06/2017 03:59 [place] COMPARISON: CHEST SINGLE AP, May 04, 2017, 3:16. INDICATIONS : Short of breath. MEDICAL HISTORY : Vent Dependent. SURGICAL HISTORY : Colostomy, PEG Tube ENCOUNTER: Subsequent ACUITY: 1 month PAIN SCORE: 0/10 LOCATION: Bilateral chest FINDINGS: Cardiomegaly, left effusion and lower lobe consolidation bilaterally is unchanged. Right subclavian l ine identified. Osseous structures are stable. CONCLUSION: No significant change has occurred. Ilya Nash MD on May 06, 2017 at 4:59 Board Certified Radiologist. This report was verified electronically.
[2017-05-06] MEDS: METOCLOPRAMIDE HCL 10 MG/2 ML VIAL IV PUSH SCH ×2 (06:00→14:00)
[2017-05-06] MEDS: PIPERACIL-TAZO 4.5 GM PREMIX 100 ML IV SCH ×4 (06:00→19:48)
[2017-05-06 06:45] LABS: AUTOMATED NEUTROPHIL # 15.7 TH/MM3 (1.8-7.7); BASOPHIL # 0.1 TH/MM3 (0-0.2); BASOPHIL % 0.3 % (0.0-2.0); EOSINOPHIL # 0.2 TH/MM3 (0-0.4); EOSINOPHIL % 1.1 % (0.0-4.0); HEMATOCRIT 26.5 % (39.0-51.0); HEMOGLOBIN 8.2 GM/DL (13.0-17.0); LYMPH % 4.6 % (9.0-44.0); LYMPHOCYTE # 0.8 TH/MM3 (1.0-4.8); MEAN CELL VOLUME 70.9 FL (80.0-100.0); MEAN CORPUSCULAR HEMOGLOBIN 21.8 PG (27.0-34.0); MEAN CORPUSCULAR HGB CONC 30.7 % (32.0-36.0); MEAN PLATELET VOLUME 7.6 FL (7.0-11.0); MONO % 4.1 % (0.0-8.0); MONOCYTE # 0.7 TH/MM3 (0-0.9); NEUT % 89.9 % (16.0-70.0); PLATELET COUNT 314 TH/MM3 (150-450); RED BLOOD COUNT 3.74 MIL/MM3 (4.50-5.90); RED CELL DISTRIBUTION WIDTH 21.8 % (11.6-17.2); WHITE BLOOD COUNT 17.4 TH/MM3 (4.0-11.0)
[2017-05-06 07:12] LABS: BICARBONATE 28.3 MEQ/L (21.0-32.0); CREATININE 0.44 MG/DL (0.60-1.30)
--- NOTE | 2017-05-06 07:46 | HHI.CCPN ---
Subjective Remarks/Hospital Course Hospital Course: 57-year-old male with past medical history of spinal cord injury resulting in quadriplegia, s/p trach/PEG with vent dependency, ostomy, HTN, sacral and left elbow decubitus ulcers, chronic indwelling suprapubic catheter, depression, anxiety, port right chest, IVC filter who was sent to [facility] emergency department from [facility] due to fever 103.8 and ( per MD transfer documentation "highly agitated after getting medication for agitation"). Patient is alert on vent and difficult historian but does mouth some words and helps provide some limited history. Records indicate that he was started on Zosyn and vancomycin on 04/23/17 "for ESBL and Proteus mirabilis sacral wound/osteomyelitis x 6weeks", on isolation for "MRSA elbow". White blood cell count is elevated at 18.1. Hemoglobin is 7.5. Lactic acid is 2.1. Transaminases and alkaline phosphatase are elevated. Lipase is normal. CT abdomen and pelvis demonstrates bilateral lower lobe consolidations, moderate left pleural effusion. PEG tube is in place but there is dilation of the small bowel in the mid abdomen without discrete transition point; probable ileus versus developing small bowel obstruction. There is sclerosis and hyper trophic changes of the left ischial tuberosity which can be seen and chronic osteomyelitis. Gallbladder is unremarkable. In the emergency department patient was maintained on chronic ventilator settings with pressure SIMV. He was given Toradol 30 mg IV, morphine 4 mg IV, 1 L normal saline bolus. PEG was noted to be obstructed by ED physician who was unable to flush using soda. Patient refused NG tube. Patient does repeatedly request both oral and trach suctioning. He does reports some mild increase in respiratory secretions. subjective: 2/4: GI planning EGD with decompression and PEG tube swap. patient states he wants to go home and feels better. ROS difficult to obtain due to chronic vent dependency, but limited ROS negative for fever, chills, abd pain, swelling. LE DVT + on u/s yesterday: ivc filter in place. holding full dose anticoagulation until GI procedure today. will need full dose anticoagulation after that. 2 No events overnight. For PEG tube replacement today. Afebrile. 04/29 Patient remains on ventilator via trach. s/p PEG tube placement yesterday. 2 No events overnight. BP borderline low this morning given Ativan 1mg x1 at 3 am. Afebrile. 05/01 No events overnight. Patient had SB series yesterday showed no obstruction. Afebrile. 05/02 Patient remains on ventilator via trach. Afebrile. 05/03: Afebrile. Patient tolerating tube feeds. Hemodynamically stable. Colostomy output liquid brown stool. Reported overnight small amount of maroon color stool, hemoglobin stable will continue to monitor. 05/04: Afebrile. No acute events overnight. Patient tolerating tube feeds. 05/05 No events overnight. On ventilator via trach. Afebrile. 05/06 No events overnight. Afebrile. Objective Vital Signs Date Time Temp Pulse Resp B/P (MAP) Pulse Ox O2 Delivery O2 Flow Rate FiO2 05/06/17 04:59 96 35 05/06/17 04:00 98.4 100 19 142/71 (94) Intake and Output 05/06/17 05/06/17 05/07/17 08:00 16:00 00:00 Intake Total 871 ml Output Total 600 ml Balance 271 ml Result Diagram: 05/06/17 0558 05/06/17 0558 Other Results Laboratory Tests Test 05/05/17 08:46 05/06/17 05:58 White Blood Count 7.7 TH/MM3 17.4 TH/MM3 Red Blood Count 3.82 MIL/MM3 3.74 MIL/MM3 Hemoglobin 8.5 GM/DL 8.2 GM/DL Hematocrit 26.8 % 26.5 % Mean Corpuscular Volume 70.3 FL 70.9 FL Mean Corpuscular Hemoglobin 22.1 PG 21.8 PG Mean Corpuscular Hemoglobin Concent 31.5 % 30.7 % Red Cell Distribution Width 21.8 % 21.8 % Platelet Count 359 TH/MM3 314 TH/MM3 Mean Platelet Volume 7.6 FL 7.6 FL Blood Urea Nitrogen 8 MG/DL 9 MG/DL Creatinine 0.39 MG/DL 0.44 MG/DL Random Glucose 124 MG/DL 123 MG/DL Calcium Level 8.9 MG/DL 9.0 MG/DL Phosphorus Level 3.3 MG/DL Magnesium Level 2.3 MG/DL Sodium Level 140 MEQ/L 139 MEQ/L Potassium Level 3.5 MEQ/L 4.0 MEQ/L Chloride Level 106 MEQ/L 103 MEQ/L Carbon Dioxide Level 27.8 MEQ/L 28.3 MEQ/L Anion Gap 6 MEQ/L 8 MEQ/L Estimat Glomerular Filtration Rate 279 ML/MIN 242 ML/MIN Neutrophils (%) (Auto) 89.9 % Lymphocytes (%) (Auto) 4.6 % Monocytes (%) (Auto) 4.1 % Eosinophils (%) (Auto) 1.1 % Basophils (%) (Auto) 0.3 % Neutrophils # (Auto) 15.7 TH/MM3 Lymphocytes # (Auto) 0.8 TH/MM3 Monocytes # (Auto) 0.7 TH/MM3 Eosinophils # (Auto) 0.2 TH/MM3 Basophils # (Auto) 0.1 TH/MM3 CBC Comment AUTO DIFF Differential Comment Imaging Last Impressions Chest X-Ray 05/06/17 0600 Signed Impressions: Service Date/Time: Saturday, May 06, 2017 03:59 - CONCLUSION: No significant change has occurred. Ilya Nash MD Small Bowel X-Ray 04/30/17 0000 Signed Impressions: Service Date/Time: Sunday, April 30, 2017 10:17 - CONCLUSION: No evidence of obstruction. Nick Smith MD Abdomen X-Ray 04/29/17 0000 Signed Impressions: Service Date/Time: Saturday, April 29, 2017 09:36 - CONCLUSION: Slight interval decrease in diffuse gaseous distention of bowel Thompson Khan MD Lower Extremity Ultrasound 04/26/17 2344 Signed Impressions: Service Date/Time: Wednesday, April 26, 2017 08:46 - CONCLUSION: 1. Occlusive deep venous thrombosis right leg. 2. No DVT left leg. Adi Ferrer MD Abdomen/Pelvis CT 04/25/17 0000 Signed Impressions: Service Date/Time: Wednesday, April 26, 2017 01:13 - CONCLUSION: Probable ileus versus developing small bowel obstruction with dilated small bowel loops identified and no discrete transition point, however close clinical and radiographic followup is advised. Left pleural effusion and bilateral lower lobe consolidation. Renal cysts. Small amount of free fluid. Decubitus ulcer with underlying sclerosis and hypertrophic changes of the left ischial tuberosity. Ilya Nash MD Objective Remarks GENERAL: Chronically ill-appearing male who has quadriplegia, tracheostomy on mechanical ventilation. He is sitting up and alert and communicating by nodding and trying to mouth some words though communication is limited. HEAD: Atraumatic. Normocephalic. EYES: Pupils equal and round. No scleral icterus. No injection or drainage. ENT: No nasal bleeding or discharge. Mucous membranes pink and moist. NECK: Cuff tracheostomy in place. On mechanical ventilation SIMV: home settings. CARDIOVASCULAR: Regular rate and rhythm. No murmurs rubs or gallops appreciated. VASC: Port is in place right chest with site benign appearing. Midline in place RUE, no erythema or drainage RESPIRATORY: On mechanical ventilation via trach. Appears reasonably comfortable without accessory muscle use. GASTROINTESTINAL: Abdomen distended tympanitic. PEG tube in place without abnormality of insertion site, does not flush or draw. Ostomy pink draining liquid brown stool. MUSCULOSKELETAL: Extremities without clubbing, cyanosis. Arms held in flexion, wrist held in extension bilaterally (contractures). Bilateral foot drop. NEUROLOGICAL: GCS 11T Awake and alert. Quadriparesis. + shoulder shrug. No obvious cranial nerve deficits. Mouths words but is difficult to understand what he is saying. A/P Assessment and Plan NEURO: Spinal cord injury with quadriplegia Chronic pain Chronic opioid use Peripheral neuropathy Depression Anxiety Monitor neuro status Gabapentin 300 daily at bedtime Trazodone 150 by mouth daily at bedtime Remeron 15 mg daily at bedtime Baclofen 5 mg 3 times a day BuSpar 5 mg 3 times a day GCS 11T RESP: Chronic vent dependent respiratory failure Tracheostomy Left pleural effusion Bibasilar pneumonia Continue vent support keep sat >92% On mechanical ventilation with pressure SIMV IP: 28, rate 16, PEEP 5/I time 1/ pressure support 15, FiO2 30% per chronic settings from retirement Schedule bronchodilators, ICU vent bundle. Pulm toilet, trach care 05/04 CXR-stable air space disease left greater than right CV: Monitor Hr and BP. Maintain MAP> 65mmHg GI: Ileus PEG malfunction. Transaminase elevation, downtrend from 04/22/17. No gallbladder abnormality noted on CT Colostomy 04/30: SB series showed no obstruction CT abdomen and pelvis 2 ileus vs ???developing SBO: KUB abdomen 04/28: Ileus, repeat KUB abdomen 04/29: Slight interval decrease in diffuse gaseous distention of bowel . On Marium lax, Senokot, Reglan s/p PEG replacement 04/28 tube feeds- On Jevity 1.5 @60ml/hr, Colostomy-liquid brown stool output FEN/RENAL: Suprapubic catheter Monitor renal function, I/O's, electrolytes replacement per protocol Catheter replaced 04/29 by Urology. Small leak noted, consult urology Monitor intake and output. Monitor electrolytes and replace as indicated. ID: Leukocytosis... Sacral decubitus ulcers with osteomyelitis Left elbow wound ? UTI. Chronic indwelling suprapubic catheter Port in place right chest - site benign RUE midline - site benign. Removed and catheter tip culture per ID. Unclear when this was placed. 04/26 Sputum cx: Pseudomonas, Kleb ESBL, Proteus 04/25 Urine cx : GNR, Group D enterococcus 05/01 urine culture-Ema albicans Continue abx per ID(Zosyn till 05/12) monitor for signs of infections ( Fever, WBC) Repeat CBC Wound care is following. Check sputum cx, UA with cx if indicated suprapubic catheter replaced at bedside 04/26. Patient has an IVC filter. RLE ultrasound + for DVT. HEME: IVC filter in place LE DVT IVC filter on Lovenox 90mg Q12 ENDO: Acute hyperglycemia SSI for glycemic control PROPH: Has an IVC filter in place, on Lovenox 90mg Sq Q12. Pepcid for stress ulcer prophylaxis ACCESS: Port in place right chest. technical delivery manager is following,Patient is for discharge to SNF/[facility] today. Cleared by ID, GI and Pulmonary. Level 2 Thierry Thurston MD May 06, 2017 07:46
[2017-05-06] MEDS: CHLORHEXIDINE 0.12% (ORAL KIT) 15 ML CUP MT SCH ×2 (08:00→19:47)
[2017-05-06] MEDS: SENNOSIDES 8.6 MG TAB G-TUBE SCH ×2 (08:11→19:47)
[2017-05-06] MEDS: busPIRone HCL 5 MG TAB G-TUBE SCH ×3 (08:11→16:45)
[2017-05-06] MEDS: MULTIVITAMINS/MINERALS THERAPEUTIC TAB G-TUBE SCH (08:12)
[2017-05-06] MEDS: LORazepam 1 MG TAB G-TUBE PRN (08:12)
[2017-05-06] MEDS: FAMOTIDINE 20 MG TAB PO SCH ×2 (08:12→19:47)
[2017-05-06] MEDS: SILVER SULFADIAZINE 1% CR 50 GM JAR TOPICAL SCH (08:12)
[2017-05-06] MEDS: DOCUSATE SODIUM 50 MG/SENNA 8.6 MG TAB PO SCH ×2 (08:12→19:47)
[2017-05-06] MEDS: BACLOFEN 10 MG TAB G-TUBE SCH ×3 (08:12→16:46)
[2017-05-06] MEDS: ASCORBIC ACID 500 MG TAB G-TUBE SCH (08:12)
[2017-05-06] MEDS: SODIUM CHLORIDE 0.9% FLUSH 10 ML FLUSH IV FLUSH SCH ×2 (09:00→19:47)
[2017-05-06] MEDS: ENOXAPARIN SODIUM 100 MG/ML SYRINGE SQ SCH (10:00)
[2017-05-06 10:12] LABS: AUTOMATED NEUTROPHIL # 16.1 TH/MM3 (1.8-7.7); BASOPHIL % 0.2 % (0.0-2.0); EOSINOPHIL # 0.1 TH/MM3 (0-0.4); EOSINOPHIL % 0.7 % (0.0-4.0); HEMOGLOBIN 8.3 GM/DL (13.0-17.0); LYMPH % 5.3 % (9.0-44.0); LYMPHOCYTE # 0.9 TH/MM3 (1.0-4.8); MEAN CELL VOLUME 70.5 FL (80.0-100.0); MEAN CORPUSCULAR HEMOGLOBIN 21.7 PG (27.0-34.0); MEAN CORPUSCULAR HGB CONC 30.8 % (32.0-36.0); MEAN PLATELET VOLUME 7.8 FL (7.0-11.0); MONO % 3.7 % (0.0-8.0); MONOCYTE # 0.7 TH/MM3 (0-0.9); NEUT % 90.1 % (16.0-70.0); PLATELET COUNT 365 TH/MM3 (150-450); RED BLOOD COUNT 3.83 MIL/MM3 (4.50-5.90); RED CELL DISTRIBUTION WIDTH 22.2 % (11.6-17.2); WHITE BLOOD COUNT 17.8 TH/MM3 (4.0-11.0)
--- NOTE | 2017-05-06 12:49 | HHI.IDPN ---
Subjective Subjective Remarks Patient is a 57-year-old male, resident of a fdc, chronically on the respirator, has history of spinal cord injury with quadriplegia, has a PEG, colostomy, and a suprapubic catheter in place, brought to the hospital for evaluation of fever. He was also agitated according to the fdc notes. On evaluation of his fdc records, it looks like the patient was started on vancomycin and Zosyn on April 23 for treatment of osteomyelitis as a result of a sacral decubitus ulcer, with growth of ESBL positive organism, Proteus mirabilis. There was also mention that he had an MRSA from an elbow wound culture. There has been no change on his respiratory status. He remains chronically vent dependent. Evaluation in the emergency room showed leukocytosis. Chest x-ray showed basilar infiltrates and which seem to be similar to his chest x-ray from December 2016. CT of the abdomen and pelvis showed bilateral lower lobe consolidation with left pleural effusion, PEG tube in place, the location of the small bowel, and some sclerotic changes and hypertrophic changes of the left ischial tuberosity. He is not on pressors. His suprapubic catheter was reportedly change in the emergency room. Urinalysis was abnormal with significant pyuria. His cultures are currently pending. Cultures from the fdc are not available for review. Patient is currently on meropenem. Infectious disease consultation has been requested to evaluate and assist with management in a patient with known MDR organism infection. Called to evaluate elevated WBC Patient has been doing well and stable from respiratory standpoint - he is vent dependent He is afebrile Stool in his colostomy mushy Good UO, has SPC Last UC 05/01 with Darrel albicans His WBC have been normal, but CBC done today and WBC is up to 17 D/W RN Temps ok BP ok He is he is going back to [facility] He is adamant that he is going back to [facility] today He gets agitated easily Antibiotics Current Medications Zosyn Medications (Trade) Dose Ordered Sig/Francisco J Route Start Time Stop Time Status Last Admin (Peridex 0.12% Liq) 15 ml BID@08,20 MT 04/26/17 08:00 05/06/17 08:00 (Vitamin C) 500 mg DAILY G-TUBE 04/26/17 09:00 05/06/17 08:12 (Lioresal) 5 mg TID G-TUBE 04/26/17 09:00 05/06/17 08:12 (Buspar) 5 mg TID G-TUBE 04/26/17 09:00 05/06/17 08:11 (Neurontin) 300 mg HS PO 04/26/17 21:00 05/05/17 21:03 (Ativan) 1 mg Q6HR PRN G-TUBE 04/26/17 05:30 05/06/17 08:12 (Remeron) 15 mg HS G-TUBE 04/26/17 21:00 05/05/17 21:03 (Roxicodone) 5 mg Q6HR PRN PEG 04/26/17 05:30 05/03/17 20:17 (Senokot) 17.2 mg BID G-TUBE 04/26/17 09:00 05/06/17 08:11 (Silvadene 1% Cream (50 Gm)) 1 applic DAILY TOPICAL 04/26/17 09:00 05/06/17 08:12 (Theragran M Tab) 1 tab DAILY G-TUBE 04/26/17 09:00 05/06/17 08:12 (Desyrel) 150 mg HS PO 04/26/17 21:00 05/05/17 21:03 (NS Flush) 2 ml UNSCH PRN IV FLUSH 04/26/17 05:30 05/03/17 20:18 (NS Flush) 2 ml BID IV FLUSH 04/26/17 09:00 05/05/17 21:00 (Tylenol) 650 mg Q6H PRN PO 04/26/17 05:30 (Pepcid) 20 mg Q12HR PO 04/26/17 09:00 05/06/17 08:12 (Zofran Inj) 4 mg Q6H PRN IV PUSH 04/26/17 05:30 (Albuterol Neb) 2.5 mg Q2HR NEB PRN INH 04/26/17 05:30 05/05/17 09:56 Miscellaneous Information 1 Q361D XX 04/26/17 05:30 04/26/17 05:30 (Chlorhexidine 2% Cloth) Taper DAILY@04 TOP 04/27/17 04:00 04/23/18 03:59 05/02/17 03:26 (Chlorhexidine 2% Cloth) 3 pack UNSCH PRN TOP 04/26/17 05:30 (Lynsey-Colace) 1 tab BID PO 04/26/17 09:00 05/06/17 08:12 (Milk Of Magnesia Liq) 30 ml Q12H PRN PO 04/26/17 05:30 (Senokot) 17.2 mg Q12H PRN PO 04/26/17 05:30 (Dulcolax Supp) 10 mg DAILY PRN RECTAL 04/26/17 05:30 (Lactulose Liq) 30 ml DAILY PRN PO 04/26/17 05:30 (D50w (Vial) Inj) 50 ml UNSCH PRN IV PUSH 04/26/17 10:00 Future Hold (Glucagon Inj) 1 mg UNSCH PRN OTHER 04/26/17 10:00 (NovoLOG SUPPLEMENTAL SCALE) 1 Q4HR SQ 04/26/17 10:00 04/26/17 15:36 Potassium Chloride 100 ml @ 50 mls/hr Q2H PRN IV 04/26/17 14:30 05/01/17 06:11 Potassium Chloride 100 ml @ 50 mls/hr Q2H PRN IV 04/26/17 14:30 05/02/17 13:40 (K-Lyte Cl Eff) 50 meq UNSCH PRN PO 04/26/17 14:30 04/30/17 16:41 Potassium Chloride 100 ml @ 25 mls/hr UNSCH PRN IV 04/26/17 14:30 04/26/17 15:31 Potassium Chloride 100 ml @ 50 mls/hr Q2H PRN IV 04/26/17 14:30 Magnesium Sulfate 4 gm/Sodium Chloride 100 ml @ 50 mls/hr UNSCH PRN IV 04/26/17 14:30 (Mag-Ox) 800 mg UNSCH PRN PO 04/26/17 14:30 Magnesium Sulfate 2 gm/Sodium Chloride 100 ml @ 50 mls/hr UNSCH PRN IV 04/26/17 14:30 (K-Phos) 2,000 mg Q4H PRN PO 04/26/17 14:30 Sodium Phosphate 30 mmol/Sodium Chloride 250 ml @ 42 mls/hr UNSCH PRN IV 04/26/17 14:30 05/03/17 10:23 (K-Phos) 2,000 mg UNSCH PRN PO/TUBE 04/26/17 14:30 Potassium Phosphate 30 mmol/ Sodium Chloride 260 ml @ 42 mls/hr UNSCH PRN IV 04/26/17 14:30 (Pepcid Inj) 20 mg Q12HR PRN IV PUSH 04/27/17 14:30 Piperacillin Sod/ Tazobactam Sod 100 ml @ 200 mls/hr Q6H IV 04/28/17 12:00 05/12/17 12:00 05/06/17 06:00 (Apresoline Inj) 10 mg Q6H PRN IV PUSH 04/28/17 17:45 05/04/17 15:15 (Reglan Inj) 5 mg Q8HR IV PUSH 04/29/17 10:00 05/06/17 06:00 (Lovenox Inj) 90 mg Q12H SQ 04/29/17 10:00 05/05/17 21:04 (Clear Eyes Redness Relief 0.012% Opth Soln) 1 drop QID PRN EACH EYE 04/29/17 19:45 Dextrose/Sodium Chloride 1,000 ml @ 42 mls/hr [id number] IV 05/01/17 08:15 Future Hold 05/02/17 09:10 Lines Port PIV Past Medical History Quadriplegia following spinal cord injury Chronic vent dependent respiratory failure with tracheostomy Hypertension Chronic opioid use Sacral decubitus ulcer present on admission, Left elbow decubitus ulcer present on admission Anxiety Depression Ostomy Chronic suprapubic catheter PEG Prior ileus Previous treatment for 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 Vital Signs Date Time Temp Pulse Resp B/P (MAP) Pulse Ox O2 Delivery O2 Flow Rate FiO2 05/06/17 09:53 97 35 05/06/17 08:00 30 05/06/17 08:00 98.7 100 19 125/65 (85) 97 05/06/17 04:59 96 35 05/06/17 04:00 30 05/06/17 04:00 98.4 100 19 142/71 (94) 97 05/06/17 00:00 98.7 102 30 160/81 (107) 100 05/06/17 00:00 30 05/05/17 22:14 99 35 05/05/17 20:00 98.1 94 23 153/76 (101) 100 05/05/17 20:00 30 05/05/17 18:00 98 05/05/17 16:00 98 05/05/17 16:00 98.3 80 14 107/58 (74) 100 05/05/17 16:00 30 05/05/17 15:49 99 35 05/05/17 14:00 63 . Laboratory Tests Test 05/05/17 08:46 05/06/17 05:58 05/06/17 09:12 White Blood Count 7.7 TH/MM3 17.4 TH/MM3 17.8 TH/MM3 Red Blood Count 3.82 MIL/MM3 3.74 MIL/MM3 3.83 MIL/MM3 Hemoglobin 8.5 GM/DL 8.2 GM/DL 8.3 GM/DL Hematocrit 26.8 % 26.5 % 27.0 % Mean Corpuscular Volume 70.3 FL 70.9 FL 70.5 FL Mean Corpuscular Hemoglobin 22.1 PG 21.8 PG 21.7 PG Mean Corpuscular Hemoglobin Concent 31.5 % 30.7 % 30.8 % Red Cell Distribution Width 21.8 % 21.8 % 22.2 % Platelet Count 359 TH/MM3 314 TH/MM3 365 TH/MM3 Mean Platelet Volume 7.6 FL 7.6 FL 7.8 FL Neutrophils (%) (Auto) 89.9 % 90.1 % Lymphocytes (%) (Auto) 4.6 % 5.3 % Monocytes (%) (Auto) 4.1 % 3.7 % Eosinophils (%) (Auto) 1.1 % 0.7 % Basophils (%) (Auto) 0.3 % 0.2 % Neutrophils # (Auto) 15.7 TH/MM3 16.1 TH/MM3 Lymphocytes # (Auto) 0.8 TH/MM3 0.9 TH/MM3 Monocytes # (Auto) 0.7 TH/MM3 0.7 TH/MM3 Eosinophils # (Auto) 0.2 TH/MM3 0.1 TH/MM3 Basophils # (Auto) 0.1 TH/MM3 0.0 TH/MM3 CBC Comment AUTO DIFF DIFF FINAL Differential Comment Laboratory Tests Test 2/12/18 08:46 05/06/17 05:58 Blood Urea Nitrogen 8 MG/DL 9 MG/DL Creatinine 0.39 MG/DL 0.44 MG/DL Random Glucose 124 MG/DL 123 MG/DL Calcium Level 8.9 MG/DL 9.0 MG/DL Phosphorus Level 3.3 MG/DL Magnesium Level 2.3 MG/DL Sodium Level 140 MEQ/L 139 MEQ/L Potassium Level 3.5 MEQ/L 4.0 MEQ/L Chloride Level 106 MEQ/L 103 MEQ/L Carbon Dioxide Level 27.8 MEQ/L 28.3 MEQ/L Anion Gap 6 MEQ/L 8 MEQ/L Estimat Glomerular Filtration Rate 279 ML/MIN 242 ML/MIN Imaging Chest X-Ray 04/27/17 0000 Signed Impressions: Service Date/Time: Thursday, April 27, 2017 03:59 - CONCLUSION: No significant change has occurred. Ilya Nash MD Lower Extremity Ultrasound 04/26/17 2344 Signed Impressions: Service Date/Time: Wednesday, April 26, 2017 08:46 - CONCLUSION: 1. Occlusive deep venous thrombosis right leg. 2. No DVT left leg. Adi Ferrer MD Abdomen/Pelvis CT 04/25/17 0000 Signed Impressions: Service Date/Time: Wednesday, April 26, 2017 01:13 - CONCLUSION: Probable ileus versus developing small bowel obstruction with dilated small bowel loops identified and no discrete transition point, however close clinical and radiographic followup is advised. Left pleural effusion and bilateral lower lobe consolidation. Renal cysts. Small amount of free fluid. Decubitus ulcer with underlying sclerosis and hypertrophic changes of the left ischial tuberosity. Ilya Nash MD Physical Exam GENERAL: Agitated, on the vent SKIN: Cool and dry. No generalized rash, no ecchymoses and no evidence of embolic lesions. HEAD: Atraumatic. Normocephalic. No temporal wasting, or tenderness. EYES: Deridder conjunctiva. No petechia or hemorrhage. Pupils equal, round and reactive to light. Extraocular movements full and intact. No scleral icterus. No injection or drainage. EARS, NOSE AND THROAT: Nose without bleeding or purulent nasal discharge. No sinus tenderness. Mucous membranes pink and moist. No oral lesions noted. NECK: Tracheostomy site is ok. Supple and not tender, no meningeal signs. RIJ line ok, no evidence of infection CARDIOVASCULAR: Regular rate and rhythm. No murmurs, rubs or gallops heard RESPIRATORY: Bilateral coarse rhonchi. Equal breath sounds ABDOMEN: Distended, tympanitic on percussion, bowel sounds are hypoactive. PEG site looks ok,. Colostomy bag with mushy stool. SPC site ok. BACK: Has sacral ulcer that is about 8 x 10 cm, min drainage, no odor, with some slough. EXTREMITIES: No clubbing, cyanosis. Has blateral pitting pedal edema. Dry dressing L elbow NEUROLOGICAL: Awake and alert. Contractures of his extremities PSYCHIATRIC: Normal affect, calm and cooperative. LINE: No evidence of infection Assessment & Plan Remarks IMPRESSION Sepsis with fever, leukocytosis, tachycardia, elevated lactic acid, source - better - DDX: , PNA - has lines : port not working, has midline ?inserted, site ok - has decubitus, C/S MDR, wounds look ok, on Abx since 04/23, ? osteomyelitis - temps better Chronic respiratory failure, due to quadriplegia from SC injury HCAP UTI, has SPC Sacral decubitus, ?osteo L elbow wound, looks ok, per SNF records (+) MRSA in C/S which could just be colonization Abdominal distension, possible ileus on CT Leukocytosis, up to 17 today, no fever, no change in resp status, stool same - he did have a UC with darrel, ?cause Elevated LFTs, ?due to sepsis, GB looks ok on CT - improving Abdominal distension, better, has BM RECOMMENDATION Continue Zosyn - plan 14 days Rx - end date May 12 Add Diflucan and give 7 days Clinically no other evidence of infection except the Darrel in the UC Follow CBC in at least 4-5 days - can be done in SNF CM to ask if patient can just have a PIV to finish his IV Abx in SNF D/W Leonila Jaramillo MD May 06, 2017 12:49
[2017-05-06] MEDS ORDERED: FLUCONAZOLE 100 MG TAB PO SCH (13:00)
[2017-05-06 13:51] LABS: MITOCHONDRIAL ABS 54.8 U (<=20.0)
--- NOTE | 2017-05-06 19:36 | HHI.PR ---
Subjective Remarks He is awake seems very anxious. and on Vent support, FIo2 at 30 %.Rate at 14.Good output. On tube feeds. Tolerates it Objective Vital Signs Date Time Temp Pulse Resp B/P (MAP) Pulse Ox O2 Delivery O2 Flow Rate FiO2 05/06/17 17:44 98 35 05/06/17 16:00 30 05/06/17 16:00 98.3 100 19 126/69 (88) 97 05/06/17 14:21 97 35 05/06/17 12:00 98.3 100 19 126/69 (88) 97 05/06/17 12:00 30 05/06/17 09:53 97 35 05/06/17 08:00 30 05/06/17 08:00 98.7 100 19 125/65 (85) 97 05/06/17 04:59 96 35 05/06/17 04:00 30 05/06/17 04:00 98.4 100 19 142/71 (94) 97 05/06/17 00:00 98.7 102 30 160/81 (107) 100 05/06/17 00:00 30 05/05/17 22:14 99 35 05/05/17 20:00 98.1 94 23 153/76 (101) 100 05/05/17 20:00 30 I/O 05/05/17 05/05/17 05/05/17 05/06/17 05/06/17 05/06/17 07:00 15:00 23:00 07:00 15:00 23:00 Intake Total 605 ml 811 ml 871 ml Output Total 1100 ml 400 ml 600 ml Balance -495 ml 411 ml 271 ml Intake Oral 0 ml IV Total 100 ml 189 ml Tube Feeding 545 ml 651 ml 622 ml Other 60 ml 60 ml 60 ml Output Urine Total 1000 ml 400 ml 500 ml Stool Total 100 ml 0 ml 100 ml Result Diagram: 05/06/17 0912 05/06/17 0558 Objective Remarks This emaciated middle-aged -[place] male has multiple contractures of the extremities and weakness of all extremities. Skin: Tightly stretched over the extremities. Decubitus ulcers in the sacral and elbow areas. HEENT: Head normocephalic. Pupils are reactive. Tongue is moist. Throat is dry. Nasal mucosa is clear. Neck: Supple without venous distension. Trachea midline. Chest: Decreased excursions with few basilar crackles. Heart: Heart sounds are regular S1-S2. No murmur. No S3. Abdomen: Protuberant with a PEG tube in place, ostomy and suprapubic catheter. No organomegaly. Bowel sounds active. Extremities: Contractures with flexion of arms, elbows and foot drop bilaterally with quadriparesis. There is no edema of the extremities. Skin: Dry and cool. Assessment and Plan Assessment and Plan IMPRESSION: 1. Ventilator dependent respiratory failure. 2. Status post tracheostomy and PEG tube placement, port placement. 3. Quadriplegia. 4. Multiple decubitus ulcers with sepsis. 5. Bibasilar pneumonia and atelectasis. 6. Anxiety and depression. 7. Hypertension. plan : 1. Continue on vent support , Pressure SIMV rate 14 , PEEP +5 and FIO2 30 % 2. Nebs q6h , duoneb 3. Antibiotics per ID 4. OK to transfer to [facility]. 5. Tube feeds at 50 CC 6. Labs in am 7. Wound management 8. Ativan .5 mg tid prn for anxiety Jaleel Oneill MD May 06, 2017 19:36
[2017-05-06] MEDS: MIRTAZAPINE 15 MG TAB G-TUBE SCH (19:46)
[2017-05-06] MEDS: GABAPENTIN 300 MG CAP PO SCH (19:46)
[2017-05-06] MEDS: traZODone HCL 100 MG TAB PO SCH (19:46)
[2017-05-06 19:53] LABS: ALK PHOS BONE (ISOENZYMES) 20 % (28-66); ALK PHOS INTESTINE (ISOENZYME) 0 % (1-24); ALK PHOS LIVER (ISOENZYME) 80 % (25-69); ALK PHOS PLACENTAL ISOENZYME 0 % (UNDETECTABLE)
== END 2017-05-06 21:15 | DRG 853 ==
LOC: NEPE 22:12 → NEDA 04-26 02:02 → HIMN 04-26 05:15
PROVIDERS: ADMIT Emergency Medicine; ATTEND Emergency Medicine
PROC: 05HM33Z Insertion of Infusion Device into Right Internal Jugular Vein, Percutaneous Approach (ICD-10-PCS; principal; 2017-04-26)
PROC: 5A1955Z Respiratory Ventilation, Greater than 96 Consecutive Hours (ICD-10-PCS; 2017-04-26)
PROC: 0DH63UZ Insertion of Feeding Device into Stomach, Percutaneous Approach (ICD-10-PCS; 2017-04-28)
PROC: 0DP64UZ Removal of Feeding Device from Stomach, Percutaneous Endoscopic Approach (ICD-10-PCS; 2017-04-28 10:51)
DX: A41.9 Sepsis, unspecified organism (principal); G82.50 Quadriplegia, unspecified; J90 Pleural effusion, not elsewhere classified; J18.9 Pneumonia, unspecified organism; Z99.11 Dependence on respirator [ventilator] status; L89.154 Pressure ulcer of sacral region, stage 4; J96.10 Chronic respiratory failure, unspecified whether with hypoxia or hypercapnia; K56.609 Unspecified intestinal obstruction, unspecified as to partial versus complete obstruction; K94.23 Gastrostomy malfunction; N39.0 Urinary tract infection, site not specified; M46.28 Osteomyelitis of vertebra, sacral and sacrococcygeal region; K56.7 Ileus, unspecified; J98.11 Atelectasis; I82.409 Acute embolism and thrombosis of unspecified deep veins of unspecified lower extremity; E87.1 Hypo-osmolality and hyponatremia; F32.9 Major depressive disorder, single episode, unspecified; F41.9 Anxiety disorder, unspecified; G89.29 Other chronic pain; Y95 Nosocomial condition; Z93.0 Tracheostomy status; L89.029 Pressure ulcer of left elbow, unspecified stage; Z86.14 Personal history of Methicillin resistant Staphylococcus aureus infection; Z93.59 Other cystostomy status; Z93.3 Colostomy status; Z86.718 Personal history of other venous thrombosis and embolism; Z79.891 Long term (current) use of opiate analgesic; Z53.20 Procedure and treatment not carried out because of patient's decision for unspecified reasons; R65.20 Severe sepsis without septic shock; G62.9 Polyneuropathy, unspecified; Z79.899 Other long term (current) drug therapy; R73.9 Hyperglycemia, unspecified; N28.1 Cyst of kidney, acquired; I95.9 Hypotension, unspecified; I10 Essential (primary) hypertension; K20.9 Esophagitis, unspecified; K26.9 Duodenal ulcer, unspecified as acute or chronic, without hemorrhage or perforation; K29.70 Gastritis, unspecified, without bleeding; D64.9 Anemia, unspecified
CPT/HCPCS: 36556; 36600; 71045; 74018; 74177; 74250; 76937; 80048; 80053; 80074; 80202; 80307; 81001; 82550; 82552; 82607; 82728; 82746; 82805; 82948; 82977; 83036; 83520; 83540; 83550; 83605; 83690; 83735; 84080; 84100; 84132; 84484; 85007; 85014; 85018; 85025; 85027; 85610; 85730; 86255; 87040; 87070; 87071; 87077; 87086; 87186; 87205; 87641; 87804; 93970; 94002; 94003; 94640; 94664; 96374; 96375; J0360; J1644; J1650; J1815; J1885; J2060; J2185; J2270; J2370; J2543; J2765; J3480; J7030; J7040; J7042; J7050; J7613; Q9963; Q9967